=== PATIENT | male | born 1990 | race Caucasian/White ===

== ENCOUNTER 2020-09-27 02:34 | Outpatient (CLI) | payer MEDICAID, SELFPAY ==
[2020-09-29 21:46] LABS: Patient Race White; SARS-CoV-2 RNA Undetected (Undetected); SARS-CoV-2 Specimen Source Nasal
== END 2020-09-27 02:54 ==
PROVIDERS: PCP Family Medicine; Visit Provider Family Medicine
DX: J02.9 Acute pharyngitis, unspecified (principal)
CPT/HCPCS: U0003

== ENCOUNTER 2020-09-28 16:26 | Outpatient (REF) | payer MEDICAID, SELFPAY | END 2020-09-28 16:46 | LOC: LBN 16:26 | PROVIDERS: PCP Family Medicine; Visit Provider Family Medicine | DX: J02.9 Acute pharyngitis, unspecified (principal) | CPT/HCPCS: 87070 ==

== ENCOUNTER 2021-02-07 02:53 | Outpatient (CLI) | payer MEDICAID, SELFPAY ==
[2021-02-07 11:10] LABS: Source Nasal/Nares
[2021-02-07 14:25] LABS: COVID-19 PCR Negative (Negative)
== END 2021-02-07 02:54 | disposition home or self-care (01) ==
LOC: LBO 02:54
PROVIDERS: PCP Family Medicine; Visit Provider Nurse Practitioner
DX: Z20.822 Contact with and (suspected) exposure to COVID-19 (principal); Z01.818 Encounter for other preprocedural examination; G47.33 Obstructive sleep apnea (adult) (pediatric)
CPT/HCPCS: 87635

== ENCOUNTER 2021-03-26 08:17 | Emergency (ER) | payer MEDICAID, SELFPAY ==
[2021-03-26 08:23] VITALS: BP 135/91; PULSE 91; RESP 18; TEMP 36.7; O2SAT 98
--- NOTE | 2021-03-26 08:32 | ED.GENADUL_ITS ---
Discharge Plan Disposition Patient Disposition: HOME Condition: Stable Discharge Details Clinical Impression: Dental infection Primary Care Provider: Willis Henderson ED Provider: Kristi Johnson Home Meds and New Rx's Prescriptions: New amoxicillin-pot clavulanate [Augmentin] 875-125 mg tablet 1 tab PO BID Qty: 14 RF: 0 Continued albuterol sulfate [ProAir HFA] 90 mcg/actuation HFA aerosol inhaler 2 puff inhalation Q4H PRN (Reason: shortness of breath or wheezing) Qty: 18 RF: 6 clonidine HCl 0.1 mg tablet See Rx Instructions PO BID Qty: 360 RF: 3 hydroxyzine HCl 50 mg tablet See Rx Instructions PO BID PRN (Reason: anxiety) Qty: 145 RF: 3 lisinopril 20 mg tablet 20 mg PO DAILY Qty: 90 RF: 3 omeprazole 40 mg capsule,delayed release(DR/EC) 40 mg PO DAILY Qty: 90 RF: 3 budesonide-formoterol [Symbicort] 80-4.5 mcg/actuation HFA aerosol inhaler 2 puff inhalation BID Qty: 10.2 RF: 3 Discharge Instructions Instructions: Benzocaine (By mouth), Dental Abscess (ED) Additional Instructions: Your exam is most consistent with a dental infection. Please take the antibiotics prescribed, this is been sent to your local pharmacy. Even if symptoms improve, please take the entire course. You received a dental block which hopefully will provide a few hours of relief. You may use the benzocaine topically 4 times a day needed to to help with discomfort. Please pressure teeth at least twice a day. He will need follow-up with a dentist to have definitive care for this infection. Attached is a list of local dental offices Saturday to schedule follow-up appointment. If you develop fever/chills, increased pain, increased swelling or other new/worsening symptoms care urgently once again. You may continue with Tylenol and/or ibuprofen as needed for discomfort. Please take as directed on the bottle. Referrals: Willis Henderson DO [Primary Care Provider] - Medical Decision Making Patient is a pleasant 30-year-old male presenting today with chief complaint of dental pain. Reports the pain began in the upper left posterior aspect 3 days ago. No known fevers or chills. States he may MORNING he noticed some facial swelling prompting them to come in. Patient has had dental infections historically. Only brushes his teeth once per day. Has not had routine care from the dentist. No difficulty swallowing, shortness of breath. On exam, patient appears nontoxic. Vital signs are stable. He has multiple fractured teeth and areas of decay. He is tender along the upper posterior left buccal aspect of the dentition. The #15 tooth is broken and decaying, is likely the source of infection. No focal area of swelling, fluctuance or area to suggest an abscess. He has good range of motion, no abnormalities to the posterior oropharynx structures. No swelling under the tongue. He does have some facial swelling on the left cheek but this is soft and nontender to palpation. Patient and I discussed treatment options. We will begin the patient on antibiotics for dental infection. We did discuss dental hygiene further. Encourage close follow-up with dentist, will provide list of local dentist. Rest of history/benefits as well as expected procedural steps associated with a dental block. He would like to move forward with this procedure. At this time, I see no evidence of drainable abscess, evidence of septicemia or spreading infection. Procedure with reformatted mix of 1-1 0.5% bupivacaine and 1% lidocaine plain. Patient tolerated the procedure well. Pain is improved. Patient will be started on antibiotics. Nuclear encourage close follow-up with dentist. List of local dentists were given and he will begin calling on Saturday. Return precautions were discussed. All his questions and concerns were addressed in agreement with plan. HPI General Mode of arrival: ambulatory . Date/Time Provider Initiated Documentation: 03/26/21 08:32 . Limitations to Documentation: no limitations . Information obtained by: patient and RN notes reviewed . History of Present Illness 30 year old M presents to the emergency department with the chief complaint of left upper dental pain, described as severe and similar to prior episodes, with intensity rated at 8. Quality is described as aching, and is localized to the mouth. Patient reports no radiation. Patient started experiencing this day(s) (3) and it has been constant. No relieving factors improve symptom(s), No exacerbating factors reported . Patient notes no other symptoms.. Patient did receive the following treatments prior to arrival, NSAID Related Data Home Medications Medication Instructions Recorded Confirmed albuterol sulfate 90 mcg/actuation 2 puff INHALATION Q4H PRN #18 g 10/05/20 03/26/21 aerosol inhaler clonidine HCl 0.1 mg tablet See Rx Instructions PO BID #360 tab 01/06/21 03/26/21 hydroxyzine HCl 50 mg tablet See Rx Instructions PO BID PRN 01/06/21 03/26/21 #145 tab lisinopril 20 mg tablet 20 mg PO DAILY #90 tab 01/06/21 03/26/21 omeprazole 40 mg capsule,delayed 40 mg PO DAILY #90 cap 01/06/21 03/26/21 release budesonide-formoterol HFA 80 2 puff INHALATION BID #10.2 g 03/03/21 03/26/21 mcg-4.5 mcg/actuation aerosol inhaler amoxicillin-pot clavulanate 1 tab PO BID #14 tab 03/26/21 [Augmentin] Previous Rx's Medication Instructions Recorded albuterol sulfate 90 mcg/actuation 2 puff INHALATION Q4H PRN #18 g 10/05/20 aerosol inhaler clonidine HCl 0.1 mg tablet See Rx Instructions PO BID #360 tab 01/06/21 hydroxyzine HCl 50 mg tablet See Rx Instructions PO BID PRN 01/06/21 #145 tab lisinopril 20 mg tablet 20 mg PO DAILY #90 tab 01/06/21 omeprazole 40 mg capsule,delayed 40 mg PO DAILY #90 cap 01/06/21 release budesonide-formoterol HFA 80 2 puff INHALATION BID #10.2 g 03/03/21 mcg-4.5 mcg/actuation aerosol inhaler amoxicillin-pot clavulanate 1 tab PO BID #14 tab 03/26/21 [Augmentin] Allergies Allergy/AdvReac Type Severity Reaction Status Date / Time codeine Allergy Intermediate rash Verified 03/26/21 08:28 General Stated Complaint: DentalOral JASON: 4 Review of Systems Constitutional Constitutional: Reports as per HPI, Denies chills, Denies fatigue, Denies fever(s), Denies headache(s) and Denies poor appetite Eyes Eyes: Denies change in vision and Denies irritation ENT Ears, Nose, Mouth, and Throat: Reports as per HPI, Reports dental pain, Denies dysphagia, Denies dizziness, Denies dry mouth, Denies ear discharge, Denies otalgia, Reports facial pain, Denies headache(s), Denies hoarseness, Denies lip swelling, Denies nasal congestion, Denies odynophagia and Denies sore throat Cardiovascular Cardiovascular: Reports as per HPI and Denies chest pain Respiratory Respiratory: Reports as per HPI and Denies cough Gastrointestinal Gastrointestinal: Reports as per HPI, Denies dysphagia, Denies nausea, Denies odynophagia and Denies vomiting Integumentary/Breasts Skin/Breast: Reports as per HPI, Denies erythema, Denies rash and Denies skin pain Neurologic Neurologic: Reports as per HPI, Denies dizziness and Denies headache(s) Endocrine Endocrine: Denies fatigue Allergic/Immunologic Allergic/Immunologic: Denies lip swelling PFSH Medical History ADHD Anxiety Asthma Depression GERD (gastroesophageal reflux disease) History of substance abuse Hypertension Family History Mother Substance abuse Brother Substance abuse Uncle Anxiety Depression Other Diabetes Hypertension Liver cancer Social History Smoking/Tobacco Use Status: Current every day Tobacco Type: cigarettes Smoking packs per day: 1 Smoking cigarettes per day: 20.0 Years smoked: 15 Smoking pack- years: 15.00 Smoking risk assessment performed?: Yes Alcohol Intake: former Year quit: 2019 Previous attempts at quittin Drug use: Current Sobriety Substance use type: former substance user Date of last use: 07/01/2020, marijuana, crack/cocaine and opiates Details: No IV Drug Use Adopted: No Caregiver/Support person: No Foster care: No Household members: none Housing: other Details: Sober Living Number of Children: 0 Do you need help understanding health information?: Rarely current occupation: Unemployed Sexually active: Yes Do you think of yourself as: straight/heterosexual Current gender identity: male Do you feel safe at home: Yes Exam Const General: cooperative, healthy appearing, comfortable, no acute distress, well developed and well groomed Nutritional Appearance: average body habitus and well nourished Orientation: alert and awake HENMT Head: normal to inspection, normocephalic and atraumatic Ears: hearing grossly normal bilaterally, external ears normal and TM's normal bilaterally General nose exam: external nose normal and nares normal Face and sinus: normal facial exam, sinuses nontender and face asymmetric (slight swelling noted on left side of face) Mouth: oral mucosae normal, lip normal, tongue normal, no muffled voice, no trismus and No restricted motion Teeth and gingiva: poor dentition (multiple fractured teeth, multiple caries) and other (pain along left upper buccal posterior aspect. No pain lingually. No swelli) Throat: posterior oropharynx normal, tonsils normal and uvula midline Eyes General: appearance normal, both eyes and all related structures Neck Neck: normal visual inspection, full ROM, no lymphadenopathy, supple and no anterior neck swelling Resp Effort & Inspection: normal respiratory effort, able to speak in complete sentences and no respiratory distress Cardio Rate: regular rate Rhythm: regular rhythm Skin General skin exam: no rashes or lesions noted Trauma: no lacerations or abrasions Neuro General: patient alert and patient awake Cognition: normal cognition Speech: speech normal Gait: normal gait Psych Appearance: grossly normal and well kempt Mental Status: mental status grossly normal Speech and Movement: speech and movement normal Course Vital Signs Vital signs: Vital Signs Temperature 36.7 C 03/26/21 08:23 Pulse 91 H 03/26/21 08:23 Respiratory Rate 18 03/26/21 08:23 Blood Pressure 135/91 H 03/26/21 08:23 Pulse Oximetry 98 03/26/21 08:23 Temperature 36.7 C 03/26/21 08:23 Temperature Source Temporal Artery Scan 03/26/21 08:23 Pulse 91 H 03/26/21 08:23 Respiratory Rate 18 03/26/21 08:23 Respiratory Effort 03/26/21 08:26 Blood Pressure 135/91 H 03/26/21 08:23 Blood Pressure Position Supine 03/26/21 08:23 Pulse Oximetry 98 03/26/21 08:23 Oxygen Delivery Method Room Air 03/26/21 08:23 Oxygen Flow Rate 0 03/26/21 08:23 Pain Level 8 03/26/21 08:29 Procedures Nerve Block Nerve Block 1: Time out performed: Yes Local Anesthetic: Lidocaine 1% and Bupivicaine 0.5% Amount of anesthesia used (mL): 2 Side: left Intraoral Nerve Block: superior alveolar Procedure Successful: Yes Patient Tolerated Procedure: well and no complications Complications: none
[2021-03-26] MEDS: Benzocaine 20% Gel 30 GM JAR MM (08:51)
[2021-03-26] MEDS: Bupivacaine 0.5% Pres-Free 30 ML VIAL IJ (08:52)
== END 2021-03-26 09:15 | disposition home or self-care (01) ==
PROVIDERS: Emergency Provider Physician Assistant; PCP Family Medicine
DX: K04.7 Periapical abscess without sinus (principal)
CPT/HCPCS: 64400

== ENCOUNTER 2021-12-25 12:19 | Emergency (ER) | payer MEDICAID, SELFPAY ==
[2021-12-25 12:38] VITALS: BP 128/93; PULSE 98; RESP 16; TEMP 36.8; O2SAT 97
--- NOTE | 2021-12-25 12:45 | DI.RAD_ITS ---
Exam(s) XR ELBOW LT COMPLETE EXAM: XR ELBOW LT COMPLETE CLINICAL HISTORY: Trauma. TECHNIQUE: 2D digital imaging was performed. COMPARISON: No exams were available for comparison FINDINGS: BONES: No acute fracture is present. No bony destructive lesion is seen. JOINTS: The elbow is normally aligned. No joint effusion is seen. SOFT TISSUE: Normal. IMPRESSION: Unremarkable radiographs of the left elbow. DATA REPOSITORY: RADIATION DOSE DELIVERED:
--- NOTE | 2021-12-25 12:45 | DI.RAD_ITS ---
Exam(s) XR SHOULDER LT COMPLETE 2+V EXAM: XR SHOULDER LT COMPLETE 2+V CLINICAL HISTORY: Fall. TECHNIQUE: 2D digital imaging was performed. COMPARISON: No exams were available for comparison FINDINGS: BONES: No acute fracture is present. No bony destructive lesion is seen. Degenerative changes with s ubchondral cysts in the glenoid. JOINTS: No dislocation present. SOFT TISSUE: Normal. IMPRESSION: No acute abnormality.. DATA REPOSITORY: RADIATION DOSE DELIVERED:
--- NOTE | 2021-12-25 13:35 | W.ED.GENAD ---
Discharge Plan Disposition Patient Disposition: HOME Condition: Stable Discharge Details Clinical Impression: Sprain of left shoulder Primary Care Provider: Willis Henderson ED Provider: Brandee Seals Home Meds and New Rx's Prescriptions: Continued albuterol sulfate [ProAir HFA] 90 mcg/actuation HFA aerosol inhaler 2 puff inhalation Q4H PRN (Reason: shortness of breath or wheezing) Qty: 18 6RF clonidine HCl 0.1 mg tablet See Rx Instructions PO BID Qty: 360 3RF Rx Instructions: 0.2 mg BID, may titrate down PO twice a day; lisinopril 20 mg tablet 20 mg PO DAILY Qty: 90 3RF omeprazole 40 mg capsule,delayed release(DR/EC) 40 mg PO DAILY Qty: 90 3RF budesonide-formoterol [Symbicort] 160-4.5 mcg/actuation HFA aerosol inhaler 2 puff inhalation BID Qty: 10.2 6RF hydroxyzine HCl 50 mg tablet See Rx Instructions PO BID PRN (Reason: anxiety) Qty: 145 3RF Rx Instructions: t 1/2 tab qam and t1 tab qhs PO twice a day PRN; Discharge Instructions Instructions: Shoulder Sprain (ED) Additional Instructions: Take muscle relaxers up to 3 times daily as needed for muscle spasm. Please take Tylenol or Ibuprofen with food every 4-6 hours as needed for pain and swelling. Alternate ice and heat. If continued pain follow-up with orthopedics in the next 1 to 2 weeks. Follow up with primary care provider in 3-5 days. Return to ED sooner if any worsening or concerns. Increase oral fluids. Stand Alone Forms: Work Release Referrals: Willis Henderson DO [Primary Care Provider] - 2 weeks Dajuan Prakash MD [ [facility] ST[facility]FF [facility]YSICIAN] - 2 weeks Discharge Data Discharge Date/Time-TO BE ENTERED AT DEPARTURE: 12/25/21 14:10 Medical Decision Making 31-year-old male presents to the ER with chief complaint of left elbow, left shoulder and posterior back pain after getting out of the truck and slipping and falling this morning. Patient did not hit his head and denies any loss of consciousness. EXAM: XR ELBOW LT COMPLETE CLINICAL HISTORY: Trauma. TECHNIQUE: 2D digital imaging was performed. COMPARISON: No exams were available for comparison FINDINGS: BONES: No acute fracture is present. No bony destructive lesion is seen. JOINTS: The elbow is normally aligned. No joint effusion is seen. SOFT TISSUE: Normal. IMPRESSION: Unremarkable radiographs of the left elbow. EXAM:? XR SHOULDER LT COMPLETE 2+V CLINICAL HISTORY: ? Fall.? TECHNIQUE:? 2D digital imaging was performed. COMPARISON:? No exams were available for comparison FINDINGS: BONES: No acute fracture is present. No bony destructive lesion is seen.? Degenerative changes with subchondral cysts in the glenoid. JOINTS: No dislocation present. SOFT TISSUE: Normal. IMPRESSION: No acute abnormality..? Discussed results with patient who verbally understanding. Discussed home care and alternating ice and heat. Patient was given Flexeril to go and instructed on taking Tylenol and ibuprofen. This text was generated using [employer] system, please disregard any oddities of phrase or misspellings. HPI General Mode of arrival: ambulatory. Date/Time Provider Initiated Documentation: 12/25/21 12:45. Limitations to Documentation: no limitations. Information obtained by: patient, RN notes reviewed and old records reviewed. HPI Narrative: 31-year-old male presents to the ER with chief complaint of left elbow, left shoulder and posterior back pain after getting out of the truck and slipping and falling this morning. Patient did not hit his head and denies any loss of consciousness. It occurred at approximately 9:00. He reports having a history of surgery to the shoulder but he is concerned about this. He does have full range of motion noted to his elbow, no obvious swelling or deformity noted. Distal CMS is intact. He is able to abduct his shoulder to approximately 90 degrees which he reports is at his baseline. No midline tenderness or crepitus palpated. He is alert and oriented. He does have a past medical history of hypertension, GERD, asthma, ADHD and depression. Related Data Home Medications Medication Instructions Recorded Confirmed albuterol sulfate 90 mcg/actuation 2 puff INHALATION Q4H PRN #18 g 10/05/20 12/25/21 aerosol inhaler (ProAir HFA) clonidine HCl 0.1 mg tablet See Rx Instructions PO BID #360 tab 01/06/21 12/25/21 lisinopril 20 mg tablet 20 mg PO DAILY #90 tab 01/06/21 12/25/21 omeprazole 40 mg capsule,delayed 40 mg PO DAILY #90 cap 01/06/21 12/25/21 release budesonide-formoterol HFA 160 2 puff INHALATION BID #10.2 g 11/23/21 12/25/21 mcg-4.5 mcg/actuation aerosol inhaler (Symbicort) hydroxyzine HCl 50 mg tablet See Rx Instructions PO BID PRN 11/23/21 12/25/21 #145 tab Previous Rx's Medication Instructions Recorded albuterol sulfate 90 mcg/actuation 2 puff INHALATION Q4H PRN #18 g 10/05/20 aerosol inhaler (ProAir HFA) clonidine HCl 0.1 mg tablet See Rx Instructions PO BID #360 tab 01/06/21 lisinopril 20 mg tablet 20 mg PO DAILY #90 tab 01/06/21 omeprazole 40 mg capsule,delayed 40 mg PO DAILY #90 cap 01/06/21 release budesonide-formoterol HFA 160 2 puff INHALATION BID #10.2 g 11/23/21 mcg-4.5 mcg/actuation aerosol inhaler (Symbicort) hydroxyzine HCl 50 mg tablet See Rx Instructions PO BID PRN 11/23/21 #145 tab Allergies Allergy/AdvReac Type Severity Reaction Status Date / Time codeine Allergy Intermediate rash Verified 12/25/21 12:42 General Stated Complaint: Orthopedic JASON: 4 Review of Systems All systems reviewed & are unremarkable except as noted in HPI and below Musculoskeletal Musculoskeletal: Reports as per HPI, Denies abnormal gait, Reports back pain and Reports arthralgias Neurologic Neurologic: Denies abnormal gait [facility] All Active Problems Sprain of left shoulder (Acute) Dental infection (Acute) Severe obstructive sleep apnea (Acute) 12/17/20 sleep study [facility] Oral thrush (Acute) Otitis media of left ear (Acute) Pharyngitis (Acute) Depression (Chronic) ADHD (Acute) Anxiety (Chronic) GERD (gastroesophageal reflux disease) (Chronic) History of substance abuse (Acute) Asthma (Chronic) Hypertension (Chronic) Family History Mother Substance abuse Brother Substance abuse Uncle Anxiety Depression Other Diabetes Hypertension Liver cancer Social History Smoking/Tobacco Use Status: Current every day Tobacco Type: cigarettes Smoking packs per day: 1 Smoking cigarettes per day: 20.0 Years smoked: 15 Smoking pack-years: 15.00 Smoking risk assessment performed?: Yes Alcohol Intake: former Year quit: 2019 Previous attempts at quittin Drug use: Current Sobriety Substance use type: former substance user Date of last use: 07/01/2020, marijuana, crack/cocaine and opiates Details: No IV Drug Use Adopted: No Caregiver/Support person: No Foster care: No Household members: none Housing: other Details: Sober Living Number of Children: 0 Do you need help understanding health information?: Rarely current occupation: Unemployed Sexually active: Yes Do you think of yourself as: straight/heterosexual Current gender identity: male Do you feel safe at home: Yes Exam Narrative Exam Narrative: General: Well Developed, Awake and Alert, conversant. Skin: Warm and Dry HEENT: Head: No palpable deformities, Normocephalic Eyes: Pupils PERRLA, EOM's intact. No periorbital eccymosis or step off Ears: Canal patent. Tympanic membranes are clear . No wallace's sign, no hemptympanum. Nose/Face: Atraumatic. Facial bones nontender to palpation and stable with manipulation. Mouth/Throat: No intraoral trauma. Teeth and mandible are intact. Neck: No midline tenderness, no step off, no deformity to palpation of C-spine. Trachea midline. Chest: No surface trauma. Nontender without crepitus or deformity. Lungs clear to ausculatation bilaterally. Heart: RRR, no rubs, murmurs or gallop. Abdomen: No abrasions, ecchymosis, or surface trauma. Nondistended. Nontender to palpation no guarding, rebound, or rigidity. Pelvis: Nontender to palpation and stable to compression. Femoral pulses strong and equal Extremities: no surface trauma. Sensation intact. Peripheral pulses intact and equal. Neuro: ANO x4, GCS 15, cranial nerves II through XII intact. Motor and sensory exam nonfocal. Reflexes are symmetric. Course Vital Signs Vital signs: Vital Signs Temperature 36.8 C 12/25/21 12:38 Pulse 98 H 12/25/21 12:38 Respiratory Rate 16 12/25/21 12:38 Blood Pressure 128/93 H 12/25/21 12:38 Pulse Oximetry 97 12/25/21 12:38 Temperature 36.8 C 12/25/21 12:38 Temperature Source Skin 12/25/21 12:38 Pulse 98 H 12/25/21 12:38 Respiratory Rate 16 12/25/21 12:38 Respiratory Effort 12/25/21 12:38 Blood Pressure 128/93 H 12/25/21 12:38 Blood Pressure Position Sitting 12/25/21 12:38 Pulse Oximetry 97 12/25/21 12:38 Oxygen Delivery Method Room Air 12/25/21 12:38 Oxygen Flow Rate 0 12/25/21 12:38 Pain Level 8 12/25/21 12:38
[2021-12-25] MEDS: Cyclobenzaprine 10 MG TAB, 3 TABS/BTL PO (14:08)
== END 2021-12-25 14:10 | disposition home or self-care (01) ==
PROVIDERS: Emergency Provider Registered Nurse Emergency; PCP Family Medicine
DX: S43.492A Other sprain of left shoulder joint, initial encounter (principal); M25.522 Pain in left elbow; M54.9 Dorsalgia, unspecified; W00.0XXA Fall on same level due to ice and snow, initial encounter
CPT/HCPCS: 99284; 73030; 73080; 99283

== ENCOUNTER 2022-01-31 17:07 | Emergency (ER) | payer MEDICAID, SELFPAY ==
[2022-01-31 17:57] VITALS: BP 140/85; PULSE 110; RESP 16; TEMP 36.7; O2SAT 95
[2022-01-31 18:11] VITALS: TEMP 37.8
[2022-01-31 18:27] LABS: Abs Immature Grans 0.07 10^3/uL (0.0-0.06); Absolute Eosinophil Count 0.37 10^3/uL (0.0-0.7); Absolute Lymphocyte Count 2.51 10^3/uL (1.2-3.4); Basophils % 0.5; Eosinophils % 2.1; HCT 44.2 % (40.0-50.0); HGB 14.3 g/dL (13.5-17.5); Immature Grans % 0.4; Lymphocytes % 14.2; MCH 28.4 pg (27.0-33.0); MCHC 32.4 % (32.0-36.0); MCV 87.7 fL (80-95); MPV 9.6 fL (8.0-11.0); Monocytes % 9.3; Neutrophils % 73.5; Nucleated RBC 0 %; Platelet Count 294 10^3/uL (130-400); RBC 5.04 10^6/uL (4.36-5.78); RDW 12.4 % (11.8-14.1); RDW-SD 39.6 fL; WBC 17.69 10^3/uL (4.4-10.8)
[2022-01-31] MEDS: Acetaminophen 500 MG TAB 1000 MG PO (18:37)
[2022-01-31] MEDS: Normal Saline 1,000 ML 1000 ML IV (18:37)
[2022-01-31 18:42] LABS: Source Nasal/Nares
[2022-01-31 18:43] LABS: ALT 38 U/L (16-63); AST 19 U/L (15-37); Albumin 3.9 g/dL (3.4-5.0); Alkaline Phosphatase 98 U/L (46-116); Anion Gap 8.7 mmol/L (3-11); BUN 14 mg/dL (7-18); Bilirubin, Total 0.3 mg/dL (0.2-1.0); CO2 28.3 mmol/L (21.0-32.0); CREATININE 1.1 mg/dL (0.70-1.30); Calcium 8.5 mg/dL (8.5-10.1); Chloride 102 mmol/L (98-107); Glucose 89 mg/dL (74-106); Lipase 62 U/L (73-393); Potassium 3.8 mmol/L (3.5-5.1); Sodium 139 mmol/L (136-145); Total Protein 7.4 g/dL (6.4-8.2)
[2022-01-31 18:53] LABS: Bilirubin Negative (Negative); Blood Negative (Negative); Clarity Clear (Clear); Glucose Negative (Negative); Ketones Negative (Negative); Leukocyte Esterase Negative (Negative); Nitrite Negative (Negative); Specific Gravity 1.025 (1.005-1.025); Urobilinogen 0.2 EU/dL (Up TO 0.2)
[2022-01-31 18:57] LABS: Absolute Basophil Count 0.09 10^3/uL (0.0-0.2); Absolute Monocyte Count 1.65 10^3/uL (0.1-0.8)
[2022-01-31] MEDS: Ketorolac 30 MG/ML VIAL IVP (19:15)
[2022-01-31 19:37] LABS: COVID-19 PCR Negative (Negative)
[2022-01-31 19:59] LABS: D-Dimer 362 ng/mlFEU (<500)
--- NOTE | 2022-01-31 20:00 | DI.RAD_ITS ---
Exam(s) XR CHEST 2V PA LATERAL EXAM: XR CHEST 2V PA LATERAL CLINICAL HISTORY: cough/fever, covid neg TECHNIQUE: 2D digital imaging was performed of the chest. Two images were obtained. PA and lateral views were obtained. COMPARISON: No exams were available for comparison FINDINGS: MEDIASTINUM: Normal. HEART: Normal. PULMONARY VASCULATURE: Normal. LUNGS: Clear. PLEURAL SPACE: No pleural effusion or pneumothorax. BONE:Within normal limits for the patient's age. OTHER FINDINGS:Normal. IMPRESSION: No acute pulmonary findings. DATA REPOSITORY: RADIATION DOSE DELIVERED:
[2022-01-31 20:33] VITALS: BP 134/79; PULSE 108; RESP 18; TEMP 36.8; O2SAT 95
--- NOTE | 2022-01-31 20:38 | ED.GENADUL_ITS ---
Discharge Plan Disposition Patient Disposition: HOME Condition: Stable Discharge Details Clinical Impression: Pneumonia Primary Care Provider: Willis Henderson ED Provider: Zachary Tsai Home Meds and New Rx's Prescriptions: New azithromycin 250 mg tablet 250 mg PO DAILY 4 Days Qty: 4 0RF lidocaine [Lidoderm] 5 % adhesive patch,medicated 1 patch topical DAILY Qty: 15 0RF Rx Instructions: leave on most painful area for up to 12 hrs Continued albuterol sulfate [ProAir HFA] 90 mcg/actuation HFA aerosol inhaler 2 puff inhalation Q4H PRN (Reason: shortness of breath or wheezing) Qty: 18 6RF clonidine HCl 0.1 mg tablet See Rx Instructions PO BID Qty: 360 3RF Rx Instructions: 0.2 mg BID, may titrate down PO twice a day; budesonide-formoterol [Symbicort] 160-4.5 mcg/actuation HFA aerosol inhaler 2 puff inhalation BID Qty: 10.2 6RF hydroxyzine HCl 50 mg tablet See Rx Instructions PO BID PRN (Reason: anxiety) Qty: 145 3RF Rx Instructions: t 1/2 tab qam and t1 tab qhs PO twice a day PRN; lisinopril 20 mg tablet 20 mg PO DAILY Qty: 90 3RF omeprazole 40 mg capsule,delayed release(DR/EC) 40 mg PO DAILY Qty: 90 3RF Discharge Instructions Instructions: Pneumonia (ED) Additional Instructions: Azithromycin as directed. [id number] Tylenol and/or Motrin as directed f or discomfort. Lidoderm as directed. Please quit smoking. Watch for new or worsening symptoms and return to the ER for any concerns. I would like you to contact your primary care provider tomorrow to make them aware of your ER visit, ongoing symptoms, and need for outpatient reevaluation Discharge Data Discharge Date/Time-TO BE ENTERED AT DEPARTURE: 01/31/22 21:42 Medical Decision Making This is a 31-year-old gentleman, current smoker, past medical history that includes GERD, hypertension, anxiety asthma, substance abuse but denies IV drug use, presenting to the ER this evening from for evaluation of cough and which he initially described as left-sided abdominal pain. Patient states symptoms have been present for approximately 2 weeks. He denies fever, change of appetite, nausea, vomiting chest pain, shortness of breath, diarrhea, constipation, dysuria, radiation of this pain. He has not taken any [id number] occasions for his discussed. When asked to point to where his pain is he actually point to his left inferior rib region and not of his abdomen. Upon the further discussion, it would appear as though she actually does not have abdominal pain. Patient states mild pain at rest but worse with coughing, movement, deep breathing, etc. He denies any injury but believes the pain began after a severe cough. He is febrile and and presents with tachycardia. Plan is to obtain IV access, routine screening laboratory values including lipase a D-dimer. Will provide IV fluids and p.o. Tylenol. Will also obtain a COVID swab. He tells me he is fully vaccinated. Patient responded well to IV fluid, no longer with a fever or tachycardia. O2 sats are 96% room air, he does not require any supplemental oxygen. Laboratory values reveal leukocytosis of 17.69. Neutrophils 13. D-dimer u nremarkable at 362. Will pursue chest x-ray, CTA of the chest likely not required. Chemistries unremarkable. Lipase 62. Chest x-ray was read by radiology is unremarkable but I did question if there could be a very early infiltrate in the left lower lobe. Patient appears well, nontoxic and is hemodynamically stable. He does have some reproducible chest wall discomfort which is certainly course with movement or coughing. He reports his pain to me, will provide IV Toradol and a Lidoderm patch. Given his cough, fever, leukocytosis, questionable x-rays, I do believe initiating antibiotic therapy is reasonable. I discussed my thought process with patient. We also discussed obtaining a CTA of his chest to further evaluate his symptoms but at this time he declines. Patient states that he would like to pursue antibiotic therapy, will treat with [id number] medications and I will provide a prescription of Lidoderm patches. Strict discharge and return cautions were provided. Otherwise he will contact his primary care provider tomorrow to discuss his ER visit and need for outpatient reevaluation. Medical Records Medical records reviewed: Yes I reviewed the patient's medical records. Imaging Data Radiologic Study: Attestation: I personally reviewed and interpreted this imaging study as follows: Imaging: X-Ray Radiologist's impression: PROCEDURE INFORMATION: Exam: XR Chest Exam date and time: 01/31/2022 20:46 Age: 31 years old Clinical indication: Cough and fever; Additional info: Cough, fever, neg covid TECHNIQUE: Imaging protocol: XR of the chest. Views: 2 views. COMPARISON: CR XR SHOULDER LT COMPLETE 2+V 12/25/2021 13:12 FINDINGS: Lungs: No airspace consolidation. No significant interstitial disease for the degree of inflation. Pleural spaces: No pleural effusion. No pneumothorax. Heart/Mediastinum: No cardiomegaly. Bones/joints: No acute fracture. IMPRESSION: No acute cardiopulmonary pathology. Lab Data Lab results reviewed: Yes I reviewed the patient's lab results. Labs: Laboratory Tests Range/Units 01/31/22 01/31/22 01/31/22 18:20 18:20 18:33 WBC (4.4-10.8) 10^3/uL 17.69 H RBC (4.36-5.78) 10^6/uL 5.04 Hgb (13.5-17.5) g/dL 14.3 Hct (40.0-50.0) % 44.2 MCV (80-95) fL 87.7 MCH (27.0-33.0) pg 28.4 MCHC (32.0-36.0) % 32.4 RDW (11.8-14.1) % 12.4 Plt Count (130-400) 10^3/uL 294 MPV (8.0-11.0) fL 9.6 Immature Gran % 0.4 Neutrophils % 73.5 Lymphocytes % 14.2 Monocytes % 9.3 Eosinophils % 2.1 Basophils % 0.5 Nucleated RBC % % 0 Absolute Neutrophils (1.2-6.7) 10^3/uL 13.00 H Absolute Lymphocytes (1.2-3.4) 10^3/uL 2.51 Absolute Monocytes (0.1-0.8) 10^3/uL 1.65 H Absolute Eosinophils (0.0-0.7) 10^3/uL 0.37 Absolute Basophils (0.0-0.2) 10^3/uL 0.09 D-Dimer (<500) ng/mlFEU Sodium (136-145) mmol/L 139 Potassium (3.5-5.1) mmol/L 3.8 Chloride (98-107) mmol/L 102 Carbon Dioxide (21.0-32.0) mmol/L 28.3 Anion Gap (3-11) mmol/L 8.7 BUN (7-18) mg/dL 14 Creatinine (0.70-1.30) mg/dL 1.1 Estimated GFR/1.73 m2 (mL/min/1.73m2) >= 60.00 Glucose (74-106) mg/dL 89 Calcium (8.5-10.1) mg/dL 8.5 Total Bilirubin (0.2-1.0) mg/dL 0.3 AST (15-37) U/L 19 ALT (16-63) U/L 38 Alkaline Phosphatase (46-116) U/L 98 Total Protein (6.4-8.2) g/dL 7.4 Albumin (3.4-5.0) g/dL 3.9 Lipase (73-393) U/L 62 Urine Color (Yellow) Yellow Urine Clarity (Clear) Clear Urine pH (5-8) 6.0 Ur Specific [place] (1.005-1.025) 1.025 Urine Protein (Negative) mg/dL Negative Urine Ketones (Negative) mg/dL Negative Urine Blood (Negative) Negative Urine Nitrite (Negative) Negative Urine Bilirubin (Negative) Negative Urine Urobilinogen (Up TO 0.2) EU/dL 0.2 Ur Leukocyte Esterase (Negative) Negative Urine Glucose (Negative) mg/dL Negative COVID-19 Source SARS-CoV-2 (PCR) (Negative) Range/Units 01/31/22 01/31/22 18:37 19:13 WBC (4.4-10.8) 10^3/uL RBC (4.36-5.78) 10^6/uL Hgb (13.5-17.5) g/dL Hct (40.0-50.0) % MCV (80-95) fL MCH (27.0-33.0) pg MCHC (32.0-36.0) % RDW (11.8-14.1) % Plt Count (130-400) 10^3/uL MPV (8.0-11.0) fL Immature Gran % Neutrophils % Lymphocytes % Monocytes % Eosinophils % Basophils % Nucleated RBC % % Absolute Neutrophils (1.2-6.7) 10^3/uL Absolute Lymphocytes (1.2-3.4) 10^3/uL Absolute Monocytes (0.1-0.8) 10^3/uL Absolute Eosinophils (0.0-0.7) 10^3/uL Absolute Basophils (0.0-0.2) 10^3/uL D-Dimer (<500) ng/mlFEU 362 Sodium (136-145) mmol/L Potassium (3.5-5.1) mmol/L Chloride (98-107) mmol/L Carbon Dioxide (21.0-32.0) mmol/L Anion Gap (3-11) mmol/L BUN (7-18) mg/dL Creatinine (0.70-1.30) mg/dL Estimated GFR/1.73 m2 (mL/min/1.73m2) Glucose (74-106) mg/dL Calcium (8.5-10.1) mg/dL Total Bilirubin (0.2-1.0) mg/dL AST (15-37) U/L ALT (16-63) U/L Alkaline Phosphatase (46-116) U/L Total Protein (6.4-8.2) g/dL Albumin (3.4-5.0) g/dL Lipase (73-393) U/L Urine Color (Yellow) Urine Clarity (Clear) Urine pH (5-8) Ur Specific [place] (1.005-1.025) Urine Protein (Negative) mg/dL Urine Ketones (Negative) mg/dL Urine Blood (Negative) Urine Nitrite (Negative) Urine Bilirubin (Negative) Urine Urobilinogen (Up TO 0.2) EU/dL Ur Leukocyte Esterase (Negative) Urine Glucose (Negative) mg/dL COVID-19 Source Nasal/Nares SARS-CoV-2 (PCR) (Negative) Negative HPI General Mode of arrival: ambulatory . Date/Time Provider Initiated Documentation: 01/31/22 18:10 . Limitations to Documentation: no limitations . Information obtained by: patient . History of Present Illness 31 year old M presents to the emergency department with the chief complaint of abd pain/cough, described as moderate, with intensity rated at 7. Quality is described as aching, and is localized to the abdomen. Patient reports no radiation. Patient started experiencing this week(s) (2) and it has been constant. improves with No relieving factors improve symptom(s), Other factors that worsen symptoms (coughing) . Patient notes fever/chills (here today). Patient did receive the following treatments prior to arrival, none Related Data Home Medications Medication Instructions Recorded Confirmed albuterol sulfate 90 mcg/actuation 2 puff INHALATION Q4H PRN #18 g 10/05/20 01/31/22 aerosol inhaler (ProAir HFA) clonidine HCl 0.1 mg tablet See Rx Instructions PO BID #360 tab 01/06/21 01/31/22 budesonide-formoterol HFA 160 2 puff INHALATION BID #10.2 g 11/23/21 01/31/22 mcg-4.5 mcg/actuation aerosol inhaler (Symbicort) hydroxyzine HCl 50 mg tablet See Rx Instructions PO BID PRN 11/23/21 01/31/22 #145 tab lisinopril 20 mg tablet 20 mg PO DAILY #90 tab 12/29/21 01/31/22 omeprazole 40 mg capsule,delayed 40 mg PO DAILY #90 cap 01/15/22 01/31/22 release azithromycin 250 mg tablet 250 mg PO DAILY 4 Days #4 tab 01/31/22 lidocaine 5 % topical patch 1 patch TOPICAL DAILY #15 ea 01/31/22 (Lidoderm) Previous Rx's Medication Instructions Recorded albuterol sulfate 90 mcg/actuation 2 puff INHALATION Q4H PRN #18 g 10/05/20 aerosol inhaler (ProAir HFA) clonidine HCl 0.1 mg tablet See Rx Instructions PO BID #360 tab 01/06/21 budesonide-formoterol HFA 160 2 puff INHALATION BID #10.2 g 11/23/21 mcg-4.5 mcg/actuation aerosol inhaler (Symbicort) hydroxyzine HCl 50 mg tablet See Rx Instructions PO BID PRN 11/23/21 #145 tab lisinopril 20 mg tablet 20 mg PO DAILY #90 tab 12/29/21 omeprazole 40 mg capsule,delayed 40 mg PO DAILY #90 cap 01/15/22 release azithromycin 250 mg tablet 250 mg PO DAILY 4 Days #4 tab 01/31/22 lidocaine 5 % topical patch 1 patch TOPICAL DAILY #15 ea 01/31/22 (Lidoderm) Allergies Allergy/AdvReac Type Severity Reaction Status Date / Time codeine Allergy Intermediate rash Verified 12/25/21 12:42 General Stated Complaint: Abd Prob JASON: 3 Review of Systems Constitutional Constitutional: Denies fatigue, Reports fever(s) (Denies but febrile now) and Denies headache(s) ENT Ears, Nose, Mouth, and Throat: Denies headache(s) and Denies neck pain Cardiovascular Cardiovascular: Denies chest pain and Denies dyspnea Respiratory Respiratory: Reports cough and Denies dyspnea Gastrointestinal Gastrointestinal: Reports abdominal pain, Denies diarrhea, Denies nausea and Denies vomiting Genitourinary Genitourinary: Denies dysuria Musculoskeletal Musculoskeletal: Denies neck pain Integumentary/Breasts Skin/Breast: Denies rash Neurologic Neurologic: Denies headache(s) Endocrine Endocrine: Denies fatigue [facility] [place] All Active Problems Pneumonia (Acute) Dental infection (Acute) Severe obstructive sleep apnea (Acute) 12/17/20 sleep study [facility] Oral thrush (Acute) Otitis media of left ear (Acute) Pharyngitis (Acute) Depression (Chronic) ADHD (Acute) Anxiety (Chronic) GERD (gastroesophageal reflux disease) (Chronic) History of substance abuse (Acute) Asthma (Chronic) Hypertension (Chronic) Family History Mother Substance abuse Brother Substance abuse Uncle Anxiety Depression Other Diabetes Hypertension Liver cancer Social History Smoking/Tobacco Use Status: Current every day Tobacco Type: cigarettes Smoking packs per day: 1 Smoking cigarettes per day: 20.0 Years smoked: 15 Smoking pack- years: 15.00 Smoking risk assessment performed?: Yes Alcohol Intake: former Year quit: 2019 Previous attempts at quittin Drug use: Current Sobriety Substance use type: former substance user Date of last use: 07/01/2020, marijuana and opiates Details: No IV Drug Use Adopted: No Caregiver/Support person: No Foster care: No Household members: none Housing: other Details: Sober Living Number of Children: 0 Do you need help understanding health information?: Rarely current occupation: Unemployed Sexually active: Yes Do you think of yourself as: straight/heterosexual Current gender identity: male Do you feel safe at home: Yes Do you feel safe in your relationship?: Yes Exam Const General: cooperative, healthy appearing, comfortable and no acute distress Orientation: alert and awake HENDC Head: normal to inspection, normocephalic and atraumatic Face and sinus: normal facial exam Mouth: moist mucous membranes Throat: posterior oropharynx normal Eyes General: appearance normal, both eyes and all related structures Conjunctivae: conjunctivae normal Neck Neck: normal visual inspection, full ROM, trachea midline, supple and nontender Chest Chest: tenderness Chest/axillae images: 1. Mild discomfort to palpation. No crepitus Resp Effort & Inspection: normal respiratory effort, able to speak in complete sentences and cough Quality of cough: dry Auscultation: diminished lung sounds on the left in the lower lung up Cardio Rate: regular rate Rhythm: regular rhythm GI Inspection: normal to inspection and obesity Palpation: soft, not firm, no guarding, no pulsatile masses and nontender Auscultation: normal bowel sounds Back/Spine/Pelvis Back: No back tenderness Skin General skin exam: no rashes or lesions noted Neuro General: patient alert, patient awake, moves all extremities and no focal motor deficits Cognition: normal cognition Speech: speech normal Gait: normal gait Sensory Exam: no sensory deficits noted Extrem General: normal to inspection, full ROM, capillary refill normal, no pedal edema and no calf tenderness Psych Appearance: grossly normal Mental Status: mental status grossly normal Course Vital Signs Vital signs: Vital Signs Temperature 36.7 C 01/31/22 17:57 Pulse 110 H 01/31/22 17:57 Respiratory Rate 16 01/31/22 17:57 Blood Pressure 140/85 01/31/22 17:57 Pulse Oximetry 95 01/31/22 17:57 Temperature 36.8 C 01/31/22 20:33 Pulse 108 H 01/31/22 20:33 Respiratory Rate 18 01/31/22 20:33 Respiratory Effort 01/31/22 18:02 Blood Pressure 134/79 01/31/22 20:33 Pulse Oximetry 95 01/31/22 20:33 Oxygen Delivery Method Room Air 01/31/22 17:57 Oxygen Flow Rate 0 01/31/22 17:57 Pain Level 4 01/31/22 18:02 Lab/Test Results Lab/Test Results: Laboratory Tests Range/Units 01/31/22 01/31/22 01/31/22 18:20 18:20 18:33 WBC (4.4-10.8) 10^3/uL 17.69 H RBC (4.36-5.78) 10^6/uL 5.04 Hgb (13.5-17.5) g/dL 14.3 Hct (40.0-50.0) % 44.2 MCV (80-95) fL 87.7 MCH (27.0-33.0) pg 28.4 MCHC (32.0-36.0) % 32.4 RDW (11.8-14.1) % 12.4 Plt Count (130-400) 10^3/uL 294 MPV (8.0-11.0) fL 9.6 Immature Gran % 0.4 Neutrophils % 73.5 Lymphocytes % 14.2 Monocytes % 9.3 Eosinophils % 2.1 Basophils % 0.5 Nucleated RBC % % 0 Absolute Neutrophils (1.2-6.7) 10^3/uL 13.00 H Absolute Lymphocytes (1.2-3.4) 10^3/uL 2.51 Absolute Monocytes (0.1-0.8) 10^3/uL 1.65 H Absolute Eosinophils (0.0-0.7) 10^3/uL 0.37 Absolute Basophils (0.0-0.2) 10^3/uL 0.09 D-Dimer (<500) ng/mlFEU Sodium (136-145) mmol/L 139 Potassium (3.5-5.1) mmol/L 3.8 Chloride (98-107) mmol/L 102 Carbon Dioxide (21.0-32.0) mmol/L 28.3 Anion Gap (3-11) mmol/L 8.7 BUN (7-18) mg/dL 14 Creatinine (0.70-1.30) mg/dL 1.1 Estimated GFR/1.73 m2 (mL/min/1.73m2) >= 60.00 Glucose (74-106) mg/dL 89 Calcium (8.5-10.1) mg/dL 8.5 Total Bilirubin (0.2-1.0) mg/dL 0.3 AST (15-37) U/L 19 ALT (16-63) U/L 38 Alkaline Phosphatase (46-116) U/L 98 Total Protein (6.4-8.2) g/dL 7.4 Albumin (3.4-5.0) g/dL 3.9 Lipase (73-393) U/L 62 Urine Color (Yellow) Yellow Urine Clarity (Clear) Clear Urine pH (5-8) 6.0 Ur Specific [place] (1.005-1.025) 1.025 Urine Protein (Negative) mg/dL Negative Urine Ketones (Negative) mg/dL Negative Urine Blood (Negative) Negative Urine Nitrite (Negative) Negative Urine Bilirubin (Negative) Negative Urine Urobilinogen (Up TO 0.2) EU/dL 0.2 Ur Leukocyte Esterase (Negative) Negative Urine Glucose (Negative) mg/dL Negative COVID-19 Source SARS-CoV-2 (PCR) (Negative) Range/Units 01/31/22 01/31/22 18:37 19:13 WBC (4.4-10.8) 10^3/uL RBC (4.36-5.78) 10^6/uL Hgb (13.5-17.5) g/dL Hct (40.0-50.0) % MCV (80-95) fL MCH (27.0-33.0) pg MCHC (32.0-36.0) % RDW (11.8-14.1) % Plt Count (130-400) 10^3/uL MPV (8.0-11.0) fL Immature Gran % Neutrophils % Lymphocytes % Monocytes % Eosinophils % Basophils % Nucleated RBC % % Absolute Neutrophils (1.2-6.7) 10^3/uL Absolute Lymphocytes (1.2-3.4) 10^3/uL Absolute Monocytes (0.1-0.8) 10^3/uL Absolute Eosinophils (0.0-0.7) 10^3/uL Absolute Basophils (0.0-0.2) 10^3/uL D-Dimer (<500) ng/mlFEU 362 Sodium (136-145) mmol/L Potassium (3.5-5.1) mmol/L Chloride (98-107) mmol/L Carbon Dioxide (21.0-32.0) mmol/L Anion Gap (3-11) mmol/L BUN (7-18) mg/dL Creatinine (0.70-1.30) mg/dL Estimated GFR/1.73 m2 (mL/min/1.73m2) Glucose (74-106) mg/dL Calcium (8.5-10.1) mg/dL Total Bilirubin (0.2-1.0) mg/dL AST (15-37) U/L ALT (16-63) U/L Alkaline Phosphatase (46-116) U/L Total Protein (6.4-8.2) g/dL Albumin (3.4-5.0) g/dL Lipase (73-393) U/L Urine Color (Yellow) Urine Clarity (Clear) Urine pH (5-8) Ur Specific [place] (1.005-1.025) Urine Protein (Negative) mg/dL Urine Ketones (Negative) mg/dL Urine Blood (Negative) Urine Nitrite (Negative) Urine Bilirubin (Negative) Urine Urobilinogen (Up TO 0.2) EU/dL Ur Leukocyte Esterase (Negative) Urine Glucose (Negative) mg/dL COVID-19 Source Nasal/Nares SARS-CoV-2 (PCR) (Negative) Negative
--- NOTE | 2022-01-31 21:00 | DI.VRAD_ITS ---
PROCEDURE INFORMATION: Exam: XR Chest Exam date and time: 01/31/2022 20:46 Age: 31 years old Clinical indication: Cough and fever; Additional info: Cough, fever, neg covid TECHNIQUE: Imaging protocol: XR of the chest. Views: 2 views. COMPARISON: CR XR SHOULDER LT COMPLETE 2+V 12/25/2021 13:12 FINDINGS: Lungs: No airspace consolidation. No significant interstitial disease for the degree of inflation. Pleural spaces: No pleural effusion. No pneumothorax. Heart/Mediastinum: No cardiomegaly. Bones/joints: No acute fracture. IMPRESSION: No acute cardiopulmonary pathology. Dictated and Authenticated by: Carmela Lieberman MD. Ordering:SUDHA Sharma MD
[2022-01-31 21:24] VITALS: BP 115/72; PULSE 94; RESP 16; TEMP 37; O2SAT 96
[2022-01-31] MEDS: Azithromycin 250 MG TAB 500 MG PO (21:27)
[2022-01-31] MEDS: Lidocaine 5% Patch 1 PATCH TP (21:27)
== END 2022-01-31 21:42 | disposition home or self-care (01) ==
PROVIDERS: Emergency Provider Physician Assistant; PCP Family Medicine
DX: J18.9 Pneumonia, unspecified organism (principal); R05.1 Acute cough; R50.9 Fever, unspecified; F17.210 Nicotine dependence, cigarettes, uncomplicated; Z20.822 Contact with and (suspected) exposure to COVID-19
CPT/HCPCS: 36415; 80053; 83690; 87635; 96361; 96374; 99284; 71046; 81003; 85025; 85379; J1885

== ENCOUNTER 2022-04-23 03:48 | Outpatient (CLI) | payer MEDICAID, SELFPAY ==
[2022-04-23 17:40] LABS: Uric Acid 7.9 mg/dL (3.5-7.2)
== END 2022-04-23 03:49 | disposition home or self-care (01) ==
LOC: LBO 03:48
PROVIDERS: PCP Family Medicine; Visit Provider Internal Medicine
DX: M10.9 Gout, unspecified (principal)
CPT/HCPCS: 36415; 84550

== ENCOUNTER 2022-06-30 17:45 | Emergency (ER) | payer MEDICAID, SELFPAY ==
[2022-06-30 17:51] VITALS: BP 144/97; PULSE 99; RESP 16; TEMP 37.1; O2SAT 96
--- NOTE | 2022-06-30 18:16 | W.ED.GENAD ---
Discharge Plan Disposition Patient Disposition: HOME Condition: Stable Discharge Details Clinical Impression: Dermal hypersensitivity reaction Primary Care Provider: Willis Henderson ED Provider: Shreyas Daugherty Home Meds and New Rx's Prescriptions: New triamcinolone acetonide 0.5 % cream 1 applic topical TID PRN (Reason: itching) Qty: 15 0RF Continued allopurinol 300 mg tablet 300 mg PO DAILY Qty: 90 3RF naproxen sodium 220 mg tablet 880 mg PO Q4H PRN colchicine 0.6 mg tablet 0.6 mg PO BID Qty: 30 0RF Rx Instructions: 1 twice a day x 2 days then 1 q day until pain & swelling gone albuterol sulfate [ProAir HFA] 90 mcg/actuation HFA aerosol inhaler 2 puff inhalation Q4H PRN (Reason: shortness of breath or wheezing) Qty: 18 6RF budesonide-formoterol [Symbicort] 160-4.5 mcg/actuation HFA aerosol inhaler 2 puff inhalation BID Qty: 10.2 6RF hydroxyzine HCl 50 mg tablet See Rx Instructions PO BID PRN (Reason: anxiety) Qty: 145 3RF Rx Instructions: t 1/2 tab qam and t1 tab qhs PO twice a day PRN; omeprazole 40 mg capsule,delayed release(DR/EC) 40 mg PO DAILY Qty: 90 3RF clonidine HCl 0.1 mg tablet 0.1 mg PO BID Qty: 180 3RF Discharge Instructions Instructions: Dermatitis (ED) Additional Instructions: Return immediately to the emergency department for any new or significant worsening of your symptoms including any difficulty breathing, swelling to your lips tongue or mouth, or any other concerning findings. Use the medication as prescribed and if not improving in the next 5 days please follow-up with your primary care provider for reassessment. Referrals: Willis Henderson DO [Primary Care Provider] - Discharge Data Discharge Date/Time-TO BE ENTERED AT DEPARTURE: 06/30/22 18:30 Medical Decision Making Patient presenting to the emergency department for chief complaint of caterpillar sting that occurred approximately 1 hour ago. Patient denies any difficulty breathing swallowing or swelling to the lips tongue or mouth. Patient has significant hives and dermatitis localized reaction to the right side of his neck and shoulder. No other worrisome findings are noted. Given significant amount of hives and irritation within 1 hour we will give patient single dose of Decadron, Benadryl and Pepcid. We will also prescribe patient topical steroid cream to start tomorrow. Discussed return and follow-up precautions. After discussion of diagnosis and plan of care patient has no further needs, questions, or concerns and states clear understanding to return to the emergency department for any worsening symptoms. This documentation was generated using [employer] dictation system, please disregard any oddities of phrase or misspellings. HPI General Mode of arrival: ambulatory. Date/Time Provider Initiated Documentation: 06/30/22 18:02. Limitations to Documentation: no limitations. Information obtained by: patient and RN notes reviewed. History of Present Illness 32 year old M presents to the emergency department with the chief complaint of Rash right-sided neck, described as moderate, Quality is described as other (Significant itching), and is localized to the neck and right. Patient reports no radiation. Patient started experiencing this hour(s) (1) and it has been constant. No relieving factors improve symptom(s), Patient notes no other symptoms.. Patient did receive the following treatments prior to arrival, none Related Data Home Medications Medication Instructions Recorded Confirmed albuterol sulfate 90 mcg/actuation 2 puff inhalation Q4H PRN 10/05/20 04/18/22 aerosol inhaler (ProAir HFA) shortness of breath or wheezing #18 grams budesonide-formoterol HFA 160 2 puff inhalation BID #10.2 grams 11/23/21 04/18/22 mcg-4.5 mcg/actuation aerosol inhaler (Symbicort) hydroxyzine HCl 50 mg tablet See Rx Instructions PO BID PRN 11/23/21 04/18/22 anxiety #145 tabs omeprazole 40 mg capsule,delayed 40 mg PO DAILY #90 caps 01/15/22 04/18/22 release clonidine HCl 0.1 mg tablet 0.1 mg PO BID #180 tabs 04/05/22 04/18/22 colchicine 0.6 mg tablet 0.6 mg PO BID podagra #30 tabs 04/18/22 04/18/22 naproxen sodium 220 mg tablet 880 mg PO Q4H PRN 04/18/22 04/18/22 allopurinol 300 mg tablet 300 mg PO DAILY #90 tabs 05/28/22 05/28/22 triamcinolone acetonide 0.5 % 1 applic topical TID PRN itching 06/30/22 topical cream #15 grams Previous Rx's Medication Instructions Recorded albuterol sulfate 90 mcg/actuation 2 puff inhalation Q4H PRN 10/05/20 aerosol inhaler (ProAir HFA) shortness of breath or wheezing #18 grams budesonide-formoterol HFA 160 2 puff inhalation BID #10.2 grams 11/23/21 mcg-4.5 mcg/actuation aerosol inhaler (Symbicort) hydroxyzine HCl 50 mg tablet See Rx Instructions PO BID PRN 11/23/21 anxiety #145 tabs omeprazole 40 mg capsule,delayed 40 mg PO DAILY #90 caps 01/15/22 release clonidine HCl 0.1 mg tablet 0.1 mg PO BID #180 tabs 04/05/22 colchicine 0.6 mg tablet 0.6 mg PO BID podagra #30 tabs 04/18/22 allopurinol 300 mg tablet 300 mg PO DAILY #90 tabs 05/28/22 triamcinolone acetonide 0.5 % 1 applic topical TID PRN itching 06/30/22 topical cream #15 grams Allergies Allergy/AdvReac Type Severity Reaction Status Date / Time codeine Allergy Intermediate rash Verified 06/30/22 17:54 General Stated Complaint: RashLesion JASON: 4 Review of Systems Constitutional Constitutional: Denies chills and Denies fever(s) ENT Ears, Nose, Mouth, and Throat: Denies lip swelling, Denies odynophagia, Denies throat swelling and Denies tongue swelling Cardiovascular Cardiovascular: Denies chest pain and Denies dyspnea Respiratory Respiratory: Denies dyspnea, Denies stridor and Denies wheezing Gastrointestinal Gastrointestinal: Denies abdominal pain and Denies odynophagia Musculoskeletal Musculoskeletal: Denies myalgias, Denies numbness and Denies tingling Integumentary/Breasts Skin/Breast: Reports as per HPI and Reports rash Neurologic Neurologic: Denies numbness and Denies tingling Allergic/Immunologic Allergic/Immunologic: Denies lip swelling, Denies throat swelling, Denies tongue swelling and Denies wheezing PFSH All Active Problems Dermal hypersensitivity reaction (Acute) Dental infection (Acute) Severe obstructive sleep apnea (Acute) 12/17/20 sleep study [facility] Oral thrush (Acute) Otitis media of left ear (Acute) Pharyngitis (Acute) Depression (Chronic) ADHD (Acute) Anxiety (Chronic) GERD (gastroesophageal reflux disease) (Chronic) History of substance abuse (Acute) Asthma (Chronic) Hypertension (Chronic) Family History Mother Substance abuse Brother Substance abuse Uncle Anxiety Depression Other Diabetes Hypertension Liver cancer Social History Smoking/Tobacco Use Status: Current every day Tobacco Type: cigarettes Smoking packs per day: 1 Smoking cigarettes per day: 20.0 Years smoked: 15 Smoking pack-years: 15.00 Smoking risk assessment performed?: Yes Alcohol Intake: former Year quit: 2019 Previous attempts at quittin Drug use: Daily Substance use type: former substance user Date of last use: 07/01/2020, marijuana and opiates Details: Daily user of Marijuana Adopted: No Caregiver/Support person: No Foster care: No Household members: none Housing: other Details: Sober Living Number of Children: 0 Communication Needs: None Do you need help understanding health information?: Rarely current occupation: Unemployed Sexually active: Yes Do you think of yourself as: straight/heterosexual Current gender identity: male What type of physical activity do you participate in: none Seatbelt use: never Drive intox or ride w/intox oil transport driver: No Do you feel safe at home: Yes Do you feel safe in your relationship?: Yes Exam Const General: cooperative, healthy appearing, comfortable, no acute distress and not ill appearing Orientation: alert, awake and oriented x3 HENMT Head: normal to inspection and normocephalic Ears: hearing grossly normal bilaterally and external ears normal General nose exam: external nose normal Face and sinus: normal facial exam Mouth: oral mucosae normal, lip normal, tongue normal, no audible dysphonia, no drooling and no trismus Throat: uvula midline Neck Neck: normal visual inspection, full ROM and no meningeal signs Resp Effort & Inspection: normal respiratory effort, able to speak in complete sentences and no stridor Auscultation: clear to auscultation bilaterally Cardio Rate: regular rate Rhythm: regular rhythm Heart Sounds: S1 normal and S2 normal Skin Rashes: rashes noted hives right lateral neck Course Vital Signs Vital signs: Vital Signs Temperature 37.1 C 06/30/22 17:51 Pulse 99 H 06/30/22 17:51 Respiratory Rate 16 06/30/22 17:51 Blood Pressure 144/97 H 06/30/22 17:51 Pulse Oximetry 96 06/30/22 17:51 Temperature 37.1 C 06/30/22 17:51 Temperature Source Tympanic 06/30/22 17:51 Pulse 99 H 06/30/22 17:51 Respiratory Rate 16 06/30/22 17:51 Respiratory Effort Non-Labored 06/30/22 17:54 Blood Pressure 144/97 H 06/30/22 17:51 Blood Pressure Position Sitting 06/30/22 17:51 Pulse Oximetry 96 06/30/22 17:51 Oxygen Delivery Method Room Air 06/30/22 17:51 Oxygen Flow Rate 0 06/30/22 17:51 Pain Level 0 06/30/22 17:51
[2022-06-30] MEDS: diphenhydrAMINE 25 MG CAP PO (18:24)
[2022-06-30] MEDS: Famotidine 20 MG TAB 40 MG PO (18:24)
[2022-06-30] MEDS: Dexamethasone 10 MG/ML VIAL PO (18:24)
== END 2022-06-30 18:30 | disposition home or self-care (01) ==
PROVIDERS: Emergency Provider Nurse Practitioner Family; PCP Family Medicine
DX: L23.9 Allergic contact dermatitis, unspecified cause (principal); L50.0 Allergic urticaria; F17.210 Nicotine dependence, cigarettes, uncomplicated
CPT/HCPCS: 99283; 99284; J1100

== ENCOUNTER 2022-07-13 01:46 | Outpatient (CLI) | payer MEDICAID, SELFPAY ==
[2022-07-13 12:38] LABS: Calculated LDL 162 mg/dL (<100); Cholesterol 228 mg/dL (<200); HDL Cholesterol 37 mg/dL (40-60); Triglyceride 149 mg/dL (<150)
[2022-07-16 09:04] LABS: Hepatitis C Ab w Rflx HCV PCR Negative (Negative)
[2022-07-16 09:31] LABS: HIV-1/2 Ag & Ab Screen Negative (Negative)
== END 2022-07-13 01:47 | disposition home or self-care (01) ==
LOC: LBO 01:46
PROVIDERS: PCP Family Medicine; Visit Provider Family Medicine
DX: F19.11 Other psychoactive substance abuse, in remission (principal); I10 Essential (primary) hypertension
CPT/HCPCS: 36415; 80061; 86803; 87389

== ENCOUNTER → 2022-10-15 09:55 | Outpatient (CLI) | payer MEDICAID, SELFPAY ==
--- NOTE | 2022-10-15 16:00 | DI.RAD_ITS ---
Exam(s) XR KNEE LT 3V AP,LAT,DEVORA EXAM: XR KNEE LT 3V AP,LAT,DEVORA CLINICAL HISTORY: Likely meniscal tear, preliminary order S83.207A INJURY LEFT KNEE. TECHNIQUE: 2D digital imaging was performed. Three views. COMPARISON: No exams were available for comparison FINDINGS: BONES: No acute fracture is present. No bony destructive lesion is seen. JOINTS: The knee is normally aligned. No joint effusion is seen. SOFT TISSUE: Normal. IMPRESSION: Normal radiographs of the left knee. DATA REPOSITORY: RADIATION DOSE DELIVERED:
== END ==
PROVIDERS: PCP Family Medicine; Visit Provider Family Medicine
DX: M25.562 Pain in left knee; S89.82XA Other specified injuries of left lower leg, initial encounter; S83.204A Other tear of unspecified meniscus, current injury, left knee, initial encounter
CPT/HCPCS: 73562

== ENCOUNTER 2022-11-14 01:30 | Outpatient (CLI) | payer MEDICAID, SELFPAY ==
--- NOTE | 2022-11-14 14:40 | DI.MRI_ITS ---
Exam(s) MR LOWER JOINT LT WO EXAM: MR LOWER JOINT LT WO CLINICAL HISTORY: ACUTE MENISCAL TEAR LT KNEE, PAIN, S83.207A TECHNIQUE: Multiplanar multisequence MRI of the knee was performed. COMPARISON: CR XR KNEE LT 3V AP,LAT,DEVORA from 10/15/2022 FINDINGS: EFFUSION: There is no evidence of joint effusion or Adhikari cyst in the popliteal fossa. MARROW:There is no evidence of fracture, bone contusion, nor osteochondral defects.. There is subart icular signal abnormality evident in the posterior aspect of the lateral tibial plateau which has the appearance of a developing degenerative subarticular cyst. PATELLOFEMORAL COMPARTMENT: The quadriceps tendon is intact. The patellar ligament is intact. There is no significant thinning of the retropatellar cartilage. No evidence of fissure nor signific ant chondral defect. No osteochondral defect at this level.There is no intraosseous signal to sugges t recent patellar dislocation. There are no patellar retinacular tears. CRUCIATE LIGAMENTS: Some thinning of the ACL is noted but no high-grade tear.The posterior cruciate l igament is intact. MEDIAL COMPARTMENT/MEDIAL MENISCUS: There are no tears of the medial meniscus evident.No meniscocapsu lar separation.. There are no chondral defects, osteochondral defects, subarticular marrow edema, nor osteophytes evid ent. MEDIAL COLLATERAL LIGAMENT: Intact LATERAL COMPARTMENT/LATERAL MENISCUS: There is no evidence of lateral meniscal tear.There are no dimas dral defects, osteochondral defects, subarticular marrow edema, nor osteophytes evident. ILIOTIBIAL BAND: Intact LATERAL COLLATERAL LIGAMENT COMPLEX: The fibular collateral ligament is intact. The biceps femoris t endon is intact.Popliteus muscle and tendon are intact. IMPRESSION: 1. There are no meniscal tears and no collateral ligament tears. 2. Mild thinning of the anterior cruciate ligament but no high-grade tear. PCL is also intact. 3. No significant focal findings in the patellofemoral compartment. 4. There is a small area of subarticular edema in the posterior aspect of the lateral tibial plateau which is subjacent to the posterior horn lateral meniscus. There is no overlying meniscal tear. Thi s may represent a developing degenerative subarticular cyst at this level versus focal bone edema. 5. There is no evidence of knee joint effusion. Also no Adhikari cyst. DATA REPOSITORY:
== END 2022-11-14 01:50 ==
LOC: DI 01:30
PROVIDERS: PCP Family Medicine; Visit Provider Family Medicine
DX: M25.562 Pain in left knee (principal); R60.0 Localized edema; M25.862 Other specified joint disorders, left knee
CPT/HCPCS: 73721

== ENCOUNTER 2024-02-07 13:19 | Inpatient (IN) | payer MEDICAID, SELFPAY ==
[2024-02-07] VITALS (20 sets, daily range): BP systolic 116–175; BP diastolic 74–116; PULSE 85–103; RESP 10–23; TEMP 36.4–36.7; O2SAT 76–98; BMI 39.0
--- NOTE | 2024-02-07 13:30 | ED.GENADUL_ITS ---
Discharge Plan Disposition Patient Disposition: Admit to [facility] Condition: Stable Discharge Details Clinical Impression: Postoperative wound infection Primary Care Provider: Willis Henderson ED Provider: William Seaman Home Meds and New Rx's Prescriptions: No Action rosuvastatin 5 mg tablet 5 mg PO DAILY Qty: 30 1RF Rx Instructions: Trial, #90 PRN albuterol sulfate [ProAir HFA] 90 mcg/actuation HFA aerosol inhaler 2 puff inhalation Q4H PRN (Reason: shortness of breath or wheezing) Qty: 18 6RF naproxen 500 mg tablet 500 mg PO BID PRN (Reason: pain) Qty: 60 3RF clonidine HCl 0.1 mg tablet 0.1 mg PO BID Qty: 180 3RF omeprazole 40 mg capsule,delayed release(DR/EC) 40 mg PO DAILY Qty: 90 3RF budesonide-formoterol [Symbicort] 160-4.5 mcg/actuation HFA aerosol inhaler 2 puff inhalation BID Qty: 10.2 6RF allopurinol 300 mg tablet 300 mg PO DAILY Qty: 90 3RF sulfamethoxazole-trimethoprim 800-160 mg tablet 1 tab PO Q12H Patient Comments: TAKE ONE TABLET BY MOUTH EVERY 12 HOURS FOR 1 WEEK HPI General Date/Time Provider Initiated Documentation: 02/07/24 13:25 . HPI Narrative: 33 year-old male presents to ED today by POV/ambulating with a chief complaint of R ankle wound - large and purulent, s/p R ankle fracture with surgical repair to this area in [place] 6 weeks ago- patient used to live in [place] but now lives here. Patient presented to [facility] for this infection- and they recommended he be evaluated in the ED. Patient has been non-adherent with walking boot, and is on cephalexin. Quality described as not overly painful, no radiation to fever, nausea, vomiting, red streaks up leg, numbness/tingling, distally, gross swelling. Severity is described as moderate. Palliating factors include cephalexin without resolution. Provoking factors include nothing specific. Events leading up to the incident/Associated Symptoms: Patient does have opiate use in history. Patient not anticoagulated. Related Data Home Medications Medication Instructions Recorded Confirmed albuterol sulfate 90 mcg/actuation 2 puff inhalation Q4H PRN 10/05/20 02/07/24 aerosol inhaler (ProAir HFA) shortness of breath or wheezing #18 grams rosuvastatin 5 mg tablet 5 mg PO DAILY #30 tabs 01/04/23 02/07/24 naproxen 500 mg tablet 500 mg PO BID PRN pain #60 tabs 06/20/23 02/07/24 clonidine HCl 0.1 mg tablet 0.1 mg PO BID #180 tabs 10/24/23 02/07/24 omeprazole 40 mg capsule,delayed 40 mg PO DAILY #90 caps 10/24/23 02/07/24 release allopurinol 300 mg tablet 300 mg PO DAILY #90 tabs 10/25/23 02/07/24 budesonide-formoterol HFA 160 2 puff inhalation BID #10.2 grams 10/25/23 02/07/24 mcg-4.5 mcg/actuation aerosol inhaler (Symbicort) sulfamethoxazole 800 1 tab PO Q12H 02/07/24 02/07/24 mg-trimethoprim 160 mg tablet Previous Rx's Medication Instructions Recorded albuterol sulfate 90 mcg/actuation 2 puff inhalation Q4H PRN 10/05/20 aerosol inhaler (ProAir HFA) shortness of breath or wheezing #18 grams rosuvastatin 5 mg tablet 5 mg PO DAILY #30 tabs 01/04/23 naproxen 500 mg tablet 500 mg PO BID PRN pain #60 tabs 06/20/23 clonidine HCl 0.1 mg tablet 0.1 mg PO BID #180 tabs 10/24/23 omeprazole 40 mg capsule,delayed 40 mg PO DAILY #90 caps 10/24/23 release allopurinol 300 mg tablet 300 mg PO DAILY #90 tabs 10/25/23 budesonide-formoterol HFA 160 2 puff inhalation BID #10.2 grams 10/25/23 mcg-4.5 mcg/actuation aerosol inhaler (Symbicort) Allergies Allergy/AdvReac Type Severity Reaction Status Date / Time codeine Allergy Intermediate rash Verified 02/07/24 13:25 atorvastatin AdvReac myalgias Verified 02/07/24 13:25 General Stated Complaint: Cellulitis JASON: 3 Review of Systems All systems reviewed & are unremarkable except as noted in HPI and below Exam Narrative Exam Narrative: GENERAL APPEARANCE: Well-nourished, non-toxic, awake and alert, atraumatic, no acute distress. SKIN: Warm, pink, dry, large ice-cream scoop sized wound in the distal R ankle overlying distal fibula, purulent, about 7x3cm, no lymphadenitis, nv intact distally HEAD: Normocephalic, atraumatic, normal hair distribution for gender/age. EYES: Pupils PERRLA, EOMs intact without nystagmus, normal conjunctiva, no exudates on lids/lashes. ENT: Nares patent, no circumoral cyanosis, no facial swelling NECK: Supple, trachea midline, painless cervical ROM. LUNGS/CHEST: Non-labored respirations, normal A/P diameter, symmetrical expansion, no chest wall deformity HEART (CV/PV): Regular rate, R dorsalis pedis pulse 2+, no peripheral edema, no JVD. ABDOMEN: Soft, non-distended, no guarding. MSK: Normal ROM, no swelling/deformity to bilateral UEs or LEs, moving all extremities without weakness, no cyanosis, spine midline without tenderness, normal curvature. NEURO: Mental Status AAOx4 - alert to person, place, time, events No facial droop, no forehead involvement. Motor: No focal weakness - strength 5/5 in bilateral UEs and LEs, proximal and distal, symmetric. Sensory: sensation intact to light touch globally. Gait antalgic PSYCH: euthymic, cooperative, pleasant, appropriate speech Course Vital Signs Vital signs: Vital Signs Temperature 36.5 C 02/07/24 13:21 Pulse 103 H 02/07/24 13:21 Respiratory Rate 14 02/07/24 13:21 Blood Pressure 175/74 H 02/07/24 13:21 Pulse Oximetry 95 02/07/24 13:21 Temperature 36.5 C 02/07/24 13:21 Temperature Source Skin 02/07/24 13:21 Pulse 103 H 02/07/24 13:21 Respiratory Rate 14 02/07/24 13:21 Respiratory Effort Normal, Non-Labored 02/07/24 13:24 Blood Pressure 175/74 H 02/07/24 13:21 Blood Pressure Position Sitting 02/07/24 13:21 Pulse Oximetry 95 02/07/24 13:21 Oxygen Delivery Method Room Air 02/07/24 13:21 Oxygen Flow Rate 0 02/07/24 13:21 Pain Level 7 02/07/24 13:21 Medical Decision Making This dictation utilizes [id number] dictation software and may contain unedited grammatical errors. 33 y/o M presents to ED today with a chief complaint of large infected wound over surgical ORIF of distal R ankle fracture, R-foot dominant, patient has poor adherence to treatments, but is on cephalexin currently. He had the surgery done in [place], but no longer lives in that area, denies any febrile/systemic symptoms at this time. Patient has history of opiate use. Patients' medical history: GERD, asthma, hypertension, substance abuse, hyp erlipidemia, dental infection. Family and social history: states no active IVDU. Pertinent exam findings / vital signs include 7x3cm purulent wound at R distal ankle, no lymphadenitis, no crepitus, NV intact distally. Differential / pathologies of concern include Osteomyelitis, Cellulitis, Leg Ulcer, MRSA, Post-surgical complication. Diagnostic studies of: -CBC, CMP, Lactate, CRP/ESR, Blood Cx's, XR R Ankle. -CBC shows no leukocytosis -CMP shows some LFT derangements of low significance -CRP mildly elevated, ESR WNL -Lactate 1.6, not septic -XR shows intact hardware Interventions of: -IV Vancomycin, Orthopaedic Consult with Dr. Prakash. ED Course/Assessment/Plan: 33-year-old male presents with complicated history of a surgery performed 6 weeks ago at hospital in [place] with surgeon of Dr. Rodriguez, presents with a wound infection over the surgical site with a 7 x 3 cm purulent deep wound. I spoke with Dr. Prakash of orthopedics, could be complex and need plastics involvement but the patient is not septic at this time. Dr. Prakash accepts for OR Wash-out and admission @ 1500. Findings not consistent with sepsis. Disposition of Postoperative Wound Infection Patient verbalized understanding of the plan and return to ED criteria and engaged in shared decision making. Medical Records Medical records reviewed: Yes I reviewed the patient's medical records. Imaging Data Radiologic Study: Attestation: I personally reviewed and interpreted this imaging study as follows: Imaging: X-Ray My impression: Reviewed by Orthopaedics, hardware appears intact, wound appears far superficial to hardware Lab Data Lab results reviewed: Yes I reviewed the patient's lab results. Labs: 02/07/24 14:08 Blood Blood Culture - Pending 02/07/24 13:41 Blood Blood Culture - Pending Laboratory Tests Range/Units 02/07/24 14:08 WBC (4.4-10.8) 10^3/uL 7.64 RBC (4.36-5.78) 10^6/uL 5.43 Hgb (13.5-17.5) g/dL 16.5 Hct (40.0-50.0) % 50.2 H MCV (80-95) fL 92 MCH (27.0-33.0) pg 30.4 MCHC (32.0-36.0) % 32.9 RDW (11.8-14.1) % 11.8 Plt Count (130-400) 10^3/uL 305 MPV (8.0-11.0) fL 9.4 Immature Gran % 0.1 Neutrophils % 52.1 Lymphocytes % 34.9 Monocytes % 10.3 Eosinophils % 1.7 Basophils % 0.9 Nucleated RBC % (0.0-0.3) % 0.0 Absolute Neutrophils (1.2-6.7) 10^3/uL 3.97 Absolute Lymphocytes (1.2-3.4) 10^3/uL 2.67 Absolute Monocytes (0.1-0.8) 10^3/uL 0.79 Absolute Eosinophils (0.0-0.7) 10^3/uL 0.13 Absolute Basophils (0.0-0.2) 10^3/uL 0.07 ESR (0-15) mm/hr 4 VBG Lactate (0.6-1.4) mmol/L 1.6 H Sodium (136-145) mmol/L 139 Potassium (3.5-5.1) mmol/L 4.6 Chloride (98-107) mmol/L 101 Carbon Dioxide (21.0-32.0) mmol/L 31.2 Anion Gap (3-11) mmol/L 6.8 BUN (7-18) mg/dL 10 Creatinine (0.70-1.30) mg/dL 1.0 Est GFR (CKD-EPI 2020) (mL/min/1.73m2) 101.92 Glucose (74-106) mg/dL 91 Calcium (8.5-10.1) mg/dL 9.0 Total Bilirubin (0.2-1.0) mg/dL 0.4 AST (15-37) U/L 42 H ALT (16-63) U/L 88 H Alkaline Phosphatase (46-116) U/L 121 H C-Reactive Protein (<or=0.5) mg/dL 1.53 H Total Protein (6.4-8.2) g/dL 8.4 H Albumin (3.4-5.0) g/dL 4.1 Quality:SDOH Health Related Social Needs: No Data to Display PFSH All Active Problems (Updated 02/07/24 @ 15:02 by AISHA Leonardo) Postoperative wound infection (Acute) No-show for appointment (Acute) Myalgia due to statin (Acute) pt stopped .. ref to clin pharm to maybe subst Chondromalacia patellae of left knee (Acute) Left knee pain (Acute) Hyperlipidemia (Acute) Dental infection (Acute) Severe obstructive sleep apnea (Acute) 12/17/20 sleep study [facility] Oral thrush (Acute) Otitis media of left ear (Acute) Pharyngitis (Acute) Depression (Chronic) ADHD (Acute) Anxiety (Chronic) GERD (gastroesophageal reflux disease) (Chronic) History of substance abuse (Acute) Asthma (Chronic) Hypertension (Chronic) Family History Mother Substance abuse Brother Substance abuse Uncle Anxiety Depression Other Diabetes Hypertension Liver cancer Social History Smoking/Tobacco Use Status: Current every day Tobacco Type: cigarettes Smoking packs per day: 1 Smoking cigarettes per day: 20.0 Years smoked: 15 Smoking pack- years: 15.00 Smoking risk assessment performed?: Yes Alcohol Intake: former Year quit: 2019 Previous attempts at quittin Drug use: Daily Substance use type: former substance user Date of last use: 07/01/2020, marijuana and opiates Details: Daily user of Marijuana Adopted: No Caregiver/Support person: No Foster care: No Household members: none Housing: other Details: Sober Living Number of Children: 0 Communication Needs: None Do you need help understanding health information?: Rarely current occupation: Unemployed Sexually active: Yes Do you think of yourself as: straight/heterosexual Current gender identity: male What type of physical activity do you participate in: none Seatbelt use: never Drive intox or ride w/intox professional driver: No Do you feel safe at home: Yes Do you feel safe in your relationship?: Yes PAWSS Have you Been Recently Intoxicated or Drunk Within the Last 30 days?: No Have you Ever Experienced Previous Episodes of Alcohol Withdrawal?: No Have you ever Experienced Withdrawal Seizures?: No Have you ever Experienced Delirium Tremens(DT)s?: No Have you ever undergone Alcohol Rehabilitation Treatment (i.e, inpt ot outpatient treatment programs)?: No Have you ever Experienced Blackouts?: No Have you ever Combined Alcohol with other Downers within the last 90 days?: No Have you ever Combined Alcohol with any other Substance of Abuse during the last 90 days?: No Positive Blood Alcohol level on Presentation? [PCS.BAL]: No Evidence of Increased Autonomic Activity (i.e. HR>120, tremor, sweating, agitation, nausea)?: No Result: 0
--- NOTE | 2024-02-07 13:30 | DI.RAD_ITS ---
Exam(s) XR ANKLE RT COMPLETE EXAM: XR ANKLE RT COMPLETE CLINICAL HISTORY: R post-surgical ankle wound, ?osteo. TECHNIQUE: 2D digital imaging was performed. COMPARISON: No exams were available for comparison FINDINGS: 3 views There is ORIF hardware in the right ankle including lateral fixation plate across the distal fibular fracture site. Fracture line still evident. There is a large overlying skin wound on the lateral aspect of the ankle. There is no evidence of os teomyelitis. No hardware loosening. IMPRESSION: Large lateral skin wound. No radiopaque foreign body. No evidence of osteomyelitis. DATA REPOSITORY: RADIATION DOSE DELIVERED:
[2024-02-07] MEDS: Lactated Ringers 1,000 ML 30 ML IV (14:07)
[2024-02-07] MEDS: VANCOMYCIN/WATER (PEG) 1.5 GM/300 ML BAG IVPB (14:21)
[2024-02-07 14:23] LABS: Lactate 1.6 mmol/L (0.6-1.4)
[2024-02-07 14:24] LABS: Abs Immature Grans 0.01 10^3/uL (0.0-0.06); Absolute Basophil Count 0.07 10^3/uL (0.0-0.2); Absolute Eosinophil Count 0.13 10^3/uL (0.0-0.7); Absolute Lymphocyte Count 2.67 10^3/uL (1.2-3.4); Absolute Monocyte Count 0.79 10^3/uL (0.1-0.8); Absolute Neutrophil Count 3.97 10^3/uL (1.2-6.7); Basophils % 0.9; Eosinophils % 1.7; HCT 50.2 % (40.0-50.0); HGB 16.5 g/dL (13.5-17.5); Immature Grans % 0.1; Lymphocytes % 34.9; MCH 30.4 pg (27.0-33.0); MCHC 32.9 % (32.0-36.0); MCV 92 fL (80-95); MPV 9.4 fL (8.0-11.0); Monocytes % 10.3; Neutrophils % 52.1; Platelet Count 305 10^3/uL (130-400); RBC 5.43 10^6/uL (4.36-5.78); RDW 11.8 % (11.8-14.1); RDW-SD 40.1 fL; WBC 7.64 10^3/uL (4.4-10.8)
[2024-02-07 14:27] LABS: ESR 4 mm/hr (0-15)
[2024-02-07 14:45] LABS: ALT 88 U/L (16-63); AST 42 U/L (15-37); Albumin 4.1 g/dL (3.4-5.0); Alkaline Phosphatase 121 U/L (46-116); Anion Gap 6.8 mmol/L (3-11); BUN 10 mg/dL (7-18); Bilirubin, Total 0.4 mg/dL (0.2-1.0); C-Reactive Protein 1.53 mg/dL (<or=0.5); CO2 31.2 mmol/L (21.0-32.0); Chloride 101 mmol/L (98-107); Estimated GFR 101.92 (mL/min/1.73m2); Glucose 91 mg/dL (74-106); Potassium 4.6 mmol/L (3.5-5.1); Sodium 139 mmol/L (136-145); Total Protein 8.4 g/dL (6.4-8.2)
--- NOTE | 2024-02-07 15:14 | ANES.PREOP_ITS ---
General Info Date of Service Date Performed: 02/07/24 Height: 5 ft 11 in Weight: 127.006 kg Body Mass Index (BMI): 39.0 Meds Allergies and Home Medications Allergies Allergy/AdvReac Type Severity Reaction Status Date / Time codeine Allergy Intermediate rash Verified 02/07/24 13:25 atorvastatin AdvReac myalgias Verified 02/07/24 13:25 Home Medication Medication Instructions Recorded albuterol sulfate 90 mcg/actuation 2 puff inhalation Q4H PRN 10/05/20 aerosol inhaler (ProAir HFA) shortness of breath or wheezing #18 grams rosuvastatin 5 mg tablet 5 mg PO DAILY #30 tabs 01/04/23 naproxen 500 mg tablet 500 mg PO BID PRN pain #60 tabs 06/20/23 clonidine HCl 0.1 mg tablet 0.1 mg PO BID #180 tabs 10/24/23 omeprazole 40 mg capsule,delayed 40 mg PO DAILY #90 caps 10/24/23 release allopurinol 300 mg tablet 300 mg PO DAILY #90 tabs 10/25/23 budesonide-formoterol HFA 160 2 puff inhalation BID #10.2 grams 10/25/23 mcg-4.5 mcg/actuation aerosol inhaler (Symbicort) sulfamethoxazole 800 1 tab PO Q12H 02/07/24 mg-trimethoprim 160 mg tablet Current Visit Medications: Current Medications Generic Name Dose Route Start Last Admin Trade Name Freq PRN Reason Stop Dose Admin Vancomycin/PEG/NADA/Lysine/Water 1.5 gm in 300 mls @ 200 mls/hr 02/07/24 14:15 02/07/24 14:21 Vancocin Injection IVPB 02/07/24 15:44 200 mls/hr NOW ONE Administration [facility] Active Problems Active Problems: Problem Status Onset Code Postoperative wound infection T81.49XA No-show for appointment Z91.199 Myalgia due to statin M79.10, T46.6X5A 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 Left knee pain M25.562 Hyperlipidemia E78.5 Dental infection K04.7 Severe obstructive sleep apnea G47.33 Oral thrush B37.0 Otitis media of left ear H66.92 Pharyngitis J02.9 Depression F32.9 ADHD F90.9 Anxiety F41.9 GERD (gastroesophageal reflux disease) K21.9 History of substance abuse F19.11 Asthma J45.909 Hypertension I10 Tobacco Smoking/Tobacco Use Status: Current every day Tobacco Type: cigarettes Smoking packs per day: 1 Smoking cigarettes per day: 20.0 Years smoked: 15 Smoking pack- years: 15.00 Alcohol Alcohol Intake: former Year quit: 2019 Substance Use Substance use: Daily Substance use type: former substance user Date of last use: 07/01/2020, marijuana and opiates Details: Daily user of Marijuana Vital Signs and Lab Results Vital Signs Most Recent Vital Signs in EMR: Most Recent Vital Signs Temp Pulse Resp BP Pulse Ox 36.5 C 103 H 14 175/74 H 95 02/07/24 13:34 02/07/24 13:34 02/07/24 13:34 02/07/24 13:34 02/07/24 13:34 Lab Results 02/07/24 14:08 02/07/24 14:08 Blood Type / Crossmatch: 2 No Data to Display Complete Blood Count: 2 White Blood Count 7.64 10^3/uL (4.4-10.8) 02/07/24 14:08 Red Blood Count 5.43 10^6/uL (4.36-5.78) 02/07/24 14:08 Hemoglobin 16.5 g/dL (13.5-17.5) 02/07/24 14:08 Hematocrit 50.2 % (40.0-50.0) H 02/07/24 14:08 Platelet Count 305 10^3/uL (130-400) 02/07/24 14:08 Venous Blood Lactate 1.6 mmol/L (0.6-1.4) H 02/07/24 14:08 Complete Metabolic Panel: 2 Sodium 139 mmol/L (136-145) 02/07/24 14:08 Potassium 4.6 mmol/L (3.5-5.1) 02/07/24 14:08 Chloride 101 mmol/L (98-107) 02/07/24 14:08 Carbon Dioxide 31.2 mmol/L (21.0-32.0) 02/07/24 14:08 BUN 10 mg/dL (7-18) 02/07/24 14:08 Creatinine 1.0 mg/dL (0.70-1.30) 02/07/24 14:08 Est GFR (CKD-EPI 2020) 101.92 (mL/min/1.73m2) 02/07/24 14:08 Calcium 9.0 mg/dL (8.5-10.1) 02/07/24 14:08 Albumin 4.1 g/dL (3.4-5.0) 02/07/24 14:08 Glucose 91 mg/dL (74-106) 02/07/24 14:08 C-Reactive Protein 1.53 mg/dL (<or=0.5) H 02/07/24 14:08 Liver Function Panel: 2 Alanine Aminotransferase (ALT/SGPT) 88 U/L (16-63) H 02/07/24 1 4:08 Aspartate Amino Transf (AST/SGOT) 42 U/L (15-37) H 02/07/24 14: 08 Coagulation Panel: 2 No Data to Display Cardiac Panel: 2 No Data to Display Arterial Blood Gas: 2 No Data to Display Venous Blood Gas: 2 No Data to Display Pancreas Panel: 2 No Data to Display Thyroid Panel: 2 No Data to Display Infectious Disease: 2 No Data to Display Blood Cultures: 2 No Data to Display Toxicology Panel: 2 No Data to Display Anesthesia Assessment and Plan Anesthesia History Personal History: No History of Anesthesia Complications Family History: No Family History of Anesthesia Complications Exercise Tolerance Exercise Tolerance: Metabolic Equivalents>4 Pertinent Negatives Pertinent Negatives: No Symptoms of GERD and No Major Cardiovascular Symptoms or Complaints Cardiac & Pulmonary Exam Cardiac Exam: Normal S1/S2 Heart Sounds Pulmonary Exam: Clear Bilateral Breath Sounds Implantable Cardiac Device Does patient have a Pacemaker or an ICD?: No Airway Exam Known Difficult Airway: No Mallampati Class: 1 Mouth Opening: Normal (> 3cm) Thyromental Distance: Less than 3 cm Neck Range of Motion: Full ROM Neck Circumference: Normal Teeth Condition: Generalized Poor Dentition and Dental Caries ASA Classification ASA Score: ASA 3 Emergency Case?: No NPO Status NPO Status: NPO Clears >2 hours, Solids >8 hours Anesthesia Plan Resuscitation Status: Full Code Anesthesia Technique: General Anesthesia Airway Planned: Endotracheal Tube Monitors Used: Standard Monitors
--- NOTE | 2024-02-07 15:50 | W.ORTHOCONSU ---
Date of service: 02/07/24 Time of Service: 15:40 History of Present Illness History of Present Illness Chief Complaint: Right ankle wound, following surgery Narrative: Jose is a 33-year-old who was living in [place] approximately 6 or so weeks ago. He fell out of bed and suffered an ankle fracture, which appears to be a lateral malleolus with syndesmosis involvement. He was treated surgically by Dr. Rodriguez at [place]. He reportedly went to his first follow-up and was transition out of the splint into a boot. He then moved back up to [facility]. Soon thereafter he start developing some gapping of the wound and over the last week has had pain and clear opening of the wound. No significant drainage. He denies fever or chills. He did call his surgeon in [place] who started him on Keflex per report. He was seen in the [facility] and was advised to come to the emergency department. He does report pain although he has been weightbearing. He has some pain with weightbearing but has been able to bear weight fully on the leg without assistive device. He denies numbness or tingling. He denies fevers or chills. He reports a chronic cough from his smoking. He currently smokes half a pack a day. He likes to drink alcohol but uses no other illicit substances or missed uses any prescription medications. He never has had any withdrawal symptoms. Consults Consult date: 02/07/24 Requesting physician: William Seaman Consult Reason Surgical wound dehiscence with infection, right ankle Assessment and Plan Assessment and plan (1) Postoperative wound infection: Status: Acute (2) Surgical wound dehiscence: Status: Acute Assessment and plan: Jose is a 33-year-old who has an active infection and dehiscence about a surgical wound of the right ankle, performed at an outside institution, [place]. Given the appearance of the wound comes clear dehiscence and the worsening pain and mildly elevated inflammatory markers, I recommend we proceed to the operating room for debridement. Given its appearance I would likely plan for wound VAC placement with IV antibiotics. Hopefully, this would require only a short time on the antibiotics to transition to an oral situation with home dressings. However, is imperative to get hold this quickly. There was no gas deep on the x-ray and I am hopeful that this wound does not proceed all the way down onto the plate although is likely. I would build to make a better assessment of the wound was taken to the operative room and clean the and necrotic material. We will move forward with other cultures at that same time to help guide antibiotic treatment. I discussed this procedure with him in detail. I discussed risk to include bleeding, continued infection, pain, stiffness, need for repeat procedures, damage to nerves and vessels. Despite these risk, he elects to proceed. Review of Systems All systems reviewed & are unremarkable except as noted in HPI and below PFSH All Active Problems (Updated 02/07/24 @ 15:58 by Dajuan Prakash MD) Surgical wound dehiscence (Acute) Postoperative wound infection (Acute) No-show for appointment (Acute) Myalgia due to statin (Acute) pt stopped .. ref to clin pharm to maybe subst Chondromalacia patellae of left knee (Acute) Left knee pain (Acute) Hyperlipidemia (Acute) Dental infection (Acute) Severe obstructive sleep apnea (Acute) 12/17/20 sleep study [facility] Oral thrush (Acute) Otitis media of left ear (Acute) Pharyngitis (Acute) Depression (Chronic) ADHD (Acute) Anxiety (Chronic) GERD (gastroesophageal reflux disease) (Chronic) History of substance abuse (Acute) Asthma (Chronic) Hypertension (Chronic) Family History Mother Substance abuse Brother Substance abuse Uncle Anxiety Depression Other Diabetes Hypertension Liver cancer Social History Smoking/Tobacco Use Status: Current every day Tobacco Type: cigarettes Smoking packs per day: 1 Smoking cigarettes per day: 20.0 Years smoked: 15 Smoking pack-years: 15.00 Smoking risk assessment performed?: Yes Alcohol Intake: former Year quit: 2019 Previous attempts at quittin Drug use: Daily Substance use type: former substance user Date of last use: 07/01/2020, marijuana and opiates Details: Daily user of Marijuana Adopted: No Caregiver/Support person: No Foster care: No Household members: none Housing: other Details: Sober Living Number of Children: 0 Communication Needs: None Do you need help understanding health information?: Rarely current occupation: Unemployed Sexually active: Yes Do you think of yourself as: straight/heterosexual Current gender identity: male What type of physical activity do you participate in: none Seatbelt use: never 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 There is no significant erythema about the leg. However, there is a clearly dehisced surgical wound about the lateral aspect of the right ankle. This seems to involve the entirety of the wound itself, approximately 10 to 12 cm. There is necrotic and fibrinous material seen at the base of the wound. No expressible fluid or active drainage present. No visible hardware. He is able to actively dorsiflex and plantarflex the right ankle without significant pain. There is some pain to palpation around the wound itself. Sensation intact to light touch over the deep and superficial peroneal nerve and tibial nerve. Weakly palpable DP pulse. Results Last Vital Signs Temp 36.7 C 02/07/24 15:16 Pulse 92 H 02/07/24 15:16 Resp 18 02/07/24 15:16 BP 153/116 H 02/07/24 15:16 Pulse Ox 93 02/07/24 15:16 Labs 02/07/24 14:08 02/07/24 14:08 Labs: Laboratory Results - last 24 hr 02/07/24 14:08 WBC 7.64 RBC 5.43 Hgb 16.5 Hct 50.2 H MCV 92 MCH 30.4 MCHC 32.9 RDW 11.8 Plt Count 305 MPV 9.4 Immature Gran % 0.1 Neutrophils % 52.1 Lymphocytes % 34.9 Monocytes % 10.3 Eosinophils % 1.7 Basophils % 0.9 Nucleated RBC % 0.0 Absolute Neutrophils 3.97 Absolute Lymphocytes 2.67 Absolute Monocytes 0.79 Absolute Eosinophils 0.13 Absolute Basophils 0.07 ESR 4 VBG Lactate 1.6 H Sodium 139 Potassium 4.6 Chloride 101 Carbon Dioxide 31.2 Anion Gap 6.8 BUN 10 Creatinine 1.0 Est GFR (CKD-EPI 2020) 101.92 Glucose 91 Calcium 9.0 Total Bilirubin 0.4 AST 42 H ALT 88 H Alkaline Phosphatase 121 H C-Reactive Protein 1.53 H Total Protein 8.4 H Albumin 4.1 Imaging Imaging Studies: X-ray of the right ankle shows a Jay B type fibula fracture with some comminution. There is a lateral base plate about the fibula along with a syndesmotic tight rope type fixation. The fracture appears to be in good alignment without significant displacement. There may be some halo around the more distal screws but no backing out of the screws and no clear loosening. The joint is otherwise well reduced. No gas tracking along the fibula or against the plate.
[2024-02-07] MEDS: ceFAZolin 1 GM/50 ML BAG 100 GM (16:07)
[2024-02-07] MEDS: ceFAZolin 2 GM/50 ML BAG 100 GM (16:07)
[2024-02-07] MEDS: Bupivacaine 0.25% Pres-Free 30 ML VIAL (16:34)
--- NOTE | 2024-02-07 17:00 | W.PM.OP ---
Date of service: 02/07/24 Time of Service: 16:05 Operative Note Operative Note DATE OF PROCEDURE: 02/07/24 PRE-OP DIAGNOSIS: Right ankle surgical wound dehiscence and infection POST-OP DIAGNOSIS: same (With exposed hardware) PROCEDURE: Aggressive debridement and irrigation of right ankle wound with wound VAC placement SURGEON: Dajuan Prakash SHELL FREEZING MACHINE OPERATOR: Sushma Espinal ANESTHESIA TYPE: General LMA/ETT Refer to Anesthesia Record ESTIMATED BLOOD LOSS: 5 PATHOLOGY: none sent TOURNIQUET TIME: 0 COMPLICATIONS: None Patient was transported to: PACU Patient's condition: stable Indications: Jose is a 33-year-old male who suffered an ankle fracture about his right ankle approximate 6 weeks ago while in [facility]. This was fixed with surgery at the time. He reports that things were good after his 2-week visit and then he returned to [facility] and subsequently noted wound dehiscence with increasing pain. He called his initial surgeon and was given a prescription for antibiotics. He then presented to the emergency department due to ongoing wound issues. Given the appearance of the wound with significant necrotic appearance and clear opening, I recommend proceeding with operative intervention. I discussed operative debridement with Jose. I discussed risk to include bleeding, continued infection, pain, stiffness, damage to nerves and vessels, damage to muscle and tendons, blood clot. Despite these risk, he like to proceed. I was honest with him that this would likely require multiple trips to the operating room and even may require tertiary referral given the complexity of the case in this location. I reviewed this information he elected to proceed. He also agreed to stay in the hospital for IV antibiotics. Findings: There was clear dehiscence of the majority of the lateral ankle wound on the right side with malodorous seropurulent fluid, although minimal in quantity. The plate was easily exposed at the base of the wound superiorly. If there is some undermining distally with the plate exposed under this area as well. However, there was a portion of the plate covered with healing tissue. Necrotic material was debrided sharply and a rongeur and curette were used to remove any excessive necrotic appearing material. The wound was irrigated with 3 L normal saline and a wound VAC was applied. Procedure Description: Jose was greeted in the preoperative area. Consent was previously reviewed and signed. Once in the operating room, general anesthesia was administered. He was positioned in the supine position with the operative side placed onto a bone foam ramp. All bony prominences were well padded. Arms were placed out to the side, padded, and secured. Prophylactic antibiotics, cefazolin 3 g, was given for prophylactic antibiotics. The right leg was prepped with Betadine and then draped in a standard fashion. A timeout was performed for safe surgery. A pickup was then used to probe the wound. The superior portion of the wound which seemed to have a base to it was actually just fibrous material and this went all the way down to the plate. Once entering this fibrous material there is a release of significant mount of malodorous fluid. I then used a knife to debride the skin edges back to bleeding tissue and remove any of the necrotic tissue from the base. Once the bulk of this necrotic and appearing material was removed I then utilized a rongeur to remove any excessive unhealthy material. The dehiscence involves about 90% of the incision with only about 1 cm both proximally and distally still intact. There is no undermining proximally however, distally there was some undermining of the tissue. The wound was nearly 10 cm in length by about 2-1/2 cm in width and about 2 and half centimeters in depth. Normal saline with cystoscopy tubing was utilized to irrigate the wound. While irrigation was performed a curette was also utilized to roughen the surfaces and remove any other debris which may be present. After these 2 L was irrigated the wound was once again inspected. It was probed and any other necrotic or nonhealing tissue was removed sharply. The remainder 1 L of normal saline was then irrigated throughout the wound. A wound VAC was then applied. The black sponge was placed into the wound filling up the entire defect. This was cut to size. It was then held in place with the plastic dressing and attached to the suction canister. Suction was applied and there is no leak. Given that he has already been walking on this leg and since I applied the wound VAC, I decided not to place any other splint. At the end of the case, all counts were correct. Jose tolerated the procedure well without known complication and was taken to the PACU for recovery. Given the odor of the wound I am concerned about a multiple organism infection including gram-negative and potentially anaerobes. I will start him on vancomycin and Zosyn while I await cultures.
[2024-02-07] MEDS: Albuterol/Ipratropium 3 ML UPD VIAL UPD (17:23)
--- NOTE | 2024-02-07 17:30 | DI.RAD_ITS ---
Exam(s) XR PORTABLE CHEST AP EXAM: XR PORTABLE CHEST AP CLINICAL HISTORY: Severe asthma TECHNIQUE: 2D digital imaging was performed of the chest. One image was obtained. An AP view was ob tained. COMPARISON: CR,XR XR CHEST 2V PA LATERAL from 01/31/2022 CR XR ANKLE RT COMPLETE from 02/07/2024 FINDINGS: MEDIASTINUM: Normal. HEART: Normal. PULMONARY VASCULATURE: Normal. LUNGS: Pulmonary opacities are seen in the left lung. There is loss of volume of the left lung with elevation of the left hemidiaphragm. The right lung is clear. PLEURAL SPACE: No pleural effusion or pneumothorax. BONE:Within normal limits for the patient's age. OTHER FINDINGS:Normal. IMPRESSION: Pulmonary opacities in the left lung with volume loss. Findings are suspicious for pneumonia includi ng aspiration. CT scan of the chest with contrast should be considered in this patient for further e valuation. DATA REPOSITORY: RADIATION DOSE DELIVERED:
[2024-02-07] MEDS: Albuterol 2.5 MG/3 ML INH SOLN VIAL UPD (17:37)
[2024-02-07] MEDS: Ketorolac 15 MG/ML VIAL IVP (20:02)
[2024-02-07] MEDS: cloNIDine 0.1 MG TAB PO (20:03)
[2024-02-07] MEDS: Acetaminophen 325 MG TAB 650 MG PO (20:03)
--- NOTE | 2024-02-07 20:12 | RESPIRATORY ---
RT spoke with pt. regarding STEFAN diagnosis. Pt. states he has had done sleep study but did not want to use a CPAP machine. Pt. states he feels discomfort for putting anything on his face. Pt. refused to use hospital's CPAP machine.
[2024-02-07] MEDS: PIPERACILLIN/TAZO 4.5 GM in Normal Saline 100 ML IVPB (20:20)
[2024-02-07] MEDS: Normal Saline Flush 10 ML SYR IVP (20:21)
--- NOTE | 2024-02-07 20:47 | W.MEDCONSULT ---
Date of service: 02/07/24 Time of Service: 20:48 Assessment and Plan Assessment and plan (1) Aspiration pneumonia: Start date: 02/07/24 Status: Acute Assessment and plan: Patient had severe bronchospasm with intubation perioperatively requiring resuscitation with anesthesia but eventual extubation and better movement of air with patient approaching baseline with his asthma and bronchospasm. He is a smoker and is smoked up to this admission. He is in the ICU and did have increased oxygen needs with continue level clinically his lungs are clearing. Zosyn is most appropriate single agent for aspiration pneumonia and is also is being used to treat patient's right ankle wound. Vancomycin is not needed for the aspiration pneumonia slightly to be used for the wound pending cultures. Initially patient could be weaned to Augmentin therapy and follow-up imaging should be plain film chest x-ray unless patient decompensates then CT of the chest will be ordered. Presently he is stable and should recover well with treatment of exacerbation of asthma and close monitoring. He is a full code. Qualifiers: Aspiration pneumonia type: unspecified Laterality: left Lung location: unspecified part of lung Qualified Code(s): J69.0 - Pneumonitis due to inhalation of food and vomit (2) Asthma: Status: Chronic Assessment and plan: Exacerbated with intubation for surgery and patient continues to smoke daily. His usual outpatient have already ordered and he can have albuterol nebulizers as needed. He is slightly tachycardic and bronchodilators will be used only as long as needed. He also will have IV Solu-Medrol 48 hours then discontinue this. Qualifiers: Asthma complication type: with acute exacerbation Asthma persistence: persistent Asthma severity: moderate Qualified Code(s): J45.41 - Moderate persistent asthma with (acute) exacerbation (3) Tobacco abuse: Status: Chronic Assessment and plan: Nicotine supplement with topical NicoDerm 14 mg/h to be changed daily. (4) Hypertension: Status: Chronic Assessment and plan: Slightly elevated but patient currently on clonidine which will be continued. Monitor and adjust therapy as needed. Long-term weight loss would be helpful. Qualifiers: Hypertension type: primary hypertension Qualified Code(s): I10 - Essential (primary) hypertension (5) Hyperlipidemia: Status: Chronic Assessment and plan: Patient was on Crestor by his home list but states that he was not taking this medication. Hold for now and follow-up as outpatient with PCP. Qualifiers: Hyperlipidemia type: mixed hyperlipidemia Qualified Code(s): E78.2 - Mixed hyperlipidemia History of Present Illness History of Present Illness Chief Complaint: Severe bronchospasm with intubation for surgery Narrative: This is a 33-year-old male patient who was hospitalized for washout and debridement of left ankle wound status post fracture with repair with wound VAC after patient returned home from surgery performed in [place], [place]. He did call the previous surgeon when his wound was opened and was started patient was taken to the OR at the [facility] and perioperatively patient began to have respiratory distress with severe bronchospasm requiring high pressures with a loading and tidal volume slowly improving with aggressive bronchodilators and extubation. Patient is now breathing well on his own with minimal expiratory wheeze. He is a smoker and smokes 1/2 pack/day and also smokes marijuana daily. He is willing to take a nicotine patch. He is responding well to bronchodilator nebulizer treatments and oxygen supplementation with mild tachycardia but no tachypnea. He does not have a cough or chills. Imaging did reveal possible pneumonia in the left with question of aspiration patient is doing well and not proceed with CT scan of the chest at this time but treat for possible aspiration pneumonia. Zosyn is appropriate for ICU patient with possible aspiration. Vancomycin is also on board for possible wound coverage but is not needed to cover aspiration. Patient is remaining stable and over the next 12 hours his oxygen needs are increased and he is bronchospasm is controlled, he will be weaned off Solu-Medrol and have less frequent nebulizer treatments which may be causing tachycardia. He is continuing on his outpatient inhaler therapy which is appropriate and long-term he should stop smoking tobacco. Patient is aware of this recommendation. He appears somewhat noncompliant with his medical therapy help he can reestablish locally with PCP on these chronic care issues. He is a full code. Consults Consult date: 02/07/24 Requesting physician: Dajuan Prakash Review of Systems Narrative: 13 point review of systems otherwise unrevealing or stable. Patient is not in respiratory distress presently and feels close to baseline. He denies illicit drug use and has not had withdrawals with alcohol use chronically. He does have poor dentition. [facility] All Active Problems (Updated 02/07/24 @ 20:51 by Cullen Amador) Tobacco abuse (Chronic) Aspiration pneumonia (Acute) Surgical wound dehiscence (Acute) Postoperative wound infection (Acute) No-show for appointment (Acute) Myalgia due to statin (Acute) pt stopped .. ref to clin pharm to maybe subst Chondromalacia patellae of left knee (Acute) Left knee pain (Acute) Hyperlipidemia (Chronic) Dental infection (Acute) Severe obstructive sleep apnea (Acute) 12/17/20 sleep study [facility] Oral thrush (Acute) Otitis media of left ear (Acute) Pharyngitis (Acute) Depression (Chronic) ADHD (Acute) Anxiety (Chronic) GERD (gastroesophageal reflux disease) (Chronic) History of substance abuse (Acute) Asthma (Chronic) Hypertension (Chronic) Family History Mother Substance abuse Brother Substance abuse Uncle Anxiety Depression Other Diabetes Hypertension Liver cancer Social History Smoking/Tobacco Use Status: Current every day Tobacco Type: cigarettes Smoking packs per day: 1 Smoking cigarettes per day: 20.0 Years smoked: 15 Smoking pack-years: 15.00 Smoking risk assessment performed?: Yes Alcohol Intake: former Year quit: 2019 Previous attempts at quittin Drug use: Daily Substance use type: former substance user Date of last use: 07/01/2020, marijuana and opiates Details: Daily user of Marijuana Adopted: No Caregiver/Support person: No Foster care: No Household members: none Housing: other Details: Sober Living Number of Children: 0 Communication Needs: None Do you need help understanding health information?: Rarely current occupation: Unemployed Sexually active: Yes Do you think of yourself as: straight/heterosexual Current gender identity: male What type of physical activity do you participate in: none Seatbelt use: never Drive intox or ride w/intox driver material handler: No Do you feel safe at home: Yes Do you feel safe in your relationship?: Yes Exam Narrative Exam Narrative: General: Patient appears appropriate for age, moderately obese, alert and oriented x 3 and in no acute distress. HEENT: Normocephalic, eyes with pupils equal and reactive to light symmetrically, extraocular move intact and sclera anicteric. Oropharynx with moist mucosa and carious missing teeth. Neck: Supple without JVD. Back: Stooped posture without CVA tenderness. Lungs: Fair aeration with increased expiratory phase and slight expiratory wheeze with cough especially, sparse expiratory crackles left hemithorax without focalizing. No known to percussion. Abdomen: Obese contour, soft and nontender to palpation with no palpable hepatosplenomegaly. Genitalia/rectal: Exam deferred. Extremities: Without clubbing, cyanosis or pitting edema. Patient does have drain coming out of right lateral ankle wound status post debridement in the OR with clean dressing over the wound and minimal erythema. No joint swelling other than right ankle. Skin: Normal color, warm and dry. Neuro: Cranial nerves II through XII gross intact, no focal motor deficits no tremor. Psych: Flattened affect with normal mood. Slightly pressured speech. No normal thought processes. Remote and recent memory grossly intact. Results Last Vital Signs Temp 36.5 C 02/07/24 20:05 Pulse 97 H 02/07/24 19:16 Resp 20 02/07/24 20:05 BP 116/91 H 02/07/24 19:16 Pulse Ox 92 02/07/24 20:23 Labs 02/07/24 14:08 02/07/24 14:08 Labs: Laboratory Results - last 24 hr 02/07/24 14:08 WBC 7.64 RBC 5.43 Hgb 16.5 Hct 50.2 H MCV 92 MCH 30.4 MCHC 32.9 RDW 11.8 Plt Count 305 MPV 9.4 Immature Gran % 0.1 Neutrophils % 52.1 Lymphocytes % 34.9 Monocytes % 10.3 Eosinophils % 1.7 Basophils % 0.9 Nucleated RBC % 0.0 Absolute Neutrophils 3.97 Absolute Lymphocytes 2.67 Absolute Monocytes 0.79 Absolute Eosinophils 0.13 Absolute Basophils 0.07 ESR 4 VBG Lactate 1.6 H Sodium 139 Potassium 4.6 Chloride 101 Carbon Dioxide 31.2 Anion Gap 6.8 BUN 10 Creatinine 1.0 Est GFR (CKD-EPI 2020) 101.92 Glucose 91 Calcium 9.0 Total Bilirubin 0.4 AST 42 H ALT 88 H Alkaline Phosphatase 121 H C-Reactive Protein 1.53 H Total Protein 8.4 H Albumin 4.1 Imaging Imaging Studies: EXAM: XR PORTABLE CHEST AP CLINICAL HISTORY: Severe asthma TECHNIQUE: 2D digital imaging was performed of the chest. One image was obtained. An AP view was obtained. COMPARISON: CR,XR XR CHEST 2V PA LATERAL from 01/31/2022 CR XR ANKLE RT COMPLETE from 02/07/2024 FINDINGS: MEDIASTINUM: Normal. HEART: Normal. PULMONARY VASCULATURE: Normal. LUNGS: Pulmonary opacities are seen in the left lung. There is loss of volume of the left lung with elevation of the left hemidiaphragm. The right lung is clear. PLEURAL SPACE: No pleural effusion or pneumothorax. BONE:Within normal limits for the patient's age. OTHER FINDINGS:Normal. IMPRESSION: Pulmonary opacities in the left lung with volume loss. Findings are suspicious for pneumonia including aspiration. CT scan of the chest with contrast should be considered in this patient for further evaluation.
[2024-02-07] MEDS: methylPREDNISolone SUCC 125 MG VIAL 60 MG IVP (22:22)
[2024-02-08] VITALS (20 sets, daily range): BP systolic 118–164; BP diastolic 78–116; PULSE 70–102; RESP 14–23; TEMP 36.3–37.1; O2SAT 69–99
[2024-02-08] MEDS: PIPERACILLIN/TAZO 4.5 GM in Normal Saline 100 ML IVPB ×4 (01:19→22:02)
[2024-02-08] MEDS: Ketorolac 15 MG/ML VIAL IVP ×4 (01:24→22:02)
[2024-02-08] MEDS: VANCOMYCIN 1,500 MG in Normal Saline 250 ML 166.667 MG IVPB (01:58)
[2024-02-08 06:19] LABS: HCT 46.8 % (40.0-50.0); HGB 15.3 g/dL (13.5-17.5); MCH 30.1 pg (27.0-33.0); MCHC 32.7 % (32.0-36.0); MCV 92 fL (80-95); MPV 10.1 fL (8.0-11.0); Platelet Count 311 10^3/uL (130-400); RBC 5.09 10^6/uL (4.36-5.78); RDW 11.7 % (11.8-14.1); RDW-SD 39.8 fL; WBC 6.85 10^3/uL (4.4-10.8)
[2024-02-08 06:53] LABS: Anion Gap 10.4 mmol/L (3-11); BUN 11 mg/dL (7-18); CO2 26.6 mmol/L (21.0-32.0); Calcium 9.1 mg/dL (8.5-10.1); Chloride 103 mmol/L (98-107); Estimated GFR 101.92 (mL/min/1.73m2); Glucose 161 mg/dL (74-106); Potassium 5.1 mmol/L (3.5-5.1); Sodium 140 mmol/L (136-145)
[2024-02-08] MEDS: Budesonide/Formoterol 160/4.5 6 GM 60 PUFF INH IH ×2 (07:59→20:11)
--- NOTE | 2024-02-08 08:26 | W.PM.PROGNOT ---
Date of Service Date of service: 02/08/24 Time of Service: 07:30 Assessment and Plan Assessment and plan (1) Surgical wound dehiscence: Status: Acute Assessment and plan: Surgical wound from [place] for ankle fracture, dehisced between 2 and 6 weeks postoperatively with what looks to be some early concomitant infection. Unfortunately there is significant diastases of the wound. Initial debridement was performed yesterday which clearly showed plate exposure. There was not significant amount of purulence in the area and after debridement the tissue appeared relatively healthy with a good bleeding bed. I placed a wound VAC to help promote infection control as well as granulation. At this point, I am concerned about its ability to be closed in general. I would likely need to transfer for consideration of plastic surgery involvement. However, I think is worthwhile to consider 1 other look to see if after the wound VAC placement and strict elevation these tissues can be mobilized for potential closure. However, I think the likelihood is still quite low. We will plan for return to the operating tomorrow for repeat debridement and attempted secondary closure. However, this still may require tertiary referral. Touchdown weightbearing on the right ankle. I have advised Jose to work on active ankle dorsiflexion and plantarflexion. Qualifiers: Encounter type: sequela Qualified Code(s): T81.31XS - Disruption of external operation (surgical) wound, not elsewhere classified, sequela (2) Postoperative wound infection: Status: Acute Assessment and plan: Continue broad-spectrum antibiotics of vancomycin and Zosyn. Follow cultures. (3) Aspiration pneumonia: Status: Acute Assessment and plan: It is unclear the exact cause of the opacification of the left lung as there was no sign of aspiration during the case itself. However, aspiration pneumonia may be presumed. He is on appropriate antibiotics for the treatment of the leg. Supportive oxygen has been utilized that he is fine when he is awake. Unfortunately his untreated asthma, STEFAN, and ongoing tobacco abuse, makes his management challenging. He is refusing BiPAP and routinely removes his nasal cannula at night but is able to support himself during the awake hours without any sign of significant oxygenation issues nor work of breathing nor symptoms. Qualifiers: Aspiration pneumonia type: unspecified Laterality: left Lung location: unspecified part of lung Qualified Code(s): J69.0 - Pneumonitis due to inhalation of food and vomit (4) Tobacco abuse: Status: Chronic (5) Obstructive sleep apnea: Status: Chronic Assessment and plan: Per report, has been previously diagnosed but he was unable to tolerate any of the masks. Clinically, at night while sleeping his oxygen levels would drop well into the 80s and sometimes even lower. However, he once again refuses the BiPAP and does not like the nasal cannula although he does express his willingness to try to keep it on at night. Subjective Subjective Interval history since last seen: Jose reports having controlled pain. He did have low oxygenation through the night while sleeping. He refused the BiPAP. He frequently removed the nasal cannula. He does report having history of sleep apnea but has been unable to wear any mask before in the past. No other acute issues. Pain has been controlled. Chest x-ray after surgery did show significant opacification of the left lung, possibly representing an aspiration event or other unilateral pulmonary edema. Exam Narrative Exam Narrative: Wakes appropriately. Upon awaking his oxygenation improved to the mid 90s without any nasal cannula oxygen support. Breathing without distress. No notable wheezing or work of breathing. Evaluation of the right lower extremity shows wound VAC in position holding appropriate suction. Surrounding tissues appears good without any expanding erythema. No significant pain to palpation throughout the lower extremity. He is able to actively dorsiflex and plantarflex the right ankle without any significant increase in pain. Sensation intact to light touch over the deep and superficial peroneal nerve and tibial nerve. Palpable DP and PT pulse. Objective Last Vital Signs Temp 37.1 C 02/08/24 01:00 Pulse 85 02/08/24 01:01 Resp 23 02/08/24 06:00 BP 145/114 H 02/08/24 01:01 Pulse Ox 84 L 02/08/24 06:00 Laboratory Results - last 24 hr 02/07/24 02/08/24 14:08 05:30 WBC 7.64 6.85 RBC 5.43 5.09 Hgb 16.5 15.3 Hct 50.2 H 46.8 MCV 92 92 MCH 30.4 30.1 MCHC 32.9 32.7 RDW 11.8 11.7 L Plt Count 305 311 MPV 9.4 10.1 Immature Gran % 0.1 Neutrophils % 52.1 Lymphocytes % 34.9 Monocytes % 10.3 Eosinophils % 1.7 Basophils % 0.9 Nucleated RBC % 0.0 Absolute Neutrophils 3.97 Absolute Lymphocytes 2.67 Absolute Monocytes 0.79 Absolute Eosinophils 0.13 Absolute Basophils 0.07 ESR 4 VBG Lactate 1.6 H Sodium 139 140 Potassium 4.6 5.1 Chloride 101 103 Carbon Dioxide 31.2 26.6 Anion Gap 6.8 10.4 BUN 10 11 Creatinine 1.0 1.0 Est GFR (CKD-EPI 2020) 101.92 101.92 Glucose 91 161 H Calcium 9.0 9.1 Total Bilirubin 0.4 AST 42 H ALT 88 H Alkaline Phosphatase 121 H C-Reactive Protein 1.53 H Total Protein 8.4 H Albumin 4.1 PAWSS Have you Been Recently Intoxicated or Drunk Within the Last 30 days?: No Have you Ever Experienced Previous Episodes of Alcohol Withdrawal?: No Have you ever Experienced Withdrawal Seizures?: No Have you ever Experienced Delirium Tremens(DT)s?: No Have you ever undergone Alcohol Rehabilitation Treatment (i.e, inpt ot outpatient treatment programs)?: No Have you ever Experienced Blackouts?: No Have you ever Combined Alcohol with other Downers within the last 90 days?: No Have you ever Combined Alcohol with any other Substance of Abuse during the last 90 days?: No Positive Blood Alcohol level on Presentation? [PCS.BAL]: No Evidence of Increased Autonomic Activity (i.e. HR>120, tremor, sweating, agitation, nausea)?: No Result: 0 Time Spent with Patient Time Spent with Patient: 35-49 minutes Time was spent: preparing to see the patient(eg.review tests), obtaining and/or reviewing separately otained hiistory, ordering medications,tests, procedures, referring, communicating with other health medicare coordinator, indepentently interpreting results and counseling the patient
--- NOTE | 2024-02-08 08:30 | DI.RAD_ITS ---
Exam(s) XR CHEST 2V PA LATERAL EXAM: XR CHEST 2V PA LATERAL CLINICAL HISTORY: f/u pulmonary status TECHNIQUE: 2D digital imaging was performed of the chest. Two images were obtained. PA and lateral views were obtained. COMPARISON: CR,XR XR CHEST 2V PA LATERAL from 01/31/2022 CR XR PORTABLE CHEST AP from 02/07/2024 FINDINGS: MEDIASTINUM: Normal. HEART: Normal. PULMONARY VASCULATURE: Normal. LUNGS: Resolution of the left pulmonary infiltrates. The left lung appears clear. The right lung re michi clear. PLEURAL SPACE: No pleural effusion or pneumothorax. BONE:Within normal limits for the patient's age. OTHER FINDINGS:Normal. IMPRESSION: No acute pulmonary findings. DATA REPOSITORY: RADIATION DOSE DELIVERED:
[2024-02-08] MEDS: Normal Saline Flush 10 ML SYR IVP (09:00)
[2024-02-08] MEDS: methylPREDNISolone SUCC 125 MG VIAL 60 MG IVP (09:50)
[2024-02-08] MEDS: Acetaminophen 325 MG TAB 650 MG PO ×3 (10:09→20:11)
[2024-02-08] MEDS: Allopurinol 300 MG TAB PO (10:09)
[2024-02-08] MEDS: Multivitamin w/Minerals TAB 1 TAB PO (10:09)
[2024-02-08] MEDS: cloNIDine 0.1 MG TAB PO ×2 (10:09→20:11)
[2024-02-08] MEDS: Omeprazole 20 MG CAPCR 40 MG PO (10:09)
[2024-02-08] MEDS: Nicotine 14 MG/24 HR PATCH TD (10:10)
--- NOTE | 2024-02-08 11:01 | W.ANESPOSTOP ---
Postoperative Evaluation Date, Time and Location Date Performed: 02/08/24 Time Performed: 08:40 Patient Location: Med/Surg Vital Signs Most Recent Imported Vital Signs: Most Recent Vital Signs Temp Pulse Resp BP Pulse Ox 36.8 C 88 17 146/98 H 95 02/08/24 08:57 02/08/24 08:57 02/08/24 08:57 02/08/24 08:57 02/08/24 08:57 Pain Score Most Recent Pain Score: Most Recent Pain Score Pain Level 7 02/08/24 10:09 Assessment Mental Status: Awake (Alert & Oriented to Patient Baseline) Airway and Respiratory Function: Patent airway with normal (patient baseline) respiratory exam Cardiovascular Function: Hemodynamically Stable Hydration Status: Adequately Hydrated Nausea & Vomiting: No Nausea or Vomiting Pain: Pain is Moderate or Severe Postoperative Pain Management: Ongoing pain, patient will be managed as an inpatient Peripheral Nerve Block: Patient did not receive a nerve block Postoperative Comments:: No respiratory complaints. Not compliant with therapy but doing well.
--- NOTE | 2024-02-08 11:12 | DI.VRAD_ITS ---
PROCEDURE INFORMATION: Exam: XR Chest Exam date and time: 02/08/2024 10:44 AM Age: 33 years old Clinical indication: Other: F/u pulmonary status; Prior surgery; Surgery date: 1-6 months; Surgery type: 6 weeks ago ankle FX TECHNIQUE: Imaging protocol: Radiologic exam of the chest. Views: 2 views. COMPARISON: CR XR PORTABLE CHEST AP 02/07/2024 5:49 PM. Report not available at time of dictation. FINDINGS: Lungs: Interval significant improvement in aeration, most notably on the left. Likely some residual left basilar atelectasis. Pleural spaces: No pneumothorax or pleural effusion. Heart/Mediastinum: Normal cardiac silhouette. Bones/joints: No acute abnormality. IMPRESSION: Interval significant improvement in lung aeration, most notably on the left with likely some residual basilar atelectasis. Dictated and Authenticated by: Malcolm Mazariegos MD. Ordering:MONIKA Graff MD
--- NOTE | 2024-02-08 11:44 | PHA.REVIEW2 ---
Pharmacy Admission Review Admission Clinical Review Admission Pharmacy Review: (Updated 02/08/24 @ 08:55 by Dajuan Prakash MD) Aspiration pneumonia (Acute) Surgical wound dehiscence (Acute) Postoperative wound infection (Acute) codeine Allergy (Intermediate, Verified 02/07/24 13:25) rash atorvastatin Adverse Reaction (Verified 02/07/24 13:25) myalgias Resuscitation Status Full Code Height 5 ft 11 in Weight 133.2 kg Pharmacy Admission Review Renal Dosing Renal Dosing: BUN 11 mg/dL (7-18) 02/08/24 05:30 Creatinine 1.0 mg/dL (0.70-1.30) 02/08/24 05:30 Medications needing adjustments: Reviewed (CrCl 146.3 mL/min) Anticoagulation Anticoagulation: Hgb 15.3 g/dL (13.5-17.5) 02/08/24 05:30 Hct 46.8 % (40.0-50.0) 02/08/24 05:30 Plt Count 311 10^3/uL (130-400) 02/08/24 05:30 Creatinine 1.0 mg/dL (0.70-1.30) 02/08/24 05:30 DVT Prophylaxis: Reviewed (None at this time, patient is POD #1) Opiate Usage Evaluate Pain Scale/Pains Meds: Reviewed (Hydrocodone PRN) Scheduled Bowel Reg ordered if on Opiates?: No Relevant Labs Relevant Labs: ESR 4 mm/hr (0-15) 02/07/24 14:08 Sodium 140 mmol/L (136-145) 02/08/24 05:30 Potassium 5.1 mmol/L (3.5-5.1) 02/08/24 05:30 Chloride 103 mmol/L (98-107) 02/08/24 05:30 C-Reactive Protein 1.53 mg/dL (<or=0.5) H 02/07/24 14:08 Electrolytes, C-Reactive P, ESR: Reviewed (AST/ALT 42/88, glucose 161 at 0530) Cardiac Review Cardiac Review: Blood Pressure 146/98 0857 Blood Pressure 145/114 0101 Blood Pressure 148/96 0032 Blood Pressure 164/116 0001 BP, HR, EF%: Reviewed (BP 146/98, HR WNL) QTc Review QTc: Reviewed (No EKG in patients file) IV to PO Switch IV Medications: Reviewed (Ketorolac, methylprednisolone, Zosyn and vancomycin) Home Meds Home Med List reviewed: Reviewed Relevent Home Meds Not ordered & why?: Naproxen (PRN) Current Meds Current Medication Order Review: Reviewed Pharmacy Antibiotic Review Relevant Labs: Relevant Labs 02/07/24 14:08 C-Reactive Protein 1.53 H Pharmacy Antibiotic Activity: C/S review and Reviewed, no change Comments: Patient is on vancomycin and Zosyn for cellulitis, day 2. Current vancomycin dose is 1500mg q12h with predicted AUC of 550 and trough of 17.8. Will order trough if patient is on vanco for more than 3 days per protocol. Blood and wound cultures are pending.
--- NOTE | 2024-02-08 13:44 | W.PM.PROGNOT ---
Date of Service Date of service: 02/08/24 Time of Service: 13:44 Assessment and Plan Assessment and plan (1) Postoperative wound infection: Status: Acute Assessment and plan: s/p incision and drainage and placement of wound vaccuum. continue Vancomycin and Zosyn modification pending culture results. Dr. Prakash is planning reoperating tomorrow to see if after further debridement he can attain primary closure, otherwise patient will need transfer for plastic surgery involvement. (2) Surgical wound dehiscence: Status: Acute Qualifiers: Encounter type: sequela Qualified Code(s): T81.31XS - Disruption of external operation (surgical) wound, not elsewhere classified, sequela (3) Aspiration pneumonia: Status: Acute Assessment and plan: CXR today appears markedly better, he has much improved lung aeration. I resumed his Symbicort today, DuoNeb can be used on prn basis. He does not need scheduled immediate acting brochodilators. I am encouraging him to use his IS and I added acapella. Qualifiers: Aspiration pneumonia type: unspecified Laterality: left Lung location: unspecified part of lung Qualified Code(s): J69.0 - Pneumonitis due to inhalation of food and vomit (4) Asthma: Status: Chronic Assessment and plan: it sounds like his astham is usually well controlled. continue Symbicort, use DuoNeb on prn basis. patient is now on methylprednisolone 60 mg IV q12h, this can be changed to oral prednisone. continue omeprazole for GI protection. Qualifiers: Asthma severity: moderate Asthma persistence: persistent Asthma complication type: with acute exacerbation Qualified Code(s): J45.41 - Moderate persistent asthma with (acute) exacerbation (5) Obstructive sleep apnea: Status: Chronic Assessment and plan: patient has a CPAP at home but does not use it. He has a full face mask as he says that nasal pillows do not stay on in his sleep (he tosses and turns a lot). I encouraged him to at least wear the oxygen at night. (6) Tobacco abuse: Status: Chronic Assessment and plan: patient has nicotine patch replacement (7) Hypertension: Status: Chronic Assessment and plan: patient is currently on his clonidine w/ acceptable though not optimal BP readings. will monitor Qualifiers: Hypertension type: primary hypertension Qualified Code(s): I10 - Essential (primary) hypertension Subjective Subjective Interval history since last seen: Mr. Jc is feeling markedly better this morning. No CP or dyspnea. He is not coughing up mucus today. He says that his ashtma is usually well controlled when he is on his Symbicort and does not have to use his rescue inhaler ProAir even once a month. However he does smoke and he has STEFAN for which he is suppose to use CPAP but can not tolerate d/t claustrophobia. He presented last night w/ open wound in right ankle from surgical wound dehiscence. he had surgery in [facility] for ankle fracture about 6 weeks ago (Dr. Rodriguez) and appaprently had known infection for which he says was being treated remotely by his surgeon and patient was on his third round of antibiotics and down to his last 3 pills and knew that this was not going to heal when he presented to the ED. This morning he remains on oxygen but is no longer bronchospastic. During induction last night he had bronchospasm to such a degree that anesthesia had difficulty ventilating him but patient eventually responded to multiple DuoNeb treatments, albuteral and iv magnesium bolus and corticosteroids. Objective Last Vital Signs Temp 36.8 C 02/08/24 08:57 Pulse 88 02/08/24 08:57 Resp 17 02/08/24 08:57 BP 146/98 H 02/08/24 08:57 Pulse Ox 92 02/08/24 12:34 Laboratory Results - last 24 hr 02/07/24 02/08/24 14:08 05:30 WBC 7.64 6.85 RBC 5.43 5.09 Hgb 16.5 15.3 Hct 50.2 H 46.8 MCV 92 92 MCH 30.4 30.1 MCHC 32.9 32.7 RDW 11.8 11.7 L Plt Count 305 311 MPV 9.4 10.1 Immature Gran % 0.1 Neutrophils % 52.1 Lymphocytes % 34.9 Monocytes % 10.3 Eosinophils % 1.7 Basophils % 0.9 Nucleated RBC % 0.0 Absolute Neutrophils 3.97 Absolute Lymphocytes 2.67 Absolute Monocytes 0.79 Absolute Eosinophils 0.13 Absolute Basophils 0.07 ESR 4 VBG Lactate 1.6 H Sodium 139 140 Potassium 4.6 5.1 Chloride 101 103 Carbon Dioxide 31.2 26.6 Anion Gap 6.8 10.4 BUN 10 11 Creatinine 1.0 1.0 Est GFR (CKD-EPI 2020) 101.92 101.92 Glucose 91 161 H Calcium 9.0 9.1 Total Bilirubin 0.4 AST 42 H ALT 88 H Alkaline Phosphatase 121 H C-Reactive Protein 1.53 H Total Protein 8.4 H Albumin 4.1 PAWSS Have you Been Recently Intoxicated or Drunk Within the Last 30 days?: No Have you Ever Experienced Previous Episodes of Alcohol Withdrawal?: No Have you ever Experienced Withdrawal Seizures?: No Have you ever Experienced Delirium Tremens(DT)s?: No Have you ever undergone Alcohol Rehabilitation Treatment (i.e, inpt ot outpatient treatment programs)?: No Have you ever Experienced Blackouts?: No Have you ever Combined Alcohol with other Downers within the last 90 days?: No Have you ever Combined Alcohol with any other Substance of Abuse during the last 90 days?: No Positive Blood Alcohol level on Presentation? [PCS.BAL]: No Evidence of Increased Autonomic Activity (i.e. HR>120, tremor, sweating, agitation, nausea)?: No Result: 0 Time Spent with Patient Time Spent with Patient: 35-49 minutes Time was spent: preparing to see the patient(eg.review tests), obtaining and/or reviewing separately otained hiistory, ordering medications,tests, procedures, referring, communicating with other health professional healthcare representative, indepentently interpreting results, counseling the patient and care coordination
[2024-02-08] MEDS: VANCOMYCIN/WATER (PEG) 1.5 GM/300 ML BAG IVPB (14:52)
[2024-02-08] MEDS: predniSONE 20 MG TAB 40 MG PO (15:09)
[2024-02-08] MEDS: HYDROcodone 5/Acetaminophen 325 TAB PO ×2 (16:48→23:12)
--- NOTE | 2024-02-08 20:23 | INITIAL_ITS ---
Date of service: 02/08/24 Time of Service: 20:23 Care Management Initial Assmt Initial Assessment REASON FOR HOSPITALIZATION:: Right Ankle Surgical Wound dehiscence and infection PREVIOUS FUNCTIONAL STATUS/SOCIAL/FAMILY SUPPORTS:: Jose lives in [place]; he is currently renting a room from his aunt and uncle. He stated that he has lived all over [place], but grew up in [place], and enjoys living in [place] currently. 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 He is close with his family, who are supportive. He is independent at baseline. CURRENT FUNCTIONAL STATUS:: Jose was sitting up in bed when CM met with him. He stated that he has had a string of bad luck, first with his ankle break, then losing his job as he has been unable to work, and now this infection. He stated that he feels frustrated, but is hoping that his luck will turn around. He stated that per MD, he will go to the OR tomorrow for the MD for wound debridement. After that, he may return home, unless it is indicated for him to transfer to a tertiary facility. He is being treated with IV antibiotics, and has a wound vac on his wound currently. Jose's chart indicates that he does not have insurance; he stated that he thought he has RADU. CM sent a referral to [facility]i for insurance support. Jose also stated that he is worried about his finances due to being unemployed for so long; CM will discuss this with Becki as well for additional community support. CM will continue to follow. ADVANCE DIRECTIVES:: Not on file. Has patient been provided with info about the portal/API?: Yes Did the patient sign up for the portal?: No CODE STATUS:: Full Code INSURANCE COVERAGE / FINANCIAL ISSUES:: self pay; [facility]i referral sent CURRENT HOME/COMMUNITY SERVICES/EQUIPMENT:: None PRIMARY CARE PHYSICIAN:: Willis Henderson POTENTIAL DISCHARGE NEEDS:: Evaluations for further needs, follow up appointments. PATIENT/FAMILY EDUCATION NEEDS:: Review discharge instructions and limitations, discussion of self care needs including ask me three. ANTICIPATED BARRIERS TO DISCHARGE:: None identified. TRANSPORTATION:: via private vehicle by family PLAN:: Anticipate Jose will return home once medically cleared. He may require HH RN for wound care, if indicated. He will be driven home via private vehicle by family. He will follow up with his PCP and discharge plan of care. CM will continue to follow. PFSH All Active Problems (Updated 02/08/24 @ 08:55 by Dajuan Prakash MD) Obstructive sleep apnea (Chronic) Tobacco abuse (Chronic) Aspiration pneumonia (Acute) Surgical wound dehiscence (Acute) Postoperative wound infection (Acute) No-show for appointment (Acute) Myalgia due to statin (Acute) pt stopped .. ref to clin pharm to maybe subst Chondromalacia patellae of left knee (Acute) Left knee pain (Acute) Hyperlipidemia (Chronic) Dental infection (Acute) Severe obstructive sleep apnea (Acute) 12/17/20 sleep study [facility] Oral thrush (Acute) Otitis media of left ear (Acute) Pharyngitis (Acute) Depression (Chronic) ADHD (Acute) Anxiety (Chronic) GERD (gastroesophageal reflux disease) (Chronic) History of substance abuse (Acute) Asthma (Chronic) Hypertension (Chronic) Family History Mother Substance abuse Brother Substance abuse Uncle Anxiety Depression Other Diabetes Hypertension Liver cancer Social History Smoking/Tobacco Use Status: Current every day Tobacco Type: cigarettes Smoking packs per day: 1 Smoking cigarettes per day: 20.0 Years smoked: 15 Smoking pack- years: 15.00 Smoking risk assessment performed?: Yes Alcohol Intake: former Year quit: 2019 Previous attempts at quittin Drug use: Daily Substance use type: former substance user Date of last use: 07/01/2020, marijuana and opiates Details: Daily user of Marijuana Adopted: No Caregiver/Support person: No Foster care: No Household members: none Housing: other Details: Sober Living Number of Children: 0 Communication Needs: None Do you need help understanding health information?: Rarely current occupation: Unemployed Sexually active: Yes Do you think of yourself as: straight/heterosexual Current gender identity: male What type of physical activity do you participate in: none Seatbelt use: never Drive intox or ride w/intox tank wagon driver: No Do you feel safe at home: Yes Do you feel safe in your relationship?: Yes SDOH(Care Management) Screening Will the Patient Participate in the Screening?: Declined to provide
[2024-02-09] VITALS (13 sets, daily range): BP systolic 129–162; BP diastolic 82–98; PULSE 68–88; RESP 2–19; TEMP 35.9–36.9; O2SAT 94–100
[2024-02-09] MEDS: VANCOMYCIN/WATER (PEG) 1.5 GM/300 ML BAG IVPB ×2 (02:03→14:05)
[2024-02-09] MEDS: Acetaminophen 325 MG TAB 650 MG PO ×4 (04:06→21:33)
[2024-02-09] MEDS: Ketorolac 15 MG/ML VIAL IVP ×4 (04:06→21:32)
[2024-02-09] MEDS: PIPERACILLIN/TAZO 4.5 GM in Normal Saline 100 ML IVPB ×4 (04:07→23:51)
[2024-02-09 07:21] LABS: C-Reactive Protein 0.54 mg/dL (<or=0.5)
[2024-02-09] MEDS: Budesonide/Formoterol 160/4.5 6 GM 60 PUFF INH IH ×2 (08:11→20:41)
--- NOTE | 2024-02-09 08:28 | W.PM.PROGNOT ---
Date of Service Date of service: 02/09/24 Time of Service: 08:28 Assessment and Plan Assessment and plan (1) Postoperative wound infection: Status: Acute Assessment and plan: s/p incision and drainage and placement of wound vaccuum, POD#1, it is my understanding that Dr. Prakash intends to take him back to surgery today to perform further washout/debridement and get a look to see if this is likely to heal w/ wound vacuum and good antibiotic coverage or if this is likely going to need further surgery including plastic surgery to close the wound. He is a little bronchospastic this morning although he feels fine. I will give him a DuoNeb treatment. I have already resumed his maintenance Symbicort yesterday. (2) Surgical wound dehiscence: Status: Acute Qualifiers: Encounter type: sequela Qualified Code(s): T81.31XS - Disruption of external operation (surgical) wound, not elsewhere classified, sequela (3) Aspiration pneumonia: Status: Acute Assessment and plan: I think that his aspiration pneumonia was more a chemical pneumonitis as his CXR yesterday had rapidly improved overnight from the one done immediately postop. His oxygenation has improved remarkable. I still would keep him on scheduled bronchodilators (I changed his albuterol HFA qid to DuoNeb qid, and have ordered a treatment preop. Qualifiers: Aspiration pneumonia type: unspecified Laterality: left Lung location: unspecified part of lung Qualified Code(s): J69.0 - Pneumonitis due to inhalation of food and vomit (4) Asthma: Status: Chronic Assessment and plan: it sounds like his astham is usually well controlled. continue Symbicort, use DuoNeb on prn basis. patient is now on methylprednisolone 60 mg IV q12h, this can be changed to oral prednisone. continue omeprazole for GI protection. Qualifiers: Asthma severity: moderate Asthma persistence: persistent Asthma complication type: with acute exacerbation Qualified Code(s): J45.41 - Moderate persistent asthma with (acute) exacerbation (5) Obstructive sleep apnea: Status: Chronic Assessment and plan: patient has a CPAP at home but does not use it. He has a full face mask as he says that nasal pillows do not stay on in his sleep (he tosses and turns a lot). I encouraged him to at least wear the oxygen at night. (6) Tobacco abuse: Status: Chronic Assessment and plan: patient has nicotine patch replacement (7) Hypertension: Status: Chronic Assessment and plan: patient is currently on his clonidine w/ acceptable though not optimal BP readings. will monitor Qualifiers: Hypertension type: primary hypertension Qualified Code(s): I10 - Essential (primary) hypertension Subjective Subjective Interval history since last seen: patient complains of increasing right ankle pain. last medicated w/ ketorolac and APAP at 4 am. I will give him an additional dose of ketorolac now. He is NPO for surgery today. He has been off oxygen since 4 or 5 am. He deneis any dyspnea. Exam Narrative Exam Narrative: Jose is alert, no acute respiratory distress, no audible wheezing. he is on room air w/ normal respiratory rate. I did a pulse oximetry check on him and his SPO2 is 97% on room air w/ pulse in the mid 70's LUngs: diffuse expiratory wheezes w/ forced exhalation Heart: RRR Right calf, not edematous and nontender. wound vacuum in place over the ankle. 2+ edema of ankle and foot, tender to palpation over dorsum of foot; normal pedal pulses, good capillary refill, sensation intact Objective Last Vital Signs Temp 36.1 C L 02/09/24 08:06 Pulse 79 02/09/24 08:06 Resp 19 02/09/24 08:06 BP 138/98 H 02/09/24 08:06 Pulse Ox 96 02/09/24 08:06 Laboratory Results - last 24 hr 02/09/24 06:20 C-Reactive Protein 0.54 H PAWSS Have you Been Recently Intoxicated or Drunk Within the Last 30 days?: No Have you Ever Experienced Previous Episodes of Alcohol Withdrawal?: No Have you ever Experienced Withdrawal Seizures?: No Have you ever Experienced Delirium Tremens(DT)s?: No Have you ever undergone Alcohol Rehabilitation Treatment (i.e, inpt ot outpatient treatment programs)?: No Have you ever Experienced Blackouts?: No Have you ever Combined Alcohol with other Downers within the last 90 days?: No Have you ever Combined Alcohol with any other Substance of Abuse during the last 90 days?: No Positive Blood Alcohol level on Presentation? [PCS.BAL]: No Evidence of Increased Autonomic Activity (i.e. HR>120, tremor, sweating, agitation, nausea)?: No Result: 0 Time Spent with Patient Time Spent with Patient: 25-34 minutes Time was spent: preparing to see the patient(eg.review tests), ordering medications,tests, procedures, referring, communicating with other health resident care associate, indepentently interpreting results, counseling the patient and care coordination
[2024-02-09] MEDS: Omeprazole 20 MG CAPCR 40 MG PO (09:01)
[2024-02-09] MEDS: Normal Saline Flush 10 ML SYR IVP ×3 (09:02→20:05)
[2024-02-09] MEDS: Multivitamin w/Minerals TAB 1 TAB PO (09:02)
[2024-02-09] MEDS: predniSONE 20 MG TAB 40 MG PO (09:02)
[2024-02-09] MEDS: Allopurinol 300 MG TAB PO (09:02)
[2024-02-09] MEDS: cloNIDine 0.1 MG TAB PO ×2 (09:02→20:05)
[2024-02-09] MEDS: Nicotine 14 MG/24 HR PATCH TD (09:03)
--- NOTE | 2024-02-09 09:28 | W.PM.PROGNOT ---
Date of Service Date of service: 02/09/24 Time of Service: 09:28 Assessment and Plan Assessment and plan (1) Postoperative wound infection: Status: Acute (2) Surgical wound dehiscence: Status: Acute Assessment and plan: Jose is a 33-year-old who suffered a surgical wound dehiscence with secondary infection after ankle fracture fixation in [place]. His CRP has returned almost to normal which is excellent for stemming the infection about the right leg. He has had a wound VAC in place. I do long discussion with him yesterday about the need to remove the wound VAC and reevaluate the wound for potential secondary closure versus the need for plastic coverage closure. I discussed this case with some colleagues at [facility] who agreed this likely will need plastic surgery coverage. However, he really wants to stay local and wants to try a secondary closure if it is all possible. Therefore, I recommend today we proceed with removal of the wound VAC, wound evaluation and attempted secondary closure. If is not possible then I would dress the wound with a wet-to-dry dressing with anticipation of transfer to [facility] for definitive management. I once again discussed the risk of the procedure to include bleeding, continued infection, need for repeat procedures. Despite these risk, he elects to proceed. He has been seen by Dr. Camarillo and as well who has made some modifications to his medications for his ongoing wheezing. Qualifiers: Encounter type: sequela Qualified Code(s): T81.31XS - Disruption of external operation (surgical) wound, not elsewhere classified, sequela Subjective Subjective Interval history since last seen: Some increase in pain about the right ankle but otherwise no concerns. No issues with breathing. Seen by Dr. Kruse this morning where he was noted to have some wheezing. Blood cultures negative. Wound cultures with gram positive cocci. Exam Narrative Exam Narrative: NAD. AAOx3. Breathing comfortably without audible wheezing or distress. Right lower extremity wound VAC is in place. No surrounding erythema. Able to move toes and ankle without limitation. Objective Last Vital Signs Temp 36.1 C L 02/09/24 08:06 Pulse 79 02/09/24 08:06 Resp 19 02/09/24 08:06 BP 138/98 H 02/09/24 08:06 Pulse Ox 96 02/09/24 08:06 Laboratory Results - last 24 hr 02/09/24 06:20 C-Reactive Protein 0.54 H PAWSS Have you Been Recently Intoxicated or Drunk Within the Last 30 days?: No Have you Ever Experienced Previous Episodes of Alcohol Withdrawal?: No Have you ever Experienced Withdrawal Seizures?: No Have you ever Experienced Delirium Tremens(DT)s?: No Have you ever undergone Alcohol Rehabilitation Treatment (i.e, inpt ot outpatient treatment programs)?: No Have you ever Experienced Blackouts?: No Have you ever Combined Alcohol with other Downers within the last 90 days?: No Have you ever Combined Alcohol with any other Substance of Abuse during the last 90 days?: No Positive Blood Alcohol level on Presentation? [PCS.BAL]: No Evidence of Increased Autonomic Activity (i.e. HR>120, tremor, sweating, agitation, nausea)?: No Result: 0 Time Spent with Patient Time Spent with Patient: <25 minutes Time was spent: obtaining and/or reviewing separately otained hiistory, counseling the patient and care coordination
[2024-02-09] MEDS: Lactated Ringers 1,000 ML 50 ML IV (09:51)
--- NOTE | 2024-02-09 11:05 | ROE_ITS ---
Date of service: 02/09/24 Time of Service: 10:00 Operative Note Operative Note DATE OF PROCEDURE: 02/07/24 PRE-OP DIAGNOSIS: Surgical wound dehiscence, right ankle with wound infection POST-OP DIAGNOSIS: same (With exposed hardware) PROCEDURE: Aggressive debridement and irrigation of right ankle wound Secondary closure, right ankle wound dehiscence Casper dressing application SURGEON: Dajuan Prakash ANESTHESIA TYPE: General:No Airway Refer to Anesthesia Record ESTIMATED BLOOD LOSS: 5 PATHOLOGY: none sent TOURNIQUET TIME: 0 Patient was transported to: floor Patient's condition: stable Indications: Jose is a 33-year-old who suffered a dehiscence with concomitant infection about his right ankle wound from previous ankle surgery. He previously went for irrigation debridement with wound VAC placement. The plan was to return to the operating room for second look of the wound and attempted secondary closure versus transfer for plastic surgery management of the wound. I reviewed the technical details of the case and the expectations with decision making. I reviewed potential risk to include secondary wound dehiscence after closure, and infection can persistence, bleeding, damage to nerves and vessels, damage to muscle and tendons, need for repeat procedures. Despite these risk, he elects to proceed. Findings: The tissue was very healthy. There is no apparent material. There is no necrotic tissue. The wound itself measures 8 x 3 cm and about 2 cm in depth. With some elevation of full-thickness flaps I was able to close the deep tissues over the plate as well as close the skin. A casper vacuum assisted dressing was applied to assist with wound healing. Procedure Description: Jose was greeted in the preoperative holding area. Previously on the floor his consent was reviewed with the patient and the history and physical was updated. He was taken back to the operating room placed in the supine position on the operating room table. A general, uninstrumented airway, anesthetic was administered. Prophylactic biotics were given previous on the floor with his regular schedule. The right leg was prepped with Betadine after removal of the wound VAC and draped in a standard fashion. The wound was measured to be approximately 8 cm in length by 3 cm in width and about 2 cm in depth. There is healthy granulation tissue seen throughout. There is no necrotic material. There is no purulence. The wound was inspected once again this was confirmed. The wound was then irrigated with normal saline as well as Irrisept chlorhexidine solution. The Irrisept solution was allowed to sit in the wound for approximately 3 minutes and then was washed out. I then utilized a knife to elevate full-thickness flaps leaving behind some tissue adjacent to the plate as well as a adipose dermal layer. Using #0 PDS I was ab le to close this deep layer over the plates of the plate was fully closed. Interval 2-0 Vicryl sutures were utilized to close the deep dermal layer reapproximating the skin edges to within 2 to 4 mm. At this point I felt confident in closing the skin and thus I used a #2 nylon in a trauma suture configuration, near?far?far?near. This reapproximated the skin edges. There appear to be no significant tissue devascularization with this closure. The tissue was woody and a few areas which made absolute closure more challenging but still skin edges were in approximation. The ankle was taken through range of motion and there is no gapping noted and no pulling out of the sutures. I then applied a casper, vacuum-assisted, dressing to the right ankle wound to assist with wound healing. The leg was then wrapped with web roll and well- padded. A short leg splint was applied. At the end the case all counts were correct. He was transferred back to the stretcher and then to his room upstairs on medical surgical floor. He tolerated the procedure well. No respiratory issues encountered. He will be nonweightbearing with a splint for at least 2 weeks. I will see him back in the office in 2 weeks.
[2024-02-09] MEDS: oxyCODONE 10 MG TAB PO ×3 (11:53→21:32)
[2024-02-09] MEDS: HYDROmorphone 2 MG/ML SYR 1 MG IVP (11:57)
--- NOTE | 2024-02-09 12:50 | W.ANESPOSTOP ---
Postoperative Evaluation Date, Time and Location Date Performed: 02/09/24 Time Performed: 12:51 Patient Location: Med/Surg Vital Signs Most Recent Imported Vital Signs: Most Recent Vital Signs Temp Pulse Resp BP Pulse Ox 36.3 C L 82 16 132/88 98 02/09/24 12:15 02/09/24 12:15 02/09/24 12:15 02/09/24 12:15 02/09/24 12:15 Most Recent Vital Signs Temp Pulse Resp BP Pulse Ox 36.8 C 88 17 146/98 H 95 02/08/24 08:57 02/08/24 08:57 02/08/24 08:57 02/08/24 08:57 02/08/24 08:57 Pain Score Most Recent Pain Score: Most Recent Pain Score Pain Level 10 02/09/24 11:57 Assessment Mental Status: Awake (Alert & Oriented to Patient Baseline) Airway and Respiratory Function: Patent airway with normal (patient baseline) respiratory exam Cardiovascular Function: Hemodynamically Stable Hydration Status: Adequately Hydrated Nausea & Vomiting: No Nausea or Vomiting Pain: Pain is Moderate or Severe Postoperative Pain Management: Ongoing pain, patient will be managed as an inpatient (Managed by admitting physician.) Peripheral Nerve Block: Patient did not receive a nerve block
--- NOTE | 2024-02-09 12:53 | IN_ITS ---
PT Notes Visit Reasons: Right Ankle Surgical Wound Dehisence and Infection Physical Therapy Inpatient Initial Evaluation Date: 02/09/2024 Referring Doctor: Dajuan Prakash MD, MD PT Orders: PT CONSULT: S/P Ortho Surgery Precautions: Fall. Standard. NWB on the R LE with short leg splint with AD for 2 weeks. Patient Profile/Admitting Diagnosis: Jose is a 33-year-old male who sustained a right ankle fracture 7 weeks ago and presented to the ED on 02/08/2024 with surgical wound dehiscence and large purulent wound on surgical site. He is S/P ORIF of said fracture in [facility] 6-7 weeks ago. Today he is S/P irrigation and debridement of right ankle wound, secondary closure of right ankle wound dehiscence and shanda dressing application on postoperative day 1. PMHX: All Active Problems (Updated 02/07/24 @ 15:02 by AISHA Lenoardo) Postoperative wound infection (Acute) No-show for appointment (Acute) Myalgia due to statin (Acute) pt stopped .. ref to clin pharm to maybe substChondromalacia patellae of left knee (Acute) Left knee pain (Acute) Hyperlipidemia (Acute) Dental infection (Acute) Severe obstructive sleep apnea (Acute) 12/17/20 sleep study [place] RHOral thrush (Acute) Otitis media of left ear (Acute) Pharyngitis (Acute) Depression (Chronic) ADHD (Acute) Anxiety (Chronic) GERD (gastroesophageal reflux disease) (Chronic) History of substance abuse (Acute) Asthma (Chronic) Hypertension (Chronic) Social History/Home Situation: Recently completed the [facility] the [facility]. Now lives on the basement of his aun'st and uncle's house. Has a ramp to enter house. 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 Equipment Owned/DME: None Subjective: 8/10 pain in the R ankle and leg at rest and with movement. Denied headache, chest pain, and lightheadedness throughout session. Objective: General Observation: SHANDA dressing in place. Short leg splint in R LE. Oxygen supplementation via NC. Mental Status: Alert and oriented as to person, place, time, and purpose. Able to pay attention, focus, and respond appropriately. Pain: As above Vital Signs: Closely monitored by Nurse Noah ROM: Right Upper Extremity: Shoulder Flexion WFL. Shoulder abduction WFL. Elbow flexion WFL. Wrist flexion WFL. Functional opening and closing of hand WFL. Left Upper Extremity: Shoulder Flexion WFL. Shoulder abduction WFL. Elbow flexion WFL. Wrist flexion WFL. Functional opening and closing of hand WFL. Right Lower Extremity: Hip flexion WFL. Hip abduction WFL. Knee flexion WFL. Ankle dorsiflexion WFL. Ankle plantarflexion WFL. Left Lower Extremity: Hip flexion WFL. Hip abduction WFL. Knee flexion WFL. Ankle dorsiflexion NT. Ankle plantarflexion NT. Strength: Right Upper Extremity: Shoulder flexors 5/5. Shoulder abductors 5/5. Elbow flexors 5/5. Elbow extensors 5/5. Boiler Operators Supervisor strong. Left Upper Extremity: Shoulder flexors 5/5. Shoulder abductors 5/5. Elbow flexors 5/5. Elbow extensors 5/5. Boiler Operators Supervisor strong. Right Lower Extremity: Hip flexors 5/5. Hip abductors 5/5. Knee flexors 4/5. Knee extensors 4/5. Ankle dorsiflexors NT. Ankle plantarflexors NT. Left Lower Extremity: Hip flexors 5/5. Hip abductors 5/5. Knee flexors 5/5. Knee extensors 5/5. Ankle dorsiflexors 5/5. Ankle plantarflexors 5/5. Bed Mobility/Transfers: Minimal cueing provided for use of B hands as needed for support, movement sequence, AD management, and posture to reduce fall risk and minimize pain report Supine to sit supervision Sit to stand standby assist with FWW Stand to sit standby assist with FWW Bed to reclining chair standby assist with FWW Reclining chair to bed standby assist with FWW Gait: 6 steps from edge of bed to chair and another 6 steps from chair back to bed with NWB on the R LE. Ensured that footwear is used on the L LE to unsure full cmplince with WB precaution. Balance: Static Sitting: Normal Dynamic Sitting: Normal Static Standing: Fair Dynamic Standing: Unable Special Tests: Mobility Limitations Standardized Measure [facility] AM-PAC 6 clicks Basic Mobility Inpatient Short Form: Raw Score: 22 CMS Score: 21% deficit Informed Consent/Education: Patient was instructed in purpose of PT consult and plan of care. Agreeable to proceed with established PT POC to achieve personal goals. Thera Ex: Instructed paient with correct and safe performance of exercises below herve two hours while awake: Gentle to curls x 5 Quads sets x 5 with 5 sh Ankle knee to chest x 5 Assessment: Patient requires use of her front wheeled walker to ensure compliance with nonweightbearing precaution on the right side, reduce fall risk, and minimize pain report.Patient presents with clinical signs and symptoms consistent with current/admitting diagnoses that have resulted to mobility limitations, gait instability, generalized weakness, and overall ADL decline as demonstrated by the following impairment level findings: 1. Decreased strength to R anklemajor muscle groups 2. Impaired sstanding balance 3. Impaired activity tolerance 4. Limitation of joint range of motion in L ankle due to postoperative status 5. Pain at 8/10 Impairments are contributing to the following functional limitations: 1. Decline in bed mobility skills 2. Decline in transfer skills 3. Difficulty with ambulation without assistive device 4. Increased completion time for mobility ADL performance 5. Increased risk for falls 6. Difficulty with managing steps alone safely Patient is assessed as a 38346 moderate complexity based on the following: History: 33-year-old male with past medical history as indicated above Examination: Demonstrable impairment in strength, balance, and mobility level with underlying impairments and functional limitations as exhibited above as well as deficit score of 21% utilizing the [facility] Mobility Inpatient Short Form Presentation: Evolving Decision Makin moderate complexity Goals: Goals X1 week 1. Supine-Sit independent 2. Sit-Supine independent 3. Sit-Stand independent 4. Stand-Sit independent with FWW 5. Bed-Chair independent with FWW 6. Chair-Bed independent with FWW 7. Independent gait on level surface with use of FWW for at least 75 feet without report of pain nor dyspnea 8. Independent with home exercise program 9. Good static and dynamic standing balance/tolerance Plan of Care/Treatment Plan: 1-2x/day, 7 days/week x 1 week. Plan of care has been reviewed with the KITCHEN MECHANIC providing the service under Physical Therapy direction. Initiate Physical Therapy intervention for pain management as needed, strengthening, bed mobility, transfers, gait, stairs, balance training, and use of assistive device. DISCHARGE RECOMMENDATIONS: [] Home with no services [] [X] Home with services. Patient will benefit from home health PT services in order to progress mobility level using least restrictive assistive ambulatory device, assess home safety, identify additional equipment needs, and establish a functional maintenance program that will increase ability of patient to remain at home. [] Home with outpatient PT [] [] SNF for continued rehabilitation [] [] Penitentiary Care [] [] SNF versus LTC based on ability to participate and progress [] TREATMENT CODE/TIME: 9716 2 x 20 minutes for 1 unit, 51451 x 17 minutes for 1 unit (12:53-13:30). Thank you for the opportunity to participate in the care of this patient. Makenzie Gregg PT, DPT, CLT [facility] [place], [place]
[2024-02-09] MEDS: Albuterol/Ipratropium 3 ML UPD VIAL UPD (20:40)
[2024-02-10] MEDS: HYDROmorphone 2 MG/ML SYR 1 MG IVP (00:02)
[2024-02-10 00:26] VITALS: O2SAT 95
[2024-02-10] MEDS: VANCOMYCIN/WATER (PEG) 1.5 GM/300 ML BAG IVPB (01:22)
[2024-02-10] MEDS: Normal Saline Flush 10 ML SYR IVP ×3 (01:23→09:24)
[2024-02-10] MEDS: oxyCODONE 10 MG TAB PO ×3 (01:23→10:09)
[2024-02-10 03:39] VITALS: BP 126/95; PULSE 88; RESP 16; TEMP 36.4; O2SAT 95
[2024-02-10] MEDS: Ketorolac 15 MG/ML VIAL IVP ×2 (03:48→09:21)
[2024-02-10] MEDS: Acetaminophen 325 MG TAB 650 MG PO ×2 (03:49→09:23)
[2024-02-10] MEDS: PIPERACILLIN/TAZO 4.5 GM in Normal Saline 100 ML IVPB (05:41)
[2024-02-10 07:53] VITALS: PULSE 76; RESP 17; RESP 2; RESP 9; O2SAT 99
[2024-02-10] MEDS: Budesonide/Formoterol 160/4.5 6 GM 60 PUFF INH IH (07:53)
[2024-02-10] MEDS: Albuterol/Ipratropium 3 ML UPD VIAL UPD (07:53)
--- NOTE | 2024-02-10 07:54 | DSE_ITS ---
Date of service: 02/10/24 Time of Service: 07:55 DS: Diagnosis Discharge Diagnosis (1) Postoperative wound infection: Status: Acute (2) Surgical wound dehiscence: Status: Acute Discharge Plan Disposition Patient Disposition: Home Condition: Improving Discharge Details Reason For Visit: Right Ankle Surgical Wound Dehisence and Infection Admit Date/Time: 02/07/24 15:49 Admit Provider: Dajuan Prakash Attending Provider: Dajuan Prakash Primary Care Provider: [facility] Course Hospital Course: Jose was admitted from emergency department for a wound dehiscence with postop infection following surgery performed in [place], [place] approximately 6 or so weeks ago. He was taken to the operating room from the emergency department where a aggressive debridement was performed with wound VAC placement. Inflammatory markers improved with IV antibiotic. He was then taken back to the operating room for a second washout. The plan was for delayed closure if possible versus referral to tertiary center for closure. This wound was able to be closed in multiple layers although with some difficulty. He was placed into a casper VAC dressing and into a splint. He worked with physical therapy and was deemed for safe discharge to home with the program to antibiotics. Home Meds and New Rx's Prescriptions: New oxycodone 10 mg Tablet 10 mg PO Q6H PRN PRNQty: 12 0RF acetaminophen 500 mg tablet 1,000 mg PO Q8H PRN (Reason: pain) Qty: 90 3RF amoxicillin-pot clavulanate 875-125 mg tablet 1 tab PO BID Qty: 28 0RF Continued clonidine HCl 0.1 mg tablet 0.1 mg PO BID Qty: 180 3RF omeprazole 40 mg capsule,delayed release(DR/EC) 40 mg PO DAILY Qty: 90 3RF allopurinol 300 mg tablet 300 mg PO DAILY Qty: 90 3RF naproxen 500 mg tablet 500 mg PO BID PRN (Reason: pain) Qty: 60 3RF albuterol sulfate 90 mcg/actuation HFA aerosol inhaler 2 puff inhalation Q4H PRN (Reason: shortness of breath or wheezing) Qty: 18 6RF budesonide-formoterol [Symbicort] 160-4.5 mcg/actuation HFA aerosol inhaler 2 puff inhalation BID Qty: 10.2 6RF Discontinued sulfamethoxazole-trimethoprim 800-160 mg tablet 1 tab PO Q12H Patient Comments: TAKE ONE TABLET BY MOUTH EVERY 12 HOURS FOR 1 WEEK Discharge Instructions Additional Instructions: Ankle Wound Discharge Instructions Activity: You are NON WEIGHT BEARING. You should keep the leg elevated as much as possible. You may wiggle your toes and move your hip and knee. Dressings: You should keep your splint clean and dry. Do NOT get wet or dirty. If you have issues with your splint, please call the office at [phone] or the hospital after hours. You also have a casper dressing which is a vacuum- assisted dressing. There is a small battery pack which she will see. Sometimes these batteries need to be replaced. If any light flashes any color other than green you may call the office to discuss this. Medications: - You should take Tylenol and Ibuprofen around the clock for baseline pain. - You have been prescribed a stronger narcotic for breakthrough pain. - You should take a Baby Aspirin (81mg) twice a day for blood clot prevention. Follow-up: 2 weeks Referrals: Dajuan Prakash MD [ [facility] STAFF PHYSICIAN] - Activity:: Activity as Tolerated Equipment/Supplies:: Walker Diet:: As Tolerated Discharge Orders Discharge Orders: Discharge Order (Routine); Ordered 02/10/24 Ordered By: Dajuan Prakash DS: Summary Time Spent with Patient providing and/or coordinating discharge services: Greater than 30 minutes Status at Discharge Functional status at discharge: uses cane/walker Overall status at discharge: patient is progressing back to baseline Mental Status: mental status grossly normal Speech and Movement: speech and movement normal Mood: congruent mood Affect: normal affect Quality:SDOH Health Related Social Needs: No Data to Display Exam Narrative Exam Narrative: Jose sitting up in the hospital bed. No acute distress. Alert and orient x 3. Evaluation of the right lower extremity shows a splint in position. He is able to actively extend and flex the toes. Sensation intact to light touch over the deep and superficial peroneal nerve and tibial nerve. Cap refill less than 2 seconds. Psych Mental Status: mental status grossly normal Speech and Movement: speech and movement normal Mood: congruent mood Affect: normal affect DS: Data Vitals/I&O Vitals and I&O: Vital Signs Temperature 36.4 C L 02/10/24 03:39 Temperature Source Tympanic 02/10/24 03:39 Pulse 88 02/10/24 03:39 Pulse Rhythm Regular 02/10/24 03:45 Pulse 102 H 02/08/24 06:00 Respiratory Rate 16 02/10/24 03:39 Respiratory Effort Normal, Non-Labored 02/10/24 03:45 Respiratory Depth Normal 02/10/24 03:45 Respiratory Pattern Normal 02/10/24 03:45 Blood Pressure 126/95 H 02/10/24 03:39 Blood Pressure Mean 125 02/08/24 01:01 Blood Pressure Position Supine 02/08/24 01:00 Pulse Oximetry 95 02/10/24 03:39 Respiratory End-tidal CO2 42 02/07/24 18:19 Oxygen Delivery Method Room Air 02/10/24 03:39 Oxygen Flow Rate 0 02/10/24 03:39 Pain Level 8 02/10/24 05:42 Comment patient appears to be sleeping very comfortable. patient was placed on 2L oxygen earlier in the shift when he started sleeping, however patient removed this. 02/10/24 03:39 Intake & Output 02/09/24 02/09/24 02/10/24 11:59 23:59 11:59 Intake Total 700 / 1200 500 / 1200 100 / 100 Output Total 400 / 400 400 / 400 Balance 700 / 800 100 / 800 -300 / -300 Intake: IV 700 / 1200 500 / 1200 100 / 100 Output: Urine 400 / 400 400 / 400 Other: Urine Color Yellow Yellow Pale Urine Appearance Clear Clear Clear Urine Odor None Comment Patient voided in commode while having BM Stool Size Large Large Stool Characteristics Soft Liquid Brown Voiding Methods Urinal Urinal Data Completed and Pending Labs on day of discharge: On discussion with the lab the gram-positive organism is Staph aureus, sensitive as well as some not speciated anaerobic organisms 02/07/24 16:23 Ankle - Right Anaerobic Culture - Pending Preliminary micro results at discharge 02/07/24 15:00 Blood Culture - Preliminary Blood NO GROWTH 48 HOURS 02/07/24 14:08 Blood Culture - Preliminary Blood NO GROWTH 48 HOURS 02/07/24 16:23 Surgical Culture - Preliminary Ankle - Right Staphylococcus Aureus Gram Positive Melly 02/07/24 16:23 Anaerobic Culture - Pending Ankle - Right PFSH All Active Problems Obstructive sleep apnea (Chronic) Tobacco abuse (Chronic) Aspiration pneumonia (Acute) Surgical wound dehiscence (Acute) Postoperative wound infection (Acute) No-show for appointment (Acute) Myalgia due to statin (Acute) pt stopped .. ref to clin pharm to maybe subst Chondromalacia patellae of left knee (Acute) Left knee pain (Acute) Hyperlipidemia (Chronic) Dental infection (Acute) Severe obstructive sleep apnea (Acute) 12/17/20 sleep study [facility] Oral thrush (Acute) Otitis media of left ear (Acute) Pharyngitis (Acute) Depression (Chronic) ADHD (Acute) Anxiety (Chronic) GERD (gastroesophageal reflux disease) (Chronic) History of substance abuse (Acute) Asthma (Chronic) Hypertension (Chronic) Family History Mother Substance abuse Brother Substance abuse Uncle Anxiety Depression Other Diabetes Hypertension Liver cancer Social History Smoking/Tobacco Use Status: Current every day Tobacco Type: cigarettes Smoking packs per day: 1 Smoking cigarettes per day: 20.0 Years smoked: 15 Smoking pack- years: 15.00 Smoking risk assessment performed?: Yes Alcohol Intake: former Year quit: 2019 Previous attempts at quittin Drug use: Daily Substance use type: former substance user Date of last use: 07/01/2020, marijuana and opiates Details: Daily user of Marijuana Adopted: No Caregiver/Support person: No Foster care: No Household members: none Housing: other Details: Sober Living Number of Children: 0 Communication Needs: None Do you need help understanding health information?: Rarely current occupation: Unemployed Sexually active: Yes Do you think of yourself as: straight/heterosexual Current gender identity: male What type of physical activity do you participate in: none Seatbelt use: never Drive intox or ride w/intox double bottom driver: No Do you feel safe at home: Yes Do you feel safe in your relationship?: Yes Time Spent with Patient Time Spent with Patient: <45 minutes Time was spent: preparing to see the patient(eg.review tests), obtaining and/or reviewing separately otained hiistory, ordering medications,tests, procedures and indepentently interpreting results
[2024-02-10 07:57] VITALS: PULSE 78; RESP 17; RESP 5; RESP 9; O2SAT 99
--- NOTE | 2024-02-10 09:01 | PT.INTREAT ---
PT Notes Visit Reasons: Right Ankle Surgical Wound Dehisence and Infection Date: 02/10/2024 PRECAUTIONS: NWB on the R LE with short leg splint with AD for 2 weeks. SUBJECTIVE: Pt in bed when approached for therapy this morning, agreed to participating with therapy OBJECTIVE: ?RLE short leg splint? PAIN: none reported VITALS: monitored by nursing ? Therapeutic Activities 89837: Direct one-on-one instruction in dynamic activities to improve functional performance. ?? BED MOBILITY/TRANSFERS? Rolling L/R: independent Supine-sit: ?independent? Sit-supine: ?independent? Sit-stand: ? Independent? Stand-sit: ??independent? Bed-Chair:? independent? Chair-bed: independent Provided skilled cues and instruction on performance and technique throughout. Gait Training 84826: Direct one-on-one instruction and skilled instruction in: Employing an assistive device Modified weight-bearing status Movement sequencing Turning and movement with proper form Provided verbal cues for equipment management and technique Provided instruction in gait pattern Patient education regarding pacing and breathing techniques to maximize activity tolerance? GAIT? Assistive Device: ??FWW? Weight bearing: NWB RLE Assist: ? supervision? Distance:?? ?50' ? Deviation: ?hop LLE (NWB RLE)? Therapeutic Exercises 43152: Direct one-on-one instruction in therapeutic exercises to develop strength, endurance, range of motion and flexibility. Exercises Access Code: [email or web address] URL: [email or web address] Date: 02/10/2024 Prepared by: Cesario Gregg Exercises - Clamshell with Resistance - 1 x daily - 7 x weekly - 1 sets - 10 reps - Hooklying Clamshell with Resistance - 1 x daily - 7 x weekly - 1 sets - 10 reps - Active Straight Leg Raise with Quad Set - 1 x daily - 7 x weekly - 1 sets - 10 reps - Supine Heel Slide - 1 x daily - 7 x weekly - 1 sets - 10 reps - Seated Hip Abduction with Resistance - 1 x daily - 7 x weekly - 1 sets - 10 reps - Seated Knee Extension with Resistance - 1 x daily - 7 x weekly - 1 sets - 10 reps - Single Leg Sit to Stand with Armrest - 1 x daily - 7 x weekly - 1 sets - 10 reps? ASSESSMENT:?Pt able to perform hopping activity with safely, pt able to perform supine and seated exercises with good for nd execution. pt recieved john theraband for resistance to use at home, paper copy and assistance with setup for [employer] for guidance with HEP. PLAN: Continue with balance training, global strengthening and general conditioning for improved safety, mobility and activity tolerance until pt is ready for DC. TREATMENT CODE/TIME: 83637e2, 65569n0 25mins (8:30-8:55am)
[2024-02-10] MEDS: Nicotine 14 MG/24 HR PATCH TD (09:21)
[2024-02-10] MEDS: Multivitamin w/Minerals TAB 1 TAB PO (09:23)
[2024-02-10] MEDS: predniSONE 20 MG TAB 40 MG PO (09:23)
[2024-02-10] MEDS: Omeprazole 20 MG CAPCR 40 MG PO (09:23)
[2024-02-10] MEDS: cloNIDine 0.1 MG TAB PO (09:23)
[2024-02-10] MEDS: Allopurinol 300 MG TAB PO (09:23)
--- NOTE | 2024-02-10 09:51 | PDOC.CMDIS ---
Date of service: 02/10/24 LACE Index Scoring Tool Questions: Length of Stay (in days): 3 Was the patient admitted via the E.D.?: Yes E.D. Visits: 0 Answers: Total Score: 6 Risk of Readmission: Low Risk Care Management Discharge Plan Reason for Hospitalization: Right Ankle Surgical Wound dehiscence and infection Discharge Plan: Jose is discharged per surgeon. He will be driven home via private vehicle by family. He will follow up with his PCP and discharge plan of care. Patient/Family Education Needs: Review discharge instructions and plan of care as prescribed. Discussion of Ask Me Three self care needs upon discharge. He will follow up with [facility] regarding health insurance coverage per CM referral. SDMD Health Related Social Needs: No Data to Display
== END 2024-02-10 11:14 | disposition home or self-care (01) | DRG 856 ==
LOC: ER 15:18 → ICU 21:11 → MS 02-09 17:12 → SUR 02-09 17:16 → ER 02-09 17:16 → ICU 02-09 17:16 → MS 02-09 17:16
PROVIDERS: Admitting Provider Student in an Organized Health Care Education/Training Program; Emergency Provider Physician Assistant; PCP Family Medicine; Visit Provider Student in an Organized Health Care Education/Training Program
PROC: 0JBQ0ZZ Excision of Right Foot Subcutaneous Tissue and Fascia, Open Approach (ICD-10-PCS; CPT 11043; principal; 2024-02-07 15:40)
PROC: 0JDQ0ZZ Extraction of Right Foot Subcutaneous Tissue and Fascia, Open Approach (ICD-10-PCS; CPT 13160; principal; 2024-02-09 09:00)
DX: T81.49XA Infection following a procedure, other surgical site, initial encounter (principal); J69.0 Pneumonitis due to inhalation of food and vomit; T81.31XA Disruption of external operation (surgical) wound, not elsewhere classified, initial encounter; J45.41 Moderate persistent asthma with (acute) exacerbation; F17.210 Nicotine dependence, cigarettes, uncomplicated; I10 Essential (primary) hypertension; E78.2 Mixed hyperlipidemia; G47.33 Obstructive sleep apnea (adult) (pediatric); M25.562 Pain in left knee; K21.9 Gastro-esophageal reflux disease without esophagitis; M22.42 Chondromalacia patellae, left knee; F90.9 Attention-deficit hyperactivity disorder, unspecified type; F32.A Depression, unspecified; F41.9 Anxiety disorder, unspecified; F10.11 Alcohol abuse, in remission; F12.90 Cannabis use, unspecified, uncomplicated; S82.452D Displaced comminuted fracture of shaft of left fibula, subsequent encounter for closed fracture with routine healing; W06.XXXD Fall from bed, subsequent encounter
CPT/HCPCS: 11043; 13160; 00123; 36415; 80048; 80053; 85027; 85652; 87040; 87077; 94640; 96365; 97110; 97162; 97530; 99285; 71045; 71046; 73610; 83605; 85025; 86140; 87070; 87075; 87186; 87205; 94664; 94668; 94760; 99222; 99231; 99232; J0330; J0665; J0690; J1100; J1170; J1885; J2001; J2250; J2405; J2543; J2704; J2919; J3010; J3370; J3372; J3475; J7512; J7613; J7620

== ENCOUNTER 2024-03-02 15:54 | Outpatient (CLI) | payer MEDICAID, SELFPAY ==
--- NOTE | 2024-03-02 14:45 | DI.RAD_ITS ---
Exam(s) XR ANKLE RT COMPLETE EXAM: XR ANKLE RT COMPLETE CLINICAL HISTORY: eval R distal fibula for healing. TECHNIQUE: 2D digital imaging was performed. Three images were obtained. AP, lateral and oblique vi ews were obtained. COMPARISON: CR XR ANKLE RT COMPLETE from 02/07/2024 FINDINGS: BONES: There are stable post operative changes present. The distal fibular fracture appears stable. No new fractures identified. The bones are osteopenic suggesting decreased use. JOINTS: The joint spaces are well maintained. SOFT TISSUE: There is soft tissue swelling around the ankle. IMPRESSION: Stable postoperative changes. DATA REPOSITORY: RADIATION DOSE DELIVERED:
== END 2024-03-02 15:55 | disposition home or self-care (01) ==
LOC: DIORS 15:54
PROVIDERS: PCP Family Medicine; Visit Provider Student in an Organized Health Care Education/Training Program
DX: S82.831D Other fracture of upper and lower end of right fibula, subsequent encounter for closed fracture with routine healing (principal); X58.XXXD Exposure to other specified factors, subsequent encounter; Z98.890 Other specified postprocedural states
CPT/HCPCS: 73610

== ENCOUNTER 2024-03-30 13:24 | Outpatient (CLI) | payer MEDICAID, SELFPAY ==
--- NOTE | 2024-03-30 11:15 | DI.RAD_ITS ---
Exam(s) XR ANKLE RT COMPLETE EXAM: XR ANKLE RT COMPLETE CLINICAL HISTORY: F/U R DISTAL FIB FX. TECHNIQUE: 2D digital imaging was performed of the right ankle. Three images were obtained. AP, la teral and oblique views were obtained. COMPARISON: CR XR ANKLE RT COMPLETE from 02/07/2024 CR XR ANKLE RT COMPLETE from 03/02/2024 FINDINGS: BONES: There are stable postsurgical changes of internal fixation of the distal fibular fracture. Th e fracture is less well visualized compared to the prior examination consistent with some interval he aling. No bony destructive lesion is seen. The bones are osteopenic suggesting decreased use. JOINTS: The ankle mortise is normally aligned. SOFT TISSUE: There is persistent soft tissue swelling around the ankle and foot. IMPRESSION: Stable alignment of the distal fibular fracture and orthopedic hardware. DATA REPOSITORY: RADIATION DOSE DELIVERED:
== END 2024-03-30 13:25 | disposition home or self-care (01) ==
LOC: DIORS 13:24
PROVIDERS: PCP Family Medicine; Referring Provider Family Medicine; Visit Provider Student in an Organized Health Care Education/Training Program
DX: S82.831D Other fracture of upper and lower end of right fibula, subsequent encounter for closed fracture with routine healing (principal); X58.XXXD Exposure to other specified factors, subsequent encounter
CPT/HCPCS: 73610

== ENCOUNTER 2024-04-27 14:19 | Outpatient (CLI) | payer MEDICAID, SELFPAY ==
--- NOTE | 2024-04-27 11:45 | DI.RAD_ITS ---
Exam(s) XR ANKLE RT COMPLETE EXAM: XR ANKLE RT COMPLETE CLINICAL HISTORY: S/P ORIF R DISTAL FIB. TECHNIQUE: 2D digital imaging was performed. Three images were obtained. AP, lateral and oblique vi ews were obtained. COMPARISON: CR XR ANKLE RT COMPLETE from 03/30/2024 FINDINGS: BONES: There are stable post operative changes present. Side plates and screws are seen transfixing the distal fibular fracture. A component of the fracture is still seen on the lateral view. No new fracture or dislocation. JOINTS: The joint spaces are well maintained. SOFT TISSUE: There is generalized soft tissue swelling of the ankle and hindfoot. No radiopaque fore ign bodies are seen. IMPRESSION: 1. Stable postoperative changes. 2. Diffuse soft tissue swelling of the ankle and hindfoot. DATA REPOSITORY: RADIATION DOSE DELIVERED:
== END 2024-04-27 14:20 | disposition home or self-care (01) ==
LOC: DIORS 14:20
PROVIDERS: PCP Family Medicine; Referring Provider Family Medicine; Visit Provider Student in an Organized Health Care Education/Training Program
DX: S82.831A Other fracture of upper and lower end of right fibula, initial encounter for closed fracture (principal)
CPT/HCPCS: 73610

== ENCOUNTER 2024-05-15 09:51 | Outpatient (REF) | payer MEDICAID, SELFPAY | END 2024-05-15 09:52 | disposition home or self-care (01) | LOC: LBN 09:51 | PROVIDERS: PCP Family Medicine; Visit Provider Physical Therapy Assistant | DX: T81.31XS Disruption of external operation (surgical) wound, not elsewhere classified, sequela (principal); Z51.89 Encounter for other specified aftercare; R60.0 Localized edema | CPT/HCPCS: 87077; 87070; 87186; 87205 ==

== ENCOUNTER 2024-05-25 11:37 | Outpatient (CLI) | payer MEDICAID, SELFPAY ==
--- NOTE | 2024-05-25 11:15 | DI.RAD_ITS ---
Exam(s) XR ANKLE RT COMPLETE EXAM: XR ANKLE RT COMPLETE CLINICAL HISTORY: Right ankle ORIF. TECHNIQUE: 2D digital imaging was performed. Three views. COMPARISON: CR XR ANKLE RT COMPLETE from 02/07/2024 CR XR ANKLE RT COMPLETE from 04/27/2024 FINDINGS: BONES: Stable hardware alignment. Continued healing of the previously noted fracture. No acute frac ture is present. No bony destructive lesion is seen. JOINTS: The ankle mortise is normally aligned. SOFT TISSUE: Soft tissue swelling remains present around both malleoli. IMPRESSION: Continued fracture healing. DATA REPOSITORY: RADIATION DOSE DELIVERED:
== END 2024-05-25 11:38 | disposition home or self-care (01) ==
LOC: DIORS 11:37
PROVIDERS: PCP Family Medicine; Referring Provider Family Medicine; Visit Provider Physician Assistant
DX: S82.831A Other fracture of upper and lower end of right fibula, initial encounter for closed fracture (principal)
CPT/HCPCS: 73610

== ENCOUNTER 2024-06-11 08:50 | Outpatient (CLI) | payer MEDICAID, SELFPAY ==
[2024-06-11 10:34] LABS: Abs Immature Grans 0.02 10^3/uL (0.0-0.06); Absolute Basophil Count 0.07 10^3/uL (0.0-0.2); Absolute Eosinophil Count 0.37 10^3/uL (0.0-0.7); Absolute Lymphocyte Count 2.32 10^3/uL (1.2-3.4); Absolute Monocyte Count 0.81 10^3/uL (0.1-0.8); Absolute Neutrophil Count 5.15 10^3/uL (1.2-6.7); Basophils % 0.8 %; Eosinophils % 4.2 %; HCT 47.5 % (40.0-50.0); HGB 15.6 g/dL (13.5-17.5); Immature Grans % 0.2 %; Lymphocytes % 26.5 %; MCH 30.9 pg (27.0-33.0); MCHC 32.8 % (32.0-36.0); MCV 94 fL (80-95); Monocytes % 9.3 %; Platelet Count 234 10^3/uL (130-400); RBC 5.05 10^6/uL (4.36-5.78); RDW 12.6 % (11.8-14.1); RDW-SD 43.3 fL; WBC 8.74 10^3/uL (4.4-10.8)
[2024-06-11 10:37] LABS: ESR 12 mm/hr (0-15)
[2024-06-11 11:00] LABS: Calculated LDL 189 mg/dL (<100); Cholesterol 284 mg/dL (<200); HDL Cholesterol 34 mg/dL (40-60); Triglyceride 305 mg/dL (<150)
[2024-06-11 11:05] LABS: Hemoglobin A1C 5.6 % (<5.7)
[2024-06-11 11:19] LABS: C-Reactive Protein 0.97 mg/dL (<or=0.5)
== END 2024-06-11 08:51 | disposition home or self-care (01) ==
LOC: LBO 08:50
PROVIDERS: PCP Family Medicine; Visit Provider Physical Therapy Assistant
DX: S82.831A Other fracture of upper and lower end of right fibula, initial encounter for closed fracture (principal); G47.33 Obstructive sleep apnea (adult) (pediatric); T81.31XS Disruption of external operation (surgical) wound, not elsewhere classified, sequela; T81.49XA Infection following a procedure, other surgical site, initial encounter; E78.2 Mixed hyperlipidemia
CPT/HCPCS: 36415; 80061; 85652; 83036; 85025; 86140

== ENCOUNTER 2024-07-06 11:36 | Outpatient (CLI) | payer MEDICAID, SELFPAY ==
--- NOTE | 2024-07-06 10:45 | DI.RAD_ITS ---
Exam(s) XR ANKLE RT COMPLETE EXAM: XR ANKLE RT COMPLETE CLINICAL HISTORY: F/U R DISTAL FIB FX. TECHNIQUE: 2D digital imaging was performed. Three views. COMPARISON: CR XR ANKLE RT COMPLETE from 03/02/2024 CR XR ANKLE RT COMPLETE from 05/25/2024 FINDINGS: BONES: Hardware is again noted in the distal fibula. No acute fracture is present. No bony destruct loi lesion is seen. JOINTS: The ankle mortise is normally aligned. SOFT TISSUE: Prominent soft tissue swelling remains present. IMPRESSION: Stable hardware alignment. DATA REPOSITORY: RADIATION DOSE DELIVERED:
== END 2024-07-06 11:37 | disposition home or self-care (01) ==
LOC: DIORS 11:36
PROVIDERS: PCP Family Medicine; Visit Provider Student in an Organized Health Care Education/Training Program
DX: S82.831D Other fracture of upper and lower end of right fibula, subsequent encounter for closed fracture with routine healing (principal); X58.XXXD Exposure to other specified factors, subsequent encounter
CPT/HCPCS: 73610

== ENCOUNTER 2024-07-13 03:46 | Outpatient (CLI) | payer MEDICAID, SELFPAY ==
--- NOTE | 2024-07-13 07:30 | DI.US_ITS ---
Exam(s) US ABDOMEN EXAM: US ABDOMEN CLINICAL HISTORY: Likely fatty liver,abd distension,r14.0 TECHNIQUE: Ultrasound of complete upper abdomen performed using standard protocol. COMPARISON: No exams were available for comparison FINDINGS: There is no ascites evident. LIVER: Liver appears slightly prominent and hyperechoic indicating fatty parenchymal change-steatosis . GALLBLADDER/BILIARY: There are no gallstones. No gallbladder wall edema nor pericholecystic fluid. The common hepatic duct isnot dilated, measuring 5-6mm at the level of ana paula hepatis. PANCREAS: Partially visualized. Body and tail appear unremarkable. Entire head and neck difficult t o visualize due to overlying bowel gas. SPLEEN: The spleen is not enlarged and there are no intrasplenic lesions evident. KIDNEYS:Kidneys exhibit normal size with no evidence of solid mass, calculus, nor hydronephrosis. No cortical cysts evident. ABDOMINAL AORTA: Not able to be adequately visualized IVC: Not able to be adequately visualized IMPRESSION: 1. No evidence of cholelithiasis nor dilatation of the biliary tree. 2. Hepatic steatosis noted. Liver is also slightly prominent in size. 3. Pancreas, aorta, and IVC were not able to be adequately visualized due to combination of bowel ga s and body habitus. DATA REPOSITORY:
== END 2024-07-13 04:06 ==
LOC: DI 03:46
PROVIDERS: PCP Family Medicine; Visit Provider Family Medicine
DX: K76.0 Fatty (change of) liver, not elsewhere classified (principal)
CPT/HCPCS: 76700

== ENCOUNTER 2024-10-11 10:09 | Emergency (ER) | payer MEDICAID, SELFPAY ==
[2024-10-11 10:09] VITALS: BP 144/96; PULSE 115; RESP 14; TEMP 36.5; O2SAT 92
[2024-10-11 10:18] VITALS: BP 144/96; PULSE 115; RESP 14; TEMP 36.5; O2SAT 92
[2024-10-11] MEDS: Erythromycin Ophth Oint 3.5 GM TUBE OD (11:03)
[2024-10-11] MEDS: Amoxicillin 875/Clav. 125 TAB PO (11:03)
[2024-10-11 11:17] VITALS: BP 183/101; PULSE 98; RESP 20; O2SAT 97
--- NOTE | 2024-10-11 13:15 | ED.GENADUL_ITS ---
Discharge Plan Disposition Patient Disposition: Home Condition: Stable Discharge Details Clinical Impression: Preseptal cellulitis, Hordeolum, Conjunctivitis Primary Care Provider: Willis Henderson ED Provider: Laura Bustillos Home Meds and New Rx's Prescriptions: New amoxicillin-pot clavulanate 875-125 mg tablet 1 tab PO BID Qty: 20 0RF Continued allopurinol 300 mg tablet 300 mg PO DAILY Qty: 90 3RF omeprazole 40 mg capsule,delayed release(DR/EC) 40 mg PO DAILY Qty: 90 3RF naproxen 500 mg tablet 500 mg PO BID PRN (Reason: pain) Qty: 60 3RF losartan 25 mg tablet 25 mg PO DAILY Qty: 90 3RF budesonide-formoterol [Symbicort] 160-4.5 mcg/actuation HFA aerosol inhaler 2 puff inhalation BID Qty: 10.2 6RF bupropion HCl 150 mg tablet extended release 24 hr 150 mg PO QAM Qty: 60 3RF acetaminophen 500 mg tablet 1,000 mg PO Q8H PRN (Reason: pain) Qty: 90 3RF albuterol sulfate 90 mcg/actuation HFA aerosol inhaler 2 puff inhalation Q4H PRN (Reason: shortness of breath or wheezing) Qty: 18 6RF Discharge Instructions Instructions: Luis, How to Use Eye Ointment, Preseptal Cellulitis ED Additional Instructions: Take the antibiotic as prescribed, warm compresses to your eye, wash hands after, The antibiotics will be prescribed for 10 days If you can apply warm compresses several times a day will help this continue to drain Erythromycin ointment every 8 hours while awake half-inch strip to affected eye Return spreading redness, fever, worsening pain please be reevaluated in 48 hours with pcp Referrals: Willis Henderson DO [Primary Care Provider] - Discharge Data Discharge Date/Time-TO BE ENTERED AT DEPARTURE: 10/11/24 11:18 HPI General Date/Time Provider Initiated Documentation: 10/11/24 10:30 . HPI Narrative: This 34-year-old male presents with right eye swelling and pain started with his upper lid and progressed to involve his actual eye with redness and discharge. Denies any fever, chills, trauma. States he was just sick with upper respiratory symptoms approximately 2 weeks ago. Has some facial pressure over the maxillary areas. Denies any vision change. States eye feels itchy but denies any significant pain. Denies pain with movement of his globe. Related Data Home Medications ?Medication ?Instructions ?Recorded ?Confirmed acetaminophen 500 mg tablet 1,000 mg (2 x 500 mg) PO Q8H PRN 02/10/24 10/11/24 pain #90 tabs albuterol sulfate 90 mcg/actuation 2 puff inhalation Q4H PRN 02/10/24 10/11/24 aerosol inhaler shortness of breath or wheezing #18 grams allopurinol 300 mg tablet 300 mg PO DAILY #90 tabs 03/02/24 10/11/24 omeprazole 40 mg capsule,delayed 40 mg PO DAILY #90 caps 03/02/24 10/11/24 release budesonide-formoterol HFA 160 2 puff inhalation BID #10.2 grams 07/09/24 10/11/24 mcg-4.5 mcg/actuation aerosol inhaler (Symbicort) losartan 25 mg tablet 25 mg PO DAILY #90 tabs 07/09/24 10/11/24 naproxen 500 mg tablet 500 mg PO BID PRN pain #60 tabs 07/09/24 10/11/24 bupropion HCl 150 mg 24 hr tablet, 150 mg PO QAM #60 tabs 08/13/24 10/11/24 extended release amoxicillin 875 mg-potassium 1 tab PO BID #20 tabs 10/11/24 clavulanate 125 mg tablet Previous Rx's ?Medication ?Instructions ?Recorded acetaminophen 500 mg tablet 1,000 mg (2 x 500 mg) PO Q8H PRN 02/10/24 pain #90 tabs albuterol sulfate 90 mcg/actuation 2 puff inhalation Q4H PRN 02/10/24 aerosol inhaler shortness of breath or wheezing #18 grams allopurinol 300 mg tablet 300 mg PO DAILY #90 tabs 03/02/24 omeprazole 40 mg capsule,delayed 40 mg PO DAILY #90 caps 03/02/24 release budesonide-formoterol HFA 160 2 puff inhalation BID #10.2 grams 07/09/24 mcg-4.5 mcg/actuation aerosol inhaler (Symbicort) losartan 25 mg tablet 25 mg PO DAILY #90 tabs 07/09/24 naproxen 500 mg tablet 500 mg PO BID PRN pain #60 tabs 07/09/24 bupropion HCl 150 mg 24 hr tablet, 150 mg PO QAM #60 tabs 08/13/24 extended release amoxicillin 875 mg-potassium 1 tab PO BID #20 tabs 10/11/24 clavulanate 125 mg tablet Allergies Allergy/AdvReac Type Severity Reaction Status Date / Time codeine Allergy Intermediate rash Verified 10/11/24 10:14 atorvastatin AdvReac myalgias Verified 10/11/24 10:14 General Stated Complaint: EyeProblem JASON: 4 Exam Narrative Exam Narrative: 34-year-old male presenting with swelling and hordeolum noted to left upper lid, discharged from hordeolum site with purulent material, conjunctival injection, pupil equal round reactive to light and accommodation, extraocular muscles intact, no proptosis, mild maxillary sinus pressure with tenderness with palpation Course Vital Signs Vital signs: Vital Signs Temperature 36.5 C 10/11/24 10:09 Pulse 115 H 10/11/24 10:09 Respiratory Rate 14 10/11/24 10:09 Blood Pressure 144/96 H 10/11/24 10:09 Pulse Oximetry 92 10/11/24 10:09 Temperature 36.5 C 10/11/24 10:18 Temperature Source Oral 10/11/24 10:18 Pulse 98 H 10/11/24 11:17 Respiratory Rate 20 10/11/24 11:17 Respiratory Effort Normal, Non-Labored 10/11/24 10:15 Blood Pressure 183/101 H 10/11/24 11:17 Pulse Oximetry 97 10/11/24 11:17 Oxygen Delivery Method Room Air 10/11/24 10:18 Oxygen Flow Rate 0 10/11/24 10:18 Pain Level 3 10/11/24 10:18 Medical Decision Making 34-year-old male presenting with right eye redness and swelling. Evidence of hordeolum with purulent drainage and likely secondary conjunctivitis. Patient placed on erythromycin 2 ointment and Augmentin secondary to recent upper respiratory infection with possible sinusitis. Will need follow-up with PCP in 48 hours for recheck. Will need recheck regarding blood pressure. Afebrile and nontoxic at time of reassessment. Return precautions reviewed and patient expressed understanding Quality:[facility] Health Related Social Needs: Health related social needs transportation insecurity( Z59.82), problem related to primary support group(Z63.9) Health related social needs details Noted PFSH All Active Problems (Updated 10/11/24 @ 10:52 by AISHA Betancur) Conjunctivitis (Acute) Hordeolum (Acute) Preseptal cellulitis (Acute) Fatty liver (Acute) Excessive drinking alcohol (Acute) Abdominal distension (Acute) Closed fracture of right distal fibula (Acute) Obstructive sleep apnea (Chronic) Tobacco abuse (Chronic) Surgical wound dehiscence (Acute) Postoperative wound infection (Acute) No-show for appointment (Acute) Myalgia due to statin (Acute) pt stopped .. ref to clin pharm to maybe subst Chondromalacia patellae of left knee (Acute) Left knee pain (Acute) Hyperlipidemia (Chronic) Dental infection (Acute) Severe obstructive sleep apnea (Acute) 12/17/20 sleep study [facility] Oral thrush (Acute) Otitis media of left ear (Acute) Pharyngitis (Acute) Depression (Chronic) ADHD (Acute) Anxiety (Chronic) GERD (gastroesophageal reflux disease) (Chronic) History of substance abuse (Acute) Asthma (Chronic) Hypertension (Chronic) Family History Mother Substance abuse Brother Substance abuse Uncle Anxiety Depression Other Diabetes Hypertension Liver cancer Social History (Updated 07/09/24 @ 11:23 by Rosalba Chavarria) Smoking/Tobacco Use Status: Current every day Tobacco Type: cigarettes Smoking packs per day: 1 Smoking cigarettes per day: 20.0 Years smoked: 15 Smoking pack- years: 15.00 Tobacco: How many years used: 19 Quit status: considering quitting Second Hand Exposure: Yes Smoking risk assessment performed?: Yes Alcohol Intake: current Previous attempts at quittin Drug use: Daily Substance use type: former substance user Date of last use: 07/01/2020, marijuana and opiates Details: Daily user of Marijuana Adopted: No Caregiver/Support person: No Foster care: No Household members: family and none Housing: house Number of Children: 0 number of grandchildren: 0 Communication Needs: None Education Level: high school Do you need help understanding health information?: Often 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 Pets and animals: Yes (1) Pets and animals: dog(s) Sexually active: No Do you think of yourself as: straight/heterosexual Current gender identity: male What is your relationship status?: never How often do you talk on the phone with friends or family?: once per week How often do you get together with friends or relatives?: once per week Do you belong to any clubs or organized social groups?: no Panel score (0-1 are the most socially isolated patients): 0 Duration: < 15 minutes/day Frequency: 1-2 times per week Charu/Pentecostal: None Seatbelt use: sometimes Helmet use: No (Never) Drive intox or ride w/intox regional flatbed truck driver: No Do you feel safe at home: Yes Do you feel safe in your relationship?: Yes PAWSS Have you Been Recently Intoxicated or Drunk Within the Last 30 days?: No Have you Ever Experienced Previous Episodes of Alcohol Withdrawal?: No Have you ever Experienced Withdrawal Seizures?: No Have you ever Experienced Delirium Tremens(DT)s?: No Have you ever undergone Alcohol Rehabilitation Treatment (i.e, inpt ot outpatient treatment programs)?: No Have you ever Experienced Blackouts?: No Have you ever Combined Alcohol with other Downers within the last 90 days?: No Have you ever Combined Alcohol with any other Substance of Abuse during the last 90 days?: No Positive Blood Alcohol level on Presentation? [PCS.BAL]: Unable to Obtain Evidence of Increased Autonomic Activity (i.e. HR>120, tremor, sweating, agitation, nausea)?: No Result: 0
== END 2024-10-11 11:18 | disposition home or self-care (01) ==
PROVIDERS: Emergency Provider Physician Assistant; PCP Family Medicine
DX: L03.213 Periorbital cellulitis (principal); H00.011 Hordeolum externum right upper eyelid; I10 Essential (primary) hypertension; E78.5 Hyperlipidemia, unspecified
CPT/HCPCS: 99283

== ENCOUNTER 2024-10-31 05:44 | Emergency (ER) | payer MEDICAID, SELFPAY ==
[2024-10-31 05:47] VITALS: BP 151/103; PULSE 99; RESP 17; TEMP 36.1; O2SAT 99
[2024-10-31 06:05] LABS: Abs Immature Grans 0.05 10^3/uL (0.0-0.06); Absolute Basophil Count 0.08 10^3/uL (0.0-0.2); Absolute Eosinophil Count 0.29 10^3/uL (0.0-0.7); Absolute Lymphocyte Count 3.06 10^3/uL (1.2-3.4); Absolute Monocyte Count 0.99 10^3/uL (0.1-0.8); Absolute Neutrophil Count 6.51 10^3/uL (1.2-6.7); Basophils % 0.7 %; Eosinophils % 2.6 %; HCT 50.7 % (40.0-50.0); HGB 16.5 g/dL (13.5-17.5); Immature Grans % 0.5 %; Lymphocytes % 27.9 %; MCH 30.6 pg (27.0-33.0); MCHC 32.5 % (32.0-36.0); MCV 94 fL (80-95); MPV 9.4 fL (8.0-11.0); Neutrophils % 59.3 %; Platelet Count 253 10^3/uL (130-400); RDW 12.1 % (11.8-14.1); RDW-SD 41.7 fL; WBC 10.98 10^3/uL (4.4-10.8)
[2024-10-31] MEDS: Acetaminophen 500 MG TAB 1000 MG PO (06:07)
[2024-10-31] MEDS: Normal Saline Flush 10 ML SYR IVP ×2 (06:08)
[2024-10-31] MEDS: Famotidine 20 MG/2 ML VIAL IVP (06:08)
[2024-10-31 06:20] LABS: ETHANOL BLOOD 152.3 mg/dL (<10)
[2024-10-31 06:24] LABS: ALT 78 U/L (16-63); AST 53 U/L (15-37); Albumin 4.1 g/dL (3.4-5.0); Alkaline Phosphatase 110 U/L (46-116); Anion Gap 5.3 mmol/L (3-11); BUN 8 mg/dL (7-18); Bilirubin, Total 0.45 mg/dL (0.2-1.0); CO2 33.7 mmol/L (21.0-32.0); Calcium 9.2 mg/dL (8.5-10.1); Chloride 96 mmol/L (98-107); Estimated GFR 101.28 (mL/min/1.73m2); Glucose 73 mg/dL (74-106); Lipase 46 U/L (<78); Magnesium 2.2 mg/dL (1.8-2.4); Potassium 3.5 mmol/L (3.5-5.1); Sodium 135 mmol/L (136-145); Total Protein 8.8 g/dL (6.4-8.2); Troponin I 7 ng/L (<or=76)
--- NOTE | 2024-10-31 06:41 | W.ED.GENAD ---
Discharge Plan Disposition Patient Disposition: Home Condition: Stable Discharge Details Chief Complaint: Abd Prob Clinical Impression: Acute alcoholic gastritis, Hypertension, Severe obstructive sleep apnea, Hyperlipidemia, Asthma, Excessive drinking alcohol, Fatty liver, Transaminitis Primary Care Provider: Willis Henderson ED Provider: Baylee Castañeda Home Meds and New Rx's Prescriptions: No Action allopurinol 300 mg tablet 300 mg PO DAILY Qty: 90 3RF omeprazole 40 mg capsule,delayed release(DR/EC) 40 mg PO DAILY Qty: 90 3RF losartan 25 mg tablet 25 mg PO DAILY Qty: 90 3RF budesonide-formoterol [Symbicort] 160-4.5 mcg/actuation HFA aerosol inhaler 2 puff inhalation BID Qty: 10.2 6RF bupropion HCl 150 mg tablet extended release 24 hr 150 mg PO QAM Qty: 60 3RF acetaminophen 500 mg tablet 1,000 mg PO Q8H PRN (Reason: pain) Qty: 90 3RF albuterol sulfate 90 mcg/actuation HFA aerosol inhaler 2 puff inhalation Q4H PRN (Reason: shortness of breath or wheezing) Qty: 18 6RF Discharge Instructions Instructions: Alcohol Use Disorder ED Additional Instructions: You were seen in the emergency department today for evaluation of abdominal pain in the setting of alcohol consumption, likely due to irritation of your gastric lining. In our department you have a full physical examination performed, had laboratory studies that were reassuring and received medications for management of your symptoms. You should continue to take your omeprazole, which is a prescribed medication that reduces acid in the belly. You were offered sobriety resources today and have declined, but can always change your mind, and should continue to reach out for resources regarding your recent homelessness. Please follow-up with your primary care provider in the next few days to discuss this visit and any symptoms that change, worsen, or persist. Thank you for allowing us to be part of your care. HPI General Mode of arrival: ambulatory. Date/Time Provider Initiated Documentation: 10/31/24 05:46. Limitations to Documentation: no limitations. Information obtained by: patient and old records reviewed. HPI Narrative: HPI: This is a 34-year-old male patient presenting for evaluation of epigastric abdominal pain. The patient reports that last night he was kicked out of his home due to family issues and has been recently homeless. He is working with [employer] and attempting to find a room. He states that in the context of that he consumed approximately 12 alcoholic beverages last night. He reports that this is typical for him, states that he drinks on a daily basis, has not experienced alcohol withdrawal despite having been through rehab in the past. He has never had an alcohol withdrawal seizure or DTs. He reports that his pain started suddenly around 2 AM, it is sharp in nature and radiates around to the upper abdomen. He has not tried any medications to manage the symptoms. He has not had any vomiting, diarrhea, dysuria, or hematuria. No chest or back pain. he states that he has had symptoms like this in the past in the context of drinking which is always improved spontaneously. Exam: Gen: Awake and alert, in no apparent distress HEENT: Non-icteric sclera Neck: Supple Lungs: No apparent respiratory distress, normal respiratory effort. CV: Appears well perfused, strong distal pulses Abdomen: Non-distended, soft, tender to palpation in the epigastric region without rigidity, rebound, guarding. No Kang sign is present. The patient does have a bulge with Valsalva that is easily reducible, concerning for ventral hernia. MSK: Moves 4 extremities without apparent limitation in ROM Skin: Visualized skin without rashes, cyanosis. Neuro: Normal Gait, no obvious focal deficits or facial asymmetry. Speaks in full, clear sentences. Psych: Appropriate for situation. MDM: This is a 34-year-old male patient presenting for evaluation of epigastric abdominal pain in the context of alcohol use. Differential includes but is not limited to gastritis/PUD, pancreatitis, hepatitis, cholecystitis. The patient has no obstructive symptoms to increase my concern for bowel obstruction, incarcerated hernia. Exam is less consistent with appendicitis, diverticulitis, and the patient is young and without significant risk factors for aortic pathology or mesenteric ischemia. No urinary symptoms to increase my concern for UTI or kidney stone. The brief duration of symptoms decreases my concern for metabolic or electrolyte derangements, kidney injury. Given the patient's benign abdominal examination I do not see an indication to immediately proceed with advanced imaging. I did obtain laboratory studies to include CBC, CMP, magnesium, lipase, and ethanol level. I will provide him with Tylenol and Pepcid for initial symptomatic management. ED Course: I reviewed the patient's laboratory studies, which show a very minimal leukocytosis to 10.9, without anemia or thrombocytopenia. Chemistry panel is without significant electrolyte derangements though he does have a chronic appearing bicarb elevation likely due to his known sleep apnea. No evidence for kidney dysfunction, patient does have a stable transaminitis with no obstructive pathology such as bilirubin elevation or elevated alk phos. Initial troponin negative, lipase is low. Ethanol increased to 152. The patient was provided with Mylanta, and p.o. challenged. He was excessively sleepy, likely due to his ethanol use and having been awake all evening, and was metabolizing at the time that I signed out care of this patient to the oncoming provider. His abdominal examination remains benign, he is hemodynamically appropriate, and I anticipate that he will be safe for discharge once clinically sober. Baylee Castañeda MD Related Data Home Medications ?Medication ?Instructions ?Recorded ?Confirmed acetaminophen 500 mg tablet 1,000 mg (2 x 500 mg) PO Q8H PRN 02/10/24 10/31/24 pain #90 tabs albuterol sulfate 90 mcg/actuation 2 puff inhalation Q4H PRN 02/10/24 10/31/24 aerosol inhaler shortness of breath or wheezing #18 grams allopurinol 300 mg tablet 300 mg PO DAILY #90 tabs 03/02/24 10/31/24 omeprazole 40 mg capsule,delayed 40 mg PO DAILY #90 caps 03/02/24 10/31/24 release budesonide-formoterol HFA 160 2 puff inhalation BID #10.2 grams 07/09/24 10/31/24 mcg-4.5 mcg/actuation aerosol inhaler (Symbicort) losartan 25 mg tablet 25 mg PO DAILY #90 tabs 07/09/24 10/31/24 bupropion HCl 150 mg 24 hr tablet, 150 mg PO QAM #60 tabs 08/13/24 10/31/24 extended release Previous Rx's ?Medication ?Instructions ?Recorded acetaminophen 500 mg tablet 1,000 mg (2 x 500 mg) PO Q8H PRN 02/10/24 pain #90 tabs albuterol sulfate 90 mcg/actuation 2 puff inhalation Q4H PRN 02/10/24 aerosol inhaler shortness of breath or wheezing #18 grams allopurinol 300 mg tablet 300 mg PO DAILY #90 tabs 05/06/24 omeprazole 40 mg capsule,delayed 40 mg PO DAILY #90 caps 03/02/24 release budesonide-formoterol HFA 160 2 puff inhalation BID #10.2 grams 07/09/24 mcg-4.5 mcg/actuation aerosol inhaler (Symbicort) losartan 25 mg tablet 25 mg PO DAILY #90 tabs 07/09/24 bupropion HCl 150 mg 24 hr tablet, 150 mg PO QAM #60 tabs 08/13/24 extended release Allergies Allergy/AdvReac Type Severity Reaction Status Date / Time codeine Allergy Intermediate rash Verified 10/31/24 05:53 atorvastatin AdvReac myalgias Verified 10/31/24 05:53 General Stated Complaint: Abd Prob JASON: 3 Course Vital Signs Vital signs: Vital Signs Temperature 36.1 C L 10/31/24 05:47 Pulse 99 H 10/31/24 05:47 Respiratory Rate 17 10/31/24 05:47 Blood Pressure 151/103 H 10/31/24 05:47 Pulse Oximetry 99 10/31/24 05:47 Temperature 36.1 C L 10/31/24 05:47 Temperature Source Tympanic 10/31/24 05:47 Pulse 99 H 10/31/24 05:47 Respiratory Rate 17 10/31/24 05:47 Blood Pressure 151/103 H 10/31/24 05:47 Blood Pressure Position Supine 10/31/24 05:47 Pulse Oximetry 99 10/31/24 05:47 Oxygen Delivery Method Room Air 10/31/24 05:47 Oxygen Flow Rate 0 10/31/24 05:47 Pain Level 5 10/31/24 05:47 Lab/Test Results Lab/Test Results: Laboratory Tests Range/Units 10/31/24 05:59 WBC (4.4-10.8) 10^3/uL 10.98 H RBC (4.36-5.78) 10^6/uL 5.40 Hgb (13.5-17.5) g/dL 16.5 Hct (40.0-50.0) % 50.7 H MCV (80-95) fL 94 MCH (27.0-33.0) pg 30.6 MCHC (32.0-36.0) % 32.5 RDW (11.8-14.1) % 12.1 Plt Count (130-400) 10^3/uL 253 MPV (8.0-11.0) fL 9.4 Immature Gran % % 0.5 Neutrophils % % 59.3 Lymphocytes % % 27.9 Monocytes % % 9.0 Eosinophils % % 2.6 Basophils % % 0.7 Nucleated RBC % (0.0-0.3) % 0.0 Absolute Neutrophils (1.2-6.7) 10^3/uL 6.51 Absolute Lymphocytes (1.2-3.4) 10^3/uL 3.06 Absolute Monocytes (0.1-0.8) 10^3/uL 0.99 H Absolute Eosinophils (0.0-0.7) 10^3/uL 0.29 Absolute Basophils (0.0-0.2) 10^3/uL 0.08 Sodium (136-145) mmol/L 135 L Potassium (3.5-5.1) mmol/L 3.5 Chloride (98-107) mmol/L 96 L Carbon Dioxide (21.0-32.0) mmol/L 33.7 H Anion Gap (3-11) mmol/L 5.3 BUN (7-18) mg/dL 8 Creatinine (0.70-1.30) mg/dL 1.0 Est GFR (CKD-EPI 2020) (mL/min/1.73m2) 101.28 Glucose (74-106) mg/dL 73 L Calcium (8.5-10.1) mg/dL 9.2 Magnesium (1.8-2.4) mg/dL 2.2 Total Bilirubin (0.2-1.0) mg/dL 0.45 AST (15-37) U/L 53 H ALT (16-63) U/L 78 H Alkaline Phosphatase (46-116) U/L 110 Troponin I (<or=76) ng/L 7 Total Protein (6.4-8.2) g/dL 8.8 H Albumin (3.4-5.0) g/dL 4.1 Lipase (<78) U/L 46 Ethyl Alcohol (<10) mg/dL 152.3 H Medical Decision Making Quality:SDOH Health Related Social Needs: Health related social needs housing instability, housed, with risk of homelessness (Z59.811) Health related social needs details Noted PFSH All Active Problems (Updated 10/31/24 @ 08:08 by Baylee Castañeda MD) Transaminitis (Acute) Acute alcoholic gastritis (Acute) Left shoulder pain (Acute) Conjunctivitis (Acute) Hordeolum (Acute) Preseptal cellulitis (Acute) Fatty liver (Acute) Excessive drinking alcohol (Acute) Abdominal distension (Acute) Closed fracture of right distal fibula (Acute) Obstructive sleep apnea (Chronic) Tobacco abuse (Chronic) Surgical wound dehiscence (Acute) Postoperative wound infection (Acute) No-show for appointment (Acute) Myalgia due to statin (Acute) pt stopped .. ref to clin pharm to maybe subst Chondromalacia patellae of left knee (Acute) Left knee pain (Acute) Hyperlipidemia (Chronic) Dental infection (Acute) Severe obstructive sleep apnea (Acute) 12/17/20 sleep study [facility] Oral thrush (Acute) Otitis media of left ear (Acute) Pharyngitis (Acute) Depression (Chronic) ADHD (Acute) Anxiety (Chronic) GERD (gastroesophageal reflux disease) (Chronic) History of substance abuse (Acute) Asthma (Chronic) Hypertension (Chronic) Family History Mother Substance abuse Brother Substance abuse Uncle Anxiety Depression Other Diabetes Hypertension Liver cancer Social History (Updated 07/09/24 @ 11:23 by Rosalba Chavarria) Smoking/Tobacco Use Status: Current every day Tobacco Type: cigarettes Smoking packs per day: 1 Smoking cigarettes per day: 20.0 Years smoked: 15 Smoking pack-years: 15.00 Tobacco: How many years used: 19 Quit status: considering quitting Second Hand Exposure: Yes Smoking risk assessment performed?: Yes Alcohol Intake: current Alcohol Intake frequency: 3 or more drinks per day Alcohol type: beer and hard liquor Previous attempts at quittin Drug use: Daily Substance use type: former substance user Date of last use: 07/01/2020, marijuana and opiates Details: Daily user of Marijuana Adopted: No Caregiver/Support person: No Foster care: No Household members: family and none Housing: house Number of Children: 0 number of grandchildren: 0 Communication Needs: None Education Level: high school Do you need help understanding health information?: Often 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 Pets and animals: Yes (1) Pets and animals: dog(s) Sexually active: No Do you think of yourself as: straight/heterosexual Current gender identity: male What is your relationship status?: never How often do you talk on the phone with friends or family?: once per week How often do you get together with friends or relatives?: once per week Do you belong to any clubs or organized social groups?: no Panel score (0-1 are the most socially isolated patients): 0 Duration: < 15 minutes/day Frequency: 1-2 times per week Charu/Restorationism: None Seatbelt use: sometimes Helmet use: No (Never) Drive intox or ride w/intox local hazmat driver: No Do you feel safe at home: Yes Do you feel safe in your relationship?: Yes
[2024-10-31] MEDS: Mylanta Suspension 30 ML CUP PO (07:46)
[2024-10-31 07:50] VITALS: BP 154/113; PULSE 88; RESP 16; O2SAT 91
[2024-10-31 10:28] VITALS: BP 146/81; PULSE 84; RESP 16; O2SAT 92
== END 2024-10-31 10:28 | disposition home or self-care (01) ==
PROVIDERS: Emergency Medicine; Emergency Provider Student in an Organized Health Care Education/Training Program; PCP Family Medicine
DX: K29.20 Alcoholic gastritis without bleeding (principal); F10.10 Alcohol abuse, uncomplicated; I10 Essential (primary) hypertension; E78.5 Hyperlipidemia, unspecified; Y90.6 Blood alcohol level of 120-199 mg/100 ml; F17.210 Nicotine dependence, cigarettes, uncomplicated; Z59.00 Homelessness unspecified
CPT/HCPCS: 80053; 83690; 96374; 99284; 80320; 83735; 84484; 85025

== ENCOUNTER 2024-12-21 20:13 | Emergency (ER) | payer MEDICAID, SELFPAY ==
[2024-12-21 20:18] VITALS: BP 134/92; PULSE 98; RESP 16; TEMP 36.4; O2SAT 94
--- NOTE | 2024-12-21 20:30 | DI.RAD_ITS ---
Exam(s) XR HAND LT COMPLETE EXAM: XR HAND LT COMPLETE CLINICAL HISTORY: L hand swelling. TECHNIQUE: 2D digital imaging was performed. Three views. COMPARISON: No exams were available for comparison FINDINGS: BONES: No acute fracture is present. No bony destructive lesion is seen. JOINTS: No dislocation present. SOFT TISSUE: Normal diffuse soft tissue swelling. No foreign bodies. No abnormal gas collections. IMPRESSION: Unremarkable diffuse soft tissue swelling. No bony abnormality or foreign body. DATA REPOSITORY: RADIATION DOSE DELIVERED:
--- NOTE | 2024-12-21 20:35 | W.ED.GENAD ---
Discharge Plan Disposition Patient Disposition: Home Condition: Stable Discharge Details Clinical Impression: Cellulitis of left hand Primary Care Provider: Willis Henderson ED Provider: William Seaman Home Meds and New Rx's Prescriptions: New cephalexin 500 mg capsule 500 mg PO QID 7 Days Qty: 28 0RF Continued bupropion HCl 150 mg tablet extended release 24 hr 150 mg PO QAM Qty: 90 3RF naltrexone 50 mg tablet 50 mg PO DAILY Qty: 60 3RF allopurinol 300 mg tablet 300 mg PO DAILY Qty: 90 3RF omeprazole 40 mg capsule,delayed release(DR/EC) 40 mg PO DAILY Qty: 90 3RF losartan 25 mg tablet 25 mg PO DAILY Qty: 90 3RF budesonide-formoterol [Symbicort] 160-4.5 mcg/actuation HFA aerosol inhaler 2 puff inhalation BID Qty: 10.2 6RF acetaminophen 500 mg tablet 1,000 mg PO Q8H PRN (Reason: pain) Qty: 90 3RF albuterol sulfate 90 mcg/actuation HFA aerosol inhaler 2 puff inhalation Q4H PRN (Reason: shortness of breath or wheezing) Qty: 18 6RF Discharge Instructions Instructions: Cephalexin, Cellulitis (Skin Infection), Adult ED Additional Instructions: You were seen in the emergency department for left hand swelling, this may be due to mild cellulitis from an unnoticed cut, he gets a reasonable to trial 7 days of cephalexin, please return for any acute worsening, follow-up with your primary care provider with possible referral to orthopedics for failure to improve any swelling, or spreading swelling up the arm with skin changes. Referrals: Willis Henderson DO [Primary Care Provider] - Discharge Data Discharge Date/Time-TO BE ENTERED AT DEPARTURE: 12/21/24 22:35 HPI General Date/Time Provider Initiated Documentation: 12/21/24 20:20. HPI Narrative: 34 year-old male presents to ED today by POV/ambulating with a chief complaint of L hand swelling with onset for about a week- patient is intoxicated. Quality described as not overly painful, just has noted hand swelling, denies trauma, no radiation to numbness/tingling, decreased ROM, redness, fever, red streaking up the arm. Severity is described as mild. Palliating factors include nothing specific attempted. Provoking factors include nothing specific. Patient not anticoagulated. Related Data Home Medications ?Medication ?Instructions ?Recorded ?Confirmed acetaminophen 500 mg tablet 1,000 mg (2 x 500 mg) PO Q8H PRN 02/10/24 12/21/24 pain #90 tabs albuterol sulfate 90 mcg/actuation 2 puff inhalation Q4H PRN 02/10/24 12/21/24 aerosol inhaler shortness of breath or wheezing #18 grams allopurinol 300 mg tablet 300 mg PO DAILY #90 tabs 03/02/24 12/21/24 omeprazole 40 mg capsule,delayed 40 mg PO DAILY #90 caps 03/02/24 12/21/24 release budesonide-formoterol HFA 160 2 puff inhalation BID #10.2 grams 07/09/24 12/21/24 mcg-4.5 mcg/actuation aerosol inhaler (Symbicort) losartan 25 mg tablet 25 mg PO DAILY #90 tabs 07/09/24 12/21/24 bupropion HCl 150 mg 24 hr tablet, 150 mg PO QAM #90 tabs 12/01/24 12/21/24 extended release naltrexone 50 mg tablet 50 mg PO DAILY #60 tabs 12/01/24 12/21/24 cephalexin 500 mg capsule 500 mg PO QID 7 days #28 caps 12/21/24 Previous Rx's ?Medication ?Instructions ?Recorded acetaminophen 500 mg tablet 1,000 mg (2 x 500 mg) PO Q8H PRN 02/10/24 pain #90 tabs albuterol sulfate 90 mcg/actuation 2 puff inhalation Q4H PRN 02/10/24 aerosol inhaler shortness of breath or wheezing #18 grams allopurinol 300 mg tablet 300 mg PO DAILY #90 tabs 03/02/24 omeprazole 40 mg capsule,delayed 40 mg PO DAILY #90 caps 03/02/24 release budesonide-formoterol HFA 160 2 puff inhalation BID #10.2 grams 07/09/24 mcg-4.5 mcg/actuation aerosol inhaler (Symbicort) losartan 25 mg tablet 25 mg PO DAILY #90 tabs 07/09/24 bupropion HCl 150 mg 24 hr tablet, 150 mg PO QAM #90 tabs 12/01/24 extended release naltrexone 50 mg tablet 50 mg PO DAILY #60 tabs 12/01/24 cephalexin 500 mg capsule 500 mg PO QID 7 days #28 caps 12/21/24 Allergies Allergy/AdvReac Type Severity Reaction Status Date / Time codeine Allergy Intermediate rash Verified 12/21/24 20:26 atorvastatin AdvReac myalgias Verified 12/21/24 20:26 General Stated Complaint: Orthopedic JASON: 3 Review of Systems All systems reviewed & are unremarkable except as noted in HPI and below Exam Narrative Exam Narrative: GENERAL APPEARANCE: Well-nourished, non-toxic, awake and alert, atraumatic, no acute distress. SKIN: Warm, pink, dry, intact, without rashes/lesions/ulcerations. HEAD: Normocephalic, atraumatic, normal hair distribution for gender/age. EYES: Normal conjunctiva, no exudates on lids/lashes. ENT: Nares patent, no circumoral cyanosis, no facial swelling NECK: Supple, trachea midline, painless cervical ROM. LUNGS/CHEST: Non-labored respirations, normal A/P diameter, symmetrical expansion, no chest wall deformity HEART (CV/PV): Regular rate, no peripheral edema, no JVD. ABDOMEN: Soft, non-distended, no guarding. MSK: Normal ROM, no swelling/deformity to bilateral UEs or LEs, moving all extremities without weakness, no cyanosis, spine midline without tenderness, normal curvature, mild edema to L hand, no lesions, no erythema, NV intact diffusely, L radial pulse 2+, brisk capillary refill, question old minor bugbite/abrasion- healed type lesion to anatomical snuff box, no lymphadenitis, no unilateral arm swelling NEURO: Mental Status AAOx4 - alert to person, place, time, events No facial droop, no forehead involvement. Motor: No focal weakness - strength 5/5 in bilateral UEs and LEs, proximal and distal, symmetric. Sensory: sensation intact to light touch globally. Gait normal: patient ambulated without ataxia into ED room. PSYCH: euthymic, cooperative, pleasant, appropriate speech Course Vital Signs Vital signs: Vital Signs Temperature 36.4 C L 12/21/24 20:18 Pulse 98 H 12/21/24 20:18 Respiratory Rate 16 12/21/24 20:18 Blood Pressure 134/92 H 12/21/24 20:18 Pulse Oximetry 94 12/21/24 20:18 Temperature 36.4 C L 12/21/24 20:18 Temperature Source Oral 12/21/24 20:18 Pulse 98 H 12/21/24 20:18 Respiratory Rate 16 12/21/24 20:18 Blood Pressure 134/92 H 12/21/24 20:18 Blood Pressure Position Sitting 12/21/24 20:18 Pulse Oximetry 94 12/21/24 20:18 Pain Level 4 12/21/24 20:18 Medical Decision Making This dictation utilizes [id number] dictation software and may contain unedited grammatical errors. 34 year-old male presents to ED today by POV/ambulating with a chief complaint of L hand swelling with onset for about a week- patient is intoxicated. Quality described as not overly painful, just has noted hand swelling, denies trauma, no radiation to numbness/tingling, decreased ROM, redness, fever, red streaking up the arm. Severity is described as mild. Palliating factors include nothing specific attempted. Provoking factors include nothing specific. Patients' medical history: Alcohol use disorder, hyperlipidemia, gout, hypertension, asthma. Family and social history: Patient has been drinking beer all night, he did get a ride here. Pertinent exam findings / vital signs include mild edema to L hand, no lesions, no erythema, NV intact diffusely, L radial pulse 2+, brisk capillary refill, question old minor bugbite/abrasion- healed type lesion to anatomical snuff box, no lymphadenitis, no unilateral arm swelling. Differential / pathologies of concern include cellulitis, edema, gout, arthritis, unlikely DVT. Diagnostic studies of: -XR L Hand - no acute findings. Interventions of: -Rx for cephalexin for empiric cellulitis treatment. ED Course/Assessment/Plan: 34-year-old intoxicated male presents with 1 week of mild left hand swelling, denies any trauma but does have maybe a possible healed over abrasion, no overt soliz erythema or warmth to touch, neurovascular intact diffusely without any unilateral extremity swelling, do not suspect DVT, I do suspect a mild cellulitis, treat empirically with cephalexin with strict return criteria. Findings not consistent with DVT, neurovascular compromise. Disposition of Cellulitis of Left Hand. Patient verbalized understanding of the plan and return to ED criteria and engaged in shared decision making. Medical Records Medical records reviewed: Yes I reviewed the patient's medical records. Imaging Data Radiologic Study: Attestation: I personally reviewed and interpreted this imaging study as follows: Imaging: X-Ray Radiologist's impression: Exam: XR Left Hand Exam date and time: 12/21/2024 8:57 PM Age: 34 years old Clinical indication: Other: L hand swelling TECHNIQUE: Imaging protocol: Radiologic exam of the left hand. Views: 3 or more views. COMPARISON: CR XR ELBOW LT COMPLETE 12/25/2021 1:15 PM FINDINGS: Bones/joints: Three views of the left hand reveal no acute fracture or dislocation. Soft tissues: There is diffuse soft tissue swelling in the left hand, and apparently in the distal left forearm. No radiopaque foreign body is seen. IMPRESSION: No acute fracture or dislocation seen in the left hand. Dictated and Authenticated by: Jeremias Aguilar MD. Quality:SDOH Health Related Social Needs: Health related social needs housing instability, housed, with risk of homelessness (Z59.811) Health related social needs details Noted PFSH All Active Problems (Updated 12/21/24 @ 22:18 by AISHA Leonardo) Cellulitis of left hand (Acute) Alcoholic fatty liver (Acute) Left shoulder pain (Acute) Fatty liver (Acute) Excessive drinking alcohol (Acute) Abdominal distension (Acute) Closed fracture of right distal fibula (Acute) Obstructive sleep apnea (Chronic) Tobacco abuse (Chronic) Surgical wound dehiscence (Acute) Postoperative wound infection (Acute) No-show for appointment (Acute) Myalgia due to statin (Acute) pt stopped .. ref to clin pharm to maybe subst Chondromalacia patellae of left knee (Acute) Left knee pain (Acute) Hyperlipidemia (Chronic) Dental infection (Acute) Severe obstructive sleep apnea (Acute) 12/17/20 sleep study [facility] Oral thrush (Acute) Otitis media of left ear (Acute) Pharyngitis (Acute) Depression (Chronic) ADHD (Acute) Anxiety (Chronic) GERD (gastroesophageal reflux disease) (Chronic) History of substance abuse (Acute) Asthma (Chronic) Hypertension (Chronic) Family History Mother Substance abuse Brother Substance abuse Uncle Anxiety Depression Other Diabetes Hypertension Liver cancer Social History (Updated 07/09/24 @ 11:23 by Rosalba Chavarria) Smoking/Tobacco Use Status: Current every day Tobacco Type: cigarettes Smoking packs per day: 1 Smoking cigarettes per day: 20.0 Years smoked: 15 Smoking pack-years: 15.00 Tobacco: How many years used: 19 Quit status: considering quitting Second Hand Exposure: Yes Smoking risk assessment performed?: Yes Alcohol Intake: current Alcohol Intake frequency: 3 or more drinks per day Alcohol type: beer and hard liquor Previous attempts at quittin Drug use: Daily Substance use type: former substance user Date of last use: 07/01/2020, marijuana and opiates Details: Daily user of Marijuana Adopted: No Caregiver/Support person: No Foster care: No Household members: family and none Housing: house Number of Children: 0 number of grandchildren: 0 Communication Needs: None Education Level: high school Do you need help understanding health information?: Often 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 Pets and animals: Yes (1) Pets and animals: dog(s) Sexually active: No Do you think of yourself as: straight/heterosexual Current gender identity: male What is your relationship status?: never How often do you talk on the phone with friends or family?: once per week How often do you get together with friends or relatives?: once per week Do you belong to any clubs or organized social groups?: no Panel score (0-1 are the most socially isolated patients): 0 Duration: < 15 minutes/day Frequency: 1-2 times per week Charu/Shinto: None Seatbelt use: sometimes Helmet use: No (Never) Drive intox or ride w/intox water truck driver: No Do you feel safe at home: Yes Do you feel safe in your relationship?: Yes PAWSS Have you Been Recently Intoxicated or Drunk Within the Last 30 days?: Yes Have you Ever Experienced Previous Episodes of Alcohol Withdrawal?: Yes Have you ever Experienced Withdrawal Seizures?: No Have you ever Experienced Delirium Tremens(DT)s?: Yes Have you ever undergone Alcohol Rehabilitation Treatment (i.e, inpt ot outpatient treatment programs)?: No Have you ever Experienced Blackouts?: No Have you ever Combined Alcohol with other Downers within the last 90 days?: No Have you ever Combined Alcohol with any other Substance of Abuse during the last 90 days?: Yes Positive Blood Alcohol level on Presentation? [PCS.BAL]: Yes Evidence of Increased Autonomic Activity (i.e. HR>120, tremor, sweating, agitation, nausea)?: No Result: 6
--- NOTE | 2024-12-21 21:54 | DI.VRAD_ITS ---
PROCEDURE INFORMATION: Exam: XR Left Hand Exam date and time: 12/21/2024 8:57 PM Age: 34 years old Clinical indication: Other: L hand swelling TECHNIQUE: Imaging protocol: Radiologic exam of the left hand. Views: 3 or more views. COMPARISON: CR XR ELBOW LT COMPLETE 12/25/2021 1:15 PM FINDINGS: Bones/joints: Three views of the left hand reveal no acute fracture or dislocation. Soft tissues: There is diffuse soft tissue swelling in the left hand, and apparently in the distal left forearm. No radiopaque foreign body is seen. IMPRESSION: No acute fracture or dislocation seen in the left hand. Dictated and Authenticated by: Jeremias Aguilar MD. Orderin Jurgen Thomas MD
[2024-12-21] MEDS: Cephalexin 500 MG CAP, 2 CAPS/BTL PO (22:32)
== END 2024-12-21 22:35 | disposition home or self-care (01) ==
PROVIDERS: Emergency Provider Physician Assistant; PCP Family Medicine
DX: L03.114 Cellulitis of left upper limb (principal); Z59.811 Housing instability, housed, with risk of homelessness; F17.210 Nicotine dependence, cigarettes, uncomplicated
CPT/HCPCS: 99283; 73130

== ENCOUNTER 2025-01-24 14:50 | Emergency (ER) | payer MEDICAID, SELFPAY ==
[2025-01-24 14:54] VITALS: BP 171/110; PULSE 118; RESP 20; TEMP 36.6; O2SAT 88
--- NOTE | 2025-01-24 15:10 | ED.GENADUL_ITS ---
Discharge Plan Disposition Patient Disposition: Home Condition: Stable Discharge Details Clinical Impression: Right ankle swelling Primary Care Provider: Willis Henderson ED Provider: Wade Moreira Home Meds and New Rx's Prescriptions: New prednisone 20 mg tablet 60 mg PO DAILY 4 Days Qty: 12 0RF amoxicillin-pot clavulanate 875-125 mg tablet 1 tab PO BID Qty: 14 0RF Continued bupropion HCl 150 mg tablet extended release 24 hr 150 mg PO QAM Qty: 90 3RF naltrexone 50 mg tablet 50 mg PO DAILY Qty: 60 3RF allopurinol 300 mg tablet 300 mg PO DAILY Qty: 90 3RF omeprazole 40 mg capsule,delayed release(DR/EC) 40 mg PO DAILY Qty: 90 3RF losartan 25 mg tablet 25 mg PO DAILY Qty: 90 3RF budesonide-formoterol [Symbicort] 160-4.5 mcg/actuation HFA aerosol inhaler 2 puff inhalation BID Qty: 10.2 6RF acetaminophen 500 mg tablet 1,000 mg PO Q8H PRN (Reason: pain) Qty: 90 3RF albuterol sulfate 90 mcg/actuation HFA aerosol inhaler 2 puff inhalation Q4H PRN (Reason: shortness of breath or wheezing) Qty: 18 6RF Discharge Instructions Additional Instructions: Try to keep her leg elevated, you can take 1000 mg of acetaminophen and 6 and milligrams of ibuprofen every 6 hours as needed. If not improving within a week follow-up with your primary care provider. If you feel more ill or have new symptoms such as high fevers return to the emergency department for reevaluation HPI General Mode of arrival: ambulatory . Date/Time Provider Initiated Documentation: 01/24/25 14:57 . Limitations to Documentation: no limitations . Information obtained by: patient . History of Present Illness 34 year old M presents to the emergency department with the chief complaint of right ankle pain, described as moderate, Patient reports no radiation. Patient started experiencing this week(s) (1) and it has been constant. No relieving factors improve symptom(s), No exacerbating factors reported . Patient notes no other symptoms.; denies fever/chills and shortness of breath. Patient did receive the following treatments prior to arrival, none Related Data Home Medications ?Medication ?Instructions ?Recorded ?Confirmed acetaminophen 500 mg tablet 1,000 mg (2 x 500 mg) PO Q8H PRN 02/10/24 01/24/25 pain #90 tabs albuterol sulfate 90 mcg/actuation 2 puff inhalation Q4H PRN 02/10/24 01/24/25 aerosol inhaler shortness of breath or wheezing #18 grams allopurinol 300 mg tablet 300 mg PO DAILY #90 tabs 03/02/24 01/24/25 omeprazole 40 mg capsule,delayed 40 mg PO DAILY #90 caps 03/02/24 01/24/25 release budesonide-formoterol HFA 160 2 puff inhalation BID #10.2 grams 07/09/24 01/24/25 mcg-4.5 mcg/actuation aerosol inhaler (Symbicort) losartan 25 mg tablet 25 mg PO DAILY #90 tabs 07/09/24 01/24/25 bupropion HCl 150 mg 24 hr tablet, 150 mg PO QAM #90 tabs 12/01/24 01/24/25 extended release naltrexone 50 mg tablet 50 mg PO DAILY #60 tabs 12/01/24 01/24/25 amoxicillin 875 mg-potassium 1 tab PO BID #14 tabs 01/24/25 clavulanate 125 mg tablet prednisone 20 mg tablet 60 mg (3 x 20 mg) PO DAILY 4 days 01/24/25 #12 tabs Previous Rx's ?Medication ?Instructions ?Recorded acetaminophen 500 mg tablet 1,000 mg (2 x 500 mg) PO Q8H PRN 02/10/24 pain #90 tabs albuterol sulfate 90 mcg/actuation 2 puff inhalation Q4H PRN 02/10/24 aerosol inhaler shortness of breath or wheezing #18 grams allopurinol 300 mg tablet 300 mg PO DAILY #90 tabs 03/02/24 omeprazole 40 mg capsule,delayed 40 mg PO DAILY #90 caps 03/02/24 release budesonide-formoterol HFA 160 2 puff inhalation BID #10.2 grams 07/09/24 mcg-4.5 mcg/actuation aerosol inhaler (Symbicort) losartan 25 mg tablet 25 mg PO DAILY #90 tabs 07/09/24 bupropion HCl 150 mg 24 hr tablet, 150 mg PO QAM #90 tabs 12/01/24 extended release naltrexone 50 mg tablet 50 mg PO DAILY #60 tabs 12/01/24 amoxicillin 875 mg-potassium 1 tab PO BID #14 tabs 01/24/25 clavulanate 125 mg tablet prednisone 20 mg tablet 60 mg (3 x 20 mg) PO DAILY 4 days 01/24/25 #12 tabs Allergies Allergy/AdvReac Type Severity Reaction Status Date / Time codeine Allergy Intermediate rash Verified 01/24/25 14:59 atorvastatin AdvReac myalgias Verified 01/24/25 14:59 General Stated Complaint: RashLesion JASON: 2 Review of Systems All systems reviewed & are unremarkable except as noted in HPI and below Constitutional Constitutional: Denies chills, Denies fever(s) and Denies weakness Cardiovascular Cardiovascular: Denies chest pain and Denies dyspnea Respiratory Respiratory: Denies cough and Denies dyspnea Gastrointestinal Gastrointestinal: Denies abdominal pain, Denies nausea and Denies vomiting Musculoskeletal Musculoskeletal: Reports arthralgias Neurologic Neurologic: Denies weakness Exam Const General: no acute distress Orientation: alert HENMT Head: normal to inspection Ears: external ears normal General nose exam: external nose normal Mouth: moist mucous membranes Eyes General: appearance normal, both eyes and all related structures Neck Neck: normal visual inspection Resp Effort & Inspection: normal respiratory effort and able to speak in complete sentences Auscultation: wheezes Cardio Jugular venous pressure: no JVD Rate: regular rate Heart Sounds: no murmurs Skin General skin exam: no rashes or lesions noted Neuro General: patient alert and patient oriented x3 Extrem General: full ROM and capillary refill normal Psych Mental Status: mental status grossly normal Course Vital Signs Vital signs: Vital Signs Temperature 36.6 C 01/24/25 14:54 Pulse 118 H 01/24/25 14:54 Respiratory Rate 20 01/24/25 14:54 Blood Pressure 171/110 H 01/24/25 14:54 Pulse Oximetry 88 L 01/24/25 14:54 Temperature 36.6 C 01/24/25 14:54 Pulse 118 H 01/24/25 14:54 Respiratory Rate 20 01/24/25 14:54 Blood Pressure 171/110 H 01/24/25 14:54 Blood Pressure Position Sitting 01/24/25 14:54 Pulse Oximetry 88 L 01/24/25 14:54 Oxygen Delivery Method Room Air 01/24/25 14:54 Oxygen Flow Rate 0 01/24/25 14:54 Pain Level 5 01/24/25 14:54 Medical Decision Making 34-year-old male who states he has a history of asthma and also smokes, did not use his inhalers today, comes in with 1 week of right ankle discomfort and swelling. He denies any falls or trauma. He is noted in triage to be 88% on room air on my exam is 93% on room air and denies any difficulty breathing. He does have wheezing at the apices bilaterally otherwise clear lung sounds. His right ankle is swollen without significant erythema, there is no warmth. He has full range of motion of the ankle with intact sensation and pulses. He did fracture the ankle about a year ago and had surgery on it. Given the swelling in his prior surgery will obtain CBC, CMP and sed rate and CRP to screen for possible septic joint though exam is not consistent with this given the lack of warmth and erythema. I will also treat his wheezing with DuoNeb and Solu- Medrol and reassess. Labs reassuring against severe infectious etiology. X-ray shows no effusion but does have soft tissue swelling. Patient states he does have a history of gout and I suspect that could be the cause of his ankle pain. I am to cover him with prednisone and also appears this could be early cellulitis cover him with Augmentin. He will follow-up with his PCP if not improving and return precautions given Differential Diagnosis Differential Diagnosis: Gout, arthritis, septic joint, asthma, COPD Medical Records Medical records reviewed: Yes I reviewed the patient's medical records. Lab Data Lab results reviewed: Yes I reviewed the patient's lab results. Quality:SDOH Health Related Social Needs: Health related social needs housing instability, house d, with risk of homelessness (Z59.811) Health related social needs details Noted PFSH All Active Problems (Updated 01/24/25 @ 16:57 by Wade Moreira MD) Right ankle swelling (Acute) Alcoholic fatty liver (Acute) Left shoulder pain (Acute) Fatty liver (Acute) Excessive drinking alcohol (Acute) Abdominal distension (Acute) Closed fracture of right distal fibula (Acute) Obstructive sleep apnea (Chronic) Tobacco abuse (Chronic) Surgical wound dehiscence (Acute) Postoperative wound infection (Acute) No-show for appointment (Acute) Myalgia due to statin (Acute) pt stopped .. ref to clin pharm to maybe subst Chondromalacia patellae of left knee (Acute) Left knee pain (Acute) Hyperlipidemia (Chronic) Dental infection (Acute) Severe obstructive sleep apnea (Acute) 12/17/20 sleep study [facility] Oral thrush (Acute) Otitis media of left ear (Acute) Pharyngitis (Acute) Depression (Chronic) ADHD (Acute) Anxiety (Chronic) GERD (gastroesophageal reflux disease) (Chronic) History of substance abuse (Acute) Asthma (Chronic) Hypertension (Chronic) Family History Mother Substance abuse Brother Substance abuse Uncle Anxiety Depression Other Diabetes Hypertension Liver cancer Social History (Updated 07/09/24 @ 11:23 by Rosalba Chavarria) Smoking/Tobacco Use Status: Current every day Tobacco Type: cigarettes Smoking packs per day: 1 Smoking cigarettes per day: 20.0 Years smoked: 15 Smoking pack- years: 15.00 Tobacco: How many years used: 19 Quit status: considering quitting Second Hand Exposure: Yes Smoking risk assessment performed?: Yes Alcohol Intake: current Alcohol Intake frequency: 3 or more drinks per day Alcohol type: beer and hard liquor Previous attempts at quittin Drug use: Daily Substance use type: former substance user Date of last use: 07/01/2020, marijuana and opiates Details: Daily user of Marijuana Adopted: No Caregiver/Support person: No Foster care: No Household members: family and none Housing: house Number of Children: 0 number of grandchildren: 0 Communication Needs: None Education Level: high school Do you need help understanding health information?: Often 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 Pets and animals: Yes (1) Pets and animals: dog(s) Sexually active: No Do you think of yourself as: straight/heterosexual Current gender identity: male What is your relationship status?: never How often do you talk on the phone with friends or family?: once per week How often do you get together with friends or relatives?: once per week Do you belong to any clubs or organized social groups?: no Panel score (0-1 are the most socially isolated patients): 0 Duration: < 15 minutes/day Frequency: 1-2 times per week Charu/Congregational: None Seatbelt use: sometimes Helmet use: No (Never) Drive intox or ride w/intox flag car driver: No Do you feel safe at home: Yes Do you feel safe in your relationship?: Yes PAWSS Have you Been Recently Intoxicated or Drunk Within the Last 30 days?: No Have you Ever Experienced Previous Episodes of Alcohol Withdrawal?: Yes Have you ever Experienced Withdrawal Seizures?: No Have you ever Experienced Delirium Tremens(DT)s?: No Have you ever undergone Alcohol Rehabilitation Treatment (i.e, inpt ot outpatient treatment programs)?: Yes Have you ever Experienced Blackouts?: No Have you ever Combined Alcohol with other Downers within the last 90 days?: Yes Have you ever Combined Alcohol with any other Substance of Abuse during the last 90 days?: No Positive Blood Alcohol level on Presentation? [PCS.BAL]: No Evidence of Increased Autonomic Activity (i.e. HR>120, tremor, sweating, agitation, nausea)?: No Result: 2
--- NOTE | 2025-01-24 15:15 | DI.RAD_ITS ---
Exam(s) XR ANKLE RT COMPLETE EXAM: XR ANKLE RT COMPLETE CLINICAL HISTORY: pain and swelling. TECHNIQUE: 2D digital imaging was performed. COMPARISON: CR XR ANKLE RT COMPLETE from 07/06/2024 FINDINGS: 3 views Again noted is the ankle hardware comprised of a lateral fixation plate across healed fracture site i n the distal fibula with an independent screw at the previous fracture site. There is also a syndesm otic type stabilizer channel extending from the fibular plate through tibia to a change consistent sm all metallic plate on the medial aspect of the distal metaphysis of the tibia. There is, however, so ft tissue swelling now evident over this region, medially. However, there is no evidence of fracture nor widening the ankle mortise. Talar dome unremarkable. There is no inferior calcaneal spur. Bon e density normal. No osseous lesions. IMPRESSION: Hardware as above. Some soft tissue swelling is noted, more prominent medially than laterally. No a cute osseous findings in the ankle. DATA REPOSITORY: RADIATION DOSE DELIVERED:
[2025-01-24 15:29] LABS: Abs Immature Grans 0.06 10^3/uL (0.0-0.06); Absolute Basophil Count 0.07 10^3/uL (0.0-0.2); Absolute Eosinophil Count 0.18 10^3/uL (0.0-0.7); Absolute Lymphocyte Count 2.93 10^3/uL (1.2-3.4); Absolute Monocyte Count 1.01 10^3/uL (0.1-0.8); Absolute Neutrophil Count 6.15 10^3/uL (1.2-6.7); Basophils % 0.7 %; Eosinophils % 1.7 %; HCT 47.2 % (40.0-50.0); HGB 15.4 g/dL (13.5-17.5); Immature Grans % 0.6 %; Lymphocytes % 28.2 %; MCH 30.8 pg (27.0-33.0); MCHC 32.6 % (32.0-36.0); MCV 94 fL (80-95); Monocytes % 9.7 %; Neutrophils % 59.1 %; Platelet Count 204 10^3/uL (130-400); RDW 13.2 % (11.8-14.1); RDW-SD 46.5 fL
[2025-01-24 15:31] LABS: ESR 8 mm/hr (0-15)
[2025-01-24 15:35] VITALS: PULSE 120; RESP 20; RESP 5; O2SAT 94
[2025-01-24] MEDS: methylPREDNISolone SUCC 125 MG VIAL IVP (15:35)
[2025-01-24] MEDS: Albuterol/Ipratropium 3 ML UPD VIAL UPD (15:35)
[2025-01-24 15:45] LABS: ALT 98 U/L (16-63); AST 72 U/L (15-37); Albumin 3.3 g/dL (3.4-5.0); Alkaline Phosphatase 128 U/L (46-116); Anion Gap 6.4 mmol/L (3-11); BUN 5 mg/dL (7-18); Bilirubin, Total 0.5 mg/dL (0.2-1.0); C-Reactive Protein 1.29 mg/dL (<or=0.5); CO2 37.6 mmol/L (21.0-32.0); CREATININE 1.3 mg/dL (0.70-1.30); Calcium 8.6 mg/dL (8.5-10.1); Chloride 99 mmol/L (98-107); Estimated GFR 73.93 (mL/min/1.73m2); Glucose 120 mg/dL (74-106); Magnesium 1.9 mg/dL; Potassium 4.1 mmol/L (3.5-5.1); Sodium 143 mmol/L (136-145); Total Protein 7.3 g/dL (6.4-8.2)
[2025-01-24 16:16] LABS: COVID-19 PCR Negative (Negative); Influenza A PCR Negative (Negative); Influenza B PCR Negative (Negative); RSV PCR Negative (Negative)
[2025-01-24 16:17] LABS: Source Nasopharynx
[2025-01-24] MEDS: Amoxicillin 875/Clav. 125 TAB PO (17:25)
[2025-01-24 17:29] VITALS: BP 182/125; PULSE 108; RESP 18; O2SAT 94
== END 2025-01-24 17:29 | disposition home or self-care (01) ==
PROVIDERS: Emergency Provider Emergency Medicine; PCP Family Medicine
DX: R06.2 Wheezing (principal); M25.571 Pain in right ankle and joints of right foot; M25.471 Effusion, right ankle; I10 Essential (primary) hypertension; E78.5 Hyperlipidemia, unspecified
CPT/HCPCS: 80053; 85652; 87637; 94640; 96374; 99284; 73610; 83735; 85025; 86140; J2919; J7620

== ENCOUNTER 2025-02-19 07:30 | Emergency (ER) | payer MEDICAID, SELFPAY ==
[2025-02-19 07:40] VITALS: BP 182/114; PULSE 98; RESP 16; TEMP 36.6; O2SAT 93
[2025-02-19 07:43] VITALS: TEMP 36.6
[2025-02-19 08:00] LABS: Abs Immature Grans 0.02 10^3/uL (0.0-0.06); Absolute Basophil Count 0.06 10^3/uL (0.0-0.2); Absolute Eosinophil Count 0.22 10^3/uL (0.0-0.7); Absolute Lymphocyte Count 1.89 10^3/uL (1.2-3.4); Absolute Monocyte Count 0.69 10^3/uL (0.1-0.8); Absolute Neutrophil Count 5.13 10^3/uL (1.2-6.7); Basophils % 0.7 %; Eosinophils % 2.7 %; HCT 50.3 % (40.0-50.0); HGB 16.1 g/dL (13.5-17.5); Immature Grans % 0.2 %; Lymphocytes % 23.6 %; MCV 97 fL (80-95); MPV 9.4 fL (8.0-11.0); Monocytes % 8.6 %; Neutrophils % 64.2 %; Platelet Count 223 10^3/uL (130-400); RBC 5.19 10^6/uL (4.36-5.78); RDW 13.2 % (11.8-14.1); RDW-SD 47.7 fL; WBC 8.01 10^3/uL (4.4-10.8)
[2025-02-19 08:01] LABS: ESR 10 mm/hr (0-15)
--- NOTE | 2025-02-19 08:15 | DI.RAD_ITS ---
Exam(s) XR ANKLE RT COMPLETE EXAM: XR ANKLE RT COMPLETE CLINICAL HISTORY: r ankle pain. TECHNIQUE: 2D digital imaging was performed. COMPARISON: CR XR ANKLE RT COMPLETE from 01/24/2025 FINDINGS: 3 views Lateral fixation plate across healed fracture site in the distal fibula is again noted as well as an independent screw in the distal fibula unchanged. There is a syndesmotic channel fixation device in place, unchanged. There is soft tissue swelling again noted around both sides of the ankle, similar to 01/24/2025. No evidence of fracture nor widening the ankle mortise and talar dome appears unremarkable. There is no radiographic evidence of osteomyelitis. IMPRESSION: Stable hardware appearance. No radiographic evidence of osteomyelitis. Soft tissue swelling around both sides the ankle again noted DATA REPOSITORY: RADIATION DOSE DELIVERED:
[2025-02-19] MEDS: Acetaminophen 500 MG TAB 1000 MG PO (08:21)
[2025-02-19 08:27] LABS: ALT 111 U/L (16-63); AST 108 U/L (15-37); Albumin 3.7 g/dL (3.4-5.0); Alkaline Phosphatase 137 U/L (46-116); Anion Gap 5.5 mmol/L (3-11); BUN 6 mg/dL (7-18); Bilirubin, Total 0.6 mg/dL (0.2-1.0); C-Reactive Protein 2.94 mg/dL (<or=0.5); CO2 34.5 mmol/L (21.0-32.0); CREATININE 0.9 mg/dL (0.70-1.30); Chloride 103 mmol/L (98-107); Estimated GFR 114.93 (mL/min/1.73m2); Glucose 117 mg/dL (74-106); Potassium 4.5 mmol/L (3.5-5.1); Sodium 143 mmol/L (136-145); Total Protein 7.5 g/dL (6.4-8.2); Uric Acid 6.3 mg/dL (3.5-7.2)
--- NOTE | 2025-02-19 08:48 | W.ED.GENAD ---
Discharge Plan Disposition Patient Disposition: Home Discharge Details Clinical Impression: Chronic venous stasis dermatitis, Chronic pain of right ankle Primary Care Provider: Willis Henderson ED Provider: Hamilton Russo Home Meds and New Rx's Prescriptions: No Action bupropion HCl 150 mg tablet extended release 24 hr 150 mg PO QAM Qty: 90 3RF naltrexone 50 mg tablet 50 mg PO DAILY Qty: 60 3RF allopurinol 300 mg tablet 300 mg PO DAILY Qty: 90 3RF omeprazole 40 mg capsule,delayed release(DR/EC) 40 mg PO DAILY Qty: 90 3RF losartan 25 mg tablet 25 mg PO DAILY Qty: 90 3RF budesonide-formoterol [Symbicort] 160-4.5 mcg/actuation HFA aerosol inhaler 2 puff inhalation BID Qty: 10.2 6RF acetaminophen 500 mg tablet 1,000 mg PO Q8H PRN (Reason: pain) Qty: 90 3RF albuterol sulfate 90 mcg/actuation HFA aerosol inhaler 2 puff inhalation Q4H PRN (Reason: shortness of breath or wheezing) Qty: 18 6RF Discharge Instructions Additional Instructions: Your lab work does not indicate an infection in your ankle, and symptoms are unlikely due to to recurrent gout The swelling and discoloration are likely being caused by poor venous circulation, wear compression socks and keep your feet elevated when possible Please follow-up with your primary care doctor for ongoing evaluation of the symptoms as well as ongoing management of your hypertension HPI General Date/Time Provider Initiated Documentation: 02/19/25 07:42. Limitations to Documentation: no limitations. Information obtained by: patient. HPI Narrative: 34-year-old gentleman with past medical history of alcohol abuse, hypertension, obesity presents for evaluation of right ankle pain. He reports that he had a fracture and surgery there which then resulted in infected hardware. He reports that he presented about a month ago with increased pain. He was treated for gout and cellulitis. He reports that he completed all of the medications prescribed. He has not tried anything for pain. He localizes the discomfort to his right ankle. He is able to walk and work. He has some swelling that has been noted. He reports that this is worse at the end of the day. He reports that there is some overlying skin color change though he denies any warmth or drainage. He reports that sometimes this is better sometimes this is worse, it comes and goes. Related Data Home Medications ?Medication ?Instructions ?Recorded ?Confirmed acetaminophen 500 mg tablet 1,000 mg (2 x 500 mg) PO Q8H PRN 02/10/24 02/19/25 pain #90 tabs albuterol sulfate 90 mcg/actuation 2 puff inhalation Q4H PRN 02/10/24 02/19/25 aerosol inhaler shortness of breath or wheezing #18 grams allopurinol 300 mg tablet 300 mg PO DAILY #90 tabs 03/02/24 02/19/25 omeprazole 40 mg capsule,delayed 40 mg PO DAILY #90 caps 03/02/24 02/19/25 release budesonide-formoterol HFA 160 2 puff inhalation BID #10.2 grams 07/09/24 02/19/25 mcg-4.5 mcg/actuation aerosol inhaler (Symbicort) losartan 25 mg tablet 25 mg PO DAILY #90 tabs 07/09/24 02/19/25 bupropion HCl 150 mg 24 hr tablet, 150 mg PO QAM #90 tabs 12/01/24 02/19/25 extended release naltrexone 50 mg tablet 50 mg PO DAILY #60 tabs 12/01/24 02/19/25 Previous Rx's ?Medication ?Instructions ?Recorded acetaminophen 500 mg tablet 1,000 mg (2 x 500 mg) PO Q8H PRN 02/10/24 pain #90 tabs albuterol sulfate 90 mcg/actuation 2 puff inhalation Q4H PRN 02/10/24 aerosol inhaler shortness of breath or wheezing #18 grams allopurinol 300 mg tablet 300 mg PO DAILY #90 tabs 03/02/24 omeprazole 40 mg capsule,delayed 40 mg PO DAILY #90 caps 03/02/24 release budesonide-formoterol HFA 160 2 puff inhalation BID #10.2 grams 07/09/24 mcg-4.5 mcg/actuation aerosol inhaler (Symbicort) losartan 25 mg tablet 25 mg PO DAILY #90 tabs 07/09/24 bupropion HCl 150 mg 24 hr tablet, 150 mg PO QAM #90 tabs 12/01/24 extended release naltrexone 50 mg tablet 50 mg PO DAILY #60 tabs 12/01/24 Allergies Allergy/AdvReac Type Severity Reaction Status Date / Time codeine Allergy Intermediate rash Verified 02/19/25 07:46 atorvastatin AdvReac myalgias Verified 02/19/25 07:46 General Stated Complaint: Cellulitis JASON: 3 Exam Narrative Exam Narrative: Review of Systems: All systems reviewed & are unremarkable except as noted in HPI and below Well-developed, morbidly obese NCAT hypertensive RRR Unlabored respiratory effort Bilateral lower extremities with dependent edema, nonpitting, right ankle with chronic venous stasis discoloration, more red on the medial aspect, but this is not warm, he has full range of motion of the ankles and is full weightbearing Course Vital Signs Vital signs: Vital Signs Temperature 36.6 C 02/19/25 07:40 Pulse 98 H 02/19/25 07:40 Respiratory Rate 16 02/19/25 07:40 Blood Pressure 182/114 H 02/19/25 07:40 Pulse Oximetry 93 02/19/25 07:40 Temperature 36.6 C 02/19/25 07:43 Temperature Source Oral 02/19/25 07:43 Pulse 98 H 02/19/25 07:40 Respiratory Rate 16 02/19/25 07:40 Blood Pressure 182/114 H 02/19/25 07:40 Blood Pressure Position Sitting 02/19/25 07:40 Pulse Oximetry 93 02/19/25 07:40 Oxygen Delivery Method Room Air 02/19/25 07:40 Oxygen Flow Rate 0 02/19/25 07:40 Pain Level 6 02/19/25 07:43 Lab/Test Results Lab/Test Results: Laboratory Tests Range/Units 02/19/25 07:52 WBC (4.4-10.8) 10^3/uL 8.01 RBC (4.36-5.78) 10^6/uL 5.19 Hgb (13.5-17.5) g/dL 16.1 Hct (40.0-50.0) % 50.3 H MCV (80-95) fL 97 H MCH (27.0-33.0) pg 31.0 MCHC (32.0-36.0) % 32.0 RDW (11.8-14.1) % 13.2 Plt Count (130-400) 10^3/uL 223 MPV (8.0-11.0) fL 9.4 Immature Gran % % 0.2 Neutrophils % % 64.2 Lymphocytes % % 23.6 Monocytes % % 8.6 Eosinophils % % 2.7 Basophils % % 0.7 Nucleated RBC % (0.0-0.3) % 0.0 Absolute Neutrophils (1.2-6.7) 10^3/uL 5.13 Absolute Lymphocytes (1.2-3.4) 10^3/uL 1.89 Absolute Monocytes (0.1-0.8) 10^3/uL 0.69 Absolute Eosinophils (0.0-0.7) 10^3/uL 0.22 Absolute Basophils (0.0-0.2) 10^3/uL 0.06 ESR (0-15) mm/hr 10 Sodium (136-145) mmol/L 143 Potassium (3.5-5.1) mmol/L 4.5 Chloride (98-107) mmol/L 103 Carbon Dioxide (21.0-32.0) mmol/L 34.5 H Anion Gap (3-11) mmol/L 5.5 BUN (7-18) mg/dL 6 L Creatinine (0.70-1.30) mg/dL 0.9 Est GFR (CKD-EPI 2020) (mL/min/1.73m2) 114.93 Glucose (74-106) mg/dL 117 H Uric Acid (3.5-7.2) mg/dL 6.3 Calcium (8.5-10.1) mg/dL 9.0 Total Bilirubin (0.2-1.0) mg/dL 0.6 AST (15-37) U/L 108 H ALT (16-63) U/L 111 H Alkaline Phosphatase (46-116) U/L 137 H C-Reactive Protein (<or=0.5) mg/dL 2.94 H Total Protein (6.4-8.2) g/dL 7.5 Albumin (3.4-5.0) g/dL 3.7 Medical Decision Making Emergent evaluation of right ankle pain. Patient has chronic issues in his right ankle due to prior surgery, hardware and infected hardware complication. Patient is also noted to be fairly overweight and has some chronic venous stasis changes in his legs. He was recently evaluated in the emergency department and I have reviewed this workup. Lab work was obtained today, there is no leukocytosis, no fever. There is no elevation in his ESR. His CRP is slightly above normal, slightly higher than it was last month. Uric acid is not elevated. X-ray is unchanged. I do not suspect that the patient has a septic arthritis. And in fact I do not feel strongly that the patient has cellulitis. I do feel this color changes more likely due to venous stasis. Recommend compression socks and elevation when able. Patient's blood pressure is elevated but he has not been taking his medication. I do recommend that he remain compliant with his medicines and have close follow-up with his PCP for management of these chronic issues Quality:SDWI Health Related Social Needs: Health related social needs housing instability, housed, with risk of homelessness (Z59.811) Health related social needs details Noted PFSH All Active Problems (Updated 02/19/25 @ 08:36 by Hamilton Russo MD) Chronic pain of right ankle (Acute) Chronic venous stasis dermatitis (Acute) Right ankle swelling (Acute) Alcoholic fatty liver (Acute) Left shoulder pain (Acute) Fatty liver (Acute) Excessive drinking alcohol (Acute) Abdominal distension (Acute) Closed fracture of right distal fibula (Acute) Obstructive sleep apnea (Chronic) Tobacco abuse (Chronic) Surgical wound dehiscence (Acute) Postoperative wound infection (Acute) No-show for appointment (Acute) Myalgia due to statin (Acute) pt stopped .. ref to clin pharm to maybe subst Chondromalacia patellae of left knee (Acute) Left knee pain (Acute) Hyperlipidemia (Chronic) Dental infection (Acute) Severe obstructive sleep apnea (Acute) 12/17/20 sleep study [facility] Oral thrush (Acute) Otitis media of left ear (Acute) Pharyngitis (Acute) Depression (Chronic) ADHD (Acute) Anxiety (Chronic) GERD (gastroesophageal reflux disease) (Chronic) History of substance abuse (Acute) Asthma (Chronic) Hypertension (Chronic) Family History Mother Substance abuse Brother Substance abuse Uncle Anxiety Depression Other Diabetes Hypertension Liver cancer Social History (Updated 07/09/24 @ 11:23 by Rosalba Chavarria) Smoking/Tobacco Use Status: Current every day Tobacco Type: cigarettes Smoking packs per day: 1 Smoking cigarettes per day: 20.0 Years smoked: 15 Smoking pack-years: 15.00 Tobacco: How many years used: 19 Quit status: considering quitting Second Hand Exposure: Yes Smoking risk assessment performed?: Yes Alcohol Intake: current Alcohol Intake frequency: 3 or more drinks per day Alcohol type: beer and hard liquor Previous attempts at quittin Drug use: Daily Substance use type: former substance user Date of last use: 07/01/2020, marijuana and opiates Details: Daily user of Marijuana Adopted: No Caregiver/Support person: No Foster care: No Household members: family and none Housing: house Number of Children: 0 number of grandchildren: 0 Communication Needs: None Education Level: high school Do you need help understanding health information?: Often 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 Pets and animals: Yes (1) Pets and animals: dog(s) Sexually active: No Do you think of yourself as: straight/heterosexual Current gender identity: male What is your relationship status?: never How often do you talk on the phone with friends or family?: once per week How often do you get together with friends or relatives?: once per week Do you belong to any clubs or organized social groups?: no Panel score (0-1 are the most socially isolated patients): 0 Duration: < 15 minutes/day Frequency: 1-2 times per week Charu/Roman Catholic: None Seatbelt use: sometimes Helmet use: No (Never) Drive intox or ride w/intox water truck driver: No Do you feel safe at home: Yes Do you feel safe in your relationship?: Yes PAWSS Have you Been Recently Intoxicated or Drunk Within the Last 30 days?: Yes Have you Ever Experienced Previous Episodes of Alcohol Withdrawal?: Yes Have you ever Experienced Withdrawal Seizures?: No Have you ever Experienced Delirium Tremens(DT)s?: Yes Have you ever undergone Alcohol Rehabilitation Treatment (i.e, inpt ot outpatient treatment programs)?: Yes Have you ever Experienced Blackouts?: Yes Have you ever Combined Alcohol with other Downers within the last 90 days?: No Have you ever Combined Alcohol with any other Substance of Abuse during the last 90 days?: Yes Positive Blood Alcohol level on Presentation? [PCS.BAL]: No Evidence of Increased Autonomic Activity (i.e. HR>120, tremor, sweating, agitation, nausea)?: No Result: 7
[2025-02-19 09:01] VITALS: BP 153/116; PULSE 93; RESP 16; O2SAT 93
== END 2025-02-19 09:29 | disposition home or self-care (01) ==
PROVIDERS: Emergency Provider Emergency Medicine; PCP Family Medicine
DX: I87.2 Venous insufficiency (chronic) (peripheral) (principal); M25.571 Pain in right ankle and joints of right foot; G89.29 Other chronic pain; I10 Essential (primary) hypertension; Z59.811 Housing instability, housed, with risk of homelessness
CPT/HCPCS: 99283; 99284; 36415; 80053; 85652; 73610; 84550; 85025; 86140

== ENCOUNTER 2025-03-04 19:09 | Emergency (ER) | payer MEDICAID, SELFPAY ==
[2025-03-04 19:12] VITALS: BP 172/110; PULSE 119; RESP 18; TEMP 36.8; O2SAT 95
[2025-03-04 19:17] VITALS: PULSE 119; RESP 22; O2SAT 94
--- NOTE | 2025-03-04 19:30 | RT.EKG_ITS ---
APPROVED REPORT Exam: Resting ECG Reason for Exam: tachycardia Patient Location: E HR:112 bpm ECG Measurements Heart Rate 112 AXIS IL 143 P 42 QRSd 97 QRS -38 QT 350 T 57 QTc 478 Conclusion Sinus tachycardia...rate> 99 Inferior infarct, old...Q >35mS, II III aVF No Occlusion RI
[2025-03-04 19:54] LABS: Abs Immature Grans 0.05 10^3/uL (0.0-0.06); Absolute Eosinophil Count 0.24 10^3/uL (0.0-0.7); Absolute Lymphocyte Count 2.99 10^3/uL (1.2-3.4); Absolute Monocyte Count 1.35 10^3/uL (0.1-0.8); Absolute Neutrophil Count 8.53 10^3/uL (1.2-6.7); Basophils % 0.5 %; Eosinophils % 1.8 %; HCT 47.4 % (40.0-50.0); HGB 15.5 g/dL (13.5-17.5); Immature Grans % 0.4 %; Lactate 1.9 mmol/L (<or=2.0); Lymphocytes % 22.6 %; MCH 31.2 pg (27.0-33.0); MCHC 32.7 % (32.0-36.0); MCV 95 fL (80-95); MPV 9.4 fL (8.0-11.0); Monocytes % 10.2 %; Neutrophils % 64.5 %; Platelet Count 276 10^3/uL (130-400); RBC 4.97 10^6/uL (4.36-5.78); RDW 12.9 % (11.8-14.1); RDW-SD 45.3 fL; WBC 13.22 10^3/uL (4.4-10.8)
[2025-03-04 19:55] LABS: ESR 20 mm/hr (0-15)
[2025-03-04 20:01] LABS: Absolute Basophil Count 0.07 10^3/uL (0.0-0.2)
[2025-03-04 20:09] LABS: ETHANOL BLOOD 75.8 mg/dL (<10)
[2025-03-04 20:14] LABS: ALT 102 U/L (16-63); AST 97 U/L (15-37); Albumin 3.6 g/dL (3.4-5.0); Alkaline Phosphatase 140 U/L (46-116); Anion Gap 5.7 mmol/L (3-11); BUN 7 mg/dL (7-18); Bilirubin, Total 0.5 mg/dL (0.2-1.0); C-Reactive Protein 4.47 mg/dL (<or=0.5); CO2 32.3 mmol/L (21.0-32.0); CREATININE 0.9 mg/dL (0.70-1.30); Calcium 9.4 mg/dL (8.5-10.1); Chloride 101 mmol/L (98-107); Estimated GFR 114.93 (mL/min/1.73m2); Glucose 109 mg/dL (74-106); Potassium 3.2 mmol/L (3.5-5.1); Sodium 139 mmol/L (136-145)
--- NOTE | 2025-03-04 20:17 | DI.CT_ITS ---
Exam(s) CT LOWER EXTREMITY RT W EXAM: CT LOWER EXTREMITY RT W CLINICAL HISTORY: hx of ankle ORIF, redness, fever, pain. TECHNIQUE: Imaging Protocol: Axial computed tomography images with coronal and sagittal reformatted images were created and reviewed. CONTRAST MATERIAL: Intravenous: Omnipaque 350 Contrast volume:100 mL contrast route:IV - COMPARISON: CR XR ANKLE RT COMPLETE from 02/19/2025 FINDINGS: OSSEOUS: There is a lateral fixation plate across a healed distal fibular fracture site with surgical graded syndesmotic channel through the distal tibia-fibula with securing button on medial aspect. T here are no fractures. No evidence of widening the ankle mortise. There is no evidence of osteomyel itis. SOFT TISSUES: There is diffuse soft tissue edema/cellulitis pattern which is most prominent on the la teral aspect of the ankle. In addition there is confluence of soft tissue swelling just lateral to t he lateral malleolus,. This may represent developing abscess although there is no obvious ring enhan cement. IMPRESSION: There is diffuse soft tissue edema with cellulitis pattern. There is more prominent soft tissue swel ling on the lateral aspect of the ankle with suggestion of developing abscess adjacent to the lateral malleolus. No evidence of hardware loosening and no evidence of osteomyelitis RADIATION DOSE DELIVERED: 120.89mGy.cm Total DLP DATA REPOSITORY: All CT scans at this facility are submitted to the National Radiology Data Registry (NRDR) Dose Index Registry (DIR) with the [employer] (ACR). RADIATION OPTIMIZATION: All CT scans at this facility use at least one of these dose optimization te chniques: automated exposure control; mA and/or kV adjustment per patient size (includes targeted exa ms where dose is matched to clinical indication); or iterative reconstruction.
[2025-03-04] MEDS: Normal Saline - Diluent 50 ML VIAL IJ (20:19)
[2025-03-04] MEDS: Omnipaque 350 MG/ML 100 ML BTL IJ (20:19)
--- NOTE | 2025-03-04 21:07 | DI.VRAD_ITS ---
PROCEDURE INFORMATION: Exam: CT Right Lower Extremity With Contrast, Ankle Exam date and time: 03/04/2025 8:01 PM Age: 34 years old Clinical indication: Other: HX of ankle orif, redness, fever, pain; Prior surgery; Surgery date: 6+ months; Surgery type: Orif 2 years ago TECHNIQUE: Imaging protocol: CT of the right lower extremity with intravenous contrast was performed. Exam focused on the ankle. Contrast material: OMNIPAQUE 350; Contrast volume: 100 ml; Contrast route: INTRAVENOUS (IV); COMPARISON: CR XR ANKLE RT COMPLETE 02/19/2025 8:09 AM FINDINGS: Bones/joints: Postsurgical changes of the distal fibula and distal tibia. No evidence of acute fracture or dislocation. Soft tissues: Diffuse soft tissue edema/cellulitis, more prominent on the lateral ankle there is a tiny 8 mm fluid attenuating region near the lateral malleolus which may represent a developing abscess. IMPRESSION: Diffuse soft tissue edema/cellulitis, more prominent on the lateral ankle there is a tiny 9 mm fluid attenuating region near the lateral malleolus which may represent a developing abscess. Dictated and Authenticated by: Rachana Wilson MD. Orderin Apollo Sanchez MD
[2025-03-04 21:41] VITALS: BP 161/122; PULSE 115
[2025-03-04 21:43] VITALS: BP 161/122; PULSE 114; TEMP 36.9; O2SAT 91
[2025-03-04] MEDS: Lidocaine 1% Pres-Free W/EPI 1/200,000 30 ML VIAL IJ (21:50)
--- NOTE | 2025-03-04 22:15 | W.ED.GENAD ---
Discharge Plan Disposition Patient Disposition: Against Medical Advice Condition: Stable Discharge Details Clinical Impression: Post op infection Primary Care Provider: Willis Henderson ED Provider: Laura Bustillos Home Meds and New Rx's Prescriptions: Continued bupropion HCl 150 mg tablet extended release 24 hr 150 mg PO QAM Qty: 90 3RF naltrexone 50 mg tablet 50 mg PO DAILY Qty: 60 3RF allopurinol 300 mg tablet 300 mg PO DAILY Qty: 90 3RF omeprazole 40 mg capsule,delayed release(DR/EC) 40 mg PO DAILY Qty: 90 3RF losartan 25 mg tablet 25 mg PO DAILY Qty: 90 3RF budesonide-formoterol [Symbicort] 160-4.5 mcg/actuation HFA aerosol inhaler 2 puff inhalation BID Qty: 10.2 6RF acetaminophen 500 mg tablet 1,000 mg PO Q8H PRN (Reason: pain) Qty: 90 3RF albuterol sulfate 90 mcg/actuation HFA aerosol inhaler 2 puff inhalation Q4H PRN (Reason: shortness of breath or wheezing) Qty: 18 6RF Discharge Instructions Instructions: Wound Infection Additional Instructions: Elevate your ankle next will need to be removed in 72 hours please present to the emergency department for recheck on Saturday evening You have not been placed on antibiotics, if your wounds worsen, please be reevaluated Soliciting orthopedics could like for you to follow-up with them next week as this is likely related to your prior surgical procedure in your ankle Please return immediately should you develop worsening redness, fever, pain I recommend admission to the hospital at this time which you have declined and elevating your ankle above your heart is much as possible You are leaving again against our medical recommendation at this time and understand that you are at risk for losing your ankle and foot if this continues to worsen Referrals: Zak Stroud MD [ [facility] STAFF PHYSICIAN] - 1 day Willis Henderson DO [Primary Care Provider] - Discharge Data Discharge Date/Time-TO BE ENTERED AT DEPARTURE: 03/04/25 21:51 HPI General Date/Time Provider Initiated Documentation: 03/04/25 19:14. HPI Narrative: 34-year-old male with history of ORIF of right ankle, alcoholism, hypertension, COPD, depression, anxiety, substance abuse, and sleep apnea. Presents with worsening redness and swelling in right ankle. Evaluated four times over several months, prescribed three antibiotics without relief. Off antibiotics for 2 weeks, symptoms worsened. No follow-up with orthopedics. Initial ORIF 2 years ago with postoperative infection. Consumes six-pack of alcohol daily, last drink just before arrival. 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 No fever, chills, or wound drainage. Related Data Home Medications ?Medication ?Instructions ?Recorded ?Confirmed acetaminophen 500 mg tablet 1,000 mg (2 x 500 mg) PO Q8H PRN 02/10/24 03/04/25 pain #90 tabs albuterol sulfate 90 mcg/actuation 2 puff inhalation Q4H PRN 02/10/24 03/04/25 aerosol inhaler shortness of breath or wheezing #18 grams allopurinol 300 mg tablet 300 mg PO DAILY #90 tabs 03/02/24 03/04/25 omeprazole 40 mg capsule,delayed 40 mg PO DAILY #90 caps 03/02/24 03/04/25 release budesonide-formoterol HFA 160 2 puff inhalation BID #10.2 grams 07/09/24 03/04/25 mcg-4.5 mcg/actuation aerosol inhaler (Symbicort) losartan 25 mg tablet 25 mg PO DAILY #90 tabs 07/09/24 03/04/25 bupropion HCl 150 mg 24 hr tablet, 150 mg PO QAM #90 tabs 12/01/24 03/04/25 extended release naltrexone 50 mg tablet 50 mg PO DAILY #60 tabs 12/01/24 03/04/25 Previous Rx's ?Medication ?Instructions ?Recorded acetaminophen 500 mg tablet 1,000 mg (2 x 500 mg) PO Q8H PRN 02/10/24 pain #90 tabs albuterol sulfate 90 mcg/actuation 2 puff inhalation Q4H PRN 02/10/24 aerosol inhaler shortness of breath or wheezing #18 grams allopurinol 300 mg tablet 300 mg PO DAILY #90 tabs 03/02/24 omeprazole 40 mg capsule,delayed 40 mg PO DAILY #90 caps 03/02/24 release budesonide-formoterol HFA 160 2 puff inhalation BID #10.2 grams 07/09/24 mcg-4.5 mcg/actuation aerosol inhaler (Symbicort) losartan 25 mg tablet 25 mg PO DAILY #90 tabs 07/09/24 bupropion HCl 150 mg 24 hr tablet, 150 mg PO QAM #90 tabs 12/01/24 extended release naltrexone 50 mg tablet 50 mg PO DAILY #60 tabs 12/01/24 Allergies Allergy/AdvReac Type Severity Reaction Status Date / Time codeine Allergy Intermediate rash Verified 02/19/25 07:46 atorvastatin AdvReac myalgias Verified 02/19/25 07:46 General Stated Complaint: Cellulitis JASON: 3 Exam Narrative Exam Narrative: General Appearance: Alert, oriented, no acute distress. Vital signs: Oral temperature 100.1, tachycardic. HEENT: Within normal limits. Respiratory: Within normal limits. Cardiovascular: Within normal limits. Gastrointestinal: Within normal limits. Genitourinary: Within normal limits. Back, Musculoskeletal: Within normal limits. Extremities: Right ankle significantly swollen, fluctuant over medial and lateral malleolus, redness present, no drainage. Skin: Warm and dry, no rash. Neurological: Neurovascularly intact. Other observations: No lymphangitis. Course Vital Signs Vital signs: Vital Signs Temperature 36.8 C 03/04/25 19:12 Pulse 119 H 03/04/25 19:12 Respiratory Rate 18 03/04/25 19:12 Blood Pressure 172/110 H 03/04/25 19:12 Pulse Oximetry 95 03/04/25 19:12 Temperature 36.9 C 03/04/25 21:43 Temperature Source Tympanic 03/04/25 21:43 Pulse 114 H 03/04/25 21:43 Respiratory Rate 22 03/04/25 19:17 Respiratory Pattern Normal 03/04/25 20:51 Blood Pressure 161/122 H 03/04/25 21:43 Blood Pressure Mean 135 03/04/25 21:43 Blood Pressure Position Sitting 03/04/25 19:12 Pulse Oximetry 91 L 03/04/25 21:43 Oxygen Delivery Method Room Air 03/04/25 21:43 Oxygen Flow Rate 0 03/04/25 21:43 Pain Level 0 03/04/25 21:43 Lab/Test Results Lab/Test Results: 03/04/25 21:30 Ankle - Right Wound Culture - Pending 03/04/25 21:30 Ankle - Right Gram Stain - Pending 03/04/25 19:45 Blood Blood Culture - Pending 03/04/25 19:42 Blood Blood Culture - Pending Laboratory Tests Range/Units 03/04/25 19:42 WBC (4.4-10.8) 10^3/uL 13.22 H RBC (4.36-5.78) 10^6/uL 4.97 Hgb (13.5-17.5) g/dL 15.5 Hct (40.0-50.0) % 47.4 MCV (80-95) fL 95 MCH (27.0-33.0) pg 31.2 MCHC (32.0-36.0) % 32.7 RDW (11.8-14.1) % 12.9 Plt Count (130-400) 10^3/uL 276 MPV (8.0-11.0) fL 9.4 Immature Gran % % 0.4 Neutrophils % % 64.5 Lymphocytes % % 22.6 Monocytes % % 10.2 Eosinophils % % 1.8 Basophils % % 0.5 Nucleated RBC % (0.0-0.3) % 0.0 Absolute Neutrophils (1.2-6.7) 10^3/uL 8.53 H Absolute Lymphocytes (1.2-3.4) 10^3/uL 2.99 Absolute Monocytes (0.1-0.8) 10^3/uL 1.35 H Absolute Eosinophils (0.0-0.7) 10^3/uL 0.24 Absolute Basophils (0.0-0.2) 10^3/uL 0.07 ESR (0-15) mm/hr 20 H VBG Lactate (<or=2.0) mmol/L 1.9 Sodium (136-145) mmol/L 139 Potassium (3.5-5.1) mmol/L 3.2 L Chloride (98-107) mmol/L 101 Carbon Dioxide (21.0-32.0) mmol/L 32.3 H Anion Gap (3-11) mmol/L 5.7 BUN (7-18) mg/dL 7 Creatinine (0.70-1.30) mg/dL 0.9 Est GFR (CKD-EPI 2020) (mL/min/1.73m2) 114.93 Glucose (74-106) mg/dL 109 H Calcium (8.5-10.1) mg/dL 9.4 Total Bilirubin (0.2-1.0) mg/dL 0.5 AST (15-37) U/L 97 H ALT (16-63) U/L 102 H Alkaline Phosphatase (46-116) U/L 140 H C-Reactive Protein (<or=0.5) mg/dL 4.47 H Total Protein (6.4-8.2) g/dL 8.0 Albumin (3.4-5.0) g/dL 3.6 Ethyl Alcohol (<10) mg/dL 75.8 H Procedure Abscess Drainage Procedure Description Note: Incision and drainage of right ankle: medial malleolus (5 cm? lidocaine, 3 cm? purulent drainage, wick placed), lateral malleolus (3 cm? lidocaine, 11 blade incision, irrigation, probing, deloculation, 5 cm? purulent drainage, wick placed). Medical Decision Making White count 13,000. Elevated LFTs. CT leg: no large infection. X-ray: lateral abscesses, no intra-articular abscess or osteomyelitis. Initial Assessment: 34-year-old male with past medical history of ORIF of right ankle, alcoholism, hypertension, COPD, depression, anxiety, history of substance abuse, sleep apnea. Presents with worsening redness and swelling to right ankle despite three different antibiotics over the past several months. No orthopedics follow-up. ED Course: - CT shows lateral abscesses, no intra-articular abscess or osteomyelitis. Read by me. - Temperature 100.1 orally. - White count 13,000 meeting sepsis criteria. - Incision and drainage performed over medial and lateral malleolus. - Adequate drainage from bilateral abscesses. - Applied Josue wraps with ABD pads covering incision and drainage sites. - Recommendation for removal of I&D julius on Saturday. - Patient advised to reduce alcohol consumption due to elevated LFTs. -Clinically sober throughout assessment - Referral to orthopedics for potential infected hardware. - Consider hepatitis panel. Final Assessment: Patient presents with worsening right ankle infection despite previous antibiotic treatments. CT shows lateral abscesses without intra-articular abscess or osteomyelitis. Incision and drainage performed with adequate drainage. Patient meets sepsis criteria but declines hospital admission. Orthopedics referral and reassessment planned. Clinical Impression: - Right ankle infection - Sepsis criteria met - Elevated LFTs Disposition: - Follow-Up: Referral to orthopedics for potential infected hardware. Reassessment on Saturday. [facility] Components Evaluation: - Number of Differential Diagnoses or Management Options: Right ankle infection, sepsis, elevated LFTs. - Amount and Complexity of Data Reviewed: CT scan, white count, temperature, LFTs. - Risk of Complication and Morbidity or Mortality: Risk of losing leg due to infection, potential complications from elevated LFTs and alcohol consumption. Quality:[facility] Health Related Social Needs: Health related social needs housing instability, housed, with risk of homelessness (Z59.811), transportation insecurity (Z59.82) Health related social needs details ISSUES GETTING TO AND FROM [facility] All Active Problems (Updated 03/04/25 @ 21:33 by AISHA Betancur) Post op infection (Acute) Chronic pain of right ankle (Acute) Chronic venous stasis dermatitis (Acute) Alcoholic fatty liver (Acute) Left shoulder pain (Acute) Fatty liver (Acute) Excessive drinking alcohol (Acute) Abdominal distension (Acute) Closed fracture of right distal fibula (Acute) Obstructive sleep apnea (Chronic) Tobacco abuse (Chronic) Surgical wound dehiscence (Acute) Postoperative wound infection (Acute) No-show for appointment (Acute) Myalgia due to statin (Acute) pt stopped .. ref to clin pharm to maybe subst Chondromalacia patellae of left knee (Acute) Left knee pain (Acute) Hyperlipidemia (Chronic) Dental infection (Acute) Severe obstructive sleep apnea (Acute) 12/17/20 sleep study [facility] Oral thrush (Acute) Otitis media of left ear (Acute) Pharyngitis (Acute) Depression (Chronic) ADHD (Acute) Anxiety (Chronic) GERD (gastroesophageal reflux disease) (Chronic) History of substance abuse (Acute) Asthma (Chronic) Hypertension (Chronic) Family History Mother Substance abuse Brother Substance abuse Uncle Anxiety Depression Other Diabetes Hypertension Liver cancer Social History (Updated 07/09/24 @ 11:23 by Rosalba Chavarria) Smoking/Tobacco Use Status: Current every day Tobacco Type: cigarettes Smoking packs per day: 1 Smoking cigarettes per day: 20.0 Years smoked: 15 Smoking pack-years: 15.00 Tobacco: How many years used: 19 Quit status: considering quitting Second Hand Exposure: Yes Smoking risk assessment performed?: Yes Alcohol Intake: current Alcohol Intake frequency: 3 or more drinks per day Alcohol type: beer and hard liquor Previous attempts at quittin Drug use: Daily Substance use type: former substance user Date of last use: 07/01/2020, marijuana and opiates Details: Daily user of Marijuana Adopted: No Caregiver/Support person: No Foster care: No Household members: family and none Housing: other Number of Children: 0 number of grandchildren: 0 Communication Needs: None Education Level: high school Do you need help understanding health information?: Often 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 Pets and animals: Yes (1) Pets and animals: dog(s) Sexually active: No Do you think of yourself as: straight/heterosexual Current gender identity: male What is your relationship status?: never How often do you talk on the phone with friends or family?: once per week How often do you get together with friends or relatives?: once per week Do you belong to any clubs or organized social groups?: no Panel score (0-1 are the most socially isolated patients): 0 Duration: < 15 minutes/day Frequency: 1-2 times per week Charu/Gnosticist: None Seatbelt use: sometimes Helmet use: No (Never) Drive intox or ride w/intox [employer] 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 Have you Been Recently Intoxicated or Drunk Within the Last 30 days?: Yes Have you Ever Experienced Previous Episodes of Alcohol Withdrawal?: Yes Have you ever Experienced Withdrawal Seizures?: No Have you ever Experienced Delirium Tremens(DT)s?: Yes Have you ever undergone Alcohol Rehabilitation Treatment (i.e, inpt ot outpatient treatment programs)?: No Have you ever Experienced Blackouts?: No Have you ever Combined Alcohol with other Downers within the last 90 days?: Yes Have you ever Combined Alcohol with any other Substance of Abuse during the last 90 days?: Yes Positive Blood Alcohol level on Presentation? [PCS.BAL]: No Evidence of Increased Autonomic Activity (i.e. HR>120, tremor, sweating, agitation, nausea)?: Yes Result: 6
== END 2025-03-04 21:51 | disposition left against medical advice (07) ==
PROVIDERS: Emergency Provider Physician Assistant; PCP Family Medicine
DX: T81.40XA Infection following a procedure, unspecified, initial encounter (principal); Z59.811 Housing instability, housed, with risk of homelessness; Z59.82 Transportation insecurity
CPT/HCPCS: 99285 ×2; 36415; 10061; 80053; 85652; 87040; 87077; 93005; 73701; 80320; 83605; 85025; 86140; 87070; 87186; 87205; 93010; J2004; J3490

== ENCOUNTER 2025-03-06 10:45 | Inpatient (IN) | payer MEDICAID, SELFPAY ==
[2025-03-06 10:52] VITALS: BP 154/119; PULSE 117; RESP 20; TEMP 36.6; O2SAT 92
--- NOTE | 2025-03-06 11:15 | DI.RAD_ITS ---
Exam(s) XR ANKLE RT COMPLETE EXAM: XR ANKLE RT COMPLETE CLINICAL HISTORY: Cellulitis. TECHNIQUE: 2D digital imaging was performed. COMPARISON: CR XR ANKLE RT COMPLETE from 02/19/2025 CT scan of 03/05/2025 also reviewed. FINDINGS: 3 views Previously described hardware in the ankle appears stable. No evidence of new hardware loosening nor osteomyelitis. No fractures. There is significant soft tissue swelling around both sides the ankle. There is no obvious gas in th e soft tissues. Please note that recent CT scan revealed possible developing abscess adjacent to the lateral malleolus. IMPRESSION: Soft tissue swelling. No new osseous findings. See recent CT scan report DATA REPOSITORY: RADIATION DOSE DELIVERED:
--- NOTE | 2025-03-06 11:23 | W.ED.GENAD ---
Discharge Plan Disposition Patient Disposition: Admit to [facility] Discharge Details Primary Care Provider: Willis Henderson ED Provider: Brandee Seals Home Meds and New Rx's Prescriptions: No Action bupropion HCl 150 mg tablet extended release 24 hr 150 mg PO QAM Qty: 90 3RF naltrexone 50 mg tablet 50 mg PO DAILY Qty: 60 3RF allopurinol 300 mg tablet 300 mg PO DAILY Qty: 90 3RF omeprazole 40 mg capsule,delayed release(DR/EC) 40 mg PO DAILY Qty: 90 3RF losartan 25 mg tablet 25 mg PO DAILY Qty: 90 3RF budesonide-formoterol [Symbicort] 160-4.5 mcg/actuation HFA aerosol inhaler 2 puff inhalation BID Qty: 10.2 6RF acetaminophen 500 mg tablet 1,000 mg PO Q8H PRN (Reason: pain) Qty: 90 3RF albuterol sulfate 90 mcg/actuation HFA aerosol inhaler 2 puff inhalation Q4H PRN (Reason: shortness of breath or wheezing) Qty: 18 6RF HPI General Mode of arrival: ambulatory. Date/Time Provider Initiated Documentation: 03/06/25 10:52. Limitations to Documentation: no limitations. Information obtained by: patient, RN notes reviewed and old records reviewed. HPI Narrative: 34-year-old male presents to the ER with a chief complaint of purulent drainage out of 2 wounds on the medial and lateral aspect of his right ankle. Patient had surgery to his ankle and repair last year. Was seen here 2 days ago had some packing placed and an drainage of the area and was offered admission which patient declined at that time. He reports that since then he has noticed increased redness and drainage. He did go to work and was standing for long period on his feet. He does have erythema up to his mid lopez. Patient denies any fever chills or any other associated symptoms. He is not currently on antibiotics. Related Data Home Medications ?Medication ?Instructions ?Recorded ?Confirmed acetaminophen 500 mg tablet 1,000 mg (2 x 500 mg) PO Q8H PRN 02/10/24 03/06/25 pain #90 tabs albuterol sulfate 90 mcg/actuation 2 puff inhalation Q4H PRN 02/10/24 03/06/25 aerosol inhaler shortness of breath or wheezing #18 grams allopurinol 300 mg tablet 300 mg PO DAILY #90 tabs 03/02/24 03/06/25 omeprazole 40 mg capsule,delayed 40 mg PO DAILY #90 caps 03/02/24 03/06/25 release budesonide-formoterol HFA 160 2 puff inhalation BID #10.2 grams 07/09/24 03/06/25 mcg-4.5 mcg/actuation aerosol inhaler (Symbicort) losartan 25 mg tablet 25 mg PO DAILY #90 tabs 07/09/24 03/06/25 bupropion HCl 150 mg 24 hr tablet, 150 mg PO QAM #90 tabs 12/01/24 03/06/25 extended release naltrexone 50 mg tablet 50 mg PO DAILY #60 tabs 12/01/24 03/06/25 Previous Rx's ?Medication ?Instructions ?Recorded acetaminophen 500 mg tablet 1,000 mg (2 x 500 mg) PO Q8H PRN 02/10/24 pain #90 tabs albuterol sulfate 90 mcg/actuation 2 puff inhalation Q4H PRN 02/10/24 aerosol inhaler shortness of breath or wheezing #18 grams allopurinol 300 mg tablet 300 mg PO DAILY #90 tabs 03/02/24 omeprazole 40 mg capsule,delayed 40 mg PO DAILY #90 caps 03/02/24 release budesonide-formoterol HFA 160 2 puff inhalation BID #10.2 grams 07/09/24 mcg-4.5 mcg/actuation aerosol inhaler (Symbicort) losartan 25 mg tablet 25 mg PO DAILY #90 tabs 07/09/24 bupropion HCl 150 mg 24 hr tablet, 150 mg PO QAM #90 tabs 12/01/24 extended release naltrexone 50 mg tablet 50 mg PO DAILY #60 tabs 12/01/24 Allergies Allergy/AdvReac Type Severity Reaction Status Date / Time codeine Allergy Intermediate rash Verified 03/06/25 10:57 atorvastatin AdvReac myalgias Verified 03/06/25 10:57 General Stated Complaint: RashLesion JASON: 3 Review of Systems All systems reviewed & are unremarkable except as noted in HPI and below Integumentary/Breasts Skin/Breast: Reports as per HPI, Reports non-healing lesions, Reports erythema and Reports wounds Exam Narrative Exam Narrative: Constitutional: Alert and oriented x3. Appears stated age. Obese body habitus. Slurred speech Head: Normocephalic, no trauma. Eyes: Pupils PERRL, Red reflex noted, EOM's intact. Eyelids symmetrical without lesions, discharge, or swelling. ENT: Bilateral TM's WNL, External ear normal to inspection, no mastoid TTP, swelling, or erythema, Nasal turbinates WNL, no nasal discharge. Normal dentition, Posterior pharynx WNL, no exudate. Chest: RRR, Normal S1, S2, distal pulses intact. Resp: Lungs clear to auscultation bilaterally, no wheezes, rales, or rhonchi. Abdomen: Normoactive bowel sounds all 4 quads. Musculoskeletal: Moves all 4 extremities without difficulty. Skin: See exam below, capillary refill less than 2 sec. Neurologic: Cranial nerves II-XII intact. Alert and oriented x 3. Motor: No deficits noted. Sensory: Intact bilaterally all 4 extremities. Hematologic/Lymphatic: No ecchymosis, no lymphadenopathy. Extrem Right lower extremity: lower leg Details: erythema Location: of the mid lower leg Location: anteriorly Ankle/foot/toe images: 1. Open wound with purulent drainage noted surrounding erythema and swelling 2. Open wound with purulent drainage noted with surrounding erythema and swelling 3. Erythema extending up to mid lopez Course Vital Signs Vital signs: Vital Signs Temperature 36.6 C 03/06/25 10:52 Pulse 117 H 03/06/25 10:52 Respiratory Rate 20 03/06/25 10:52 Blood Pressure 154/119 H 03/06/25 10:52 Pulse Oximetry 92 03/06/25 10:52 Temperature 36.6 C 03/06/25 10:52 Pulse 117 H 03/06/25 10:52 Respiratory Rate 20 03/06/25 10:52 Blood Pressure 154/119 H 03/06/25 10:52 Blood Pressure Position Sitting 03/06/25 10:52 Pulse Oximetry 92 03/06/25 10:52 Oxygen Delivery Method Room Air 03/06/25 10:52 Oxygen Flow Rate 0 03/06/25 10:52 Lab/Test Results Lab/Test Results: 03/06/25 11:19 Blood Blood Culture - Pending 03/06/25 11:19 Blood Blood Culture - Pending Medical Decision Making 34-year-old male presents to the ER with a chief complaint of purulent drainage out of 2 wounds on the medial and lateral aspect of his right ankle. Patient had surgery to his ankle and repair last year. Was seen here 2 days ago had some packing placed and an drainage of the area and was offered admission which patient declined at that time. He reports that since then he has noticed increased redness and drainage. He did go to work and was standing for long period on his feet. He does have erythema up to his mid lopez. Patient denies any fever chills or any other associated symptoms. He is not currently on antibiotics. Workup ordered including CBC CMP lactate blood cultures x 2, x-ray. Contacted hospitalist for admission for IV antibiotics. I also did speak with orthopedic doc on-call who is aware of this patient recommends IV antibiotics and admission they will follow him for consult. Dr. Christine accepted patient for admission. He recommends vancomycin and cefepime orders placed. Patient remained hemodynamically stable throughout the remainder of his stay here. He has improved. Medical Records Medical records reviewed: Yes I reviewed the patient's medical records. Imaging Data Radiologic Study: Imaging: X-Ray Radiologist's impression: Exam date and time: 03/06/2025 12:22 PM Age: 34 years old Clinical indication: Other: Cellulitis; Prior surgery; Surgery date: 6+ months; Surgery type: RT ankle surg TECHNIQUE: Imaging protocol: Radiologic exam of the right ankle. Views: 3 or more views. COMPARISON: CT LOWER EXTREMITY RT W 03/04/2025 8:01 PM FINDINGS: Bones/joints: Lateral distal fibular plate and screw fixation and tightrope syndesmotic fixation with anatomic alignment and no hardware complications. Small ankle joint effusion. Soft tissues: There is soft tissue swelling. IMPRESSION: 1. No acute fracture or dislocation. 2. Soft tissue swelling around the ankle with no radiographic changes of osteomyelitis. Thank you for allowing us to participate in the care of your patient. Dictated and Authenticated by: Herbert Mcpherson MD Lab Data Lab results reviewed: Yes I reviewed the patient's lab results. Labs: 03/06/25 11:57 Blood Blood Culture - Pending 03/06/25 11:34 Blood Blood Culture - Pending Laboratory Tests Range/Units 03/06/25 11:19 WBC (4.4-10.8) 10^3/uL 10.34 RBC (4.36-5.78) 10^6/uL 4.99 Hgb (13.5-17.5) g/dL 15.3 Hct (40.0-50.0) % 48.0 MCV (80-95) fL 96 H MCH (27.0-33.0) pg 30.7 MCHC (32.0-36.0) % 31.9 L RDW (11.8-14.1) % 12.7 Plt Count (130-400) 10^3/uL 295 MPV (8.0-11.0) fL 9.4 Immature Gran % % 0.4 Neutrophils % % 67.0 Lymphocytes % % 22.6 Monocytes % % 6.8 Eosinophils % % 2.7 Basophils % % 0.5 Nucleated RBC % (0.0-0.3) % 0.0 Absolute Neutrophils (1.2-6.7) 10^3/uL 6.93 H Absolute Lymphocytes (1.2-3.4) 10^3/uL 2.34 Absolute Monocytes (0.1-0.8) 10^3/uL 0.70 Absolute Eosinophils (0.0-0.7) 10^3/uL 0.28 Absolute Basophils (0.0-0.2) 10^3/uL 0.05 ESR (0-15) mm/hr 21 H VBG Lactate (<or=2.0) mmol/L 2.0 Sodium (136-145) mmol/L 139 Potassium (3.5-5.1) mmol/L 3.4 L Chloride (98-107) mmol/L 101 Carbon Dioxide (21.0-32.0) mmol/L 33.4 H Anion Gap (3-11) mmol/L 4.6 BUN (7-18) mg/dL 6 L Creatinine (0.70-1.30) mg/dL 0.9 Est GFR (CKD-EPI 2020) (mL/min/1.73m2) 114.93 Glucose (74-106) mg/dL 172 H Calcium (8.5-10.1) mg/dL 8.8 Magnesium (1.8-2.4) mg/dL 2.1 Total Bilirubin (0.2-1.0) mg/dL 0.7 AST (15-37) U/L 81 H ALT (16-63) U/L 90 H Alkaline Phosphatase (46-116) U/L 139 H C-Reactive Protein (<or=0.5) mg/dL 5.42 H Total Protein (6.4-8.2) g/dL 7.7 Albumin (3.4-5.0) g/dL 3.4 Ethyl Alcohol (<10) mg/dL 26.2 H Add-On Test Request DONE Quality:[facility] Health Related Social Needs: Health related social needs housing instability, housed, with risk of homelessness (Z59.811), transportation insecurity (Z59.82) Health related social needs details ISSUES GETTING TO AND FROM [facility] All Active Problems (Updated 03/06/25 @ 13:42 by Arabella Watkins APRN) Cellulitis of right ankle (Acute) Cellulitis of right lower extremity from knee to ankle (Acute) Cellulitis and abscess of right lower extremity (Acute) Post op infection (Acute) Chronic pain of right ankle (Acute) Chronic venous stasis dermatitis (Acute) Alcoholic fatty liver (Acute) Left shoulder pain (Acute) Fatty liver (Acute) Excessive drinking alcohol (Acute) Abdominal distension (Acute) Closed fracture of right distal fibula (Acute) Obstructive sleep apnea (Chronic) Tobacco abuse (Chronic) Surgical wound dehiscence (Acute) Postoperative wound infection (Acute) No-show for appointment (Acute) Myalgia due to statin (Acute) pt stopped .. ref to clin pharm to maybe subst Chondromalacia patellae of left knee (Acute) Left knee pain (Acute) Hyperlipidemia (Chronic) Dental infection (Acute) Severe obstructive sleep apnea (Acute) 12/17/20 sleep study [facility] Oral thrush (Acute) Otitis media of left ear (Acute) Pharyngitis (Acute) Depression (Chronic) ADHD (Acute) Anxiety (Chronic) GERD (gastroesophageal reflux disease) (Chronic) History of substance abuse (Acute) Asthma (Chronic) Hypertension (Chronic) Family History Mother Substance abuse Brother Substance abuse Uncle Anxiety Depression Other Diabetes Hypertension Liver cancer Social History Smoking/Tobacco Use Status: Current every day Tobacco Type: cigarettes Smoking packs per day: 1 Smoking cigarettes per day: 20.0 Years smoked: 15 Smoking pack-years: 15.00 Tobacco: How many years used: 19 Quit status: considering quitting Second Hand Exposure: Yes Smoking risk assessment performed?: Yes Alcohol Intake: current Alcohol Intake frequency: 3 or more drinks per day Alcohol type: beer and hard liquor Previous attempts at quittin Drug use: Daily Substance use type: former substance user Date of last use: 07/01/2020, marijuana and opiates Details: Daily user of Marijuana Adopted: No Caregiver/Support person: No Foster care: No Household members: family and none Housing: other Number of Children: 0 number of grandchildren: 0 Communication Needs: None Education Level: high school Do you need help understanding health information?: Often 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 Pets and animals: Yes (1) Pets and animals: dog(s) Sexually active: No Do you think of yourself as: straight/heterosexual Current gender identity: male What is your relationship status?: never How often do you talk on the phone with friends or family?: once per week How often do you get together with friends or relatives?: once per week Do you belong to any clubs or organized social groups?: no Panel score (0-1 are the most socially isolated patients): 0 Duration: < 15 minutes/day Frequency: 1-2 times per week Charu/Caodaism: None Seatbelt use: sometimes Helmet use: No (Never) Drive intox or ride w/intox transit driver: No Do you feel safe at home: Yes Do you feel safe in your relationship?: Yes Additional Social history: [facility] Have you Been Recently Intoxicated or Drunk Within the Last 30 days?: Yes Have you Ever Experienced Previous Episodes of Alcohol Withdrawal?: No Have you ever Experienced Withdrawal Seizures?: No Have you ever Experienced Delirium Tremens(DT)s?: No Have you ever undergone Alcohol Rehabilitation Treatment (i.e, inpt ot outpatient treatment programs)?: No Have you ever Experienced Blackouts?: Yes Have you ever Combined Alcohol with other Downers within the last 90 days?: No Have you ever Combined Alcohol with any other Substance of Abuse during the last 90 days?: No Positive Blood Alcohol level on Presentation? [PCS.BAL]: No Evidence of Increased Autonomic Activity (i.e. HR>120, tremor, sweating, agitation, nausea)?: No Result: 2
[2025-03-06 11:30] LABS: Abs Immature Grans 0.04 10^3/uL (0.0-0.06); Absolute Basophil Count 0.05 10^3/uL (0.0-0.2); Absolute Eosinophil Count 0.28 10^3/uL (0.0-0.7); Absolute Lymphocyte Count 2.34 10^3/uL (1.2-3.4); Absolute Neutrophil Count 6.93 10^3/uL (1.2-6.7); Basophils % 0.5 %; Eosinophils % 2.7 %; HGB 15.3 g/dL (13.5-17.5); Immature Grans % 0.4 %; Lymphocytes % 22.6 %; MCH 30.7 pg (27.0-33.0); MCHC 31.9 % (32.0-36.0); MCV 96 fL (80-95); MPV 9.4 fL (8.0-11.0); Monocytes % 6.8 %; Platelet Count 295 10^3/uL (130-400); RBC 4.99 10^6/uL (4.36-5.78); RDW 12.7 % (11.8-14.1); RDW-SD 45.1 fL; WBC 10.34 10^3/uL (4.4-10.8)
[2025-03-06 11:31] LABS: ESR 21 mm/hr (0-15)
[2025-03-06] MEDS: ceFAZolin 1 GM/50 ML BAG IVPB (11:44)
[2025-03-06 11:46] LABS: ALT 90 U/L (16-63); AST 81 U/L (15-37); Albumin 3.4 g/dL (3.4-5.0); Alkaline Phosphatase 139 U/L (46-116); Anion Gap 4.6 mmol/L (3-11); BUN 6 mg/dL (7-18); Bilirubin, Total 0.7 mg/dL (0.2-1.0); C-Reactive Protein 5.42 mg/dL (<or=0.5); CO2 33.4 mmol/L (21.0-32.0); CREATININE 0.9 mg/dL (0.70-1.30); Calcium 8.8 mg/dL (8.5-10.1); Chloride 101 mmol/L (98-107); Estimated GFR 114.93 (mL/min/1.73m2); Glucose 172 mg/dL (74-106); Magnesium 2.1 mg/dL (1.8-2.4); Potassium 3.4 mmol/L (3.5-5.1); Sodium 139 mmol/L (136-145); Total Protein 7.7 g/dL (6.4-8.2)
[2025-03-06 12:17] LABS: Lab Add On Test DONE
--- NOTE | 2025-03-06 12:33 | W.PM.HP.N ---
Date of service: 03/06/25 Time of Service: 12:33 Assessment and Plan Assessment and plan (1) Cellulitis and abscess of right lower extremity: Status: Acute Assessment and plan: Not meeting sepsis criteria Continue vancomycin and cefepime Blood cultures pending Previous wound culture from showed Staphylococcus aureus Ortho consult PT consult Scheduled acetaminophen and as needed ketorolac for pain CBC in a.m. Trend CRP (2) Cellulitis of right ankle: Status: Acute Assessment and plan: As above Daily dressing change (3) Hyperlipidemia: Status: Chronic Assessment and plan: Heart healthy diet Previous myalgia with atorvastatin not currently on statin to be discussed with PCP (4) GERD (gastroesophageal reflux disease): Status: Chronic Assessment and plan: Continue home PPI (5) Excessive drinking alcohol: Status: Acute Assessment and plan: Drinks a minimum of 6 packs of beer a night; last drinks today prior to presentation to the ED CIWA assessment On home dose naltrexone (6) Tobacco abuse: Status: Chronic Assessment and plan: Nicotine patch On naltrexone home dose (7) Asthma: Status: Chronic Assessment and plan: Continue home medicine regimen; did not take any medicine today (8) Hypertension: Status: Chronic Assessment and plan: Continue home medicine regimen (9) Gout: Status: Chronic Assessment and plan: On home dose allopurinol (10) On deep vein thrombosis (DVT) prophylaxis: Status: Acute Assessment and plan: On the right base low molecular weight heparin Discussed with Dr. Christine History of Present Illness History of Present Illness Chief Complaint: Right LE cellulitis ,and R ankle fx w hardware abscess, wound Narrative: This 34-year-old male patient with past medical history of hypertension, substance dependence, nicotine dependence of [id number], daily EtOH intake of at least 6 packs a day, hyperlipidemia, traumatic right ankle fracture in 2022 with subsequent infection and recent visit to the ED on 03/04 with cellulitis/infection of said ankle where he declined admission and left AGAINST MEDICAL ADVICE without antibiotics presented today to the ED for ongoing drainage with increased purulence. The patient denied chills, fever, night sweats, increased pain, chest pain, abdominal pain, nausea, vomiting, diarrhea, or dysuria. CT of the right lower extremity completed on showed showed cellulitis and abscess, no osteomyelitis as per x-ray completed today. WBC improving from 03/04/2025 but CRP remains elevated; blood work otherwise unremarkable except for potassium at 3.4. Orthopedic services consulted with that recommendation for surgery at this time. The patient was treated with vancomycin and cefepime status post discussion between ED provider and Dr. Christine and then the patient was admitted to the hospitalist service on the medical surgical floor for further evaluation management of right lower extremity/ankle abscess. Full CODE STATUS confirmed. Review of Systems All systems reviewed & are unremarkable except as noted in HPI and below PFSH All Active Problems (Updated 03/06/25 @ 15:12 by Arabella Watkins APRN) Gout (Chronic) On deep vein thrombosis (DVT) prophylaxis (Acute) Cellulitis of right ankle (Acute) Cellulitis of right lower extremity from knee to ankle (Acute) Cellulitis and abscess of right lower extremity (Acute) Post op infection (Acute) Chronic pain of right ankle (Acute) Chronic venous stasis dermatitis (Acute) Alcoholic fatty liver (Acute) Left shoulder pain (Acute) Fatty liver (Acute) Excessive drinking alcohol (Acute) Abdominal distension (Acute) Closed fracture of right distal fibula (Acute) Obstructive sleep apnea (Chronic) Tobacco abuse (Chronic) Surgical wound dehiscence (Acute) Postoperative wound infection (Acute) No-show for appointment (Acute) Myalgia due to statin (Acute) pt stopped .. ref to clin pharm to maybe subst Chondromalacia patellae of left knee (Acute) Left knee pain (Acute) Hyperlipidemia (Chronic) Dental infection (Acute) Severe obstructive sleep apnea (Acute) 12/17/20 sleep study [facility] Oral thrush (Acute) Otitis media of left ear (Acute) Pharyngitis (Acute) Depression (Chronic) ADHD (Acute) Anxiety (Chronic) GERD (gastroesophageal reflux disease) (Chronic) History of substance abuse (Acute) Asthma (Chronic) Hypertension (Chronic) Family History Mother Substance abuse Brother Substance abuse Uncle Anxiety Depression Other Diabetes Hypertension Liver cancer Social History Smoking/Tobacco Use Status: Current every day Tobacco Type: cigarettes Smoking packs per day: 1 Smoking cigarettes per day: 20.0 Years smoked: 15 Smoking pack-years: 15.00 Tobacco: How many years used: 19 Quit status: considering quitting Second Hand Exposure: Yes Smoking risk assessment performed?: Yes Alcohol Intake: current Alcohol Intake frequency: 3 or more drinks per day Alcohol type: beer and hard liquor Previous attempts at quittin Drug use: Daily Substance use type: former substance user Date of last use: 07/01/2020, marijuana and opiates Details: Daily user of Marijuana Adopted: No Caregiver/Support person: No Foster care: No Household members: family and none Housing: other Number of Children: 0 number of grandchildren: 0 Communication Needs: None Education Level: high school Do you need help understanding health information?: Often 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 Pets and animals: Yes (1) Pets and animals: dog(s) Sexually active: No Do you think of yourself as: straight/heterosexual Current gender identity: male What is your relationship status?: never How often do you talk on the phone with friends or family?: once per week How often do you get together with friends or relatives?: once per week Do you belong to any clubs or organized social groups?: no Panel score (0-1 are the most socially isolated patients): 0 Duration: < 15 minutes/day Frequency: 1-2 times per week Charu/Jainism: None Seatbelt use: sometimes Helmet use: No (Never) Drive intox or ride w/intox line haul truck driver: No Do you feel safe at home: Yes Do you feel safe in your relationship?: Yes Additional Social history: [facility] Meds Allergies and Home Medications Allergies Allergy/AdvReac Type Severity Reaction Status Date / Time codeine Allergy Intermediate rash Verified 03/06/25 10:57 atorvastatin AdvReac myalgias Verified 03/06/25 10:57 Home Medications ?Medication ?Instructions ?Recorded ?Confirmed ?Type acetaminophen 500 mg tablet 1,000 mg (2 x 500 mg) PO Q8H PRN 02/10/24 03/06/25 Rx pain #90 tabs albuterol sulfate 90 mcg/actuation 2 puff inhalation Q4H PRN 02/10/24 03/06/25 Rx aerosol inhaler shortness of breath or wheezing #18 grams allopurinol 300 mg tablet 300 mg PO DAILY #90 tabs 03/02/24 03/06/25 Rx omeprazole 40 mg capsule,delayed 40 mg PO DAILY #90 caps 03/02/24 03/06/25 Rx release budesonide-formoterol HFA 160 2 puff inhalation BID #10.2 grams 07/09/24 03/06/25 Rx mcg-4.5 mcg/actuation aerosol inhaler (Symbicort) losartan 25 mg tablet 25 mg PO DAILY #90 tabs 07/09/24 03/06/25 Rx bupropion HCl 150 mg 24 hr tablet, 150 mg PO QAM #90 tabs 12/01/24 03/06/25 Rx extended release naltrexone 50 mg tablet 50 mg PO DAILY #60 tabs 12/01/24 03/06/25 Rx ibuprofen 600 mg tablet 600 mg PO Q6H PRN 03/06/25 03/06/25 History Exam Narrative Exam Narrative: Constitutional The patient is comfortable and cooperative without acute distress and has obeses body habitus Neuro:alert and oriented to self, person, place time and situation. No neurological focal deficit Resp: Normal respiratory pattern, speaks in full sentences, unlabored breathing, minimal faint expiratory wheezing throughout lung up Cardio: regular rhythm, S1, S2,, bilateral radial and dorsalis pedis pulses are positive, palpable GI: Abdomen is obese, not distended, soft and non tender, bowel sounds are present : Negative Costovertebral angle tenderness, no bladder distension Integumentary: Right ankle with bilateral wounds on both side of malleolar bone with purulent drainage and slough; surrounding black discoloration and erythema to part of the foot and ankle - Right lower extremity pitting edema Extremities: strength 5/5 to bilateral lower and upper extremities Psych: RASS 0, congruent mood and normal affect. Results Labs 03/06/25 11:19 03/06/25 11:19 Labs: Laboratory Results - last 24 hr 03/06/25 11:19 WBC 10.34 RBC 4.99 Hgb 15.3 Hct 48.0 MCV 96 H MCH 30.7 MCHC 31.9 L RDW 12.7 Plt Count 295 MPV 9.4 Immature Gran % 0.4 Neutrophils % 67.0 Lymphocytes % 22.6 Monocytes % 6.8 Eosinophils % 2.7 Basophils % 0.5 Nucleated RBC % 0.0 Absolute Neutrophils 6.93 H Absolute Lymphocytes 2.34 Absolute Monocytes 0.70 Absolute Eosinophils 0.28 Absolute Basophils 0.05 ESR 21 H VBG Lactate 2.0 Sodium 139 Potassium 3.4 L Chloride 101 Carbon Dioxide 33.4 H Anion Gap 4.6 BUN 6 L Creatinine 0.9 Est GFR (CKD-EPI 2020) 114.93 Glucose 172 H Calcium 8.8 Magnesium 2.1 Total Bilirubin 0.7 AST 81 H ALT 90 H Alkaline Phosphatase 139 H C-Reactive Protein 5.42 H Total Protein 7.7 Albumin 3.4 Add-On Test Request DONE Last Vital Signs Temp 36.6 C 03/06/25 10:52 Pulse 117 H 03/06/25 10:52 Resp 20 03/06/25 10:52 BP 154/119 H 03/06/25 10:52 Pulse Ox 92 03/06/25 10:52 PAWSS Have you Been Recently Intoxicated or Drunk Within the Last 30 days?: Yes Have you Ever Experienced Previous Episodes of Alcohol Withdrawal?: No Have you ever Experienced Withdrawal Seizures?: No Have you ever Experienced Delirium Tremens(DT)s?: No Have you ever undergone Alcohol Rehabilitation Treatment (i.e, inpt ot outpatient treatment programs)?: No Have you ever Experienced Blackouts?: Yes Have you ever Combined Alcohol with other Downers within the last 90 days?: No Have you ever Combined Alcohol with any other Substance of Abuse during the last 90 days?: No Positive Blood Alcohol level on Presentation? [PCS.BAL]: No Evidence of Increased Autonomic Activity (i.e. HR>120, tremor, sweating, agitation, nausea)?: No Result: 2 Time Spent Time spent with Patient: >75 minutes Time was spent: preparing to see the patient(eg.review tests), obtaining and/or reviewing separately otained hiistory, ordering medications,tests, procedures, referring, communicating with other health caregivers homecare, indepentently interpreting results, counseling the patient and care coordination
[2025-03-06] MEDS: CEFEPIME 2 GM in Normal Saline 100 ML IVPB ×2 (12:39→19:51)
[2025-03-06 12:40] LABS: ETHANOL BLOOD 26.2 mg/dL (<10)
--- NOTE | 2025-03-06 12:45 | DI.VRAD_ITS ---
PROCEDURE INFORMATION: Exam: XR Right Ankle Exam date and time: 03/06/2025 12:22 PM Age: 34 years old Clinical indication: Other: Cellulitis; Prior surgery; Surgery date: 6+ months; Surgery type: RT ankle surg TECHNIQUE: Imaging protocol: Radiologic exam of the right ankle. Views: 3 or more views. COMPARISON: CT LOWER EXTREMITY RT W 03/04/2025 8:01 PM FINDINGS: Bones/joints: Lateral distal fibular plate and screw fixation and tightrope syndesmotic fixation with anatomic alignment and no hardware complications. Small ankle joint effusion. Soft tissues: There is soft tissue swelling. IMPRESSION: 1. No acute fracture or dislocation. 2. Soft tissue swelling around the ankle with no radiographic changes of osteomyelitis. Dictated and Authenticated by: Herbert Mcpherson MD. Orderin Bozena Irvin MD
[2025-03-06] MEDS: VANCOMYCIN 1,500 MG in Normal Saline 250 ML 166.6666 MG IVPB (13:00)
--- NOTE | 2025-03-06 13:29 | W.PC.ACHO ---
Registration Status: Primary Language: Preferred Language: ED Information & Data Chief Complaint RashLesion 03/06/25 11:24 Triage Note Swell in R ankle, purulent 03/06/25 10:52 discharge from two wounds on either side of foot/ankle. PT reports pain/warm sensation. Occasional spasms spikey sensation. PT reports that he has had several infections in this foot/ankle since he had a surgery to repair his ankle approx. 2 years ago. Most Recent Vital Signs Temperature 36.6 C 03/06/25 10:52 Pulse 117 H 03/06/25 10:52 Respiratory Rate 20 03/06/25 10:52 Blood Pressure 154/119 H 03/06/25 10:52 Blood Pressure Position Sitting 03/06/25 10:52 Pulse Oximetry 92 03/06/25 10:52 Oxygen Delivery Method Room Air 03/06/25 10:52 Oxygen Flow Rate 0 03/06/25 10:52 Allergies codeine Allergy (Intermediate, Verified 03/06/25 10:57) rash atorvastatin Adverse Reaction (Verified 03/06/25 10:57) myalgias Active Medications Generic Name Dose Route Start Last Admin Trade Name Weiq PRN Reason Stop Dose Admin Vancomycin HCl 1,500 mg/ 250 mls @ 166.6666 mls/hr 03/06/25 12:31 03/06/25 13:00 Sodium Chloride IVPB 03/06/25 14:00 166.6666 mls/hr NOW ONE Administration IV IV Catheter Type [Left Peripheral IV Antecubital] IV Catheter Gauge [Left 18 Antecubital] Diagnostics 03/06/25 Range/Units 11:19 WBC 10.34 (4.4-10.8) 10^3/uL RBC 4.99 (4.36-5.78) 10^6/uL Hgb 15.3 (13.5-17.5) g/dL Hct 48.0 (40.0-50.0) % MCV 96 H (80-95) fL MCH 30.7 (27.0-33.0) pg MCHC 31.9 L (32.0-36.0) % RDW 12.7 (11.8-14.1) % Plt Count 295 (130-400) 10^3/uL MPV 9.4 (8.0-11.0) fL Immature Gran % 0.4 % Neutrophils % 67.0 % Lymphocytes % 22.6 % Monocytes % 6.8 % Eosinophils % 2.7 % Basophils % 0.5 % Nucleated RBC % 0.0 (0.0-0.3) % Absolute Neutrophils 6.93 H (1.2-6.7) 10^3/uL Absolute Lymphocytes 2.34 (1.2-3.4) 10^3/uL Absolute Monocytes 0.70 (0.1-0.8) 10^3/uL Absolute Eosinophils 0.28 (0.0-0.7) 10^3/uL Absolute Basophils 0.05 (0.0-0.2) 10^3/uL ESR 21 H (0-15) mm/hr VBG Lactate 2.0 (<or=2.0) mmol/L Sodium 139 (136-145) mmol/L Potassium 3.4 L (3.5-5.1) mmol/L Chloride 101 (98-107) mmol/L Carbon Dioxide 33.4 H (21.0-32.0) mmol/L Anion Gap 4.6 (3-11) mmol/L BUN 6 L (7-18) mg/dL Creatinine 0.9 (0.70-1.30) mg/dL Est GFR (CKD-EPI 2020) 114.93 (mL/min/1.73m2) Glucose 172 H (74-106) mg/dL Calcium 8.8 (8.5-10.1) mg/dL Magnesium 2.1 (1.8-2.4) mg/dL Total Bilirubin 0.7 (0.2-1.0) mg/dL AST 81 H (15-37) U/L ALT 90 H (16-63) U/L Alkaline Phosphatase 139 H (46-116) U/L C-Reactive Protein 5.42 H (<or=0.5) mg/dL Total Protein 7.7 (6.4-8.2) g/dL Albumin 3.4 (3.4-5.0) g/dL Ethyl Alcohol 26.2 H (<10) mg/dL Add-On Test Request DONE 03/06/25 11:57 Blood Culture - Pending Blood 03/06/25 11:34 Blood Culture - Pending Blood Intake and Output - 24 Hour Total 03/06/25 10:45 thru 03/06/25 12:57 Intake Total 110 Balance 110 Weight 136.078 kg Intake: IV 110 Falls Risk Assessment History of Falls No History 03/06/25 10:56 Contributing Factors No Factors 03/06/25 10:56 Ambulatory Aids Independent 03/06/25 10:56 Tubes/Lines None 03/06/25 10:56 Gait Evaluation No gait disturbance 03/06/25 10:56 Cognition No cognitive impairment 03/06/25 10:56 Fall Total Score 0 03/06/25 10:56 Level of Risk Standard/Low Risk 03/06/25 10:56 Problems (Last Reviewed 03/06/25 @ 12:21 by Brandee Seals NP) Cellulitis of right lower extremity from knee to ankle (Acute) Cellulitis and abscess of right lower extremity (Acute) Post op infection (Acute) Chronic pain of right ankle (Acute) Surgical wound dehiscence (Acute) Hyperlipidemia (Chronic) GERD (gastroesophageal reflux disease) (Chronic) v v v v v v v v v Sending and/or Receiving Nurses: Please use comment section below to note any information pertinent to the patient hand-off not included above. Information / Comments: Report received from: first attempt for report, ED RN to call back when ready
--- NOTE | 2025-03-06 13:50 | PT.INNT ---
PT Notes Visit Reasons: Right ankle injury Orders received for this patient for evaluation for assistive device. Not admitted to [facility] yet. Discussed this with referring provider Arabella Watkins NP who deferred initial evaluation to tomorrow 03/07/25. Consult 'non-urgent'.
--- NOTE | 2025-03-06 14:05 | W.PC.ACHO ---
Registration Status: Primary Language: Preferred Language: ED Information & Data Chief Complaint RashLesion 03/06/25 11:24 Triage Note Swell in R ankle, purulent 03/06/25 10:52 discharge from two wounds on either side of foot/ankle. PT reports pain/warm sensation. Occasional spasms spikey sensation. PT reports that he has had several infections in this foot/ankle since he had a surgery to repair his ankle approx. 2 years ago. Most Recent Vital Signs Temperature 36.6 C 03/06/25 10:52 Pulse 117 H 03/06/25 10:52 Respiratory Rate 20 03/06/25 10:52 Blood Pressure 154/119 H 03/06/25 10:52 Blood Pressure Position Sitting 03/06/25 10:52 Pulse Oximetry 92 03/06/25 10:52 Oxygen Delivery Method Room Air 03/06/25 10:52 Oxygen Flow Rate 0 03/06/25 10:52 Allergies codeine Allergy (Intermediate, Verified 03/06/25 10:57) rash atorvastatin Adverse Reaction (Verified 03/06/25 10:57) myalgias IV IV Catheter Type [Left Peripheral IV Antecubital] IV Catheter Gauge [Left 18 Antecubital] Diagnostics 03/06/25 Range/Units 11:19 WBC 10.34 (4.4-10.8) 10^3/uL RBC 4.99 (4.36-5.78) 10^6/uL Hgb 15.3 (13.5-17.5) g/dL Hct 48.0 (40.0-50.0) % MCV 96 H (80-95) fL MCH 30.7 (27.0-33.0) pg MCHC 31.9 L (32.0-36.0) % RDW 12.7 (11.8-14.1) % Plt Count 295 (130-400) 10^3/uL MPV 9.4 (8.0-11.0) fL Immature Gran % 0.4 % Neutrophils % 67.0 % Lymphocytes % 22.6 % Monocytes % 6.8 % Eosinophils % 2.7 % Basophils % 0.5 % Nucleated RBC % 0.0 (0.0-0.3) % Absolute Neutrophils 6.93 H (1.2-6.7) 10^3/uL Absolute Lymphocytes 2.34 (1.2-3.4) 10^3/uL Absolute Monocytes 0.70 (0.1-0.8) 10^3/uL Absolute Eosinophils 0.28 (0.0-0.7) 10^3/uL Absolute Basophils 0.05 (0.0-0.2) 10^3/uL ESR 21 H (0-15) mm/hr VBG Lactate 2.0 (<or=2.0) mmol/L Sodium 139 (136-145) mmol/L Potassium 3.4 L (3.5-5.1) mmol/L Chloride 101 (98-107) mmol/L Carbon Dioxide 33.4 H (21.0-32.0) mmol/L Anion Gap 4.6 (3-11) mmol/L BUN 6 L (7-18) mg/dL Creatinine 0.9 (0.70-1.30) mg/dL Est GFR (CKD-EPI 2020) 114.93 (mL/min/1.73m2) Glucose 172 H (74-106) mg/dL Calcium 8.8 (8.5-10.1) mg/dL Magnesium 2.1 (1.8-2.4) mg/dL Total Bilirubin 0.7 (0.2-1.0) mg/dL AST 81 H (15-37) U/L ALT 90 H (16-63) U/L Alkaline Phosphatase 139 H (46-116) U/L C-Reactive Protein 5.42 H (<or=0.5) mg/dL Total Protein 7.7 (6.4-8.2) g/dL Albumin 3.4 (3.4-5.0) g/dL Ethyl Alcohol 26.2 H (<10) mg/dL Add-On Test Request DONE 03/06/25 11:57 Blood Culture - Pending Blood 03/06/25 11:34 Blood Culture - Pending Blood Intake and Output - 24 Hour Total 03/06/25 10:45 thru 03/06/25 12:57 Intake Total 110 Balance 110 Weight 136.078 kg Intake: IV 110 Falls Risk Assessment History of Falls No History 03/06/25 10:56 Contributing Factors No Factors 03/06/25 10:56 Ambulatory Aids Independent 03/06/25 10:56 Tubes/Lines None 03/06/25 10:56 Gait Evaluation No gait disturbance 03/06/25 10:56 Cognition No cognitive impairment 03/06/25 10:56 Fall Total Score 0 03/06/25 10:56 Level of Risk Standard/Low Risk 03/06/25 10:56 Problems (Last Reviewed 03/06/25 @ 12:21 by Brandee Seals, AMBROSE) Cellulitis of right ankle (Acute) Cellulitis and abscess of right lower extremity (Acute) Excessive drinking alcohol (Acute) Tobacco abuse (Chronic) Hyperlipidemia (Chronic) GERD (gastroesophageal reflux disease) (Chronic) Asthma (Chronic) Hypertension (Chronic) v v v v v v v v v Sending and/or Receiving Nurses: Please use comment section below to note any information pertinent to the patient hand-off not included above. Information / Comments: Report received from: Orly MCNEAL at [id number]
[2025-03-06 14:23] VITALS: BP 154/122; PULSE 111; RESP 20; TEMP 36.6; O2SAT 96
[2025-03-06] MEDS: buPROPion-XL 150 MG TABCR PO (15:14)
[2025-03-06] MEDS: Omeprazole 20 MG CAPCR 40 MG PO (15:14)
[2025-03-06] MEDS: Allopurinol 300 MG TAB PO (15:14)
[2025-03-06] MEDS: Losartan 25 MG TAB PO (15:14)
[2025-03-06] MEDS: Potassium Chloride 20 MEQ TABCR 40 MEQ PO (15:14)
[2025-03-06] MEDS: Acetaminophen 500 MG TAB 1000 MG PO ×2 (15:15→21:09)
[2025-03-06] MEDS: Nicotine 21 MG/24 HR PATCH TD (15:17)
[2025-03-06] MEDS: Naltrexone 50 MG TAB PO (15:28)
--- NOTE | 2025-03-06 16:11 | OCONE_ITS ---
Date of service: 03/06/25 Time of Service: 16:11 History of Present Illness History of Present Illness Chief Complaint: Right Ankle Wound Narrative: Jose is a 34-year-old male who I know previously for his right ankle. He presented to the emergency department of [facility] in January 2024 with an open lateral ankle wound from previous surgery in [facility]. He had hardware exposed at this time and underwent surgical treatment to help close the wound. He required many months of wound care to eventually get this wound to heal. His last visit with myself and with the general surgical team who is managing his wound was in the fall of last year where the wound was healed. He otherwise reports to be doing well in regards to the ankle until about 6 weeks or so ago. 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 He found increasing pain at the end of the day throughout the entirety of the ankle. He had been seen twice emergency department for these pains. He was thought to have some chronic venous stasis changes as well as some dependent edema and pain from deconditioning and standing all day. This then seemed to worsen after wearing boots instead of crocs on the job. He then presented on 04 March with worsening pain. CT scan showed concerns for a lateral based abscess. There was noted fullness medially and laterally and a lancing procedure was performed to both medial lateral ankles per the note of Laura Bustillos. Reportedly, there was some drainage at this time. Microbiology showed normal trace. He was advised that he stay in the hospital but he declined and left AGAINST MEDICAL ADVICE. However, he was not placed on any discharge antibiotics. He then returned to the emergency department today, 2 days later, with worsening pain and drainage from the right ankle. He denies any fevers or chills. He does report swelling about the right ankle. Consults Consult date: 03/06/25 Requesting physician: Brandee Seals Consult Reason Right ankle infection Assessment and Plan Assessment and plan (1) Cellulitis and abscess of right lower extremity: Status: Acute Assessment and plan: Jose is a 34-year-old who has soft tissue infection about the right ankle. He had healed the previous postsurgical wound dehiscence and infection. My suspicion is that when he return to working he had increased duration of standing and walking which was leading to increasing swelling about the foot and subjected him to potential wear within his shoes cover tickly when he started wearing boots. I do not quite understand the underlying pathology for Jose while he is susceptible to such poor soft tissue health and recurrent infection. Nevertheless, when he was seen on the eighth there was signs of deep infection which unfortunate did not receive antibiotics as he refused to stay in the hospital. Nevertheless, at this point he is back and I would recommend IV antibiotics. Given the tenuous nature of his soft tissues I would be quite reluctant to do any extensive surgical debridement. He now has 2 open wounds both medially and laterally which will serve as a point of egress. I do not detect significant amount of deep infection material and thus would recommend an aggressive course of IV antibiotics followed by oral antibiotics before considering any surgery. Additionally, surgical treatment at a tertiary center may be necessary given the complexity of his case and the difficulties with wound healing. He is also not interested in any surgical treatment if it can be avoided. His previous surgery had MSSA and anaerobes. I will send a new culture anaerobic and aerobic from the medial wound today. I am hopeful that he could go home on oral fluoroquinolone. I recommend that he keep the leg elevated is much as possible. He may ambulate as tolerated with a low shoe avoiding any pressure to the wounds. Wounds may be covered with Mepilex type dressing. Review of Systems All systems reviewed & are unremarkable except as noted in HPI and below PFSH All Active Problems Gout (Chronic) On deep vein thrombosis (DVT) prophylaxis (Acute) Cellulitis of right ankle (Acute) Cellulitis of right lower extremity from knee to ankle (Acute) Cellulitis and abscess of right lower extremity (Acute) Post op infection (Acute) Chronic pain of right ankle (Acute) Chronic venous stasis dermatitis (Acute) Alcoholic fatty liver (Acute) Left shoulder pain (Acute) Fatty liver (Acute) Excessive drinking alcohol (Acute) Abdominal distension (Acute) Closed fracture of right distal fibula (Acute) Obstructive sleep apnea (Chronic) Tobacco abuse (Chronic) Surgical wound dehiscence (Acute) Postoperative wound infection (Acute) No-show for appointment (Acute) Myalgia due to statin (Acute) pt stopped .. ref to clin pharm to maybe subst Chondromalacia patellae of left knee (Acute) Left knee pain (Acute) Hyperlipidemia (Chronic) Dental infection (Acute) Severe obstructive sleep apnea (Acute) 12/17/20 sleep study [facility] Oral thrush (Acute) Otitis media of left ear (Acute) Pharyngitis (Acute) Depression (Chronic) ADHD (Acute) Anxiety (Chronic) GERD (gastroesophageal reflux disease) (Chronic) History of substance abuse (Acute) Asthma (Chronic) Hypertension (Chronic) Family History Mother Substance abuse Brother Substance abuse Uncle Anxiety Depression Other Diabetes Hypertension Liver cancer Social History Smoking/Tobacco Use Status: Current every day Tobacco Type: cigarettes Smoking packs per day: 1 Smoking cigarettes per day: 20.0 Years smoked: 15 Smoking pack- years: 15.00 Tobacco: How many years used: 19 Quit status: considering quitting Second Hand Exposure: Yes Smoking risk assessment performed?: Yes Alcohol Intake: current Alcohol Intake frequency: 3 or more drinks per day Alcohol type: beer and hard liquor Previous attempts at quittin Drug use: Daily Substance use type: former substance user Date of last use: 07/01/2020, marijuana and opiates Details: Daily user of Marijuana Adopted: No Caregiver/Support person: No Foster care: No Household members: family and none Housing: other Number of Children: 0 number of grandchildren: 0 Communication Needs: None Education Level: high school Do you need help understanding health information?: Often 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 Pets and animals: Yes (1) Pets and animals: dog(s) Sexually active: No Do you think of yourself as: straight/heterosexual Current gender identity: male What is your relationship status?: never How often do you talk on the phone with friends or family?: once per week How often do you get together with friends or relatives?: once per week Do you belong to any clubs or organized social groups?: no Panel score (0-1 are the most socially isolated patients): 0 Duration: < 15 minutes/day Frequency: 1-2 times per week Charu/Quaker: None Seatbelt use: sometimes Helmet use: No (Never) Drive intox or ride w/intox semi driver: No Do you feel safe at home: Yes Do you feel safe in your relationship?: Yes Additional Social history: [employer] Exam Narrative Exam Narrative: No acute distress. Alert and oriented x 3. Evaluation of the right lower extremity shows swelling throughout the leg. There are wounds about the medial and lateral aspect the ankle, over the medial lateral malleolar. Each wound is approximately 1 cm in length. Each wound also has some thick green eschar/drainage at its base. For the lateral wound there is some surrounding erythema although fairly mild. There is no significant fluctuance. I am unable to express any additional fluid. There are chronic changes about the lateral ankle from his prolonged wound care course. As for the medial side of the ankle there once again is a similar type wound that does have a slight bit of fluctuance. I am able to express a small amount of material with direct compression about this side. This does cause notable pain, more so than the lateral side. No pain with ankle range of motion. Sensation intact to light touch over the deep and superficial peroneal nerve and tibial nerve. No significant exacerbation of pain with active range of motion of the right ankle. Results Last Vital Signs Temp 36.6 C 03/06/25 14:23 Pulse 111 H 03/06/25 14:23 Resp 20 03/06/25 14:23 BP 154/122 H 03/06/25 14:23 Pulse Ox 96 03/06/25 14:23 Labs 03/07/25 05:44 03/07/25 05:44 Labs: Laboratory Results - last 24 hr 03/06/25 11:19 WBC 10.34 RBC 4.99 Hgb 15.3 Hct 48.0 MCV 96 H MCH 30.7 MCHC 31.9 L RDW 12.7 Plt Count 295 MPV 9.4 Immature Gran % 0.4 Neutrophils % 67.0 Lymphocytes % 22.6 Monocytes % 6.8 Eosinophils % 2.7 Basophils % 0.5 Nucleated RBC % 0.0 Absolute Neutrophils 6.93 H Absolute Lymphocytes 2.34 Absolute Monocytes 0.70 Absolute Eosinophils 0.28 Absolute Basophils 0.05 ESR 21 H VBG Lactate 2.0 Sodium 139 Potassium 3.4 L Chloride 101 Carbon Dioxide 33.4 H Anion Gap 4.6 BUN 6 L Creatinine 0.9 Est GFR (CKD-EPI 2020) 114.93 Glucose 172 H Calcium 8.8 Magnesium 2.1 Total Bilirubin 0.7 AST 81 H ALT 90 H Alkaline Phosphatase 139 H C-Reactive Protein 5.42 H Total Protein 7.7 Albumin 3.4 Ethyl Alcohol 26.2 H Add-On Test Request DONE Imaging Imaging Studies: X-ray of the right ankle was reviewed. This shows healed fibula fracture. There is some slight bit of bony overgrowth about the lateral plate. No lucencies or bony erosions. No tracking gas within the soft tissues. CT scan of the right ankle from 03/04/2025 shows confluence of fluid over the lateral aspect of the ankle. No true abscess appreciated either medially or laterally. No bony erosions or signs of chronic osteomyelitis.
[2025-03-06 16:29] VITALS: BP 150/100
[2025-03-06] MEDS: Ketorolac 15 MG/ML VIAL IVP ×2 (16:39→22:31)
[2025-03-06] MEDS: Calcium Carbonate *TUMS* 500 MG CHEW PO (17:06)
[2025-03-06 19:02] VITALS: BP 165/112; PULSE 80; RESP 20; TEMP 36.8; O2SAT 93
[2025-03-06] MEDS: Enoxaparin 40 MG/0.4 ML SYR SC (19:51)
[2025-03-06] MEDS: Normal Saline Flush 10 ML SYR IVP (19:51)
[2025-03-06] MEDS: VANCOMYCIN 1,500 MG in Normal Saline 250 ML 166.667 MG IVPB (21:08)
[2025-03-06] MEDS: Water,Injection,Sterile 10 ML VIAL (21:08)
[2025-03-06 23:05] VITALS: BP 168/124; PULSE 83; RESP 20; TEMP 36; O2SAT 87
[2025-03-07] VITALS (9 sets, daily range): BP systolic 138–168; BP diastolic 93–130; PULSE 76–91; RESP 15–20; TEMP 35.9–36.8; O2SAT 92–97
[2025-03-07] MEDS: CEFEPIME 2 GM in Normal Saline 100 ML IVPB ×3 (03:29→20:32)
[2025-03-07] MEDS: VANCOMYCIN 1,500 MG in Normal Saline 250 ML 166.667 MG IVPB (04:13)
[2025-03-07] MEDS: Water,Injection,Sterile 10 ML VIAL (04:15)
[2025-03-07 06:06] LABS: Abs Immature Grans 0.02 10^3/uL (0.0-0.06); Absolute Basophil Count 0.04 10^3/uL (0.0-0.2); Absolute Eosinophil Count 0.29 10^3/uL (0.0-0.7); Absolute Lymphocyte Count 2.17 10^3/uL (1.2-3.4); Absolute Monocyte Count 0.77 10^3/uL (0.1-0.8); Absolute Neutrophil Count 3.96 10^3/uL (1.2-6.7); Basophils % 0.6 %; HGB 14.9 g/dL (13.5-17.5); Immature Grans % 0.3 %; Lymphocytes % 29.9 %; MCH 30.7 pg (27.0-33.0); MCHC 31.7 % (32.0-36.0); MCV 97 fL (80-95); MPV 9.5 fL (8.0-11.0); Monocytes % 10.6 %; Neutrophils % 54.6 %; Platelet Count 270 10^3/uL (130-400); RBC 4.86 10^6/uL (4.36-5.78); RDW 12.7 % (11.8-14.1); RDW-SD 45.3 fL; WBC 7.25 10^3/uL (4.4-10.8)
[2025-03-07 06:21] LABS: Anion Gap 4.4 mmol/L (3-11); BUN 8 mg/dL (7-18); CO2 32.6 mmol/L (21.0-32.0); CREATININE 0.7 mg/dL (0.70-1.30); Calcium 8.8 mg/dL (8.5-10.1); Chloride 104 mmol/L (98-107); Glucose 129 mg/dL (74-106); Potassium 4.2 mmol/L (3.5-5.1); Sodium 141 mmol/L (136-145)
[2025-03-07] MEDS: Losartan 25 MG TAB PO ×2 (07:55→13:34)
[2025-03-07] MEDS: Omeprazole 20 MG CAPCR 40 MG PO (07:55)
[2025-03-07] MEDS: buPROPion-XL 150 MG TABCR PO (07:55)
[2025-03-07] MEDS: Allopurinol 300 MG TAB PO (07:55)
[2025-03-07] MEDS: Nicotine 21 MG/24 HR PATCH TD (07:55)
[2025-03-07] MEDS: Naltrexone 50 MG TAB PO (07:55)
[2025-03-07] MEDS: Enoxaparin 40 MG/0.4 ML SYR SC ×2 (07:56→20:31)
[2025-03-07] MEDS: Normal Saline Flush 10 ML SYR IVP ×3 (07:56→20:32)
--- NOTE | 2025-03-07 07:58 | PGE_ITS ---
Date of Service Date of service: 03/07/25 Time of Service: 07:58 Assessment and Plan Assessment and plan (1) Cellulitis and abscess of right lower extremity: Status: Acute Assessment and plan: Jose is a 34-year-old who has wounds about his ankle both medially and laterally. At this a very challenging situation. He has some level of this vascularity just with the venous stasis in the leg. He has significant peripheral edema which makes his skin extremely taut and is likely the reason he had such a hard time healing the wound last year. This does not seem to be directly related to the previous surgery although it is possible. 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 He now has 2 wounds medially and laterally which have slough and scant drainage. I think a large portion of his chronic wound issues are related to his edema as well. He does respond to compression. At this point I recommend wound care, compression, antibiotics. Previously he had MSSA and anaerobes. Most recent Gram stain shows gram-negative rods and gram- positive cocci. I think he could be transition to oral antibiotics in the next day or 2 given he does not have systemic features at this point. It is imperative that he avoids any pressure to these areas of his ankle. I expect this clinic take some time for it to heal but he may weight-bear as tolerated. Subjective Subjective Interval history since last seen: No acute concerns from Jose. He continues have some pain with weightbearing of the ankle was able to weight-bear. No fevers no chills. Exam Narrative Exam Narrative: Sitting up in the hospital bed. No acute distress. Evaluation of the right lower extremity shows wounds of similar size in nature. There is a greenish eschar at the base of both wounds. The lateral wound has no expressible fluid. There is no area of fluctuance. The skin is quite taut and overall has notable swelling peripherally in the leg. There is some slight surrounding erythema although it seems to be less than yesterday and definitely not worse. There is no expressible fluid. There is some slight slough at the wound base. As for the medial based wound there is a slight amount of purulent discharge with direct pressure. This is about 1 cc at most. There is no other area of fluctuance. Once again there is some slough at the wound base with some threatened skin at the edges. No significant pain with passive and or active range of motion of the ankle. No expanding cellulitis. No subcutaneous emphysema. Objective Last Vital Signs Temp 35.9 C L 03/07/25 07:04 Pulse 90 03/07/25 07:04 Resp 15 03/07/25 07:04 BP 145/130 H 03/07/25 07:04 Pulse Ox 92 03/07/25 07:04 Laboratory Results - last 24 hr 03/06/25 03/06/25 03/07/25 11:19 16:08 05:44 WBC 10.34 7.25 RBC 4.99 4.86 Hgb 15.3 14.9 Hct 48.0 47.0 MCV 96 H 97 H MCH 30.7 30.7 MCHC 31.9 L 31.7 L RDW 12.7 12.7 Plt Count 295 270 MPV 9.4 9.5 Immature Gran % 0.4 0.3 Neutrophils % 67.0 54.6 Lymphocytes % 22.6 29.9 Monocytes % 6.8 10.6 Eosinophils % 2.7 4.0 Basophils % 0.5 0.6 Nucleated RBC % 0.0 0.0 Absolute Neutrophils 6.93 H 3.96 Absolute Lymphocytes 2.34 2.17 Absolute Monocytes 0.70 0.77 Absolute Eosinophils 0.28 0.29 Absolute Basophils 0.05 0.04 ESR 21 H VBG Lactate 2.0 Sodium 139 141 Potassium 3.4 L 4.2 Chloride 101 104 Carbon Dioxide 33.4 H 32.6 H Anion Gap 4.6 4.4 BUN 6 L 8 Creatinine 0.9 0.7 Est GFR (CKD-EPI 2020) 114.93 124.00 Glucose 172 H 129 H Calcium 8.8 8.8 Magnesium 2.1 Total Bilirubin 0.7 AST 81 H ALT 90 H Alkaline Phosphatase 139 H C-Reactive Protein 5.42 H Total Protein 7.7 Albumin 3.4 Vancomycin Peak 10.0 L Ethyl Alcohol 26.2 H Add-On Test Request DONE PAWSS Have you Been Recently Intoxicated or Drunk Within the Last 30 days?: Yes Have you Ever Experienced Previous Episodes of Alcohol Withdrawal?: Yes Have you ever Experienced Withdrawal Seizures?: No Have you ever Experienced Delirium Tremens(DT)s?: No Have you ever undergone Alcohol Rehabilitation Treatment (i.e, inpt ot outpatient treatment programs)?: Yes Have you ever Experienced Blackouts?: Yes Have you ever Combined Alcohol with other Downers within the last 90 days?: No Have you ever Combined Alcohol with any other Substance of Abuse during the last 90 days?: Yes Positive Blood Alcohol level on Presentation? [PCS.BAL]: Yes Evidence of Increased Autonomic Activity (i.e. HR>120, tremor, sweating, agitation, nausea)?: Yes Result: 8 Time Spent with Patient Time Spent with Patient: 25-34 minutes Time was spent: preparing to see the patient(eg.review tests), obtaining and/or reviewing separately otained hiistory, referring, communicating with other health inspector health care facilities, indepentently interpreting results and counseling the patient
[2025-03-07] MEDS: Budesonide/Formoterol 160/4.5 6 GM 60 PUFF INH IH ×2 (08:09→20:08)
[2025-03-07 08:21] LABS: Lab Add On Test DONE
[2025-03-07 08:39] LABS: Hemoglobin A1C 5.7 % (<5.7)
--- NOTE | 2025-03-07 09:18 | IN_ITS ---
PT Notes Visit Reasons: Right LE cellulitis, and R ankle fx w hardware abs Inpatient Physical Therapy Evaluation Date: 07/08/2025 Referring Doctor: Arabella Watkins NP PT Orders: PT CONSULT: Eval for assistive device, fall safety assessment Precautions: Activity as tolerated, WBAT Patient Profile/Admitting Diagnosis: Patient is a 34-year-old male referred for PT evaluation secondary to diagnosis of right lower extremity cellulitis and right ankle fracture with hardware abscess. Patient has had a difficult time with wounds both on medial lateral aspect of right ankle. Underwent surgery open reduction secondary to ankle fracture last year in [place]. Was then seen by Dr. Prakash for wound closure. 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 Noticed increased pain in bilateral ankles with wounds increasing. Came to the hospital couple days ago but then signed himself out only to return 2 days later secondary to increasing pain and drainage and bilateral wounds. Was seen by Dr. Prakash earlier this morning and is weightbearing as tolerated. PMHX: PFSH All Active Problems Gout (Chronic) On deep vein thrombosis (DVT) prophylaxis (Acute) Cellulitis of right ankle (Acute) Cellulitis of right lower extremity from knee to ankle (Acute) Cellulitis and abscess of right lower extremity (Acute) Post op infection (Acute) Chronic pain of right ankle (Acute) Chronic venous stasis dermatitis (Acute) Alcoholic fatty liver (Acute) Left shoulder pain (Acute) Fatty liver (Acute) Excessive drinking alcohol (Acute) Abdominal distension (Acute) Closed fracture of right distal fibula (Acute) Obstructive sleep apnea (Chronic) Tobacco abuse (Chronic) Surgical wound dehiscence (Acute) Postoperative wound infection (Acute) No-show for appointment (Acute) Myalgia due to statin (Acute) pt stopped .. ref to clin pharm to maybe substChondromalacia patellae of left knee (Acute) Left knee pain (Acute) Hyperlipidemia (Chronic) Dental infection (Acute) Severe obstructive sleep apnea (Acute) 12/17/20 sleep study [place] RHOral thrush (Acute) Otitis media of left ear (Acute) Pharyngitis (Acute) Depression (Chronic) ADHD (Acute) Anxiety (Chronic) GERD (gastroesophageal reflux disease) (Chronic) History of substance abuse (Acute) Asthma (Chronic) Hypertension (Chronic) Social History/Home Situation: Lives at the [facility] on first floor with no stairs. 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 Minimal pain complaints lying in bed but does have some increased pain when he starts walking. Objective: General Observation: Wound being monitored closely by nursing. Has Josue wrap around right ankle. IV port left upper extremity. Mental Status: Alert and oriented x 3 Pain: 2/10 lying in bed head of bed 45 degrees, 5/10 with ambulation Vital Signs: Monitored via nursing ROM: Right Upper Extremity: Within normal limits glenohumeral joint flexion, abduction, elbow flexion and extension. Left Upper Extremity: Within normal limits glenohumeral joint flexion, abduction, elbow flexion and extension Right Lower Extremity: Hip flexion, abduction, knee flexion extension within normal limits. Mildly limited plantarflexion dorsiflexion by 25% Left Lower Extremity: Hip flexion, abduction, knee flexion, knee extension, ankle plantarflexion, dorsiflexion within functional limits pain-free. Strength: Right Upper Extremity: 4+/5 glenohumeral joint flexion, abduction, elbow flexion, extension, good borough coordinator Left Upper Extremity: 4+/5 hip flexion, hip abduction, knee flexion, knee extension, ankle plantarflexion, dorsiflexion. Left Lower Extremity: 4+/5 hip flexion, abduction, knee flexion, knee extension, ankle plantarflexion and dorsiflexion. Sensation: Unable to assess sensation under dressing in area of wound medial lateral malleoli. Bed Mobility/Transfers: Supine?sit: Head of bed 45 degrees independent Sit?stand: Independent Stand?sit: Independent Toilet mobility independent with transitioning on and off toilet Sit?supine: Independent Gait: Ambulate 500+ feet with no assistive device independently with mild antalgia during stance phase right lower extremity. Balance: Static Sitting: Good good Dynamic Sitting: Good Static Standing: Good Dynamic Standing: Good Special Tests: Mobility Limitations Standardized Measure [facility] AM-PAC 6 clicks Basic Mobility Inpatient Short Form: Raw Score: 24 Standardized Score: [] CMS Score: 0% Informed Consent/Education: Patient instructed in purpose of PT consult and plan of care. Assessment: Patient is a 34year old male referred to physical therapy services with the diagnosis of right lower extremity cellulitis and right ankle hardware abscess. Patient presents with clinical signs and symptoms consistent with above diagnosis. Currently independent all functional mobility and ambulation despite some mild antalgia. He refuses any assistive devices he states he can tolerate ambulation well. Is hopeful that he will be able to get wound closure so he can back to work. No impairment level findings in today's evaluation. Patient is assessed as X Low 10916 [] Moderate 67903 [] High 75369 complexity based on the following: History: 34-year-old male with past medical history listed above Examination: 0% impact mobility inpatient Short form Presentation: Stable Decision Making: low 45464 Goals: Not needed as patient independent. Plan of Care/Treatment Plan: Discharge from PT services. Patient is independent in all functional mobility. Do recommend he ambulate in the hallway couple times a day. DISCHARGE RECOMMENDATIONS: [] X Home with no services [] Home with services [specify] [] Home with outpatient PT [] [] SNF for continued rehabilitation [] [] [facility] [] [] SNF versus LTC based on ability to participate and progress [] TREATMENT CODE/TIME: Initial evaluation 70347 9:[id number] Thank you for this consult. Wade Gomez PT, DPT Disclaimer: This note was created using Contently voice recognition software. It was reviewed for major content. However, there may be multiple small discrepancies and errors due to the voice recognition aspects of the software.
--- NOTE | 2025-03-07 10:27 | NUR.NOTE ---
patient is Axox4 this AM, HTN persists with DBP above 100mmHg, Rosa Isela Bridges LEARNING AND DEVELOPMENT OFFICER notified of persistent HTN despite medication. Patient is on CIWA assessments Q4 hrs, last drink 03/06, scoring low, will notify LEARNING AND DEVELOPMENT OFFICER for higher scores, patient is independently ambulatory, MD Prakash visited pt this AM and assessed wound/redressed site, patient doesn't report any changes in sensation or pain to R ankle today, some swelling has decreased with ayush wrap. Patient voiding, tolerating PO intake, noticeably drowsy and falling asleep in between care/conversation, most likely due to poor sleep with STEFAN dx. Pt refuses O2 and CPAP during sleeping hours, POC is to continue on IV abx, aerobic cx showing staph aureus, anaerobic pending. Resting in bed, call light in reach. Nursing Note:
[2025-03-07] MEDS: Acetaminophen 500 MG TAB 1000 MG PO ×2 (12:07→22:41)
--- NOTE | 2025-03-07 12:45 | W.PM.PROGNOT ---
Date of Service Date of service: 03/07/25 Time of Service: 12:45 Assessment and Plan Assessment and plan (1) Cellulitis and abscess of right lower extremity: Status: Acute Assessment and plan: Continue cefepime while cultures pending, vancomycin has been discontinued and will initiate daptomycin due to chemistry analyzer being down unable to obtain Vanco peak or trough levels Previous wound culture from showed Staphylococcus aureus Ortho consult with recommendations for ongoing wound care, compression and antibiotics. plan to transition to oral antibiotics over next few days. avoid pressure to affected area of ankle with weight bearing as tolerated. PT consulted Scheduled acetaminophen and as needed ketorolac for pain follow CBC Trend CRP (2) Hypertension: Status: Chronic Assessment and plan: poorly controlled. increase losartan add HCTZ monitor and adjust as needed. (3) Hyperlipidemia: Status: Chronic Assessment and plan: Heart healthy diet Previous myalgia with atorvastatin not currently on statin to be discussed with PCP (4) GERD (gastroesophageal reflux disease): Status: Chronic Assessment and plan: Continue home PPI (5) Excessive drinking alcohol: Status: Acute Assessment and plan: Drinks a minimum of 6 packs of beer a night; last drinks today prior to presentation to the ED CIWA assessment with no symptoms of alcohol withdrawal at this time On home dose naltrexone (6) Tobacco abuse: Status: Chronic Assessment and plan: Nicotine patch (7) Asthma: Status: Chronic Assessment and plan: stable with no exacerbation Continue home medicine regimen (8) Gout: Status: Chronic Assessment and plan: On home dose allopurinol (9) On deep vein thrombosis (DVT) prophylaxis: Status: Acute Assessment and plan: On the right base low molecular weight heparin (10) Constipation: Status: Acute Assessment and plan: Bowel management (11) Discharge planning issues: Status: Acute Assessment and plan: Anticipated discharge within the next 1 to 2 days Case management following for discharge planning discussed with DR Conte Subjective Subjective Interval history since last seen: Blood pressures remain poorly controlled in the 160s over 110s. No symptoms of alcohol withdrawal today. He is eating and drinking bowels and bladder functioning has been afebrile Max temp 36.8 Exam Narrative Exam Narrative: Obese male chronically ill-appearing older than stated age no acute distress head is atraumatic eyes nonicteric noninjected neck full range of motion no meningeal signs respirations even and unlabored cardiovascular regular rate and rhythm abdomen round soft nontender moves all extremities right lower extremity dressing/Josue wrap clean dry and intact no erythema swelling distally or proximally. Neurologic he is awake alert oriented psychiatric appropriate mood and affect no symptoms of alcohol withdrawal appreciated Objective Last Vital Signs Temp 36.1 C L 03/07/25 11:31 Pulse 88 03/07/25 11:31 Resp 15 03/07/25 11:31 BP 168/116 H 03/07/25 11:31 Pulse Ox 95 03/07/25 11:31 Laboratory Results - last 24 hr 03/06/25 03/07/25 16:08 05:44 WBC 7.25 RBC 4.86 Hgb 14.9 Hct 47.0 MCV 97 H MCH 30.7 MCHC 31.7 L RDW 12.7 Plt Count 270 MPV 9.5 Immature Gran % 0.3 Neutrophils % 54.6 Lymphocytes % 29.9 Monocytes % 10.6 Eosinophils % 4.0 Basophils % 0.6 Nucleated RBC % 0.0 Absolute Neutrophils 3.96 Absolute Lymphocytes 2.17 Absolute Monocytes 0.77 Absolute Eosinophils 0.29 Absolute Basophils 0.04 Sodium 141 Potassium 4.2 Chloride 104 Carbon Dioxide 32.6 H Anion Gap 4.4 BUN 8 Creatinine 0.7 Est GFR (CKD-EPI 2020) 124.00 Glucose 129 H Hemoglobin A1c 5.7 Calcium 8.8 Vancomycin Peak 10.0 L Add-On Test Request DONE PAWSS Have you Been Recently Intoxicated or Drunk Within the Last 30 days?: Yes Have you Ever Experienced Previous Episodes of Alcohol Withdrawal?: Yes Have you ever Experienced Withdrawal Seizures?: No Have you ever Experienced Delirium Tremens(DT)s?: No Have you ever undergone Alcohol Rehabilitation Treatment (i.e, inpt ot outpatient treatment programs)?: Yes Have you ever Experienced Blackouts?: Yes Have you ever Combined Alcohol with other Downers within the last 90 days?: No Have you ever Combined Alcohol with any other Substance of Abuse during the last 90 days?: Yes Positive Blood Alcohol level on Presentation? [PCS.BAL]: Yes Evidence of Increased Autonomic Activity (i.e. HR>120, tremor, sweating, agitation, nausea)?: Yes Result: 8 Time Spent with Patient Time Spent with Patient: 35-49 minutes Time was spent: preparing to see the patient(eg.review tests), obtaining and/or reviewing separately [facility], ordering medications,tests, procedures, indepentently interpreting results and counseling the patient
[2025-03-07] MEDS: hydroCHLOROthiazide 12.5 MG TAB PO (13:34)
[2025-03-07] MEDS: Ketorolac 15 MG/ML VIAL IVP ×2 (13:47→22:40)
[2025-03-07] MEDS: Docusate Sodium 100 MG CAP PO ×2 (14:25→20:31)
[2025-03-07] MEDS: Polyethylene Glycol 3350 17 GM PACKET PO (14:25)
--- NOTE | 2025-03-07 14:45 | INITIAL_ITS ---
Date of service: 03/07/25 Time of Service: 14:45 Care Management Initial Assmt Initial Assessment Reason for Hospitalization: right LE cellulitis Functional Status/Living Situation Patient Presentation: Jose presented to the ED late yesterday morning with c/o drainage, increased swelling and pain in his right ankle. He was noted to have 2 wounds on the medial and lateral ankle. He had been seen in the ED 2 days prior with the same c/o, but left AMA as he felt he could not miss work. He was not given abx at that time. 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 Of note, he had a surgery with hardware on that same ankle last year. Jose was sitting up in the bed when CM met with him. He was pleasant and polite. He is kicking himself for leaving AMA, and feels this has set him back. He is a bit anxious about returning to work. He is cleared for full weight bearing, but he can not wear any type of shoe that will rub against the wounds. Jose is currently living at the [facility] in [place]. He has secure housing there through March. He has been working with Mari at [facility] for housing assistance, and will continue to do so. He does have some family and friends in the area, but he is not sure that any would be able to house him. Town of Residence: [place] on a housing voucher at the [facility] Resides with: Alone Significant Other/Family: Out of area (momMary lives in [place], but further south. Does have some friends in this area.) Employment Status: Employed ([employer]) Physical Functioning/Mobility Assistive Device: cleared by PT and ortho for full weight bearing Advance Directives Advance Directives: Do you have an Advance Directive: N 07/26/20 14:51 AD On File at [facility]: N 07/26/20 14:51 Date Asked 03/06/25 03/06/25 10:54 AD Date Reviewed COLST On File at [facility] No 02/07/24 15:18 COLST Date Scanned Code Status Resuscitation Status Full Code Insurance Coverage/Financial Issues Insurance: Medicaid of [place]? Care Team Visit Care Team Role Provider Type Arabella Watkins APRN MD [facility] STAFF PHYSICIAN Willis Henderson, DO Primary Care Provider OSTEOPATHIC DOCTOR Hallie Munroe Other Providers DELIVERER OUTSIDE Rosetta Bang Other Providers DELIVERER OUTSIDE Dajuan Prakash MD Other Providers [facility] STAFF PHYSICIAN Jenni Santoro Other Providers DELIVERER OUTSIDE Jose Francisco Raymundo Trinity Other Providers OTHER Elizabeth Cody RN Other Providers DELIVERER OUTSIDE Joyce Pedroza Other Providers DELIVERER OUTSIDE Brandee Seals, AMBROSE Emergency Provider NURSE PRACTITIONER Abran Christine MD Admit Provider [facility] STAFF PHYSICIAN Attending Provider Discharge Potential Discharge Needs: PCP F/U Appt and Other (ortho f/u) Anticipated Barriers to Discharge: None Identified Patient/Family Education Needs: Review discharge instructions, discuss Ask Me Three Transportation: Private vehicle Plan: Anticipate that Jose will be discharged home with no new services. He has been cleared by PT. Jose will f/u with his PCP and possibly with ortho, and continue per his plan of care. It is expected that he will be discharged on oral antibiotics. Jose will require a return to work note. He will transport home in a private vehicle and continue per his plan of care. CM will continue to follow and update the plan as needed. Social Determinants of Health Screening Social Determinants of health last assessed in clinic: 03/07/25 Will the Patient Participate in the Screening?: Yes Do you worry about having a steady place to live?: no Problems where you live: no known problems In the past 12 months, have you had to go without electric, gas, oil or water in your home?: no 1. Within the past 12 months, we worried whether our food would run out before we got money to buy more.: Never true 2. Within the past 12 months, the food we bought just didn't last and we didn't have money to get more.: Never true Has lack of transportation kept you from medical appointments or from doing things needed for daily living?: no Has anyone in your life made you feel unsafe or unsupported?: no How hard is it for you to pay for the very basics like food, housing, medical care, and heating? Would you say it is:: Not hard at all Do you want help finding or keeping work or a job?: I do not need or want help If for any reason you need help with day-to-day activities such as bathing, preparing meals, shopping, managing finances, etc., do you get the help you need?: I don?t need any help How often do you feel lonely or isolated from those around you?: Never Do you speak a language other than Albanian at home?: No Does the patient want assistance with any of the above?: No Health Related Social Needs Health related social needs details: will not have housing after March 2025 [facility] All Active Problems (Updated 03/07/25 @ 14:32 by Rosa Isela Bridges NP) Discharge planning issues (Acute) Constipation (Acute) Gout (Chronic) On deep vein thrombosis (DVT) prophylaxis (Acute) Cellulitis of right ankle (Acute) Cellulitis of right lower extremity from knee to ankle (Acute) Cellulitis and abscess of right lower extremity (Acute) Post op infection (Acute) Chronic pain of right ankle (Acute) Chronic venous stasis dermatitis (Acute) Alcoholic fatty liver (Acute) Left shoulder pain (Acute) Fatty liver (Acute) Excessive drinking alcohol (Acute) Abdominal distension (Acute) Closed fracture of right distal fibula (Acute) Obstructive sleep apnea (Chronic) Tobacco abuse (Chronic) Surgical wound dehiscence (Acute) Postoperative wound infection (Acute) No-show for appointment (Acute) Myalgia due to statin (Acute) pt stopped .. ref to clin pharm to maybe subst Chondromalacia patellae of left knee (Acute) Left knee pain (Acute) Hyperlipidemia (Chronic) Dental infection (Acute) Severe obstructive sleep apnea (Acute) 12/17/20 sleep study [facility] Oral thrush (Acute) Otitis media of left ear (Acute) Pharyngitis (Acute) Depression (Chronic) ADHD (Acute) Anxiety (Chronic) GERD (gastroesophageal reflux disease) (Chronic) History of substance abuse (Acute) Asthma (Chronic) Hypertension (Chronic) Family History Mother Substance abuse Brother Substance abuse Uncle Anxiety Depression Other Diabetes Hypertension Liver cancer Social History Smoking/Tobacco Use Status: Current every day Tobacco Type: cigarettes Smoking packs per day: 1 Smoking cigarettes per day: 20.0 Years smoked: 15 Smoking pack- years: 15.00 Tobacco: How many years used: 19 Quit status: considering quitting Second Hand Exposure: Yes Smoking risk assessment performed?: Yes Alcohol Intake: current Alcohol Intake frequency: 3 or more drinks per day Alcohol type: beer and hard liquor Previous attempts at quittin Drug use: Daily Substance use type: former substance user Date of last use: 07/01/2020, marijuana and opiates Details: Daily user of Marijuana Adopted: No Caregiver/Support person: No Foster care: No Household members: family and none Housing: other Number of Children: 0 number of grandchildren: 0 Communication Needs: None Education Level: high school Do you need help understanding health information?: Often 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 Pets and animals: Yes (1) Pets and animals: dog(s) Sexually active: No Do you think of yourself as: straight/heterosexual Current gender identity: male What is your relationship status?: never How often do you talk on the phone with friends or family?: once per week How often do you get together with friends or relatives?: once per week Do you belong to any clubs or organized social groups?: no Panel score (0-1 are the most socially isolated patients): 0 Duration: < 15 minutes/day Frequency: 1-2 times per week Charu/Buddhist: None Seatbelt use: sometimes Helmet use: No (Never) Drive intox or ride w/intox charter bus driver: No Do you feel safe at home: Yes Do you feel safe in your relationship?: Yes Additional Social history: MOTEL ROOM Readmission Within the Past 30 Days Yes or No: No
[2025-03-07] MEDS: DAPTOmycin 500 MG in Normal Saline 50 ML 100 MG IVPB (15:31)
[2025-03-07 18:56] LABS: Vancomycin, Random 16.1 ug/mL
[2025-03-08 00:36] VITALS: BP 160/100; PULSE 84; RESP 15; TEMP 36.4; O2SAT 95
[2025-03-08 02:42] VITALS: BP 181/147; PULSE 86; RESP 21; TEMP 35.8; O2SAT 94
[2025-03-08 03:40] VITALS: BP 170/100
[2025-03-08] MEDS: CEFEPIME 2 GM in Normal Saline 100 ML IVPB (03:40)
[2025-03-08] MEDS: Acetaminophen 500 MG TAB 1000 MG PO ×2 (06:56→13:06)
[2025-03-08 07:06] LABS: C-Reactive Protein 2.96 mg/dL (<or=0.5)
[2025-03-08 07:22] VITALS: BP 165/100; PULSE 79; RESP 18; TEMP 36.5; O2SAT 92
[2025-03-08] MEDS: Budesonide/Formoterol 160/4.5 6 GM 60 PUFF INH IH (08:22)
[2025-03-08] MEDS: Omeprazole 20 MG CAPCR 40 MG PO (08:34)
[2025-03-08] MEDS: hydroCHLOROthiazide 12.5 MG TAB PO (08:34)
[2025-03-08] MEDS: Docusate Sodium 100 MG CAP PO (08:34)
[2025-03-08] MEDS: Allopurinol 300 MG TAB PO (08:34)
[2025-03-08] MEDS: Losartan 50 MG TAB PO (08:34)
[2025-03-08] MEDS: buPROPion-XL 150 MG TABCR PO (08:34)
[2025-03-08] MEDS: Nicotine 21 MG/24 HR PATCH TD (08:35)
[2025-03-08] MEDS: Normal Saline Flush 10 ML SYR IVP (08:35)
[2025-03-08] MEDS: Naltrexone 50 MG TAB PO (08:35)
[2025-03-08] MEDS: Polyethylene Glycol 3350 17 GM PACKET PO (08:35)
[2025-03-08] MEDS: Enoxaparin 40 MG/0.4 ML SYR SC (08:35)
[2025-03-08] MEDS: DAPTOmycin 500 MG in Normal Saline 50 ML 100 MG IVPB (09:11)
--- NOTE | 2025-03-08 09:20 | W.PM.PROGNOT ---
Date of Service Date of service: 03/08/25 Time of Service: 09:20 Assessment and Plan Assessment and plan (1) Cellulitis and abscess of right lower extremity: Status: Acute Assessment and plan: Will stop cefepime and vancomycin and transition to oral Levaquin has been discontinued and will initiate daptomycin due to chemistry analyzer being down unable to obtain Vanco peak or trough levels Previous wound culture from showed Staphylococcus aureus non MRSA and GNR Ortho consult with recommendations for ongoing wound care, compression/ LIZ boot and oral antibiotics to cover staph and GNR anaerobes-levaquin avoid pressure to affected area of ankle with weight bearing as tolerated. PT consulted Scheduled acetaminophen and as needed ketorolac for pain follow CBC Trend CRP (2) Hypertension: Status: Chronic Assessment and plan: poorly controlled. increase losartan add HCTZ monitor and adjust as needed. (3) Hyperlipidemia: Status: Chronic Assessment and plan: Heart healthy diet Previous myalgia with atorvastatin not currently on statin to be discussed with PCP (4) GERD (gastroesophageal reflux disease): Status: Chronic Assessment and plan: Continue home PPI (5) Excessive drinking alcohol: Status: Acute Assessment and plan: Drinks a minimum of 6 packs of beer a night; last drinks today prior to presentation to the ED CIWA assessment with no symptoms of alcohol withdrawal at this time On home dose naltrexone (6) Tobacco abuse: Status: Chronic Assessment and plan: Nicotine patch (7) Asthma: Status: Chronic Assessment and plan: stable with no exacerbation Continue home medicine regimen (8) Gout: Status: Chronic Assessment and plan: On home dose allopurinol (9) On deep vein thrombosis (DVT) prophylaxis: Status: Acute Assessment and plan: On the right base low molecular weight heparin (10) Constipation: Status: Acute Assessment and plan: Bowel management (11) Discharge planning issues: Status: Acute Assessment and plan: Anticipated discharge within the next 1 to 2 days Case management following for discharge planning discussed with DR Conte Exam Narrative Exam Narrative: Constitutional The patient is comfortable and cooperative without acute distress and has obeses body habitus Neuro:alert and oriented to self, person, place time and situation. No neurological focal deficit Resp: Normal respiratory pattern, speaks in full sentences, unlabored breathing, minimal faint expiratory wheezing throughout lung up Cardio: regular rhythm, S1, S2,, bilateral radial and dorsalis pedis pulses are positive, palpable GI: Abdomen is obese, not distended, soft and non tender, bowel sounds are present : Negative Costovertebral angle tenderness, no bladder distension Integumentary: Right ankle with bilateral wounds on both side of malleolar bone with purulent drainage and slough; surrounding black discoloration and erythema to part of the foot and ankle - Right lower extremity pitting edema Extremities: strength 5/5 to bilateral lower and upper extremities Psych: RASS 0, congruent mood and normal affect. Objective Last Vital Signs Temp 36.5 C 03/08/25 07:22 Pulse 79 03/08/25 07:22 Resp 18 03/08/25 07:22 BP 165/100 H 03/08/25 07:22 Pulse Ox 92 03/08/25 07:22 Laboratory Results - last 24 hr 03/07/25 03/08/25 11:00 05:58 C-Reactive Protein 2.96 H Random Vancomycin 16.1 PAWSS Have you Been Recently Intoxicated or Drunk Within the Last 30 days?: Yes Have you Ever Experienced Previous Episodes of Alcohol Withdrawal?: Yes Have you ever Experienced Withdrawal Seizures?: No Have you ever Experienced Delirium Tremens(DT)s?: No Have you ever undergone Alcohol Rehabilitation Treatment (i.e, inpt ot outpatient treatment programs)?: Yes Have you ever Experienced Blackouts?: Yes Have you ever Combined Alcohol with other Downers within the last 90 days?: No Have you ever Combined Alcohol with any other Substance of Abuse during the last 90 days?: Yes Positive Blood Alcohol level on Presentation? [PCS.BAL]: Yes Evidence of Increased Autonomic Activity (i.e. HR>120, tremor, sweating, agitation, nausea)?: Yes Result: 8
[2025-03-08 11:11] VITALS: BP 160/124; PULSE 78; RESP 18; TEMP 36.4; O2SAT 95
[2025-03-08] MEDS: levoFLOXacin 500 MG, levoFLOXacin 250 MG 750 MG PO (11:23)
--- NOTE | 2025-03-08 12:48 | CMDISCH_ITS ---
Date of service: 03/08/25 Time of Service: 12:48 LACE Index Scoring Tool Questions: Length of Stay (in days): 2 Was the patient admitted via the E.D.?: Yes E.D. Visits: 7 Answers: Total Score: 9 Risk of Readmission: Low Risk Care Management Discharge Plan Reason for Hospitalization: right LE cellulitis Discharge Plan: Maxwell will be discharged home this afternoon with no new services. He will f/u with his PCP on 03/11. It is suggested that PCP place vascular surgery consult. Maxwell will also be followed closely by the surgical office for his wound care. Maxwell was given a return to work letter. Per provider, he may return to work tomorrow with no restrictions. Maxwell will transport in a private vehicle with his uncle, and continue with his plan of care. Patient/Family Education Needs: Review of discharge instructions, activity, limitations and discuss Ask me 3. SDOH Health Related Social Needs: Health related social needs housing instability, house d, with risk of homelessness (Z59.811), transportation insecurity (Z59.82) Health related social needs details will not have hous ing after March 2025 Health related social needs details: will not have housing after March 2025
[2025-03-08] MEDS: cloNIDine 0.1 MG TAB PO (13:06)
--- NOTE | 2025-03-08 14:07 | W.PM.DS.N ---
Date of service: 03/08/25 Time of Service: 14:07 DS: Diagnosis Discharge Diagnosis (1) Cellulitis and abscess of right lower extremity: Status: Acute (2) Hypertension: Status: Chronic (3) Hyperlipidemia: Status: Chronic (4) GERD (gastroesophageal reflux disease): Status: Chronic (5) Excessive drinking alcohol: Status: Acute (6) Tobacco abuse: Status: Chronic (7) Asthma: Status: Chronic (8) Gout: Status: Chronic (9) On deep vein thrombosis (DVT) prophylaxis: Status: Acute (10) Constipation: Status: Acute (11) Discharge planning issues: Status: Acute Discharge Plan Disposition Patient Disposition: Home Condition: Improving Discharge Details Reason For Visit: Right LE cellulitis, and R ankle fx w hardware abs Admit Date/Time: 03/06/25 12:58 Admit Provider: Abran Christine Attending Provider: Abran Christine Primary Care Provider: [facility] Course Hospital Course: This 34-year-old male patient with past medical history of hypertension, substance dependence, nicotine dependence of [id number], daily EtOH intake of at least 6 packs a day, hyperlipidemia, traumatic right ankle fracture in 2022 with subsequent infections presented on 03/06/25 with complaint of cellulitis/infection of said ankle with ongoing drainage with increased purulence. CT of the right lower extremity completed on showed showed cellulitis and abscess and at hte time he had left AMA; no osteomyelitis as per x-ray completed on 03/06/25. Improving leukocytosis on the day of prsentation with ongoing elvation in CRP. Vancomycin and cefepime were given in the ED. The patient was admitted to the medical surgical unit under hospitalist service with orthepdic consult for ongoing IV antibiotic treatment for right lower extremity/ankle abscess. Blood cultures were negative, wound culture grew staphylococcus aureus and Gram negative rods, WBC and CRP improved. Orthopedic services recommended oral levaquin, not surgery , UNNA boot and follow-up at the orthopedic clinic with Sushma LEONARD. Losartan was increase and hydrochlorothiazide initiated. The patient will have to follow up with his PCP within 7 days of discharge. Recommendation for PCP follow-up: Needs a referral with vascular for RLE evaluation Ongoing anti-hypertensive increased Discussed with Dr. Conte Sherrill Meds and New Rx's Prescriptions: New levofloxacin 750 mg Tablet 750 mg PO QAM Qty: 10 0RF hydrochlorothiazide 12.5 mg Tablet 12.5 mg PO DAILY Qty: 30 0RF losartan 50 mg Tablet 50 mg PO DAILY Qty: 30 0RF Continued bupropion HCl 150 mg tablet extended release 24 hr 150 mg PO QAM Qty: 90 3RF naltrexone 50 mg tablet 50 mg PO DAILY Qty: 60 3RF allopurinol 300 mg tablet 300 mg PO DAILY Qty: 90 3RF omeprazole 40 mg capsule,delayed release(DR/EC) 40 mg PO DAILY Qty: 90 3RF budesonide-formoterol [Symbicort] 160-4.5 mcg/actuation HFA aerosol inhaler 2 puff inhalation BID Qty: 10.2 6RF acetaminophen 500 mg tablet 1,000 mg PO Q8H PRN (Reason: pain) Qty: 90 3RF albuterol sulfate 90 mcg/actuation HFA aerosol inhaler 2 puff inhalation Q4H PRN (Reason: shortness of breath or wheezing) Qty: 18 6RF ibuprofen 600 mg tablet 600 mg PO Q6H PRN Patient Comments: TAKE ONE TABLET BY MOUTH TWICE A DAY NEEDED FOR PAIN Discontinued losartan 25 mg tablet 25 mg PO DAILY Qty: 90 3RF Discharge Instructions Referrals: Willis Henderson DO [Primary Care Provider] - (Follow-up within 7 days of discharge - Needs a referral with vascular) Activity:: Activity as Tolerated Equipment/Supplies:: No Equipment Needed Diet:: heart healthy DS: Summary Time Spent with Patient providing and/or coordinating discharge services: Greater than 30 minutes Status at Discharge Functional status at discharge: independent ambulation Overall status at discharge: patient is progressing back to baseline Mental Status: mental status grossly normal Speech and Movement: speech and movement normal Mood: congruent mood Affect: normal affect Quality:SDOH Health Related Social Needs: Health related social needs housing instability, housed, with risk of homelessness (Z59.811), transportation insecurity (Z59.82) Health related social needs details will not have housing after March 2025 Health related social needs details: will not have housing after March 2025 Exam Narrative Exam Narrative: Constitutional The patient is comfortable and cooperative without acute distress and has obese body habitus Neuro:alert and oriented X4 . No neurological focal deficit Resp: Unlabored breathing, minimal faint expiratory wheezing throughout lung up Cardio: regular rhythm, S1, S2,bilateral radial and pedal pulses are positive GI: Abdomen is obese, not distended, soft and non tender, bowel sounds are present Integumentary: Right ankle with bilateral wounds on both side of malleolar bone improved drainage, dressing and UNNA boot DCI - Right lower extremity pitting edema-improving Extremities: strength 5/5 to bilateral lower and upper extremities Psych: RASS 0, congruent mood and normal affect. Psych Mental Status: mental status grossly normal Speech and Movement: speech and movement normal Mood: congruent mood Affect: normal affect DS: Data Vitals/I&O Vitals and I&O: Vital Signs Temperature 36.4 C L 03/08/25 11:11 Temperature Source Temporal Artery Scan 03/08/25 11:11 Pulse 78 03/08/25 11:11 Respiratory Rate 18 03/08/25 11:11 Respiratory Effort Normal, Short of Breath 03/06/25 14:23 Respiratory Depth Normal 03/06/25 14:23 Respiratory Pattern Normal 03/06/25 14:23 Blood Pressure 160/124 H 03/08/25 11:11 Blood Pressure Mean 136 03/08/25 11:11 Blood Pressure Position Sitting 03/06/25 10:52 Pulse Oximetry 95 03/08/25 11:11 Oxygen Delivery Method Room Air 03/08/25 11:11 Oxygen Flow Rate 0 03/08/25 11:11 Pain Level 0 03/08/25 00:36 Comment RN Notified 03/08/25 11:11 Intake & Output 03/07/25 03/08/25 03/08/25 23:59 11:59 23:59 Intake Total 260 / 1540 155 / 395 240 / 395 Output Total 1500 / 3425 500 / 500 Balance -1240 / -1885 -345 / -105 240 / -105 Intake: IV 260 / 610 155 / 155 Oral 240 / 240 Output: Urine 1500 / 3425 500 / 500 Other: Urine Color Yellow Yellow Urine Appearance Clear Clear Urine Odor Strong Normal Comment x1 voiding independently in room Stool Size Moderate Stool Characteristics Soft Formed Brown Data Completed and Pending Labs on day of discharge: Labs from last 24 hours 03/08/25 05:58: C-Reactive Protein 2.96 H 03/07/25 11:00: Random Vancomycin 16.1 Preliminary micro results at discharge 03/06/25 11:57 Blood Blood Culture - Preliminary NO GROWTH 48 HOURS 03/06/25 11:34 Blood Blood Culture - Preliminary NO GROWTH 48 HOURS 03/06/25 16:10 Ankle - Right Anaerobic Culture - Preliminary 03/06/25 16:35 Ankle - Right Medial Wound Culture - Preliminary Staphylococcus aureus [facility] All Active Problems (Updated 03/08/25 @ 12:58 by Arabella Watkins APRN) Discharge planning issues (Acute) Constipation (Acute) Gout (Chronic) On deep vein thrombosis (DVT) prophylaxis (Acute) Cellulitis of right ankle (Acute) Cellulitis of right lower extremity from knee to ankle (Acute) Cellulitis and abscess of right lower extremity (Acute) Post op infection (Acute) Chronic pain of right ankle (Acute) Chronic venous stasis dermatitis (Acute) Alcoholic fatty liver (Acute) Left shoulder pain (Acute) Fatty liver (Acute) Excessive drinking alcohol (Acute) Abdominal distension (Acute) Closed fracture of right distal fibula (Acute) Obstructive sleep apnea (Chronic) Tobacco abuse (Chronic) Surgical wound dehiscence (Acute) Postoperative wound infection (Acute) No-show for appointment (Acute) Myalgia due to statin (Acute) pt stopped .. ref to clin pharm to maybe subst Chondromalacia patellae of left knee (Acute) Left knee pain (Acute) Hyperlipidemia (Chronic) Dental infection (Acute) Severe obstructive sleep apnea (Acute) 12/17/20 sleep study [facility] Oral thrush (Acute) Otitis media of left ear (Acute) Pharyngitis (Acute) Depression (Chronic) ADHD (Acute) Anxiety (Chronic) GERD (gastroesophageal reflux disease) (Chronic) History of substance abuse (Acute) Asthma (Chronic) Hypertension (Chronic) Family History Mother Substance abuse Brother Substance abuse Uncle Anxiety Depression Other Diabetes Hypertension Liver cancer Social History Smoking/Tobacco Use Status: Current every day Tobacco Type: cigarettes Smoking packs per day: 1 Smoking cigarettes per day: 20.0 Years smoked: 15 Smoking pack-years: 15.00 Tobacco: How many years used: 19 Quit status: considering quitting Second Hand Exposure: Yes Smoking risk assessment performed?: Yes Alcohol Intake: current Alcohol Intake frequency: 3 or more drinks per day Alcohol type: beer and hard liquor Previous attempts at quittin Drug use: Daily Substance use type: former substance user Date of last use: 07/01/2020, marijuana and opiates Details: Daily user of Marijuana Adopted: No Caregiver/Support person: No Foster care: No Household members: family and none Housing: other Number of Children: 0 number of grandchildren: 0 Communication Needs: None Education Level: high school Do you need help understanding health information?: Often 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 Pets and animals: Yes (1) Pets and animals: dog(s) Sexually active: No Do you think of yourself as: straight/heterosexual Current gender identity: male What is your relationship status?: never How often do you talk on the phone with friends or family?: once per week How often do you get together with friends or relatives?: once per week Do you belong to any clubs or organized social groups?: no Panel score (0-1 are the most socially isolated patients): 0 Duration: < 15 minutes/day Frequency: 1-2 times per week Charu/Presybeterian: None Seatbelt use: sometimes Helmet use: No (Never) Drive intox or ride w/intox ambulance driver paramedic: No Do you feel safe at home: Yes Do you feel safe in your relationship?: Yes Additional Social history: [facility] Time Spent with Patient Time Spent with Patient: 70-84 minutes4 Time was spent: preparing to see the patient(eg.review tests), obtaining and/or reviewing separately otained hiistory, ordering medications,tests, procedures, referring, communicating with other health healthcare administration intern, indepentently interpreting results, counseling the patient and care coordination
[2025-03-08 14:10] VITALS: BP 178/140
== END 2025-03-08 15:14 | disposition home or self-care (01) | DRG 603 ==
LOC: ER 13:24 → MS 14:21
PROVIDERS: Student in an Organized Health Care Education/Training Program; Admitting Provider Family Medicine; Emergency Provider Registered Nurse Emergency; PCP Family Medicine; Responsible Provider Nurse Practitioner Acute Care; Visit Provider Family Medicine
DX: L03.115 Cellulitis of right lower limb (principal); J45.41 Moderate persistent asthma with (acute) exacerbation; Z59.01 Sheltered homelessness; L02.415 Cutaneous abscess of right lower limb; E78.2 Mixed hyperlipidemia; K21.9 Gastro-esophageal reflux disease without esophagitis; F10.10 Alcohol abuse, uncomplicated; F17.210 Nicotine dependence, cigarettes, uncomplicated; I10 Essential (primary) hypertension; K59.00 Constipation, unspecified; K70.0 Alcoholic fatty liver; G89.29 Other chronic pain; I87.2 Venous insufficiency (chronic) (peripheral); G47.33 Obstructive sleep apnea (adult) (pediatric); E78.5 Hyperlipidemia, unspecified; F12.90 Cannabis use, unspecified, uncomplicated; Z79.82 Long term (current) use of aspirin; Z79.899 Other long term (current) drug therapy; B95.61 Methicillin susceptible Staphylococcus aureus infection as the cause of diseases classified elsewhere
CPT/HCPCS: 00123; 36415; 80048; 80053; 85652; 87040; 87077; 94640; 96365; 96367; 96368; 97161; 99285; J1650; 73610; 80202; 80320; 83036; 83605; 83735; 85025; 86140; 87070; 87075; 87186; 87205; 94664; 99223; 99232; 99239; J0690; J0692; J0878; J1885; J3370

== ENCOUNTER 2025-04-11 13:38 | Emergency (ER) | payer MEDICAID, SELFPAY ==
[2025-04-11] VITALS (14 sets, daily range): BP systolic 169–205; BP diastolic 105–150; PULSE 95–109; RESP 14; TEMP 37.1; O2SAT 89–96
--- NOTE | 2025-04-11 14:14 | DI.CT_ITS ---
Exam(s) CT LOWER EXTREMITY RT W EXAM: CT LOWER EXTREMITY RT W CLINICAL HISTORY: recurrent infection to ankle, draining purulent ma. TECHNIQUE: Imaging Protocol: Axial computed tomography images with coronal and sagittal reformatted images were created and reviewed. CONTRAST MATERIAL: Intravenous: Omnipaque 350 Contrast volume:100 mL COMPARISON: CT CT LOWER EXTREMITY RT W from 03/04/2025 CR,XR XR ANKLE RT COMPLETE from 03/06/2025 FINDINGS: OSSEOUS: Again noted is a lateral fixation plate in the distal fibula secured by multiple screws as well as an independent oblique screw at the fracture site. There is also syndesmotic channel with fixation button at the level of the medial cortex of the distal metaphysis of the distal tibia. There is no widening the ankle mortise. Talar dome appears unremarkable. Some thickening irregularity of the cortex of the posterior fibula is noted as well as the posterior distal tibia. This is most probably postsurgical changes. No fractures evident in the bones of the foot. Minimal degenerative changes although distally there are degenerative changes in the great toe metatarsophalangeal joint. SOFT TISSUES: There is a focal defect in the skin over the lateral aspect of the ankle. There is abundant soft tissue subcutaneous swelling in this region but also extending above and below this level and her lesser amount of the same is also seen on the opposite-medial aspect of the ankle. There does not appear to be an obvious peripherally enhancing soft tissue abscess at this region. This subcutaneous edema extends into the lateral aspect of the foot. IMPRESSION: There has been ORIF at the ankle level with lateral fixation plate distal fibula and horizontal channel extending through the lower metaphysis of the tibia. Hardware appears intact and there is no evidence of osteomyelitis There is diffuse edema in the distal calf and ankle and foot with some overlying skin thickening. Correlation with clinical signs of cellulitis. There is a small skin defect in the lateral aspect of the ankle. There is no radiopaque foreign body nor gas in the soft tissues at this level and although this is an area of significant soft tissue swelling, there does not appear to be a peripherally enhancing abscess at this level. Preliminary virtual Radiology report was reviewed. Discussed by phone with ER physician 04/11/2025 at 5:07 p.m. RADIATION DOSE DELIVERED: 182.35mGy.cm Total DLP DATA REPOSITORY: All CT scans at this facility are submitted to the National Radiology Data Registry (NRDR) Dose Index Registry (DIR) with the [employer] (A[employer]). RADIATION OPTIMIZATION: All CT scans at this facility use at least one of these dose optimization techniques: automated exposure control; mA and/or kV adjustment per patient size (includes targeted exams where dose is matched to clinical indication); or iterative reconstruction.
[2025-04-11] MEDS: Normal Saline - Diluent 50 ML VIAL IJ (14:21)
[2025-04-11] MEDS: Omnipaque 350 MG/ML 100 ML BTL IJ (14:22)
[2025-04-11 14:45] LABS: Lactate 3.5 mmol/L (<or=2.0)
[2025-04-11 14:46] LABS: Abs Immature Grans 0.02 10^3/uL (0.0-0.06); Absolute Basophil Count 0.06 10^3/uL (0.0-0.2); Absolute Lymphocyte Count 2.22 10^3/uL (1.2-3.4); Absolute Monocyte Count 0.86 10^3/uL (0.1-0.8); Basophils % 0.7 %; Eosinophils % 3.3 %; HCT 46.6 % (40.0-50.0); HGB 14.8 g/dL (13.5-17.5); Immature Grans % 0.2 %; Lymphocytes % 24.2 %; MCH 30.6 pg (27.0-33.0); MCHC 31.8 % (32.0-36.0); MCV 96 fL (80-95); MPV 9.9 fL (8.0-11.0); Monocytes % 9.4 %; Neutrophils % 62.2 %; Platelet Count 250 10^3/uL (130-400); RBC 4.84 10^6/uL (4.36-5.78); RDW 12.5 % (11.8-14.1); RDW-SD 44.5 fL; WBC 9.16 10^3/uL (4.4-10.8)
[2025-04-11 14:48] LABS: ESR 19 mm/hr (0-15)
[2025-04-11 15:01] LABS: ALT 81 U/L (16-63); AST 58 U/L (15-37); Albumin 3.3 g/dL (3.4-5.0); Alkaline Phosphatase 119 U/L (46-116); Anion Gap 8.7 mmol/L (3-11); BUN 7 mg/dL (7-18); Bilirubin, Total 0.4 mg/dL (0.2-1.0); C-Reactive Protein 2.23 mg/dL (<or=0.5); CO2 31.3 mmol/L (21.0-32.0); CREATININE 0.8 mg/dL (0.70-1.30); Calcium 8.5 mg/dL (8.5-10.1); Chloride 100 mmol/L (98-107); Glucose 160 mg/dL (74-106); Potassium 3.7 mmol/L (3.5-5.1); Sodium 140 mmol/L (136-145); Total Protein 7.4 g/dL (6.4-8.2)
[2025-04-11] MEDS: Normal Saline 1,000 ML 1000 ML IV (15:02)
[2025-04-11 15:13] LABS: Lactate 2.2 mmol/L (<or=2.0)
--- NOTE | 2025-04-11 15:45 | ED.GENADUL_ITS ---
Discharge Plan Disposition Patient Disposition: Home Condition: Stable Discharge Details Clinical Impression: Post op infection Primary Care Provider: Willis Henderson ED Provider: Laura Bustillos Home Meds and New Rx's Prescriptions: New clindamycin HCl [Cleocin HCl] 150 mg capsule 450 mg PO TID Qty: 90 0RF Continued bupropion HCl 150 mg tablet extended release 24 hr 150 mg PO QAM Qty: 90 3RF naltrexone 50 mg tablet 50 mg PO DAILY Qty: 60 3RF allopurinol 300 mg tablet 300 mg PO DAILY Qty: 90 3RF omeprazole 40 mg capsule,delayed release(DR/EC) 40 mg PO DAILY Qty: 90 3RF budesonide-formoterol [Symbicort] 160-4.5 mcg/actuation HFA aerosol inhaler 2 puff inhalation BID Qty: 10.2 6RF bisacodyl 5 mg tablet,delayed release (DR/EC) 10 mg PO BID PRN acetaminophen 500 mg tablet 1,000 mg PO Q8H PRN (Reason: pain) Qty: 90 3RF albuterol sulfate 90 mcg/actuation HFA aerosol inhaler 2 puff inhalation Q4H PRN (Reason: shortness of breath or wheezing) Qty: 18 6RF ibuprofen 600 mg tablet 600 mg PO Q6H PRN Patient Comments: TAKE ONE TABLET BY MOUTH TWICE A DAY NEEDED FOR PAIN levofloxacin 750 mg Tablet 750 mg PO QAM Qty: 10 0RF hydrochlorothiazide 12.5 mg Tablet 12.5 mg PO DAILY Qty: 30 0RF losartan 50 mg Tablet 50 mg PO DAILY Qty: 30 0RF Discharge Instructions Additional Instructions: Take antibiotics as prescribed recommendation taking the next 3 days off of work and elevating your leg and wearing the boot when walking Change dressings daily after washing with soap and water Follow-up with Dr. Prakash tomorrow I am also referring you to Sushma Espinal Please return with spreading redness, fever, worsening pain Referrals: Sushma Espinal PA [[facility], Surgery] Dajuan Prakash MD [ [facility] STAFF PHYSICIAN, Orthopaedic Surgical] HPI General Date/Time Provider Initiated Documentation: 04/11/25 13:47 . 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 Reports purulent drainage from previous abscess sites drained in 02/2025 by orthopedics. Previously followed by surgery for nonhealing postoperative wounds. No antibiotics since last hospitalization. Denies pain, fever, chills, or significant change in redness. History of hypertension, gout, and COPD. Related Data Home Medications ?Medication ?Instructions ?Recorded ?Confirmed acetaminophen 500 mg tablet 1,000 mg (2 x 500 mg) PO Q 8H PRN 02/10/24 04/11/25 pain #90 tabs albuterol sulfate 90 mcg/actuation 2 puff inhalation Q 4H PRN 02/10/24 04/11/25 aerosol inhaler shortness of breath or wheez ing #18 grams allopurinol 300 mg tablet 300 mg PO DAILY #90 tabs 04/2004/11/25 omeprazole 40 mg capsule,delayed 40 mg PO DAILY #90 ca ps 03/02/24 04/11/25 release budesonide-formoterol HFA 160 2 puff inhalation BID #1 0.2 grams 07/09/24 mcg-4.5 mcg/actuation aerosol inhaler (Symbicort) bupropion HCl 150 mg 24 hr tablet, 150 mg PO QAM #90 t abs 12/01/24 04/11/25 extended release naltrexone 50 mg tablet 50 mg PO DAILY #60 tabs 02/1904/11/25 ibuprofen 600 mg tablet 600 mg PO Q6H PRN 03/06/25 0 04/11/25 hydrochlorothiazide 12.5 mg tablet 12.5 mg PO DAILY #3 0 tabs 03/08/25 04/11/25 levofloxacin 750 mg tablet 750 mg PO QAM #10 tabs 02/2504/11/25 losartan 50 mg tablet 50 mg PO DAILY #30 tabs 02/2504/11/25 bisacodyl 5 mg tablet,delayed 10 mg PO BID PRN 5 04/11/25 release clindamycin HCl 150 mg capsule 450 mg (3 x 150 mg) PO TID #90 caps 04/11/25 (Cleocin HCl) Previous Rx's ?Medication ?Instructions ?Recorded acetaminophen 500 mg tablet 1,000 mg (2 x 500 mg) PO Q 8H PRN 02/10/24 pain #90 tabs albuterol sulfate 90 mcg/actuation 2 puff inhalation Q 4H PRN 02/10/24 aerosol inhaler shortness of breath or wheez ing #18 grams allopurinol 300 mg tablet 300 mg PO DAILY #90 tabs 04/20 omeprazole 40 mg capsule,delayed 40 mg PO DAILY #90 ca ps 03/02/24 release budesonide-formoterol HFA 160 2 puff inhalation BID #1 0.2 grams 07/09/24 mcg-4.5 mcg/actuation aerosol inhaler (Symbicort) bupropion HCl 150 mg 24 hr tablet, 150 mg PO QAM #90 t abs 12/01/24 extended release naltrexone 50 mg tablet 50 mg PO DAILY #60 tabs 02/19 hydrochlorothiazide 12.5 mg tablet 12.5 mg PO DAILY #3 0 tabs 03/08/25 levofloxacin 750 mg tablet 750 mg PO QAM #10 tabs 02/25 12/22 losartan 50 mg tablet 50 mg PO DAILY #30 tabs 02/25 12/22 clindamycin HCl 150 mg capsule 450 mg (3 x 150 mg) PO TID #90 caps 04/11/25 (Cleocin HCl) Allergies Allergy/AdvReac Type Severity Reaction Status Date / Time codeine Allergy Intermediate rash Verified 04/11/25 13:44 atorvastatin AdvReac myalgias Verified 04/11/25 13:44 General Stated Complaint: Cellulitis JASON: 3 Exam Narrative Exam Narrative: General Appearance: Normal. Vital signs: Within normal limits. HEENT: Within normal limits. Respiratory: Within normal limits. Cardiovascular: Gastrointestinal: Genitourinary: Lymphatic: Back, Musculoskeletal: Extremities: Right ankle swollen with purulent drainage, swelling, and mild tenderness at prior incision and postoperative sites. No crepitus. Distal pulses and sensation intact. Mild swelling in right calf, unchanged and without tenderness. Skin: Warm and dry, no rash. Neurological: Normal. Other observations: Course Vital Signs Vital signs: Vital Signs Temperature 37.1 C 04/11/25 13:39 Pulse 109 H 04/11/25 13:39 Respiratory Rate 14 04/11/25 13:39 Blood Pressure 173/127 H 04/11/25 13:39 Pulse Oximetry 91 L 04/11/25 13:39 Temperature 37.1 C 04/11/25 13:52 Temperature Source Temporal Artery Scan 04/11/25 13:52 Pulse 103 H 04/11/25 15:02 Respiratory Rate 14 04/11/25 13:52 Blood Pressure 195/121 H 04/11/25 15:02 Blood Pressure Mean 148 04/11/25 15:02 Pulse Oximetry 93 04/11/25 15:02 Oxygen Delivery Method Room Air 04/11/25 13:52 Oxygen Flow Rate 0 04/11/25 13:52 Pain Level 0 04/11/25 13:52 Lab/Test Results Lab/Test Results: 04/11/25 14:50 Blood Blood Culture - Pending 04/11/25 14:15 Blood Blood Culture - Pending 04/11/25 14:15 Leg - Right Lower Wound Culture - Pending 04/11/25 14:15 Leg - Right Lower Gram Stain - Pending Laboratory Tests Range/Units 04/11/25 04/11/25 04/11/25 13:58 14:15 14:56 WBC (4.4-10.8) 10^3/uL 9.16 RBC (4.36-5.78) 10^6/uL 4.84 Hgb (13.5-17.5) g/dL 14.8 Hct (40.0-50.0) % 46.6 MCV (80-95) fL 96 H MCH (27.0-33.0) pg 30.6 MCHC (32.0-36.0) % 31.8 L RDW (11.8-14.1) % 12.5 Plt Count (130-400) 10^3/uL 250 MPV (8.0-11.0) fL 9.9 Immature Gran % % 0.2 Neutrophils % % 62.2 Lymphocytes % % 24.2 Monocytes % % 9.4 Eosinophils % % 3.3 Basophils % % 0.7 Nucleated RBC % (0.0-0.3) % 0.0 Absolute Neutrophils (1.2-6.7) 10^3/uL 5.70 Absolute Lymphocytes (1.2-3.4) 10^3/uL 2.22 Absolute Monocytes (0.1-0.8) 10^3/uL 0.86 H Absolute Eosinophils (0.0-0.7) 10^3/uL 0.30 Absolute Basophils (0.0-0.2) 10^3/uL 0.06 ESR (0-15) mm/hr 19 H VBG Lactate (<or=2.0) mmol/L 3.5 H* 2.2 H* Sodium (136-145) mmol/L 140 Potassium (3.5-5.1) mmol/L 3.7 Chloride (98-107) mmol/L 100 Carbon Dioxide (21.0-32.0) mmol/L 31.3 Anion Gap (3-11) mmol/L 8.7 BUN (7-18) mg/dL 7 Creatinine (0.70-1.30) mg/dL 0.8 Est GFR (CKD-EPI 2020) (mL/min/1.73m2) 119.10 Glucose (74-106) mg/dL 160 H Calcium (8.5-10.1) mg/dL 8.5 Total Bilirubin (0.2-1.0) mg/dL 0.4 AST (15-37) U/L 58 H ALT (16-63) U/L 81 H Alkaline Phosphatase (46-116) U/L 119 H C-Reactive Protein (<or=0.5) mg/dL 2.23 H Total Protein (6.4-8.2) g/dL 7.4 Albumin (3.4-5.0) g/dL 3.3 L Medical Decision Making CBC reassuring, no leukocytosis. Elevated LFTs consistent with alcoholism, unchanged. CRP 2 and sed rate 19, improved from last admission. Lactate 3.8, repeat 2.2. Initial Assessment: 34-year-old male with recurrent postoperative infection to right lower extremity internal fixation device. Reports purulent drainage from previous abscess sites drained in February by orthopedics. Denies pain, fever, or chills. No significant change in redness to lower extremity. No antibiotics since previous hospitalization. History of hypertension, gout, and COPD. Right ankle swollen with purulent drainage from prior incision and postoperative sites. Mild tenderness, no crepitus, distal pulses intact, sensation intact. Mild swelling to right calf unchanged without tenderness. CBC reassuring, no leukocytosis. Elevated LFTs consistent with history of alcoholism, unchanged. CRP and sed rate lower than previous, admission at two and sed rate of 19, slightly elevated and improved from last time. ED Course: - Case discussed with Dr. Prakash, recommends CT imaging and labs. - Lactate 3.8, repeat 2.2. - Low clinical suspicion for sepsis. - CT scan ordered, pending interpretation. -placed in boot and will need close outpatinent reassessment. Final Assessment: Recurrent postoperative infection with low clinical suspicion for sepsis. CT imaging and labs recommended by Dr. Quevedo. Lactate levels improved. Clinical Impression: - Recurrent postoperative infection - Low clinical suspicion for sepsis MDM Components Evaluation: - Number of Differential Diagnoses or Management Options: Recurrent postoperative infection, low clinical suspicion for sepsis. - Amount and Complexity of Data Reviewed: CBC, LFTs, CRP, sed rate, lactate levels, CT scan pending interpretation. - Risk of Complication and Morbidity or Mortality: Low clinical suspicion for sepsis, elevated LFTs consistent with history of alcoholism. Quality:SDOH Health Related Social Needs: Health related social needs risk of homeless transpo i nsecurity Health related social needs details will not have hous ing after March 2025 [facility] All Active Problems (Updated 04/11/25 @ 15:51 by AISHA Betancur) Post op infection (Acute) Gout (Chronic) Cellulitis of right ankle (Acute) Cellulitis of right lower extremity from knee to ankle (Acute) Cellulitis and abscess of right lower extremity (Acute) Post op infection (Acute) Chronic pain of right ankle (Acute) Chronic venous stasis dermatitis (Acute) Alcoholic fatty liver (Acute) Left shoulder pain (Acute) Fatty liver (Acute) Excessive drinking alcohol (Acute) Abdominal distension (Acute) Closed fracture of right distal fibula (Acute) Obstructive sleep apnea (Chronic) Tobacco abuse (Chronic) Surgical wound dehiscence (Acute) Postoperative wound infection (Acute) No-show for appointment (Acute) Myalgia due to statin (Acute) pt stopped .. ref to clin pharm to maybe subst Chondromalacia patellae of left knee (Acute) Left knee pain (Acute) Hyperlipidemia (Chronic) Dental infection (Acute) Severe obstructive sleep apnea (Acute) 12/17/20 sleep study [facility] Oral thrush (Acute) Otitis media of left ear (Acute) Pharyngitis (Acute) Depression (Chronic) ADHD (Acute) Anxiety (Chronic) GERD (gastroesophageal reflux disease) (Chronic) History of substance abuse (Acute) Asthma (Chronic) Hypertension (Chronic) Medical History (Updated 04/11/25 @ 15:51 by AISHA Betancur) Constipation Family History Mother Substance abuse Brother Substance abuse Uncle Anxiety Depression Other Diabetes Hypertension Liver cancer Social History Smoking/Tobacco Use Status: Current every day Tobacco Type: cigarettes Smoking packs per day: 1 Smoking cigarettes per day: 20.0 Years smoked: 15 Smoking pack- years: 15.00 Tobacco: How many years used: 19 Quit status: considering quitting Second Hand Exposure: Yes Smoking risk assessment performed?: Yes Alcohol Intake: current Alcohol Intake frequency: 3 or more drinks per day Alcohol type: beer and hard liquor Previous attempts at quittin Drug use: Daily Substance use type: former substance user Date of last use: 07/01/2020, marijuana and opiates Details: Daily user of Marijuana Adopted: No Caregiver/Support person: No Foster care: No Household members: family and none Housing: other Number of Children: 0 number of grandchildren: 0 Communication Needs: None Education Level: high school Do you need help understanding health information?: Often 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 Pets and animals: Yes (1) Pets and animals: dog(s) Sexually active: No Do you think of yourself as: straight/heterosexual Current gender identity: male What is your relationship status?: never How often do you talk on the phone with friends or family?: once per week How often do you get together with friends or relatives?: once per week Do you belong to any clubs or organized social groups?: no Panel score (0-1 are the most socially isolated patients): 0 Duration: < 15 minutes/day Frequency: 1-2 times per week Charu/Druze: None Seatbelt use: sometimes Helmet use: No (Never) Drive intox or ride w/intox chuck wagon driver: No Do you feel safe at home: Yes Do you feel safe in your relationship?: Yes Additional Social history: [facility]
[2025-04-11 15:46] LABS: Lactate 1.3 mmol/L (<or=2.0)
--- NOTE | 2025-04-11 16:28 | DI.VRAD_ITS ---
PROCEDURE INFORMATION: Exam: CT Right Lower Extremity With Contrast, Leg Exam date and time: 04/11/2025 2:22 PM Age: 34 years old Clinical indication: Cellulitis; Ankle and lower leg; Right TECHNIQUE: Imaging protocol: CT of the right lower extremity with intravenous contrast was performed. Exam focused on the lower leg. Radiation optimization: All CT scans at this facility use at least one of these dose optimization techniques: automated exposure control; mA and/or kV adjustment per patient size (includes targeted exams where dose is matched to clinical indication); or iterative reconstruction. Contrast material: OMNI 350; Contrast volume: 100 ml; Contrast route: INTRAVENOUS (IV); COMPARISON: No relevant prior studies available. FINDINGS: Bones/joints: Bony alignment is anatomic. No evidence for bony abnormality other than postsurgical changes. Soft tissues: There is diffuse subcutaneous edema from the mid calf level to the ankle. The patient is status post ORIF right fibular and medial malleolar fractures. Edema extends to the lateral aspect of the foot along the dorsum. There is associated skin edema. No drainable collection is identified. Other findings: Slight motion noted. IMPRESSION: 1. Diffuse distal calf, ankle and foot edema as noted. Pattern could be consistent with cellulitis in the appropriate clinical setting. 2. Status post ORIF by malleolar fractures. No acute bony abnormality evident. Dictated and Authenticated by: Ro Puente MD. Orderin Apollo Sanchez MD
== END 2025-04-11 16:49 | disposition home or self-care (01) ==
PROVIDERS: Emergency Provider Physician Assistant; PCP Family Medicine
DX: T81.40XA Infection following a procedure, unspecified, initial encounter (principal); L02.415 Cutaneous abscess of right lower limb; I10 Essential (primary) hypertension; F17.210 Nicotine dependence, cigarettes, uncomplicated
CPT/HCPCS: 80053; 85652; 87040; 87077; 99285; 73701; 83605; 85025; 86140; 87070; 87186; 87205; 99284; J3490

== ENCOUNTER 2025-05-07 18:43 | Emergency (ER) | payer MEDICAID, SELFPAY ==
[2025-05-07 18:48] VITALS: BP 119/78; PULSE 112; RESP 20; TEMP 37.1; O2SAT 92
[2025-05-07] MEDS: Fluorescein STRIPS 100/BOX 1 MG OP (19:43)
[2025-05-07] MEDS: Tetracaine 0.5% 4 ML BTL (19:43)
[2025-05-07] MEDS: Erythromycin Ophth Oint 3.5 GM TUBE OD (20:17)
[2025-05-07] MEDS: Cephalexin 500 MG CAP, 4 CAPS/BTL PO (20:18)
--- NOTE | 2025-05-07 23:37 | W.ED.GENAD ---
Discharge Plan Disposition Patient Disposition: Home Condition: Stable Discharge Details Clinical Impression: Conjunctivitis, Periorbital edema Primary Care Provider: Willis Henderson ED Provider: Laura Bustillos Home Meds and New Rx's Prescriptions: New cephalexin 500 mg capsule 500 mg PO Q6H 7 Days Qty: 28 0RF Continued bupropion HCl 150 mg tablet extended release 24 hr 150 mg PO QAM Qty: 90 3RF naltrexone 50 mg tablet 50 mg PO DAILY Qty: 60 3RF allopurinol 300 mg tablet 300 mg PO DAILY Qty: 90 3RF omeprazole 40 mg capsule,delayed release(DR/EC) 40 mg PO DAILY Qty: 90 3RF budesonide-formoterol [Symbicort] 160-4.5 mcg/actuation HFA aerosol inhaler 2 puff inhalation BID Qty: 10.2 6RF bisacodyl 5 mg tablet,delayed release (DR/EC) 10 mg PO BID PRN acetaminophen 500 mg tablet 1,000 mg PO Q8H PRN (Reason: pain) Qty: 90 3RF albuterol sulfate 90 mcg/actuation HFA aerosol inhaler 2 puff inhalation Q4H PRN (Reason: shortness of breath or wheezing) Qty: 18 6RF ibuprofen 600 mg tablet 600 mg PO Q6H PRN Patient Comments: TAKE ONE TABLET BY MOUTH TWICE A DAY NEEDED FOR PAIN losartan 50 mg Tablet 50 mg PO DAILY Qty: 30 0RF clindamycin HCl [Cleocin HCl] 150 mg capsule 450 mg PO TID Qty: 90 0RF Patient Comments: Pt states he has not completed yet; skipped a few days. Pt has now re-started. Discharge Instructions Instructions: Conjunctivitis ([facility]) ED Additional Instructions: Take the antibiotics as prescribed, cool compresses to your eye for 10 minutes every hour Use the eyedrops as prescribed and take the antibiotics as prescribed You may try taking 25 of Benadryl to see if it helps with the swelling Recheck in 48 hours return earlier spreading redness fever worsening pain Referrals: Willis Henderson DO [Primary Care Provider, Medicine] Discharge Data Discharge Date/Time-TO BE ENTERED AT DEPARTURE: 05/07/25 20:18 HPI General Date/Time Provider Initiated Documentation: 05/07/25 19:06. HPI Narrative: The patient is a 34-year-old male who presents with right eye pain. He reports waking up this morning with his right upper eyelid everted, which he had to manually reposition. Since then, he has experienced irritation in the eye. He does not report any changes in vision or use of contact lenses. He also does not report any associated fever, chills, or known trauma. He has noticed some discharge from the eye but does not report any pain. Related Data Home Medications ?Medication ?Instructions ?Recorded ?Confirmed acetaminophen 500 mg tablet 1,000 mg (2 x 500 mg) PO Q8H PRN 02/10/24 05/07/25 pain #90 tabs albuterol sulfate 90 mcg/actuation 2 puff inhalation Q4H PRN 02/10/24 05/07/25 aerosol inhaler shortness of breath or wheezing #18 grams allopurinol 300 mg tablet 300 mg PO DAILY #90 tabs 03/02/24 05/07/25 omeprazole 40 mg capsule,delayed 40 mg PO DAILY #90 caps 03/02/24 05/07/25 release budesonide-formoterol HFA 160 2 puff inhalation BID #10.2 grams 07/09/24 05/07/25 mcg-4.5 mcg/actuation aerosol inhaler (Symbicort) bupropion HCl 150 mg 24 hr tablet, 150 mg PO QAM #90 tabs 12/01/24 05/07/25 extended release naltrexone 50 mg tablet 50 mg PO DAILY #60 tabs 12/01/24 05/07/25 ibuprofen 600 mg tablet 600 mg PO Q6H PRN 03/06/25 05/07/25 losartan 50 mg tablet 50 mg PO DAILY #30 tabs 03/08/25 05/07/25 bisacodyl 5 mg tablet,delayed 10 mg PO BID PRN 03/09/25 05/07/25 release clindamycin HCl 150 mg capsule 450 mg (3 x 150 mg) PO TID #90 caps 04/11/25 05/07/25 (Cleocin HCl) cephalexin 500 mg capsule 500 mg PO Q6H 7 days #28 caps 05/07/25 Previous Rx's ?Medication ?Instructions ?Recorded acetaminophen 500 mg tablet 1,000 mg (2 x 500 mg) PO Q8H PRN 02/10/24 pain #90 tabs albuterol sulfate 90 mcg/actuation 2 puff inhalation Q4H PRN 02/10/24 aerosol inhaler shortness of breath or wheezing #18 grams allopurinol 300 mg tablet 300 mg PO DAILY #90 tabs 03/02/24 omeprazole 40 mg capsule,delayed 40 mg PO DAILY #90 caps 03/02/24 release budesonide-formoterol HFA 160 2 puff inhalation BID #10.2 grams 07/09/24 mcg-4.5 mcg/actuation aerosol inhaler (Symbicort) bupropion HCl 150 mg 24 hr tablet, 150 mg PO QAM #90 tabs 12/01/24 extended release naltrexone 50 mg tablet 50 mg PO DAILY #60 tabs 12/01/24 losartan 50 mg tablet 50 mg PO DAILY #30 tabs 03/08/25 clindamycin HCl 150 mg capsule 450 mg (3 x 150 mg) PO TID #90 caps 04/11/25 (Cleocin HCl) cephalexin 500 mg capsule 500 mg PO Q6H 7 days #28 caps 05/07/25 Allergies Allergy/AdvReac Type Severity Reaction Status Date / Time codeine Allergy Intermediate rash Verified 05/07/25 18:53 atorvastatin AdvReac myalgias Verified 05/07/25 18:53 General Stated Complaint: EyeProblem JASON: 3 Exam Narrative Exam Narrative: General Appearance: Alert and oriented, no acute distress. Vital signs: Within normal limits. HEENT: Conjunctiva injected. Pupils equal, round, reactive to light and accommodation. Nontender eye exam. Soft orbit, no crepitus. Swelling in right upper lid. No stye, hordeolum, induration, or drainage. Extraocular muscles intact. Visual acuity 20/15 right eye, 20/20 left eye, uncorrected. Respiratory: Within normal limits. Skin: Warm and dry, no rash. Neurological: Normal. Course Vital Signs Vital signs: Vital Signs Temperature 37.1 C 05/07/25 18:48 Pulse 112 H 05/07/25 18:48 Respiratory Rate 20 05/07/25 18:48 Blood Pressure 119/78 05/07/25 18:48 Pulse Oximetry 92 05/07/25 18:48 Temperature 37.1 C 05/07/25 18:48 Temperature Source Oral 05/07/25 18:48 Pulse 112 H 05/07/25 18:48 Respiratory Rate 20 05/07/25 18:48 Blood Pressure 119/78 05/07/25 18:48 Blood Pressure Position Sitting 05/07/25 18:48 Pulse Oximetry 92 05/07/25 18:48 Oxygen Delivery Method Room Air 05/07/25 18:48 Oxygen Flow Rate 0 05/07/25 18:48 Pain Level 0 05/07/25 18:48 Medical Decision Making Initial Assessment: 34-year-old male with right eye pain, irritation after waking with everted right upper eyelid. No vision change, pain, or contact lens use. Conjunctival injection, swelling of right upper lid, no stye, hordeolum, or drainage. Visual acuity 20/15 right eye, 20/20 left eye, uncorrected. ED Course: - Urinalysis shows no evidence of infection. - Initiate erythromycin and Keflex. - Recommend cool compresses. - Reviewed return precautions. - Recheck recommended in 24 to 48 hours. Final Assessment: Patient treated with erythromycin and Keflex, cool compresses recommended. Return precautions reviewed and recheck advised in 24 to 48 hours. Clinical Impression: - Right eye pain Disposition: - Discharge Follow-Up: - Recheck in 24 to 48 hours MDM Components Evaluation: - Number of Differential Diagnoses or Management Options: Right eye pain - Amount and Complexity of Data Reviewed: Urinalysis - Risk of Complication and Morbidity or Mortality: Low risk based on current condition and treatment plan. Quality:SDOH Health Related Social Needs: Health related social needs risk of homeless transpo insecurity Health related social needs details will not have housing after March 2025 [facility] All Active Problems (Updated 05/07/25 @ 19:54 by AISHA Betancur) Periorbital edema (Acute) Conjunctivitis (Acute) Post op infection (Acute) Gout (Chronic) Cellulitis of right ankle (Acute) Cellulitis of right lower extremity from knee to ankle (Acute) Cellulitis and abscess of right lower extremity (Acute) Post op infection (Acute) Chronic pain of right ankle (Acute) Chronic venous stasis dermatitis (Acute) Alcoholic fatty liver (Acute) Left shoulder pain (Acute) Fatty liver (Acute) Excessive drinking alcohol (Acute) Abdominal distension (Acute) Closed fracture of right distal fibula (Acute) Obstructive sleep apnea (Chronic) Tobacco abuse (Chronic) Surgical wound dehiscence (Acute) Postoperative wound infection (Acute) No-show for appointment (Acute) Myalgia due to statin (Acute) pt stopped .. ref to clin pharm to maybe subst Chondromalacia patellae of left knee (Acute) Left knee pain (Acute) Hyperlipidemia (Chronic) Dental infection (Acute) Severe obstructive sleep apnea (Acute) 12/17/20 sleep study [facility] Oral thrush (Acute) Otitis media of left ear (Acute) Pharyngitis (Acute) Depression (Chronic) ADHD (Acute) Anxiety (Chronic) GERD (gastroesophageal reflux disease) (Chronic) History of substance abuse (Acute) Asthma (Chronic) Hypertension (Chronic) Medical History (Updated 05/07/25 @ 19:54 by AISHA Betancur) Constipation Family History Mother Substance abuse Brother Substance abuse Uncle Anxiety Depression Other Diabetes Hypertension Liver cancer Social History Smoking/Tobacco Use Status: Current every day Tobacco Type: cigarettes Smoking packs per day: 1 Smoking cigarettes per day: 20.0 Years smoked: 15 Smoking pack-years: 15.00 Tobacco: How many years used: 19 Quit status: considering quitting Second Hand Exposure: Yes Smoking risk assessment performed?: Yes Alcohol Intake: current Alcohol Intake frequency: 3 or more drinks per day Alcohol type: beer and hard liquor Previous attempts at quittin Drug use: Daily Substance use type: marijuana and opiates Details: Daily user of Marijuana Adopted: No Caregiver/Support person: No Foster care: No Household members: family and none Housing: other Number of Children: 0 number of grandchildren: 0 Communication Needs: None Education Level: high school Do you need help understanding health information?: Often 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 Pets and animals: Yes (1) Pets and animals: dog(s) Sexually active: No Do you think of yourself as: straight/heterosexual Current gender identity: male What is your relationship status?: never How often do you talk on the phone with friends or family?: once per week How often do you get together with friends or relatives?: once per week Do you belong to any clubs or organized social groups?: no Panel score (0-1 are the most socially isolated patients): 0 Duration: < 15 minutes/day Frequency: 1-2 times per week Charu/Confucianism: None Seatbelt use: sometimes Helmet use: No (Never) Drive intox or ride w/intox otr company driver: No Do you feel safe at home: Yes Do you feel safe in your relationship?: Yes Additional Social history: ANTWON MARTIN CELENA Have you Been Recently Intoxicated or Drunk Within the Last 30 days?: Yes Have you Ever Experienced Previous Episodes of Alcohol Withdrawal?: Yes Have you ever Experienced Withdrawal Seizures?: No Have you ever Experienced Delirium Tremens(DT)s?: No Have you ever undergone Alcohol Rehabilitation Treatment (i.e, inpt ot outpatient treatment programs)?: Yes Have you ever Experienced Blackouts?: Yes Have you ever Combined Alcohol with other Downers within the last 90 days?: No Have you ever Combined Alcohol with any other Substance of Abuse during the last 90 days?: No Positive Blood Alcohol level on Presentation? [PCS.BAL]: Unable to Obtain Evidence of Increased Autonomic Activity (i.e. HR>120, tremor, sweating, agitation, nausea)?: No Result: 4
== END 2025-05-07 20:18 | disposition home or self-care (01) ==
PROVIDERS: Emergency Provider Physician Assistant; PCP Family Medicine
DX: H05.221 Edema of right orbit (principal); H10.31 Unspecified acute conjunctivitis, right eye
CPT/HCPCS: 99283

== ENCOUNTER 2025-05-18 11:33 | Emergency (ER) | payer MEDICAID, SELFPAY ==
[2025-05-18 11:39] VITALS: BP 146/100; PULSE 93; RESP 16; TEMP 36.5; O2SAT 90
[2025-05-18] MEDS: Balanced Salt Solution 15 ML BTL OP (12:04)
[2025-05-18] MEDS: Fluorescein STRIPS 100/BOX 1 MG OP (12:05)
[2025-05-18] MEDS: Tetracaine 0.5% 4 ML BTL OP (12:05)
--- NOTE | 2025-05-18 13:12 | DI.CT_ITS ---
Exam(s) CT ORBITS W EXAM: CT ORBITS W CLINICAL HISTORY: Left eye swelling, R/O orbital cellulitis. TECHNIQUE: Imaging Protocol: Axial computed tomography images with coronal and sagittal reformatted images were created and reviewed CONTRAST MATERIAL: Intravenous: Omnipaque 350 Contrast volume:100mL COMPARISON: No exams were available for comparison FINDINGS: Globes: The left lacrimal gland appears enlarged compared to the right. This may reflect infection/dacryoadenitis. There is left periorbital edema. No inflammatory changes are seen in the retro-orbital soft tissues. There is no focal fluid collection is seen to suggest an abscess. Optic Nerves: Normal. Extraocular muscles: The extraocular muscles are unremarkable. Retrobulbar fat: Normal. Orbital clark: No definite fracture is noted. Superior ophthalmic veins: Normal. Sinuses: Unremarkable. Soft Tissues: There is left periorbital soft tissue swelling. IMPRESSION: Left periorbital soft tissue swelling. Enlargement of the left lacrimal gland. The findings are suspicious for inflammation or/infection with a left periorbital cellulitis and dacryoadenitis. There is no focal fluid collection to suggest an abscess. RADIATION DOSE DELIVERED: 302.96mGy.cm Total DLP 302.96mGy.cm Total DLP DATA REPOSITORY: All CT scans at this facility are submitted to the National Radiology Data Registry (NRDR) Dose Index Registry (DIR) with the [employer] (A[employer]). RADIATION OPTIMIZATION: All CT scans at this facility use at least one of these dose optimization techniques: automated exposure control; mA and/or kV adjustment per patient size (includes targeted exams where dose is matched to clinical indication); or iterative reconstruction.
--- NOTE | 2025-05-18 13:16 | W.ED.GENAD ---
Discharge Plan Disposition Patient Disposition: Home Condition: Stable Discharge Details Clinical Impression: Preseptal cellulitis of left eye Primary Care Provider: Willis Henderson ED Provider: Brandee Seals Home Meds and New Rx's Prescriptions: New cefpodoxime 200 mg tablet 400 mg PO BID 10 Days Qty: 40 0RF Rx Instructions: must administer with a meal/food take 2 tablets twice daily for the next 10 days No Action bupropion HCl 150 mg tablet extended release 24 hr 150 mg PO QAM Qty: 90 3RF naltrexone 50 mg tablet 50 mg PO DAILY Qty: 60 3RF allopurinol 300 mg tablet 300 mg PO DAILY Qty: 90 3RF omeprazole 40 mg capsule,delayed release(DR/EC) 40 mg PO DAILY Qty: 90 3RF budesonide-formoterol [Symbicort] 160-4.5 mcg/actuation HFA aerosol inhaler 2 puff inhalation BID Qty: 10.2 6RF Zepbound 2.5 mg/0.5 mL pen injector 2.5 mg subcut QWEEK Qty: 2 0RF Rx Instructions: for 4 weeks bisacodyl 5 mg tablet,delayed release (DR/EC) 10 mg PO BID PRN acetaminophen 500 mg tablet 1,000 mg PO Q8H PRN (Reason: pain) Qty: 90 3RF albuterol sulfate 90 mcg/actuation HFA aerosol inhaler 2 puff inhalation Q4H PRN (Reason: shortness of breath or wheezing) Qty: 18 6RF ibuprofen 600 mg tablet 600 mg PO Q6H PRN Patient Comments: TAKE ONE TABLET BY MOUTH TWICE A DAY NEEDED FOR PAIN losartan 50 mg Tablet 50 mg PO DAILY Qty: 30 0RF clindamycin HCl [Cleocin HCl] 150 mg capsule 450 mg PO TID Qty: 90 0RF Patient Comments: Pt states he has not completed yet; skipped a few days. Pt has now re-started. Discharge Instructions Instructions: Preseptal Cellulitis ED Additional Instructions: It appears you have a moderate to severe infection around your left eye. Try not to touch or rub your eye, wash your hands before touching your eye, change her pillowcases and wash towels in hot water. Please use the erythromycin ointment that you were given here today as directed 3 times a day for the next 5 to 7 days along the lower eyelid. Also take the oral antibiotics as prescribed, you will take 2 tablets twice a day for the next 10 days. Please take this with yogurt or a probiotic as directed. If you have no improvement in the next 3 to 5 days please follow-up with [facility] eye care. Call them for an appointment. Follow up with primary care provider in 3-5 days. Return to ED sooner if any worsening or concerns. Stand Alone Forms: Work Release Referrals: [facility] [Outside] - Return if symptoms worsen Clinical Impression: Preseptal cellulitis of left eye Willis Henderson DO [Primary Care Provider, Medicine] - 2 weeks Referral Note: ER follow up HPI General Date/Time Provider Initiated Documentation: 05/18/25 11:55. Related Data Home Medications ?Medication ?Instructions ?Recorded ?Confirmed acetaminophen 500 mg tablet 1,000 mg (2 x 500 mg) PO Q8H PRN 02/10/24 05/18/25 pain #90 tabs albuterol sulfate 90 mcg/actuation 2 puff inhalation Q4H PRN 02/10/24 05/18/25 aerosol inhaler shortness of breath or wheezing #18 grams allopurinol 300 mg tablet 300 mg PO DAILY #90 tabs 03/02/24 05/18/25 omeprazole 40 mg capsule,delayed 40 mg PO DAILY #90 caps 03/02/24 05/18/25 release budesonide-formoterol HFA 160 2 puff inhalation BID #10.2 grams 07/09/24 05/18/25 mcg-4.5 mcg/actuation aerosol inhaler (Symbicort) bupropion HCl 150 mg 24 hr tablet, 150 mg PO QAM #90 tabs 12/01/24 05/18/25 extended release naltrexone 50 mg tablet 50 mg PO DAILY #60 tabs 12/01/24 05/18/25 ibuprofen 600 mg tablet 600 mg PO Q6H PRN 03/06/25 05/18/25 losartan 50 mg tablet 50 mg PO DAILY #30 tabs 03/08/25 05/18/25 bisacodyl 5 mg tablet,delayed 10 mg PO BID PRN 03/09/25 05/18/25 release Held on 05/18/25. Instructions: Pt Stopped/Never Started clindamycin HCl 150 mg capsule 450 mg (3 x 150 mg) PO TID #90 caps 04/11/25 05/18/25 (Cleocin HCl) tirzepatide (weight loss) 2.5 2.5 mg (0.5 mL) subcut QWEEK #2 mL 05/11/25 05/18/25 mg/0.5 mL subcutaneous pen injector (Zepbound) Held on 05/18/25. Instructions: Pt Stopped/Never Started cefpodoxime 200 mg tablet 400 mg (2 x 200 mg) PO BID 05/18/25 preseptal Cellulitis 10 days #40 tabs Previous Rx's ?Medication ?Instructions ?Recorded acetaminophen 500 mg tablet 1,000 mg (2 x 500 mg) PO Q8H PRN 02/10/24 pain #90 tabs albuterol sulfate 90 mcg/actuation 2 puff inhalation Q4H PRN 02/10/24 aerosol inhaler shortness of breath or wheezing #18 grams allopurinol 300 mg tablet 300 mg PO DAILY #90 tabs 03/02/24 omeprazole 40 mg capsule,delayed 40 mg PO DAILY #90 caps 03/02/24 release budesonide-formoterol HFA 160 2 puff inhalation BID #10.2 grams 07/09/24 mcg-4.5 mcg/actuation aerosol inhaler (Symbicort) bupropion HCl 150 mg 24 hr tablet, 150 mg PO QAM #90 tabs 12/01/24 extended release naltrexone 50 mg tablet 50 mg PO DAILY #60 tabs 12/01/24 losartan 50 mg tablet 50 mg PO DAILY #30 tabs 03/08/25 clindamycin HCl 150 mg capsule 450 mg (3 x 150 mg) PO TID #90 caps 04/11/25 (Cleocin HCl) tirzepatide (weight loss) 2.5 2.5 mg (0.5 mL) subcut QWEEK #2 mL 05/11/25 mg/0.5 mL subcutaneous pen injector (Zepbound) Held on 05/18/25. Instructions: Pt Stopped/Never Started cefpodoxime 200 mg tablet 400 mg (2 x 200 mg) PO BID 05/18/25 preseptal Cellulitis 10 days #40 tabs Allergies Allergy/AdvReac Type Severity Reaction Status Date / Time codeine Allergy Intermediate rash Verified 05/18/25 11:44 atorvastatin AdvReac myalgias Verified 05/18/25 11:44 General Stated Complaint: EyeProblem JASON: 3 Exam Const General: intoxicated appearing and lethargic Nutritional Appearance: obese morbidly obese Orientation: other (Appears somnolent frequently falls asleep during my assessment he attribute) [facility] Head: normal to inspection Ears: hearing grossly normal bilaterally, external ears normal and TM's normal bilaterally General nose exam: external nose normal Face and sinus: normal facial exam, sinuses nontender, erythema on the left periorbital and edema on the left periorbital Teeth and gingiva: caries and poor dentition Throat: posterior oropharynx normal Eyes Visual Chao: normal visual chao by confrontation Alignment and Position: position normal Periorbital: periorbital findings abnormal left periorbital swelling and periorbital erythema Eyelids: eyelid abnormality left upper eyelid swelling and tenderness Conjunctivae: conjunctival abnormality left conjunctival injection diffuse and discharge purulent; without subconjunctival hemmorhages Sclera: scleral abnormality left scleral injection diffuse; without exudates and without foreign bodies Cornea: corneas normal and fluorescein used Pupils: pinpoint bilaterally (3mm) EOM: EOM intact bilaterally Direct ophthalmoscopy: normal light reflex Neck Neck: normal visual inspection Lymphatic: no lymphadenopathy noted (Slightly limited by patient body habitus) Course Vital Signs Vital signs: Vital Signs Temperature 36.5 C 05/18/25 11:39 Pulse 93 H 05/18/25 11:39 Respiratory Rate 16 05/18/25 11:39 Blood Pressure 146/100 H 05/18/25 11:39 Pulse Oximetry 90 L 05/18/25 11:39 Temperature 36.5 C 05/18/25 11:39 Pulse 93 H 05/18/25 11:39 Respiratory Rate 16 05/18/25 11:39 Blood Pressure 146/100 H 05/18/25 11:39 Blood Pressure Position Sitting 05/18/25 11:39 Pulse Oximetry 90 L 05/18/25 11:39 Oxygen Delivery Method Room Air 05/18/25 11:39 Oxygen Flow Rate 0 05/18/25 11:39 Pain Level 0 05/18/25 11:39 Lab/Test Results Lab/Test Results: 05/18/25 11:55 Eye - Left Eye Culture - Pending Medical Decision Making 34-year-old male presents to the ER with a chief complaint of left eye swollen red with purulent discharge that he states he woke up with this morning. He was here 2 weeks ago and was treated for right sided conjunctivitis which has since resolved. He was treated with erythromycin ointment. He also has concern for some redness and swelling in his wound of his right lower leg that began in October. He does have a past medical history of high cholesterol, obesity, GERD, reported sleep apnea, what On my initial exam he is somnolent and frequently falls asleep during my assessment and questioning, he does have intact EOMs with injected cornea, no foreign body visualized with Argueta lamp exam or corneal abrasion. He has of severely swollen left upper eyelid. Poor dentition, no signs of bilateral otitis media denies any headache. I do suspect preseptal cellulitis however we will give a CT of his orbit to rule out orbital cellulitis along with CRP ESR CBC and CMP. Erythromycin ointment ordered. Cultures obtained and sent for gonorrhea chlamydia and a bacterial culture CBC shows no leukocytosis, monocytes 0.90, sodium potassium within normal limits, anion gap is 2.7 which is low BUN is low creatinine is low AST is elevated at 65 ALT is 67 cultures are pending at this time. For preseptal cellulitis pending CT result. Clindamycin 4 and 50 mg p.o. ordered and erythromycin ointment. Expected disposition is discharge pending CT result. CT shows left periorbital soft tissue swelling enlargement of the left lacrimal gland suspicious for inflammation or infection with the left periorbital cellulitis and dacryoadenitis. No focal fluid collection to suggest an abscess. No inflammatory changes are seen in the retro-orbital soft tissues. Prescription given for cefpodoxime to treat for preseptal cellulitis and also will give erythromycin ointment which patient has had on the other eye with success. Will encouraged close follow-up that should be family eye care. This text was generated using [employer] dictation system, please disregard any oddities of phrase or misspellings. Imaging Data Radiologic Study: Imaging: CT Scan Radiologist's impression: XAM: CT ORBITS W CLINICAL HISTORY: Left eye swelling, R/O orbital cellulitis. TECHNIQUE: Imaging Protocol: Axial computed tomography images with coronal and sagittal reformatted images were created and reviewed CONTRAST MATERIAL: Intravenous: Omnipaque 350 Contrast volume:100mL COMPARISON: No exams were available for comparison FINDINGS: Globes: The left lacrimal gland appears enlarged compared to the right. This may reflect infection/dacryoadenitis. There is left periorbital edema. No inflammatory changes are seen in the retro-orbital soft tissues. There is no focal fluid collection is seen to suggest an abscess. Optic Nerves: Normal. Extraocular muscles: The extraocular muscles are unremarkable. Retrobulbar fat: Normal. Orbital clark: No definite fracture is noted. Superior ophthalmic veins: Normal. Sinuses: Unremarkable. Soft Tissues: There is left periorbital soft tissue swelling. IMPRESSION: Left periorbital soft tissue swelling. Enlargement of the left lacrimal gland. The findings are suspicious for inflammation or/infection with a left periorbital cellulitis and dacryoadenitis. There is no focal fluid collection to suggest an abscess. Lab Data Labs: 05/18/25 13:13 Eye - Left Eye Culture - Pending Laboratory Tests Range/Units 05/18/25 13:47 WBC (4.4-10.8) 10^3/uL 8.51 RBC (4.36-5.78) 10^6/uL 4.94 Hgb (13.5-17.5) g/dL 14.6 Hct (40.0-50.0) % 47.6 MCV (80-95) fL 96 H MCH (27.0-33.0) pg 29.6 MCHC (32.0-36.0) % 30.7 L RDW (11.8-14.1) % 13.1 Plt Count (130-400) 10^3/uL 257 MPV (8.0-11.0) fL 9.2 Immature Gran % % 0.4 Neutrophils % % 63.9 Lymphocytes % % 22.1 Monocytes % % 10.6 Eosinophils % % 2.6 Basophils % % 0.4 Nucleated RBC % (0.0-0.3) % 0.0 Absolute Neutrophils (1.2-6.7) 10^3/uL 5.45 Absolute Lymphocytes (1.2-3.4) 10^3/uL 1.88 Absolute Monocytes (0.1-0.8) 10^3/uL 0.90 H Absolute Eosinophils (0.0-0.7) 10^3/uL 0.22 Absolute Basophils (0.0-0.2) 10^3/uL 0.03 ESR (0-15) mm/hr 12 Sodium (136-145) mmol/L 140 Potassium (3.5-5.1) mmol/L 4.2 Chloride (98-107) mmol/L 100 Carbon Dioxide (21.0-32.0) mmol/L 37.3 H Anion Gap (3-11) mmol/L 2.7 L BUN (7-18) mg/dL 6 L Creatinine (0.70-1.30) mg/dL 0.6 L Est GFR (CKD-EPI 2020) (mL/min/1.73m2) 129.91 Glucose (74-106) mg/dL 92 Calcium (8.5-10.1) mg/dL 8.7 Total Bilirubin (0.2-1.0) mg/dL 0.5 AST (15-37) U/L 65 H ALT (16-63) U/L 67 H Alkaline Phosphatase (46-116) U/L 116 C-Reactive Protein (<or=0.5) mg/dL 1.67 H Total Protein (6.4-8.2) g/dL 7.5 Albumin (3.4-5.0) g/dL 3.5 Quality:SDOH Health Related Social Needs: Health related social needs risk of homeless transpo insecurity Health related social needs details will not have housing after March 2025 [facility] All Active Problems (Updated 05/18/25 @ 15:21 by Brandee Seals NP) Preseptal cellulitis of left eye (Acute) Periorbital edema (Acute) Conjunctivitis (Acute) Gout (Chronic) Cellulitis of right ankle (Acute) Cellulitis of right lower extremity from knee to ankle (Acute) Cellulitis and abscess of right lower extremity (Acute) Post op infection (Acute) Chronic pain of right ankle (Acute) Chronic venous stasis dermatitis (Acute) Alcoholic fatty liver (Acute) Left shoulder pain (Acute) Fatty liver (Acute) Excessive drinking alcohol (Acute) Abdominal distension (Acute) Closed fracture of right distal fibula (Acute) Obstructive sleep apnea (Chronic) Tobacco abuse (Chronic) Surgical wound dehiscence (Acute) Postoperative wound infection (Acute) No-show for appointment (Acute) Myalgia due to statin (Acute) pt stopped .. ref to clin pharm to maybe subst Chondromalacia patellae of left knee (Acute) Left knee pain (Acute) Hyperlipidemia (Chronic) Dental infection (Acute) Severe obstructive sleep apnea (Acute) 12/17/20 sleep study [facility] Oral thrush (Acute) Otitis media of left ear (Acute) Pharyngitis (Acute) Depression (Chronic) ADHD (Acute) Anxiety (Chronic) GERD (gastroesophageal reflux disease) (Chronic) History of substance abuse (Acute) Asthma (Chronic) Hypertension (Chronic) Medical History (Updated 05/18/25 @ 15:21 by Brandee Seals NP) Constipation Family History Mother Substance abuse Brother Substance abuse Uncle Anxiety Depression Other Diabetes Hypertension Liver cancer Social History (Updated 05/11/25 @ 12:01 by Rosalba Chavarria CMA) Smoking/Tobacco Use Status: Current every day Tobacco Type: cigarettes Smoking packs per day: 1 Smoking cigarettes per day: 20.0 Years smoked: 15 Smoking pack-years: 15.00 Tobacco: How many years used: 19 Quit status: considering quitting Second Hand Exposure: Yes Smoking risk assessment performed?: Yes Alcohol Intake: current Alcohol Intake frequency: 3 or more drinks per day Alcohol type: beer and hard liquor Previous attempts at quittin Drug use: Daily Substance use type: marijuana and opiates Details: Daily user of Marijuana Adopted: No Caregiver/Support person: No Foster care: No Household members: family and none Housing: other Number of Children: 0 number of grandchildren: 0 Communication Needs: None Education Level: high school Do you need help understanding health information?: Often 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 Pets and animals: Yes (1) Pets and animals: dog(s) Sexually active: No Do you think of yourself as: straight/heterosexual Current gender identity: male What is your relationship status?: never How often do you talk on the phone with friends or family?: once per week How often do you get together with friends or relatives?: once per week Do you belong to any clubs or organized social groups?: no Panel score (0-1 are the most socially isolated patients): 0 Duration: < 15 minutes/day Frequency: 1-2 times per week Charu/Yazidi: None Seatbelt use: sometimes Helmet use: No (Never) Drive intox or ride w/intox driver messenger: No Do you feel safe at home: Yes Do you feel safe in your relationship?: Yes Additional Social history: [employer] Have you Been Recently Intoxicated or Drunk Within the Last 30 days?: Yes Have you Ever Experienced Previous Episodes of Alcohol Withdrawal?: Yes Have you ever Experienced Withdrawal Seizures?: No Have you ever Experienced Delirium Tremens(DT)s?: Unable to Obtain Have you ever undergone Alcohol Rehabilitation Treatment (i.e, inpt ot outpatient treatment programs)?: Yes Have you ever Experienced Blackouts?: Yes Have you ever Combined Alcohol with other Downers within the last 90 days?: Yes Have you ever Combined Alcohol with any other Substance of Abuse during the last 90 days?: Yes Positive Blood Alcohol level on Presentation? [PCS.BAL]: Unable to Obtain Evidence of Increased Autonomic Activity (i.e. HR>120, tremor, sweating, agitation, nausea)?: No Result: 6
[2025-05-18 14:00] LABS: Abs Immature Grans 0.03 10^3/uL (0.0-0.06); HCT 47.6 % (40.0-50.0); HGB 14.6 g/dL (13.5-17.5); Immature Grans % 0.4 %; MCH 29.6 pg (27.0-33.0); MCHC 30.7 % (32.0-36.0); MCV 96 fL (80-95); MPV 9.2 fL (8.0-11.0); Platelet Count 257 10^3/uL (130-400); RBC 4.94 10^6/uL (4.36-5.78); RDW 13.1 % (11.8-14.1); RDW-SD 46.4 fL; WBC 8.51 10^3/uL (4.4-10.8)
[2025-05-18 14:04] LABS: ESR 12 mm/hr (0-15)
[2025-05-18 14:32] LABS: ALT 67 U/L (16-63); AST 65 U/L (15-37); Albumin 3.5 g/dL (3.4-5.0); Alkaline Phosphatase 116 U/L (46-116); Anion Gap 2.7 mmol/L (3-11); BUN 6 mg/dL (7-18); Bilirubin, Total 0.5 mg/dL (0.2-1.0); C-Reactive Protein 1.67 mg/dL (<or=0.5); CO2 37.3 mmol/L (21.0-32.0); Calcium 8.7 mg/dL (8.5-10.1); Chloride 100 mmol/L (98-107); Estimated GFR 129.91 (mL/min/1.73m2); Glucose 92 mg/dL (74-106); Potassium 4.2 mmol/L (3.5-5.1); Sodium 140 mmol/L (136-145); Total Protein 7.5 g/dL (6.4-8.2)
[2025-05-18] MEDS: Omnipaque 350 MG/ML 100 ML BTL IJ (14:59)
[2025-05-18] MEDS: Normal Saline - Diluent 50 ML VIAL IJ (15:02)
[2025-05-18] MEDS: Erythromycin Ophth Oint 3.5 GM TUBE OS (15:49)
[2025-05-18] MEDS: Clindamycin 150 MG CAP 450 MG PO (15:49)
[2025-05-20 15:56] LABS: C.trach, Misc, Amplified RNA Negative (Negative); N.gonorr, Misc, Amplified RNA Negative (Negative)
== END 2025-05-18 15:58 | disposition home or self-care (01) ==
PROVIDERS: Emergency Provider Registered Nurse Emergency; PCP Family Medicine
DX: L03.213 Periorbital cellulitis (principal); R60.0 Localized edema; I10 Essential (primary) hypertension
CPT/HCPCS: 99284; 99285; 80053; 85652; 87491; 87591; 70481; 85025; 86140; 87070; J3490